=== PATIENT | male | born 1965 | race Hispanic/Latino ===

== ENCOUNTER 2019-07-05 13:16 | Inpatient (IN) | payer MEDICARE ==
[2019-07-05] MEDS ORDERED: MELATONIN 5 MG TAB PO PRN (21:59)
[2019-07-05 22:12] LABS: Chol/HDL Ratio 3.28 %
[2019-07-05] MEDS: LORazepam 1 MG TAB PO PRN (23:13)
[2019-07-05] MEDS: diphenhydrAMINE 25 MG CAP PO SCH (23:13)
[2019-07-05] MEDS: BENZTROPINE 0.5 MG TAB PO SCH (23:13)
[2019-07-05] MEDS: HALOPERIDOL 5 MG TAB PO SCH (23:13)
[2019-07-06] MEDS: OXcarbazepine 300 MG TAB PO SCH ×3 (01:00→22:19)
[2019-07-06] MEDS: BENZTROPINE 0.5 MG TAB PO SCH ×3 (08:45→22:23)
[2019-07-06] MEDS: diphenhydrAMINE 25 MG CAP PO SCH ×3 (08:45→22:23)
[2019-07-06] MEDS: HALOPERIDOL 5 MG TAB PO SCH (09:24)
--- NOTE | 2019-07-06 09:42 | Consultation ---
History of Present Illness - Reason for Consult Consult date: 07/06/19 medical Mx - History of Present Illness This is a 53 y/o male with h/o DM, HTN, schizophrenia who discharged from hospital after being treated for AMS and respiratory failure due to PNA required intubation and iv abx now admitted to inpt psych unit for acute psychosis. Patient has disorganized thought process and cannot articulate any fact and appears slightly agitated and irritable. Hospitalist service requested for medical Mx. Past History Past Medical History: stroke, DM, HTN, other (schizophrenia) Past Surgical History: Other (unknown) Social history: Family history: other (unknown) Review of System: Unobtainable due to his mental status Medications and Allergies Allergies Allergy/AdvReac Type Severity Reaction Status Date / Time aripiprazole [From Abilify] Allergy Hives Verified 06/27/19 09:43 aspirin Allergy Hives Verified 06/27/19 09:43 cephalexin [From Keflex] Allergy Hives Verified 06/27/19 09:43 chlorpromazine Allergy Hives Verified 06/27/19 09:43 ibuprofen Allergy Hives Verified 06/27/19 09:43 naproxen Allergy Hives Verified 06/27/19 09:43 ziprasidone [From Geodon] Allergy Hives Verified 06/27/19 09:43 Home Medications Medication Instructions Recorded Confirmed Last Taken Type AtorvaSTATin [Lipitor] 40 mg PO QHS 06/27/19 07/05/19 06/26/19 History Benztropine [Cogentin] 0.5 mg PO TID 06/27/19 07/05/19 06/26/19 History Clopidogrel [Plavix] 75 mg PO QDAY 06/27/19 07/05/19 06/26/19 History Fenofibrate 160 mg PO QDAY 06/27/19 07/05/19 06/26/19 History LORazepam [Ativan] 1 mg PO TID PRN 06/27/19 07/05/19 06/26/19 History Melatonin [Melatonin 5MG CAP] 5 mg PO QHS 06/27/19 07/05/19 06/26/19 History Metoprolol [Lopressor TAB] 100 mg PO QDAY 06/27/19 07/05/19 06/26/19 History OXcarbazepine [Oxtellar XR] 600 mg PO BID 06/27/19 07/05/19 06/26/19 History Sertraline [Zoloft] 50 mg PO QDAY 06/27/19 07/05/19 06/26/19 History Sitagliptin Phos/Metformin HCl 100 mg PO QDAY 06/27/19 07/05/19 06/26/19 History [Janumet 50-1,000 mg Tablet] cloZAPine 800 mg PO QHS 06/27/19 07/05/19 06/26/19 History diphenhydrAMINE [Benadryl CAP] 25 mg PO TID 06/27/19 07/05/19 06/26/19 History Insulin Regular, Human [HumuLIN R] 0 units SUB-Q Q6HR units 07/05/19 07/06/19 Unknown Rx haloperidoL [Haldol] 5 mg PO BID tablet 07/05/19 07/05/19 Unknown Rx metFORMIN [Glucophage] 1,000 mg PO DAILY tablet 07/05/19 07/05/19 Unknown Rx Active Meds: Active Medications Atorvastatin Calcium (Lipitor) 40 mg PO QHS [facility] Last Admin: 07/05/19 23:13 Dose: 40 mg Documented by: Benztropine Mesylate (Cogentin) 0.5 mg PO TID [facility] Last Admin: 07/06/19 08:45 Dose: 0.5 mg Documented by: Diphenhydramine HCl (Benadryl) 25 mg PO TID [facility] Last Admin: 07/06/19 08:45 Dose: 25 mg Documented by: Haloperidol (Haldol) 5 mg PO BID [facility] Last Admin: 07/06/19 09:24 Dose: 5 mg Documented by: Lorazepam (Ativan) 1 mg PO TID PRN PRN Reason: Anxiety Last Admin: 07/05/19 23:13 Dose: 1 mg Documented by: Melatonin (Melatonin) 5 mg PO QHS PRN PRN Reason: Sleep Last Admin: 07/06/19 02:45 Dose: 5 mg Documented by: Oxcarbazepine (Trileptal) 600 mg PO BID [facility] Last Admin: 07/06/19 09:24 Dose: 600 mg Documented by: Exam - Physical Exam Narrative exam: GENERAL: well-developed and well-nourished WM lying on bed appeared to be in no discomfort. HEENT: Normocephalic. Atraumatic. No conjunctival congestion or icterus. Patient has moist mucous membranes. NECK: Supple. Trachea midline. CHEST/LUNGS: Clear to auscultated bilaterally, breathing nonlabored. No wheezes crackles or rhonchi. HEART/CARDIOVASCULAR: Regular in rate and rhythm. S1 and S2 positive. ABDOMEN: Abdomen is soft, nontender. Patient has normal bowel sounds. SKIN: There is no rash. Warm and dry. NEURO: No focal motor deficit. MUSCULOSKELETAL: No joint effusion or tenderness. EXTRIMITY: No edema, no cyanosis or clubbing. PSYCH: Not Cooperative, appears confused with disorganized thought process and irritable. - Constitutional Vitals: Temp Pulse Resp BP Pulse Ox 98.1 F 64 15 122/64 95 07/05/19 22:00 07/05/19 22:00 07/05/19 22:00 07/05/19 22:00 07/05/19 22:00 Results - Labs CBC & Chem 7: 07/10/19 06:39 Labs: Abnormal lab results 07/05/19 07/05/19 07/05/19 Range/Units 20:55 21:07 21:07 POC Glucose 113 H (70-105) Hemoglobin A1c 6.3 H (4-6) % Triglycerides 188 H (2-149) mg/dL LDL Cholesterol Direct 47 L (50-130) mg/dL HDL Cholesterol 35 L (40-59) mg/dL Assessment and Plan h/o schizophrenia - Mx per primary h/o recent Hematemesis. - Protonix po twice daily for 4 weeks. h/o Acute hypoxic Respiratory failure required intubation - Flexible Bronchoscopy done by Dr. Stroud on 06/29/2019 - stable now, nebs as needed - saturating >92% on RA Recent h/o bilateral pneumonia with sepsis, stable now - completed his abx course Other chronic issues: HTN DM type 2 HLD History of stroke, - cont supportive care and home meds DVT px, SCD
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
[2019-07-06] MEDS ORDERED: CLOZAPINE PO SCH (10:30)
[2019-07-06] MEDS ORDERED: METFORMIN HCL PO SCH (10:30)
[2019-07-06] MEDS ORDERED: [UNRECOGNIZED DRUG - OTHER] PO SCH (10:30)
[2019-07-06] MEDS: CLOPIDOGREL 75 MG TAB PO SCH (11:36)
[2019-07-06] MEDS: SERTRALINE 50 MG TAB PO SCH (11:36)
[2019-07-06] MEDS: INSULIN REGULAR, HUMAN 100 UNITS/1 ML SUB-Q SCH ×2 (11:37→17:00)
[2019-07-06] MEDS ORDERED: MELATONIN 5 MG TAB PO SCH (22:00)
[2019-07-06] MEDS ORDERED: CLOZAPINE 100 MG PO SCH (22:00)
[2019-07-07] MEDS: INSULIN REGULAR, HUMAN 100 UNITS/1 ML SUB-Q SCH ×5 (01:20→21:19)
[2019-07-07] MEDS: HALOPERIDOL 5 MG TAB PO SCH ×3 (01:32→21:17)
[2019-07-07] MEDS: LORazepam 1 MG TAB PO PRN ×2 (01:34→22:02)
[2019-07-07] MEDS: OXcarbazepine 300 MG TAB PO SCH (09:06)
[2019-07-07] MEDS: BENZTROPINE 0.5 MG TAB PO SCH ×3 (09:06→21:15)
[2019-07-07] MEDS: SERTRALINE 50 MG TAB PO SCH (09:07)
[2019-07-07] MEDS: CLOPIDOGREL 75 MG TAB PO SCH (09:07)
[2019-07-07] MEDS: diphenhydrAMINE 25 MG CAP PO SCH ×3 (09:07→21:15)
--- NOTE | 2019-07-07 09:54 | Progress Note ---
Subjective Date of service: 07/07/19 Principal diagnosis: Bipolar Disorder, Current Episode Manic w/Phsychotic Features Subjective Comment: The patient's medical record was reviewed and the patient's progress was discussed with the nursing staff. The nurse note states the patient is sitting in the activity room with a male peer. They are laughing inappropriately at people. He is hyperverbal. His thought process presents as loose. During my interview with the patient this morning, he is lying in bed. Awake. a/o x 3. He is heard from the hallway talking to himself. He is difficulty to redirect. He is hyperverbal. He is having disorganized thinking. He has flight of ideas. He makes good eye contact. He says he's here for "extreme antelmo." The patient states "I feel superb." When assessing the patient's orientation, he tells me the date is "2027." He then states "I know it's 2019, but I purposely jumped time in my time machine bed." He says he "hates Trump and gotta find a way to have him removed." He says that he's "going blind." The patient says "voices keep telling me I'm going blind." He is rambling on about thoughts that do not make sense. He then says "I need a ride to the front." Reason for continuing inpatient treatment: The patient is manic, disorganized, with delusions and hallucinations. REVIEW OF SYSTEMS Constitutional: Negative for weight loss ENT: Negative for stridor Respiratory: Negative for cough or hemoptysis All other systems reviewed and are negative MSE Appearance: Awake. Dressed appropriately. Behavior: cooerpative Mood: "superb" Affect: incongruent, flat Thought Process: disorganized, flight of ideas Speech: hyperverbal, tangential Thought Content Suicidal: Denies Homicidal: Denies Hallucinations: Auditory Delusions: Yes Consciousness: Alert Cognition/Memory: Limited Insight/Judgment: Limited Diagnoses: Diagnoses: Bipolar Disorder, Current Episode Manic with Psychotic Features Treatment Plan Due to the psychiatric conditions and treatment listed in the Assessment and Plan - the patient requires continued hospitalization. Will continue inpatient treatment to allow for medication adjustment and monitoring. Will continue q15 min safety checks. Will encourage the use of environmental modifications and non-pharmacologic approaches for the management of behavioral and psychological symptoms. Medication adjustment made today: Started Depakote 250mg po BID Tapering Trileptal 450mg po BID, will taper every other day. CBC on . Will increase Clozaril by 50mg based on results of CBC Will continue current psych medications Monitor for medication side effects. The patient will continue on medications for physical illnesses, and Hospitalist will closely monitor these Continue intensive physical and occupational therapies. Monitor patient's mood, sleep, appetite, and behavior closely. Encourage patient to participate in individual and group therapeutic sessions on the irizarry. Will provide a safe and therapeutic environment for patient. Estimated length of stay 5 days Medications and Allergies Allergies Allergy/AdvReac Type Severity Reaction Status Date / Time aripiprazole [From Abilify] Allergy Hives Verified 06/27/19 09:43 aspirin Allergy Hives Verified 06/27/19 09:43 cephalexin [From Keflex] Allergy Hives Verified 06/27/19 09:43 chlorpromazine Allergy Hives Verified 06/27/19 09:43 ibuprofen Allergy Hives Verified 06/27/19 09:43 naproxen Allergy Hives Verified 06/27/19 09:43 ziprasidone [From Geodon] Allergy Hives Verified 06/27/19 09:43 Home Medications Medication Instructions Recorded Confirmed Last Taken Type AtorvaSTATin [Lipitor] 40 mg PO QHS 06/27/19 07/05/19 06/26/19 History Benztropine [Cogentin] 0.5 mg PO TID 06/27/19 07/05/19 06/26/19 History Clopidogrel [Plavix] 75 mg PO QDAY 06/27/19 07/05/19 06/26/19 History Fenofibrate 160 mg PO QDAY 06/27/19 07/05/19 06/26/19 History LORazepam [Ativan] 1 mg PO TID PRN 06/27/19 07/05/19 06/26/19 History Melatonin [Melatonin 5MG CAP] 5 mg PO QHS 06/27/19 07/05/19 06/26/19 History Metoprolol [Lopressor TAB] 100 mg PO QDAY 06/27/19 07/05/19 06/26/19 History OXcarbazepine [Oxtellar XR] 600 mg PO BID 06/27/19 07/05/19 06/26/19 History Sertraline [Zoloft] 50 mg PO QDAY 06/27/19 07/05/19 06/26/19 History Sitagliptin Phos/Metformin HCl 100 mg PO QDAY 06/27/19 07/05/19 06/26/19 History [Janumet 50-1,000 mg Tablet] cloZAPine 800 mg PO QHS 06/27/19 07/05/19 06/26/19 History diphenhydrAMINE [Benadryl CAP] 25 mg PO TID 06/27/19 07/05/19 06/26/19 History Insulin Regular, Human [HumuLIN R] 0 units SUB-Q Q6HR units 07/05/19 07/06/19 Unknown Rx haloperidoL [Haldol] 5 mg PO BID tablet 07/05/19 07/05/19 Unknown Rx metFORMIN [Glucophage] 1,000 mg PO DAILY tablet 07/05/19 07/05/19 Unknown Rx Active Meds: Active Medications Atorvastatin Calcium (Lipitor) 40 mg PO QHS [facility] Last Admin: 07/06/19 22:21 Dose: 40 mg Documented by: Benztropine Mesylate (Cogentin) 0.5 mg PO TID [facility] Last Admin: 07/07/19 09:06 Dose: 0.5 mg Documented by: Clopidogrel Bisulfate (Plavix) 75 mg PO QDAY [facility] Last Admin: 07/07/19 09:07 Dose: 75 mg Documented by: Clozapine (Clozapine (Nf)) 100 mg PO QHS [facility] Diphenhydramine HCl (Benadryl) 25 mg PO TID [facility] Last Admin: 07/07/19 09:07 Dose: 25 mg Documented by: Haloperidol (Haldol) 5 mg PO BID [facility] Last Admin: 07/07/19 09:06 Dose: 5 mg Documented by: Insulin Human Regular (Humulin R) 0 units SUB-Q Q6HR [facility]; Protocol Last Admin: 07/07/19 07:54 Dose: Not Given Documented by: Lorazepam (Ativan) 1 mg PO TID PRN PRN Reason: Anxiety Last Admin: 07/07/19 01:34 Dose: 1 mg Documented by: Miscellaneous Medication (Sitagliptin Phos/Metformin Hcl [Janumet 50-1,000 Mg Tablet]) 100 mg PO QDAY [facility] Oxcarbazepine (Trileptal) 600 mg PO BID [facility] Last Admin: 07/07/19 09:06 Dose: 600 mg Documented by: Sertraline HCl (Zoloft) 50 mg PO QDAY [facility] Last Admin: 07/07/19 09:07 Dose: 50 mg Documented by: Results - Results Labs/Vitals: Laboratory Last Values POC Glucose 96 (70-105) 07/07/19 07:52 Hemoglobin A1c 6.3 % (4-6) H 07/05/19 21:07 Triglycerides 188 mg/dL (2-149) H 07/05/19 21:07 Cholesterol 115 mg/dL (50-199) 07/05/19 21:07 LDL Cholesterol Direct 47 mg/dL (50-130) L 07/05/19 21:07 HDL Cholesterol 35 mg/dL (40-59) L 07/05/19 21:07 Cholesterol/HDL Ratio 3.28 % 07/05/19 21:07 Last Vital Signs Temp 98.0 F 07/06/19 20:27 Pulse 70 07/06/19 20:27 Resp 16 07/06/19 20:27 BP 125/63 07/06/19 20:27 Pulse Ox 96 07/06/19 20:27
[2019-07-07] MEDS: DIVALPROEX DR 250 MG TAB PO SCH ×2 (12:47→21:17)
[2019-07-07] MEDS: LINAGLIPTIN 5 MG TAB PO SCH (12:47)
[2019-07-07] MEDS: OXcarbazepine 150 MG TAB PO SCH (21:18)
[2019-07-07] MEDS ORDERED: CLOZAPINE 100 MG PO SCH (22:00)
[2019-07-08] MEDS: LORazepam 1 MG TAB PO PRN ×2 (00:58→12:51)
[2019-07-08] MEDS: INSULIN REGULAR, HUMAN 100 UNITS/1 ML SUB-Q SCH ×4 (07:45→22:27)
[2019-07-08] MEDS: BENZTROPINE 0.5 MG TAB PO SCH ×3 (09:34→22:12)
[2019-07-08] MEDS: diphenhydrAMINE 25 MG CAP PO SCH ×3 (09:34→22:12)
[2019-07-08] MEDS: HALOPERIDOL 5 MG TAB PO SCH ×2 (09:35→22:11)
[2019-07-08] MEDS: SERTRALINE 50 MG TAB PO SCH (09:35)
[2019-07-08] MEDS: OXcarbazepine 150 MG TAB PO SCH ×2 (09:35→22:11)
[2019-07-08] MEDS: metFORMIN XR 500MG TAB PO SCH (09:35)
[2019-07-08] MEDS: DIVALPROEX DR 250 MG TAB PO SCH ×2 (09:35→22:12)
[2019-07-08] MEDS: CLOPIDOGREL 75 MG TAB PO SCH (09:35)
[2019-07-08] MEDS: LINAGLIPTIN 5 MG TAB PO SCH (09:36)
--- NOTE | 2019-07-08 11:03 | Progress Note ---
Subjective Date of service: 07/08/19 Principal diagnosis: Bipolar Disorder, Current Episode Manic w/Phsychotic Features Subjective Comment: The patient's medical record was reviewed and the patient's progress was discussed with the nursing staff. The nurse note states, Pt. pacing in the hallway, this staff redirecting pt. to activity room, but pt makes a fits with his right hand towards staff. A male house keeping cleaning the hallway, re- enforced re-directing pt to activity room, pt. then started moving back towards the activity room. During my interview with the patient this morning, the patient was sitting in the day room, he is alert oriented x3, patient is dressed appropriately he is able to make his needs known, maintains intermittent eye contact. The patient appears restless, he reports that he sleeps on and off and reports a good appetite. While talking to the patient the patient got up and took the sausage from his plate and place it in another resident's plate, the patient was told that he could not do that the patient became aggressive and agitated. The patient got up push the table away and walk away. Patient states, "I do not want the food". The patient denies suicidal or homicidal ideation he also denies visual or auditory hallucinations. Patient contracts for safety. The patient is noted with intermittent confusion, disorganized thoughts. The patient is responding to internal stimuli, the patient is noted at times mumbling to himself. Reason for continuing inpatient treatment: The patient is disorganized, with delusions and hallucinations. REVIEW OF SYSTEMS Constitutional: Negative for weight loss ENT: Negative for stridor Respiratory: Negative for cough or hemoptysis All other systems reviewed and are negative MSE Appearance: Awake. Dressed appropriately. Behavior: Agitated Mood: "good" Affect: incongruent, flat Thought Process: disorganized, flight of ideas Speech: hyperverbal, tangential Thought Content Suicidal: Denies Homicidal: Denies Hallucinations: denies Delusions: Yes Consciousness: Alert Cognition/Memory: Limited Insight/Judgment: Limited Diagnoses: Diagnoses: Bipolar Disorder, Current Episode Manic with Psychotic Features Treatment Plan Due to the psychiatric conditions and treatment listed in the Assessment and Plan - the patient requires continued hospitalization. Will continue inpatient treatment to allow for medication adjustment and monitoring. Will continue q15 min safety checks. Will encourage the use of environmental modifications and non-pharmacologic approaches for the management of behavioral and psychological symptoms. Medication adjustment made today: clozaril increase 150mg qhs Tapering Trileptal 450mg po BID, will taper every other day. CBC on . Will increase Clozaril by 50mg based on results of CBC Will continue current psych medications Monitor for medication side effects. The patient will continue on medications for physical illnesses, and Hospitalist will closely monitor these Continue intensive physical and occupational therapies. Monitor patient's mood, sleep, appetite, and behavior closely. Encourage patient to participate in individual and group therapeutic sessions on the irizarry. Will provide a safe and therapeutic environment for patient. Estimated length of stay 5 days Medications and Allergies Allergies Allergy/AdvReac Type Severity Reaction Status Date / Time aripiprazole [From Abilify] Allergy Hives Verified 06/27/19 09:43 aspirin Allergy Hives Verified 06/27/19 09:43 cephalexin [From Keflex] Allergy Hives Verified 06/27/19 09:43 chlorpromazine Allergy Hives Verified 06/27/19 09:43 ibuprofen Allergy Hives Verified 06/27/19 09:43 naproxen Allergy Hives Verified 06/27/19 09:43 ziprasidone [From Geodon] Allergy Hives Verified 06/27/19 09:43 Home Medications Medication Instructions Recorded Confirmed Last Taken Type AtorvaSTATin [Lipitor] 40 mg PO QHS 06/27/19 07/05/19 06/26/19 History Benztropine [Cogentin] 0.5 mg PO TID 06/27/19 07/05/19 06/26/19 History Clopidogrel [Plavix] 75 mg PO QDAY 06/27/19 07/05/19 06/26/19 History Fenofibrate 160 mg PO QDAY 06/27/19 07/05/19 06/26/19 History LORazepam [Ativan] 1 mg PO TID PRN 06/27/19 07/05/19 06/26/19 History Melatonin [Melatonin 5MG CAP] 5 mg PO QHS 06/27/19 07/05/19 06/26/19 History Metoprolol [Lopressor TAB] 100 mg PO QDAY 06/27/19 07/05/19 06/26/19 History OXcarbazepine [Oxtellar XR] 600 mg PO BID 06/27/19 07/05/19 06/26/19 History Sertraline [Zoloft] 50 mg PO QDAY 06/27/19 07/05/19 06/26/19 History Sitagliptin Phos/Metformin HCl 100 mg PO QDAY 06/27/19 07/05/19 06/26/19 History [Janumet 50-1,000 mg Tablet] cloZAPine 800 mg PO QHS 06/27/19 07/05/19 06/26/19 History diphenhydrAMINE [Benadryl CAP] 25 mg PO TID 06/27/19 07/05/19 06/26/19 History Insulin Regular, Human [HumuLIN R] 0 units SUB-Q Q6HR units 07/05/19 07/06/19 Unknown Rx haloperidoL [Haldol] 5 mg PO BID tablet 07/05/19 07/05/19 Unknown Rx metFORMIN [Glucophage] 1,000 mg PO DAILY tablet 07/05/19 07/05/19 Unknown Rx Active Meds: Active Medications Atorvastatin Calcium (Lipitor) 40 mg PO QHS [facility] Last Admin: 07/07/19 22:02 Dose: 40 mg Documented by: Benztropine Mesylate (Cogentin) 0.5 mg PO TID [facility] Last Admin: 07/08/19 09:34 Dose: 0.5 mg Documented by: Clopidogrel Bisulfate (Plavix) 75 mg PO QDAY [facility] Last Admin: 07/08/19 09:35 Dose: 75 mg Documented by: Clozapine (Clozapine (Nf)) 100 mg PO QHS [facility] Last Admin: 07/07/19 21:16 Dose: 100 mg Documented by: Diphenhydramine HCl (Benadryl) 25 mg PO TID [facility] Last Admin: 07/08/19 09:34 Dose: 25 mg Documented by: Divalproex Sodium (Depakote Dr) 250 mg PO BID [facility] Last Admin: 07/08/19 09:35 Dose: 250 mg Documented by: Haloperidol (Haldol) 5 mg PO BID [facility] Last Admin: 07/08/19 09:35 Dose: 5 mg Documented by: Insulin Human Regular (Humulin R) 0 units SUB-Q ACHS [facility]; Protocol Last Admin: 07/08/19 07:45 Dose: Not Given Documented by: Linagliptin (Tradjenta) 5 mg PO QDAY [facility] Last Admin: 07/08/19 09:36 Dose: 5 mg Documented by: Lorazepam (Ativan) 1 mg PO TID PRN PRN Reason: Anxiety Last Admin: 07/08/19 00:58 Dose: 1 mg Documented by: Metformin HCl (Glucophage Xr) 1,000 mg PO QDDIAB [facility] Last Admin: 07/08/19 09:35 Dose: 1,000 mg Documented by: Oxcarbazepine (Trileptal) 450 mg PO BID [facility] Last Admin: 07/08/19 09:35 Dose: 450 mg Documented by: Sertraline HCl (Zoloft) 50 mg PO QDAY [facility] Last Admin: 07/08/19 09:35 Dose: 50 mg Documented by: Results - Results Labs/Vitals: Laboratory Last Values POC Glucose 95 (70-105) 07/08/19 06:45 Hemoglobin A1c 6.3 % (4-6) H 07/05/19 21:07 Triglycerides 188 mg/dL (2-149) H 07/05/19 21:07 Cholesterol 115 mg/dL (50-199) 07/05/19 21:07 LDL Cholesterol Direct 47 mg/dL (50-130) L 07/05/19 21:07 HDL Cholesterol 35 mg/dL (40-59) L 07/05/19 21:07 Cholesterol/HDL Ratio 3.28 % 07/05/19 21:07 Last Vital Signs Temp 98.0 F 07/07/19 19:45 Pulse 86 07/07/19 19:45 Resp 20 07/07/19 19:45 BP 145/81 07/07/19 19:45 Pulse Ox 97 07/07/19 19:45
[2019-07-08] MEDS ORDERED: LORazepam 2 MG/ML VIAL IV PRN (13:31)
[2019-07-08] MEDS ORDERED: LORazepam 2 MG/ML VIAL IV ONE (13:35)
[2019-07-08] MEDS ORDERED: LORazepam 2 MG/ML VIAL IM ONE (15:00)
[2019-07-08] MEDS: CLOZAPINE 100 MG PO SCH (22:54)
--- NOTE | 2019-07-09 09:20 | Progress Note ---
Subjective Date of service: 07/09/19 Principal diagnosis: Bipolar Disorder, Current Episode Manic w/Phsychotic Features Subjective Comment: The patient's medical record was reviewed and the patient's progress was discussed with the nursing staff. The nurse note states, Pt awake sitting at the edge of bed asking to be help up. He was weak. Assisted to [facility]. Full set of V/S taking. O2Sat 93% on room air, BP 128/66, P 76, R 20, T 98.1. Sitting quietly in the activity room During my interview with the patient this morning, the patient was sitting in the day room, he is alert oriented x2, patient is dressed appropriately he is able to make his needs known, maintains intermittent eye contact. The patient appears restless and agitated,easily directed atr times. he reports that he sleeps on and off and reports a good appetite. He denies suicidal or homicidal ideations. The patient does report hearing voices and states, "I cannot tell you now what they are saying" he denies visual hallucination. He reports his mood is good. The patient's is noted for pacing at times and not easily directed. While talking to the patient the patient took his socks off and threw it on another resident, patient appears irritable when spoken to. The patient remains disorganized with intermittent confusion. Reason for continuing inpatient treatment: The patient is disorganized, with delusions and hallucinations. REVIEW OF SYSTEMS Constitutional: Negative for weight loss ENT: Negative for stridor Respiratory: Negative for cough or hemoptysis All other systems reviewed and are negative MSE Appearance: Awake. Dressed appropriately. Behavior: Agitated Mood: "good" Affect: incongruent, flat Thought Process: disorganized, Speech: tangential Thought Content Suicidal: Denies Homicidal: Denies Hallucinations: Auditory Delusions: Yes Consciousness: Alert Cognition/Memory: Limited Insight/Judgment: Poor Diagnoses: Diagnoses: Bipolar Disorder, Current Episode Manic with Psychotic Features Treatment Plan Due to the psychiatric conditions and treatment listed in the Assessment and Plan - the patient requires continued hospitalization. Will continue inpatient treatment to allow for medication adjustment and monitoring. Will continue q15 min safety checks. Will encourage the use of environmental modifications and non-pharmacologic approaches for the management of behavioral and psychological symptoms. Medication adjustment made today: Tapering Trileptal 300mg po BID, will taper every other day. CBC on . Will increase Clozaril by 50mg based on results of CBC Will continue current psych medications Monitor for medication side effects. The patient will continue on medications for physical illnesses, and Hospitalist will closely monitor these Continue intensive physical and occupational therapies. Monitor patient's mood, sleep, appetite, and behavior closely. Encourage patient to participate in individual and group therapeutic sessions on the irizarry. Will provide a safe and therapeutic environment for patient. Estimated length of stay 5 days Medications and Allergies Allergies Allergy/AdvReac Type Severity Reaction Status Date / Time aripiprazole [From Abilify] Allergy Hives Verified 06/27/19 09:43 aspirin Allergy Hives Verified 06/27/19 09:43 cephalexin [From Keflex] Allergy Hives Verified 06/27/19 09:43 chlorpromazine Allergy Hives Verified 06/27/19 09:43 ibuprofen Allergy Hives Verified 06/27/19 09:43 naproxen Allergy Hives Verified 06/27/19 09:43 ziprasidone [From Geodon] Allergy Hives Verified 06/27/19 09:43 Home Medications Medication Instructions Recorded Confirmed Last Taken Type AtorvaSTATin [Lipitor] 40 mg PO QHS 06/27/19 07/05/19 06/26/19 History Benztropine [Cogentin] 0.5 mg PO TID 06/27/19 07/05/19 06/26/19 History Clopidogrel [Plavix] 75 mg PO QDAY 06/27/19 07/05/19 06/26/19 History Fenofibrate 160 mg PO QDAY 06/27/19 07/05/19 06/26/19 History LORazepam [Ativan] 1 mg PO TID PRN 06/27/19 07/05/19 06/26/19 History Melatonin [Melatonin 5MG CAP] 5 mg PO QHS 06/27/19 07/05/19 06/26/19 History Metoprolol [Lopressor TAB] 100 mg PO QDAY 06/27/19 07/05/19 06/26/19 History OXcarbazepine [Oxtellar XR] 600 mg PO BID 06/27/19 07/05/19 06/26/19 History Sertraline [Zoloft] 50 mg PO QDAY 06/27/19 07/05/19 06/26/19 History Sitagliptin Phos/Metformin HCl 100 mg PO QDAY 06/27/19 07/05/19 06/26/19 History [Janumet 50-1,000 mg Tablet] cloZAPine 800 mg PO QHS 06/27/19 07/05/19 06/26/19 History diphenhydrAMINE [Benadryl CAP] 25 mg PO TID 06/27/19 07/05/19 06/26/19 History Insulin Regular, Human [HumuLIN R] 0 units SUB-Q Q6HR units 07/05/19 07/06/19 Unknown Rx haloperidoL [Haldol] 5 mg PO BID tablet 07/05/19 07/05/19 Unknown Rx metFORMIN [Glucophage] 1,000 mg PO DAILY tablet 07/05/19 07/05/19 Unknown Rx Active Meds: Active Medications Atorvastatin Calcium (Lipitor) 40 mg PO QHS [facility] Last Admin: 07/08/19 22:12 Dose: 40 mg Documented by: Benztropine Mesylate (Cogentin) 0.5 mg PO TID [facility] Last Admin: 07/08/19 22:12 Dose: 0.5 mg Documented by: Clopidogrel Bisulfate (Plavix) 75 mg PO QDAY [facility] Last Admin: 07/08/19 09:35 Dose: 75 mg Documented by: Clozapine (Clozapine (Nf)) 150 mg PO QHS [facility] Last Admin: 07/08/19 22:54 Dose: 150 mg Documented by: Diphenhydramine HCl (Benadryl) 25 mg PO TID [facility] Last Admin: 07/08/19 22:12 Dose: 25 mg Documented by: Divalproex Sodium (Depakote Dr) 250 mg PO BID [facility] Last Admin: 07/08/19 22:12 Dose: 250 mg Documented by: Haloperidol (Haldol) 5 mg PO BID [facility] Last Admin: 07/08/19 22:11 Dose: 5 mg Documented by: Insulin Human Regular (Humulin R) 0 units SUB-Q [facility]; Protocol Last Admin: 07/08/19 22:27 Dose: Not Given Documented by: Linagliptin (Tradjenta) 5 mg PO QDAY [facility] Last Admin: 07/08/19 09:36 Dose: 5 mg Documented by: Lorazepam (Ativan) 1 mg PO TID PRN PRN Reason: Anxiety Last Admin: 07/08/19 12:51 Dose: 1 mg Documented by: Lorazepam (Ativan) 2 mg IM Q4H PRN PRN Reason: Agitation Metformin HCl (Glucophage Xr) 1,000 mg PO QDDIAB [facility] Last Admin: 07/08/19 09:35 Dose: 1,000 mg Documented by: Oxcarbazepine (Trileptal) 300 mg PO BID [facility] Sertraline HCl (Zoloft) 50 mg PO QDAY [facility] Last Admin: 07/08/19 09:35 Dose: 50 mg Documented by: Results - Results Labs/Vitals: Laboratory Last Values POC Glucose 82 (70-105) 07/09/19 06:26 Hemoglobin A1c 6.3 % (4-6) H 07/05/19 21:07 Triglycerides 188 mg/dL (2-149) H 07/05/19 21:07 Cholesterol 115 mg/dL (50-199) 07/05/19 21:07 LDL Cholesterol Direct 47 mg/dL (50-130) L 07/05/19 21:07 HDL Cholesterol 35 mg/dL (40-59) L 07/05/19 21:07 Cholesterol/HDL Ratio 3.28 % 07/05/19 21:07 Last Vital Signs Temp 98.1 F 07/09/19 06:09 Pulse 70 07/09/19 06:09 Resp 20 07/09/19 06:09 BP 128/68 07/09/19 06:09 Pulse Ox 94 07/09/19 06:09
[2019-07-09] MEDS: DIVALPROEX DR 250 MG TAB PO SCH ×2 (09:55→21:15)
[2019-07-09] MEDS: metFORMIN XR 500MG TAB PO SCH (09:55)
[2019-07-09] MEDS: SERTRALINE 50 MG TAB PO SCH (09:56)
[2019-07-09] MEDS: CLOPIDOGREL 75 MG TAB PO SCH (09:56)
[2019-07-09] MEDS: diphenhydrAMINE 25 MG CAP PO SCH ×3 (09:56→20:26)
[2019-07-09] MEDS: LINAGLIPTIN 5 MG TAB PO SCH (09:56)
[2019-07-09] MEDS: BENZTROPINE 0.5 MG TAB PO SCH ×3 (09:56→20:26)
[2019-07-09] MEDS: INSULIN REGULAR, HUMAN 100 UNITS/1 ML SUB-Q SCH ×4 (09:57→21:19)
[2019-07-09] MEDS: LORazepam 1 MG TAB PO PRN ×2 (14:09→23:27)
[2019-07-09] MEDS: HALOPERIDOL 5 MG TAB PO SCH ×2 (14:09→21:16)
[2019-07-09] MEDS ORDERED: LORazepam 2 MG/ML VIAL IM ONE (16:00)
[2019-07-09] MEDS: OXcarbazepine 300 MG TAB PO SCH ×2 (16:03→21:16)
[2019-07-09] MEDS: CLOZAPINE 100 MG PO SCH (21:15)
[2019-07-10 07:14] LABS: Basophils % (Auto) 0.4 % (0.0-1.8); Eosinophils # (Auto) 0.1 K/mm3 (0.0-0.4); Eosinophils % (Auto) 1.3 % (0.0-4.3); Hematocrit 32.5 % (35.5-45.6); Hemoglobin 11.1 gm/dl (11.8-15.2); Lymphocytes # (Auto) 1.2 K/mm3 (1.2-5.4); Lymphocytes % (Auto) 16.3 % (13.4-35.0); Mean Corpuscular HGB Conc 34 % (32-34); Mean Corpuscular Volume 90 fl (84-94); Monocytes # (Auto) 0.6 K/mm3 (0.0-0.8); Platelet Count 256 K/mm3 (140-440); Red Blood Count 3.62 M/mm3 (3.65-5.03); Red Cell Distribution Width 13.9 % (13.2-15.2)
[2019-07-10] MEDS: INSULIN REGULAR, HUMAN 100 UNITS/1 ML SUB-Q SCH ×4 (08:12→22:00)
--- NOTE | 2019-07-10 08:13 | Progress Note ---
Subjective Date of service: 07/10/19 Principal diagnosis: Bipolar Disorder, Current Episode Manic w/Phsychotic Features Subjective Comment: The patient's medical record was reviewed and the patient's progress was discussed with the nursing staff. The nurse note states, Ativan 1mg po given at 2327 for restlessness with effect, pt slept for 6hrs, presently asleep at this time, will continue to monitor for safety, sitter at bedside. During my interview with the patient this morning, the patient was ambulating in the hallway mumbling to himself. He is alert oriented x2, patient is dressed appropriately he is able to make his needs known, maintains intermittent eye contact. The patient appears restless ,easily directed at times. He reports that he sleeps on and off and reports a good appetite. He denies suicidal or homicidal ideations. The patient report hearing voices and states, "they are just mumbling. He denies visual hallucination. He reports his mood is good and states, I am trying to get myself some gas for the day to get out of here". the patient remain with intermittent confusion, disorganized thoughts. Reason for continuing inpatient treatment: The patient is disorganized, with delusions and hallucinations. REVIEW OF SYSTEMS Constitutional: Negative for weight loss ENT: Negative for stridor Respiratory: Negative for cough or hemoptysis All other systems reviewed and are negative MSE Appearance: Awake. Dressed appropriately. Behavior:pacing Mood: "good" Affect: labile Thought Process: disorganized, Speech: tangential Thought Content Suicidal: Denies Homicidal: Denies Hallucinations: Auditory Delusions: Yes Consciousness: Alert Cognition/Memory: Limited Insight/Judgment: Poor Diagnoses: Diagnoses: Bipolar Disorder, Current Episode Manic with Psychotic Features Treatment Plan Due to the psychiatric conditions and treatment listed in the Assessment and Plan - the patient requires continued hospitalization. Will continue inpatient treatment to allow for medication adjustment and monitoring. Will continue q15 min safety checks. Will encourage the use of environmental modifications and non-pharmacologic approaches for the management of behavioral and psychological symptoms. Medication adjustment made today: increase clozaril to 200mg daily, increase haldol 5mg tid, cbc with diff jul 16 Will continue current psych medications Monitor for medication side effects. The patient will continue on medications for physical illnesses, and Hospitalist will closely monitor these Continue intensive physical and occupational therapies. Monitor patient's mood, sleep, appetite, and behavior closely. Encourage patient to participate in individual and group therapeutic sessions on the irizarry. Will provide a safe and therapeutic environment for patient. Estimated length of stay 5 days Medications and Allergies Allergies Allergy/AdvReac Type Severity Reaction Status Date / Time aripiprazole [From Abilify] Allergy Hives Verified 06/27/19 09:43 aspirin Allergy Hives Verified 06/27/19 09:43 cephalexin [From Keflex] Allergy Hives Verified 06/27/19 09:43 chlorpromazine Allergy Hives Verified 06/27/19 09:43 ibuprofen Allergy Hives Verified 06/27/19 09:43 naproxen Allergy Hives Verified 06/27/19 09:43 ziprasidone [From Geodon] Allergy Hives Verified 06/27/19 09:43 Home Medications Medication Instructions Recorded Confirmed Last Taken Type AtorvaSTATin [Lipitor] 40 mg PO QHS 06/27/19 07/05/19 06/26/19 History Benztropine [Cogentin] 0.5 mg PO TID 06/27/19 07/05/19 06/26/19 History Clopidogrel [Plavix] 75 mg PO QDAY 06/27/19 07/05/19 06/26/19 History Fenofibrate 160 mg PO QDAY 06/27/19 07/05/19 06/26/19 History LORazepam [Ativan] 1 mg PO TID PRN 06/27/19 07/05/19 06/26/19 History Melatonin [Melatonin 5MG CAP] 5 mg PO QHS 06/27/19 07/05/19 06/26/19 History Metoprolol [Lopressor TAB] 100 mg PO QDAY 06/27/19 07/05/19 06/26/19 History OXcarbazepine [Oxtellar XR] 600 mg PO BID 06/27/19 07/05/19 06/26/19 History Sertraline [Zoloft] 50 mg PO QDAY 06/27/19 07/05/19 06/26/19 History Sitagliptin Phos/Metformin HCl 100 mg PO QDAY 06/27/19 07/05/19 06/26/19 History [Janumet 50-1,000 mg Tablet] cloZAPine 800 mg PO QHS 06/27/19 07/05/19 06/26/19 History diphenhydrAMINE [Benadryl CAP] 25 mg PO TID 06/27/19 07/05/19 06/26/19 History Insulin Regular, Human [HumuLIN R] 0 units SUB-Q Q6HR units 07/05/19 07/06/19 Unknown Rx haloperidoL [Haldol] 5 mg PO BID tablet 07/05/19 07/05/19 Unknown Rx metFORMIN [Glucophage] 1,000 mg PO DAILY tablet 07/05/19 07/05/19 Unknown Rx Active Meds: Active Medications Atorvastatin Calcium (Lipitor) 40 mg PO QHS [facility] Last Admin: 07/09/19 21:16 Dose: 40 mg Documented by: Benztropine Mesylate (Cogentin) 0.5 mg PO TID [facility] Last Admin: 07/09/19 20:26 Dose: 0.5 mg Documented by: Clopidogrel Bisulfate (Plavix) 75 mg PO QDAY [facility] Last Admin: 07/09/19 09:56 Dose: 75 mg Documented by: Clozapine (Clozapine (Nf)) 150 mg PO QHS [facility] Last Admin: 07/09/19 21:15 Dose: 150 mg Documented by: Diphenhydramine HCl (Benadryl) 25 mg PO TID [facility] Last Admin: 07/09/19 20:26 Dose: 25 mg Documented by: Divalproex Sodium (Depakote Dr) 250 mg PO BID [facility] Last Admin: 07/09/19 21:15 Dose: 250 mg Documented by: Haloperidol (Haldol) 5 mg PO TID [facility] Insulin Human Regular (Humulin R) 0 units SUB-Q ACHS [facility]; Protocol Last Admin: 07/09/19 21:19 Dose: Not Given Documented by: Linagliptin (Tradjenta) 5 mg PO QDAY [facility] Last Admin: 07/09/19 09:56 Dose: 5 mg Documented by: Lorazepam (Ativan) 1 mg PO TID PRN PRN Reason: Anxiety Last Admin: 07/09/19 23:27 Dose: 1 mg Documented by: Lorazepam (Ativan) 2 mg IM Q4H PRN PRN Reason: Agitation Metformin HCl (Glucophage Xr) 1,000 mg PO QDDIAB [facility] Last Admin: 07/09/19 09:55 Dose: 1,000 mg Documented by: Oxcarbazepine (Trileptal) 300 mg PO BID [facility] Last Admin: 07/09/19 21:16 Dose: 300 mg Documented by: Sertraline HCl (Zoloft) 50 mg PO QDAY [facility] Last Admin: 07/09/19 09:56 Dose: 50 mg Documented by: Results - Results Labs/Vitals: Laboratory Last Values WBC 7.3 K/mm3 (4.5-11.0) 07/10/19 06:39 RBC 3.62 M/mm3 (3.65-5.03) L 07/10/19 06:39 Hgb 11.1 gm/dl (11.8-15.2) L 07/10/19 06:39 Hct 32.5 % (35.5-45.6) L 07/10/19 06:39 MCV 90 fl (84-94) 07/10/19 06:39 MCH 31 pg (28-32) 07/10/19 06:39 MCHC 34 % (32-34) 07/10/19 06:39 RDW 13.9 % (13.2-15.2) 07/10/19 06:39 Plt Count 256 K/mm3 (140-440) 07/10/19 06:39 Lymph % (Auto) 16.3 % (13.4-35.0) 07/10/19 06:39 [place] % (Auto) 8.0 % (0.0-7.3) H 07/10/19 06:39 Eos % (Auto) 1.3 % (0.0-4.3) 07/10/19 06:39 Baso % (Auto) 0.4 % (0.0-1.8) 07/10/19 06:39 Lymph # 1.2 K/mm3 (1.2-5.4) 07/10/19 06:39 [place] # 0.6 K/mm3 (0.0-0.8) 07/10/19 06:39 Eos # 0.1 K/mm3 (0.0-0.4) 07/10/19 06:39 Baso # 0.0 K/mm3 (0.0-0.1) 07/10/19 06:39 Seg Neutrophils % 74.0 % (40.0-70.0) H 07/10/19 06:39 Seg Neutrophils # 5.4 K/mm3 (1.8-7.7) 07/10/19 06:39 POC Glucose 78 (70-105) 07/10/19 06:45 Hemoglobin A1c 6.3 % (4-6) H 07/05/19 21:07 Triglycerides 188 mg/dL (2-149) H 07/05/19 21:07 Cholesterol 115 mg/dL (50-199) 07/05/19 21:07 LDL Cholesterol Direct 47 mg/dL (50-130) L 07/05/19 21:07 HDL Cholesterol 35 mg/dL (40-59) L 07/05/19 21:07 Cholesterol/HDL Ratio 3.28 % 07/05/19 21:07 Last Vital Signs Temp 98.3 F 07/09/19 09:15 Pulse 80 07/09/19 22:00 Resp 18 07/09/19 22:00 BP 125/67 07/09/19 22:00 Pulse Ox 98 07/09/19 22:00
[2019-07-10] MEDS ORDERED: CLOZAPINE 100 MG PO SCH (08:35)
[2019-07-10] MEDS: DIVALPROEX DR 250 MG TAB PO SCH ×2 (09:11→22:53)
[2019-07-10] MEDS: diphenhydrAMINE 25 MG CAP PO SCH ×3 (09:11→22:53)
[2019-07-10] MEDS: metFORMIN XR 500MG TAB PO SCH (09:12)
[2019-07-10] MEDS: CLOPIDOGREL 75 MG TAB PO SCH (09:12)
[2019-07-10] MEDS: SERTRALINE 50 MG TAB PO SCH (09:12)
[2019-07-10] MEDS: HALOPERIDOL 5 MG TAB PO SCH ×3 (09:12→22:57)
[2019-07-10] MEDS: OXcarbazepine 300 MG TAB PO SCH (09:13)
[2019-07-10] MEDS: LINAGLIPTIN 5 MG TAB PO SCH (09:13)
[2019-07-10] MEDS: BENZTROPINE 0.5 MG TAB PO SCH ×3 (10:22→22:53)
[2019-07-10] MEDS: LORazepam 1 MG TAB PO PRN (10:38)
[2019-07-10] MEDS: LORazepam 2 MG/ML VIAL IM PRN (14:39)
[2019-07-11] MEDS ORDERED: CLOZAPINE 100 MG PO SCH ×4 (07:29→22:00)
[2019-07-11] MEDS: INSULIN REGULAR, HUMAN 100 UNITS/1 ML SUB-Q SCH ×4 (08:30→21:44)
[2019-07-11] MEDS ORDERED: OXcarbazepine 300 MG TAB PO SCH ×2 (10:00)
[2019-07-11] MEDS ORDERED: OXcarbazepine 150 MG TAB PO SCH (10:00)
[2019-07-11] MEDS: metFORMIN XR 500MG TAB PO SCH (10:01)
[2019-07-11] MEDS: HALOPERIDOL 5 MG TAB PO SCH ×3 (10:01→21:42)
[2019-07-11] MEDS: DIVALPROEX DR 250 MG TAB PO SCH ×2 (10:01→21:43)
[2019-07-11] MEDS: diphenhydrAMINE 25 MG CAP PO SCH ×3 (10:01→21:42)
[2019-07-11] MEDS: CLOPIDOGREL 75 MG TAB PO SCH (10:01)
[2019-07-11] MEDS: SERTRALINE 50 MG TAB PO SCH (10:02)
[2019-07-11] MEDS: LINAGLIPTIN 5 MG TAB PO SCH (10:02)
[2019-07-11] MEDS: BENZTROPINE 0.5 MG TAB PO SCH ×3 (10:02→21:42)
[2019-07-11] MEDS: LORazepam 0.5 MG TAB PO SCH ×2 (10:07→21:43)
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
[2019-07-12] MEDS: LORazepam 2 MG/ML VIAL IM PRN ×2 (01:39→18:36)
--- NOTE | 2019-07-12 08:09 | Progress Note ---
Subjective Date of service: 07/12/19 Principal diagnosis: Bipolar Disorder, Current Episode Manic w/Phsychotic Features Subjective Comment: The patient's medical record was reviewed and the patient's progress was discussed with the nursing staff. Patient slept until around 5 am. He only slept 3 1/2 hours continually. He is up pacing the hallways, refusing to go rest further. Will continue to monitor for safety. During my interview with the patient this morning, the patient was noted pacing and mumbling in the hallway. The patient is alert oriented x2, he maintains intermittent eye contact. When asked about suicidal or homicidal ideation this sheet writer was unable to understand the patient as he was just mumbling. When asked about visual or auditory hallucination the patient continue to mumbles then states, "I am trying to rev up for the day". Spoke with the patient's this morning who stated that she would like the Depakote discontinued because they have tried it before and it never worked, she would also like the Zoloft to be discontinued he was never on Zoloft the medication was put in when he was first admitted and actually she is the one that is on Zoloft. She reports that the patient has been taking Trileptal 600 twice daily for 8 years and it works for him she is requesting for the patient to be placed back on Trileptal. She also stated the patient has been taking Ativan 1 mg over the years 3 times daily and requesting that the medication start as this is the only way the patient will remain safe. Reason for continuing inpatient treatment: The patient is disorganized, with delusions and hallucinations. REVIEW OF SYSTEMS Constitutional: Negative for weight loss ENT: Negative for stridor Respiratory: Negative for cough or hemoptysis All other systems reviewed and are negative MSE unable to assess Diagnoses: Diagnoses: Bipolar Disorder, Current Episode Manic with Psychotic Features Treatment Plan Due to the psychiatric conditions and treatment listed in the Assessment and Plan - the patient requires continued hospitalization. Will continue inpatient treatment to allow for medication adjustment and monitoring. Will continue q15 min safety checks. Will encourage the use of environmental modifications and non-pharmacologic approaches for the management of behavioral and psychological symptoms. Medication adjustment made today: d/c depakote- request d/c zoloft - request increase clozaril to 350mg qhs increase ativan 1mg bid trileptal 450mg bid Will continue current psych medications Monitor for medication side effects. The patient will continue on medications for physical illnesses, and Hospitalist will closely monitor these Continue intensive physical and occupational therapies. Monitor patient's mood, sleep, appetite, and behavior closely. Encourage patient to participate in individual and group therapeutic sessions on the irizarry. Will provide a safe and therapeutic environment for patient. Estimated length of stay 5 days Medications and Allergies Allergies Allergy/AdvReac Type Severity Reaction Status Date / Time aripiprazole [From Abilify] Allergy Hives Verified 06/27/19 09:43 aspirin Allergy Hives Verified 06/27/19 09:43 cephalexin [From Keflex] Allergy Hives Verified 06/27/19 09:43 chlorpromazine Allergy Hives Verified 06/27/19 09:43 ibuprofen Allergy Hives Verified 06/27/19 09:43 naproxen Allergy Hives Verified 06/27/19 09:43 ziprasidone [From Geodon] Allergy Hives Verified 06/27/19 09:43 Home Medications Medication Instructions Recorded Confirmed Last Taken Type AtorvaSTATin [Lipitor] 40 mg PO QHS 06/27/19 07/05/19 06/26/19 History Benztropine [Cogentin] 0.5 mg PO TID 06/27/19 07/05/19 06/26/19 History Clopidogrel [Plavix] 75 mg PO QDAY 06/27/19 07/05/19 06/26/19 History Fenofibrate 160 mg PO QDAY 06/27/19 07/05/19 06/26/19 History LORazepam [Ativan] 1 mg PO TID PRN 06/27/19 07/05/19 06/26/19 History Melatonin [Melatonin 5MG CAP] 5 mg PO QHS 06/27/19 07/05/19 06/26/19 History Metoprolol [Lopressor TAB] 100 mg PO QDAY 06/27/19 07/05/19 06/26/19 History OXcarbazepine [Oxtellar XR] 600 mg PO BID 06/27/19 07/05/19 06/26/19 History Sertraline [Zoloft] 50 mg PO QDAY 06/27/19 07/05/19 06/26/19 History Sitagliptin Phos/Metformin HCl 100 mg PO QDAY 06/27/19 07/05/19 06/26/19 History [Janumet 50-1,000 mg Tablet] cloZAPine 800 mg PO QHS 06/27/19 07/05/19 06/26/19 History diphenhydrAMINE [Benadryl CAP] 25 mg PO TID 06/27/19 07/05/19 06/26/19 History Insulin Regular, Human [HumuLIN R] 0 units SUB-Q Q6HR units 07/05/19 07/06/19 Unknown Rx haloperidoL [Haldol] 5 mg PO BID tablet 07/05/19 07/05/19 Unknown Rx metFORMIN [Glucophage] 1,000 mg PO DAILY tablet 07/05/19 07/05/19 Unknown Rx Active Meds: Active Medications Atorvastatin Calcium (Lipitor) 40 mg PO QHS [facility] Last Admin: 07/11/19 21:43 Dose: 40 mg Documented by: Benztropine Mesylate (Cogentin) 0.5 mg PO TID [facility] Last Admin: 07/11/19 21:42 Dose: 0.5 mg Documented by: Clopidogrel Bisulfate (Plavix) 75 mg PO QDAY [facility] Last Admin: 07/11/19 10:01 Dose: 75 mg Documented by: Clozapine (Clozapine (Nf)) 350 mg PO QHS [facility] Diphenhydramine HCl (Benadryl) 25 mg PO TID [facility] Last Admin: 07/11/19 21:42 Dose: 25 mg Documented by: Haloperidol (Haldol) 5 mg PO TID [facility] Last Admin: 07/11/19 21:42 Dose: 5 mg Documented by: Insulin Human Regular (Humulin R) 0 units SUB-Q [facility]; Protocol Last Admin: 07/11/19 21:44 Dose: Not Given Documented by: Linagliptin (Tradjenta) 5 mg PO QDAY [facility] Last Admin: 07/11/19 10:02 Dose: 5 mg Documented by: Lorazepam (Ativan) 1 mg PO TID PRN PRN Reason: Anxiety Last Admin: 07/10/19 10:38 Dose: 1 mg Documented by: Lorazepam (Ativan) 2 mg IM Q4H PRN PRN Reason: Agitation Last Admin: 07/12/19 01:39 Dose: 2 mg Documented by: Lorazepam (Ativan) 1 mg PO BID [facility] Metformin HCl (Glucophage Xr) 1,000 mg PO QDDIAB [facility] Last Admin: 07/11/19 10:01 Dose: 1,000 mg Documented by: Miscellaneous Medication (Clozapine) 100 mg PO HS [facility] Oxcarbazepine (Trileptal) 600 mg PO BID [facility] Results - Results Labs/Vitals: Laboratory Last Values WBC 7.3 K/mm3 (4.5-11.0) 07/10/19 06:39 RBC 3.62 M/mm3 (3.65-5.03) L 07/10/19 06:39 Hgb 11.1 gm/dl (11.8-15.2) L 07/10/19 06:39 Hct 32.5 % (35.5-45.6) L 07/10/19 06:39 MCV 90 fl (84-94) 07/10/19 06:39 MCH 31 pg (28-32) 07/10/19 06:39 MCHC 34 % (32-34) 07/10/19 06:39 RDW 13.9 % (13.2-15.2) 07/10/19 06:39 Plt Count 256 K/mm3 (140-440) 07/10/19 06:39 Lymph % (Auto) 16.3 % (13.4-35.0) 07/10/19 06:39 [place] % (Auto) 8.0 % (0.0-7.3) H 07/10/19 06:39 Eos % (Auto) 1.3 % (0.0-4.3) 07/10/19 06:39 Baso % (Auto) 0.4 % (0.0-1.8) 07/10/19 06:39 Lymph # 1.2 K/mm3 (1.2-5.4) 07/10/19 06:39 [place] # 0.6 K/mm3 (0.0-0.8) 07/10/19 06:39 Eos # 0.1 K/mm3 (0.0-0.4) 07/10/19 06:39 Baso # 0.0 K/mm3 (0.0-0.1) 07/10/19 06:39 Seg Neutrophils % 74.0 % (40.0-70.0) H 07/10/19 06:39 Seg Neutrophils # 5.4 K/mm3 (1.8-7.7) 07/10/19 06:39 POC Glucose 146 (70-105) H 07/12/19 08:13 Hemoglobin A1c 6.3 % (4-6) H 07/05/19 21:07 Triglycerides 188 mg/dL (2-149) H 07/05/19 21:07 Cholesterol 115 mg/dL (50-199) 07/05/19 21:07 LDL Cholesterol Direct 47 mg/dL (50-130) L 07/05/19 21:07 HDL Cholesterol 35 mg/dL (40-59) L 07/05/19 21:07 Cholesterol/HDL Ratio 3.28 % 07/05/19 21:07 Last Vital Signs Temp 98.0 F 07/11/19 19:03 Pulse 85 07/11/19 19:03 Resp 16 07/11/19 19:03 BP 142/64 07/11/19 19:03 Pulse Ox 99 07/11/19 19:03
[2019-07-12] MEDS: INSULIN REGULAR, HUMAN 100 UNITS/1 ML SUB-Q SCH ×4 (08:30→21:19)
[2019-07-12] MEDS: LINAGLIPTIN 5 MG TAB PO SCH (09:33)
[2019-07-12] MEDS: diphenhydrAMINE 25 MG CAP PO SCH ×3 (09:33→20:45)
[2019-07-12] MEDS: HALOPERIDOL 5 MG TAB PO SCH ×3 (09:34→20:44)
[2019-07-12] MEDS: CLOPIDOGREL 75 MG TAB PO SCH (09:35)
[2019-07-12] MEDS: metFORMIN XR 500MG TAB PO SCH (09:36)
[2019-07-12] MEDS: LORazepam 0.5 MG TAB PO SCH ×2 (09:36→21:19)
[2019-07-12] MEDS: BENZTROPINE 0.5 MG TAB PO SCH ×3 (09:36→20:44)
[2019-07-12] MEDS ORDERED: OXcarbazepine 300 MG TAB PO SCH ×2 (10:00)
[2019-07-12] MEDS ORDERED: OXcarbazepine 150 MG TAB PO ONE (10:00)
[2019-07-12] MEDS ORDERED: CLOZAPINE 100 MG PO SCH (22:00)
[2019-07-12] MEDS ORDERED: OXcarbazepine 150 MG TAB PO SCH (22:00)
[2019-07-13] MEDS: LORazepam 2 MG/ML VIAL IM PRN (00:40)
--- NOTE | 2019-07-13 09:17 | Progress Note ---
Subjective Date of service: 07/13/19 Principal diagnosis: Bipolar Disorder, Current Episode Manic w/Phsychotic Features Subjective Comment: The patient's medical record was reviewed and the patient's progress was discussed with the nursing staff. per chart ,Pt remains disorganized, defiant with Ativan IM given effective only for 3 hours. Continued to wanders hallway at this time. Will continue to monitor During my interview with the patient this morning, the patient was in bed with eyes closed apparently sleeping easily arouse but went back to sleep. Reason for continuing inpatient treatment: The patient is disorganized, with delusions and hallucinations. REVIEW OF SYSTEMS Constitutional: Negative for weight loss ENT: Negative for stridor Respiratory: Negative for cough or hemoptysis All other systems reviewed and are negative MSE unable to assess Diagnoses: Diagnoses: Bipolar Disorder, Current Episode Manic with Psychotic Features Treatment Plan Due to the psychiatric conditions and treatment listed in the Assessment and Plan - the patient requires continued hospitalization. Will continue inpatient treatment to allow for medication adjustment and monitoring. Will continue q15 min safety checks. Will encourage the use of environmental modifications and non-pharmacologic approaches for the management of behavioral and psychological symptoms. Medication adjustment made today: increase clozaril to 400mg , 200mg am 200mg pm trileptal 600mg bid Will continue current psych medications Monitor for medication side effects. The patient will continue on medications for physical illnesses, and Hospitalist will closely monitor these Continue intensive physical and occupational therapies. Monitor patient's mood, sleep, appetite, and behavior closely. Encourage patient to participate in individual and group therapeutic sessions on the irizarry. Will provide a safe and therapeutic environment for patient. Estimated length of stay 5 days Medications and Allergies Allergies Allergy/AdvReac Type Severity Reaction Status Date / Time aripiprazole [From Abilify] Allergy Hives Verified 06/27/19 09:43 aspirin Allergy Hives Verified 06/27/19 09:43 cephalexin [From Keflex] Allergy Hives Verified 06/27/19 09:43 chlorpromazine Allergy Hives Verified 06/27/19 09:43 ibuprofen Allergy Hives Verified 06/27/19 09:43 naproxen Allergy Hives Verified 06/27/19 09:43 ziprasidone [From Geodon] Allergy Hives Verified 06/27/19 09:43 Home Medications Medication Instructions Recorded Confirmed Last Taken Type AtorvaSTATin [Lipitor] 40 mg PO QHS 06/27/19 07/05/19 06/26/19 History Benztropine [Cogentin] 0.5 mg PO TID 06/27/19 07/05/19 06/26/19 History Clopidogrel [Plavix] 75 mg PO QDAY 06/27/19 07/05/19 06/26/19 History Fenofibrate 160 mg PO QDAY 06/27/19 07/05/19 06/26/19 History LORazepam [Ativan] 1 mg PO TID PRN 06/27/19 07/05/19 06/26/19 History Melatonin [Melatonin 5MG CAP] 5 mg PO QHS 06/27/19 07/05/19 06/26/19 History Metoprolol [Lopressor TAB] 100 mg PO QDAY 06/27/19 07/05/19 06/26/19 History OXcarbazepine [Oxtellar XR] 600 mg PO BID 06/27/19 07/05/19 06/26/19 History Sertraline [Zoloft] 50 mg PO QDAY 06/27/19 07/05/19 06/26/19 History Sitagliptin Phos/Metformin HCl 100 mg PO QDAY 06/27/19 07/05/19 06/26/19 History [Janumet 50-1,000 mg Tablet] cloZAPine 800 mg PO QHS 06/27/19 07/05/19 06/26/19 History diphenhydrAMINE [Benadryl CAP] 25 mg PO TID 06/27/19 07/05/19 06/26/19 History Insulin Regular, Human [HumuLIN R] 0 units SUB-Q Q6HR units 07/05/19 07/06/19 Unknown Rx haloperidoL [Haldol] 5 mg PO BID tablet 07/05/19 07/05/19 Unknown Rx metFORMIN [Glucophage] 1,000 mg PO DAILY tablet 07/05/19 07/05/19 Unknown Rx Active Meds: Active Medications Atorvastatin Calcium (Lipitor) 40 mg PO QHS [facility] Last Admin: 07/12/19 21:18 Dose: 40 mg Documented by: Benztropine Mesylate (Cogentin) 0.5 mg PO TID [facility] Last Admin: 07/12/19 20:44 Dose: 0.5 mg Documented by: Clopidogrel Bisulfate (Plavix) 75 mg PO QDAY [facility] Last Admin: 07/12/19 09:35 Dose: 75 mg Documented by: Clozapine (Clozapine (Nf)) 350 mg PO QHS [facility] Last Admin: 07/12/19 21:22 Dose: 350 mg Documented by: Diphenhydramine HCl (Benadryl) 25 mg PO TID [facility] Last Admin: 07/12/19 20:45 Dose: 25 mg Documented by: Haloperidol (Haldol) 5 mg PO TID [facility] Last Admin: 07/12/19 20:44 Dose: 5 mg Documented by: Insulin Human Regular (Humulin R) 0 units SUB-Q [facility]; Protocol Last Admin: 07/12/19 21:19 Dose: Not Given Documented by: Linagliptin (Tradjenta) 5 mg PO QDAY [facility] Last Admin: 07/12/19 09:33 Dose: 5 mg Documented by: Lorazepam (Ativan) 1 mg PO TID PRN PRN Reason: Anxiety Last Admin: 07/10/19 10:38 Dose: 1 mg Documented by: Lorazepam (Ativan) 2 mg IM Q4H PRN PRN Reason: Agitation Last Admin: 07/13/19 00:40 Dose: 2 mg Documented by: Lorazepam (Ativan) 1 mg PO BID [facility] Last Admin: 07/12/19 21:19 Dose: 1 mg Documented by: Metformin HCl (Glucophage Xr) 1,000 mg PO QDDIAB [facility] Last Admin: 07/12/19 09:36 Dose: 1,000 mg Documented by: Oxcarbazepine (Trileptal) 450 mg PO BID [facility] Last Admin: 07/12/19 21:18 Dose: 450 mg Documented by: Results - Results Labs/Vitals: Laboratory Last Values WBC 7.3 K/mm3 (4.5-11.0) 07/10/19 06:39 RBC 3.62 M/mm3 (3.65-5.03) L 07/10/19 06:39 Hgb 11.1 gm/dl (11.8-15.2) L 07/10/19 06:39 Hct 32.5 % (35.5-45.6) L 07/10/19 06:39 MCV 90 fl (84-94) 07/10/19 06:39 MCH 31 pg (28-32) 07/10/19 06:39 MCHC 34 % (32-34) 07/10/19 06:39 RDW 13.9 % (13.2-15.2) 07/10/19 06:39 Plt Count 256 K/mm3 (140-440) 07/10/19 06:39 Lymph % (Auto) 16.3 % (13.4-35.0) 07/10/19 06:39 [place] % (Auto) 8.0 % (0.0-7.3) H 07/10/19 06:39 Eos % (Auto) 1.3 % (0.0-4.3) 07/10/19 06:39 Baso % (Auto) 0.4 % (0.0-1.8) 07/10/19 06:39 Lymph # 1.2 K/mm3 (1.2-5.4) 07/10/19 06:39 [place] # 0.6 K/mm3 (0.0-0.8) 07/10/19 06:39 Eos # 0.1 K/mm3 (0.0-0.4) 07/10/19 06:39 Baso # 0.0 K/mm3 (0.0-0.1) 07/10/19 06:39 Seg Neutrophils % 74.0 % (40.0-70.0) H 07/10/19 06:39 Seg Neutrophils # 5.4 K/mm3 (1.8-7.7) 07/10/19 06:39 POC Glucose 113 (70-105) H 07/13/19 09:08 Hemoglobin A1c 6.3 % (4-6) H 07/05/19 21:07 Triglycerides 188 mg/dL (2-149) H 07/05/19 21:07 Cholesterol 115 mg/dL (50-199) 07/05/19 21:07 LDL Cholesterol Direct 47 mg/dL (50-130) L 07/05/19 21:07 HDL Cholesterol 35 mg/dL (40-59) L 07/05/19 21:07 Cholesterol/HDL Ratio 3.28 % 07/05/19 21:07 Last Vital Signs Temp 97.4 F L 07/12/19 19:49 Pulse 93 H 07/12/19 19:49 Resp 20 07/12/19 19:49 BP 138/73 07/12/19 19:49 Pulse Ox 99 07/12/19 19:49
[2019-07-13] MEDS: INSULIN REGULAR, HUMAN 100 UNITS/1 ML SUB-Q SCH ×3 (09:59→21:34)
[2019-07-13] MEDS: HALOPERIDOL 5 MG TAB PO SCH ×3 (10:00→21:09)
[2019-07-13] MEDS: CLOPIDOGREL 75 MG TAB PO SCH (10:00)
[2019-07-13] MEDS: metFORMIN XR 500MG TAB PO SCH (10:00)
[2019-07-13] MEDS: diphenhydrAMINE 25 MG CAP PO SCH ×3 (10:00→21:08)
[2019-07-13] MEDS: LORazepam 0.5 MG TAB PO SCH ×2 (10:01→21:37)
[2019-07-13] MEDS: BENZTROPINE 0.5 MG TAB PO SCH ×3 (10:02→21:08)
[2019-07-13] MEDS: LINAGLIPTIN 5 MG TAB PO SCH (10:02)
[2019-07-13] MEDS: OXcarbazepine 150 MG TAB PO SCH ×2 (12:29→21:08)
[2019-07-13] MEDS: LORazepam 1 MG TAB PO PRN (21:08)
[2019-07-13] MEDS: CLOZAPINE 100 MG PO SCH (21:38)
[2019-07-14] MEDS: INSULIN REGULAR, HUMAN 100 UNITS/1 ML SUB-Q SCH ×4 (07:39→21:30)
--- NOTE | 2019-07-14 08:41 | Progress Note ---
Subjective Date of service: 07/14/19 Principal diagnosis: Bipolar Disorder, Current Episode Manic w/Phsychotic Features Subjective Comment: The patient's medical record was reviewed and the patient's progress was discussed with the nursing staff. per chart Patient was able to stay asleep after getting up and laying in the floor. He slept around 4 hours and was awake briefly then slept another 4 hours. Will continue to monitor for safety. During my interview with the patient this morning, the patient was in bed awake, oriented x1. The patient is noted rambling and talking to himself. whens asked he was doing , patient rables unable to understand , he then placed his hand toward his mouth as if he wanted to drink. when asked about suicidal ideations the patient rambles unable to understand. he then got up and started walking in the hallway. the patient remain disorganized with intermittent confusion. patient states that he was on clozapine 200mg in the morning and 600mg at night. Reason for continuing inpatient treatment: The patient is disorganized, with delusions and hallucinations. REVIEW OF SYSTEMS Constitutional: Negative for weight loss ENT: Negative for stridor Respiratory: Negative for cough or hemoptysis All other systems reviewed and are negative MSE unable to assess Diagnoses: Diagnoses: Bipolar Disorder, Current Episode Manic with Psychotic Features Treatment Plan Due to the psychiatric conditions and treatment listed in the Assessment and Plan - the patient requires continued hospitalization. Will continue inpatient treatment to allow for medication adjustment and monitoring. Will continue q15 min safety checks. Will encourage the use of environmental modifications and non-pharmacologic approaches for the management of behavioral and psychological symptoms. Medication adjustment made today: none Will continue current psych medications Monitor for medication side effects. The patient will continue on medications for physical illnesses, and Hospitalist will closely monitor these Continue intensive physical and occupational therapies. Monitor patient's mood, sleep, appetite, and behavior closely. Encourage patient to participate in individual and group therapeutic sessions on the irziarry. Will provide a safe and therapeutic environment for patient. Estimated length of stay 5 days Medications and Allergies Allergies Allergy/AdvReac Type Severity Reaction Status Date / Time aripiprazole [From Abilify] Allergy Hives Verified 06/27/19 09:43 aspirin Allergy Hives Verified 06/27/19 09:43 cephalexin [From Keflex] Allergy Hives Verified 06/27/19 09:43 chlorpromazine Allergy Hives Verified 06/27/19 09:43 ibuprofen Allergy Hives Verified 06/27/19 09:43 naproxen Allergy Hives Verified 06/27/19 09:43 ziprasidone [From Geodon] Allergy Hives Verified 06/27/19 09:43 Home Medications Medication Instructions Recorded Confirmed Last Taken Type AtorvaSTATin [Lipitor] 40 mg PO QHS 06/27/19 07/05/19 06/26/19 History Benztropine [Cogentin] 0.5 mg PO TID 06/27/19 07/05/19 06/26/19 History Clopidogrel [Plavix] 75 mg PO QDAY 06/27/19 07/05/19 06/26/19 History Fenofibrate 160 mg PO QDAY 06/27/19 07/05/19 06/26/19 History LORazepam [Ativan] 1 mg PO TID PRN 06/27/19 07/05/19 06/26/19 History Melatonin [Melatonin 5MG CAP] 5 mg PO QHS 06/27/19 07/05/19 06/26/19 History Metoprolol [Lopressor TAB] 100 mg PO QDAY 06/27/19 07/05/19 06/26/19 History OXcarbazepine [Oxtellar XR] 600 mg PO BID 06/27/19 07/05/19 06/26/19 History Sertraline [Zoloft] 50 mg PO QDAY 06/27/19 07/05/19 06/26/19 History Sitagliptin Phos/Metformin HCl 100 mg PO QDAY 06/27/19 07/05/19 06/26/19 History [Janumet 50-1,000 mg Tablet] cloZAPine 800 mg PO QHS 06/27/19 07/05/19 06/26/19 History diphenhydrAMINE [Benadryl CAP] 25 mg PO TID 06/27/19 07/05/19 06/26/19 History Insulin Regular, Human [HumuLIN R] 0 units SUB-Q Q6HR units 07/05/19 07/06/19 Unknown Rx haloperidoL [Haldol] 5 mg PO BID tablet 07/05/19 07/05/19 Unknown Rx metFORMIN [Glucophage] 1,000 mg PO DAILY tablet 07/05/19 07/05/19 Unknown Rx Active Meds: Active Medications Atorvastatin Calcium (Lipitor) 40 mg PO QHS [facility] Last Admin: 07/13/19 21:09 Dose: 40 mg Documented by: Benztropine Mesylate (Cogentin) 0.5 mg PO TID [facility] Last Admin: 07/13/19 21:08 Dose: 0.5 mg Documented by: Clopidogrel Bisulfate (Plavix) 75 mg PO QDAY [facility] Last Admin: 07/13/19 10:00 Dose: 75 mg Documented by: Clozapine (Clozapine (Nf)) 400 mg PO QHS [facility] Last Admin: 07/13/19 21:38 Dose: 400 mg Documented by: Diphenhydramine HCl (Benadryl) 25 mg PO TID [facility] Last Admin: 07/13/19 21:08 Dose: 25 mg Documented by: Haloperidol (Haldol) 5 mg PO TID [facility] Last Admin: 07/13/19 21:09 Dose: 5 mg Documented by: Insulin Human Regular (Humulin R) 0 units SUB-Q ACHS [facility]; Protocol Last Admin: 07/14/19 07:39 Dose: Not Given Documented by: Linagliptin (Tradjenta) 5 mg PO QDAY [facility] Last Admin: 07/13/19 10:02 Dose: 5 mg Documented by: Lorazepam (Ativan) 1 mg PO TID PRN PRN Reason: Anxiety Last Admin: 07/10/19 10:38 Dose: 1 mg Documented by: Lorazepam (Ativan) 2 mg IM Q4H PRN PRN Reason: Agitation Last Admin: 07/13/19 00:40 Dose: 2 mg Documented by: Lorazepam (Ativan) 1 mg PO BID [facility] Last Admin: 07/13/19 21:37 Dose: 1 mg Documented by: Metformin HCl (Glucophage Xr) 1,000 mg PO QDDIAB [facility] Last Admin: 07/13/19 10:00 Dose: Not Given Documented by: Oxcarbazepine (Trileptal) 600 mg PO BID [facility] Last Admin: 07/13/19 21:08 Dose: 600 mg Documented by: Results - Results Labs/Vitals: Laboratory Last Values WBC 7.3 K/mm3 (4.5-11.0) 07/10/19 06:39 RBC 3.62 M/mm3 (3.65-5.03) L 07/10/19 06:39 Hgb 11.1 gm/dl (11.8-15.2) L 07/10/19 06:39 Hct 32.5 % (35.5-45.6) L 07/10/19 06:39 MCV 90 fl (84-94) 07/10/19 06:39 MCH 31 pg (28-32) 07/10/19 06:39 MCHC 34 % (32-34) 07/10/19 06:39 RDW 13.9 % (13.2-15.2) 07/10/19 06:39 Plt Count 256 K/mm3 (140-440) 07/10/19 06:39 Lymph % (Auto) 16.3 % (13.4-35.0) 07/10/19 06:39 [place] % (Auto) 8.0 % (0.0-7.3) H 07/10/19 06:39 Eos % (Auto) 1.3 % (0.0-4.3) 07/10/19 06:39 Baso % (Auto) 0.4 % (0.0-1.8) 07/10/19 06:39 Lymph # 1.2 K/mm3 (1.2-5.4) 07/10/19 06:39 [place] # 0.6 K/mm3 (0.0-0.8) 07/10/19 06:39 Eos # 0.1 K/mm3 (0.0-0.4) 07/10/19 06:39 Baso # 0.0 K/mm3 (0.0-0.1) 07/10/19 06:39 Seg Neutrophils % 74.0 % (40.0-70.0) H 07/10/19 06:39 Seg Neutrophils # 5.4 K/mm3 (1.8-7.7) 07/10/19 06:39 POC Glucose 158 (70-105) H 07/14/19 08:29 Hemoglobin A1c 6.3 % (4-6) H 07/05/19 21:07 Triglycerides 188 mg/dL (2-149) H 07/05/19 21:07 Cholesterol 115 mg/dL (50-199) 07/05/19 21:07 LDL Cholesterol Direct 47 mg/dL (50-130) L 07/05/19 21:07 HDL Cholesterol 35 mg/dL (40-59) L 07/05/19 21:07 Cholesterol/HDL Ratio 3.28 % 07/05/19 21:07 Last Vital Signs Temp 98.3 F 07/13/19 08:59 Pulse 80 07/13/19 08:59 Resp 18 07/13/19 08:59 BP 151/70 07/13/19 08:59 Pulse Ox 100 07/13/19 08:59
[2019-07-14] MEDS: diphenhydrAMINE 25 MG CAP PO SCH ×3 (09:03→20:30)
[2019-07-14] MEDS: HALOPERIDOL 5 MG TAB PO SCH ×3 (09:03→20:31)
[2019-07-14] MEDS: metFORMIN XR 500MG TAB PO SCH (09:04)
[2019-07-14] MEDS: BENZTROPINE 0.5 MG TAB PO SCH ×3 (09:05→20:30)
[2019-07-14] MEDS: CLOPIDOGREL 75 MG TAB PO SCH (10:17)
[2019-07-14] MEDS: LORazepam 0.5 MG TAB PO SCH ×2 (10:18→21:29)
[2019-07-14] MEDS: LINAGLIPTIN 5 MG TAB PO SCH (10:25)
[2019-07-14] MEDS: OXcarbazepine 150 MG TAB PO SCH ×2 (10:42→21:29)
[2019-07-14] MEDS: LORazepam 2 MG/ML VIAL IM PRN (17:49)
--- NOTE | 2019-07-14 18:31 | Event Note ---
Date: 07/14/19 called to see. Patient has rash on feet, swelling feet, legs. No fever. Will get CXR
--- NOTE | 2019-07-14 21:06 | XRay Report ---
CHEST 1 VIEW 07/14/2019 8:47 PM INDICATION / CLINICAL INFORMATION: Bilateral leg swelling. COMPARISON: 07/03/19 FINDINGS: SUPPORT DEVICES: None. HEART / MEDIASTINUM: No significant abnormality. LUNGS / PLEURA: Interval improvement in bilateral pulmonary opacities. Right upper lobe calcified gra nulomas unchanged. No pneumothorax. ADDITIONAL FINDINGS: No significant additional findings. IMPRESSION: 1. Interval improvement in edema. Signer Name: Darren Rust MD Signed: 07/14/2019 9:01 PM Workstation Name: [id number]
[2019-07-14] MEDS: CLOZAPINE 100 MG PO SCH (21:43)
[2019-07-15] MEDS: INSULIN REGULAR, HUMAN 100 UNITS/1 ML SUB-Q SCH ×4 (07:30→21:20)
--- NOTE | 2019-07-15 07:44 | Progress Note ---
Subjective Date of service: 07/15/19 Principal diagnosis: Bipolar Disorder, Current Episode Manic w/Phsychotic Features Subjective Comment: The patient's medical record was reviewed and the patient's progress was discussed with the nursing staff. The nurse note states the patient is alert and oriented to person, irritable, disorganized thought process, speech is mumbling and difficult to understand, like to take off cloth, wandering, redirection needed, requires no prn, medication compliant, good appetite, able to make needs known, poor hygiene,pt rested well during the night, slept for 8hrs, no distress noted. The nurse caring for the patient this morning, also states the patient has broken the handrail off the wall. During my interview with the patient this morning, the patient is walking and pacing the rios. He's without a shirt and barefoot. The patient is disheveled. He is a/o x 2. He is hyperverbal, talking to himself, unable to redirect, and delusional. It is difficult to obtain adequate information from the patient. His speech is garbled and tangential. He's speaking of "having energizer bunny ears." He denies SI/HI. Unable to obtain any other information from the patient. Reason for continuing inpatient treatment: The patient is manic, disorganized, with delusions and hallucinations. REVIEW OF SYSTEMS Constitutional: Negative for weight loss ENT: Negative for stridor Respiratory: Negative for cough or hemoptysis All other systems reviewed and are negative MSE Appearance: Awake. partially dressed Behavior: cooerpative Mood: Affect: flat Thought Process: disorganized, flight of ideas Speech: hyperverbal, tangential Thought Content Suicidal: Denies Homicidal: Denies Hallucinations: Auditory Delusions: Yes Consciousness: Alert Cognition/Memory: Impaired Insight/Judgment: Limited Diagnoses: Diagnoses: Bipolar Disorder, Current Episode Manic with Psychotic Features Treatment Plan Due to the psychiatric conditions and treatment listed in the Assessment and Plan - the patient requires continued hospitalization. Will continue inpatient treatment to allow for medication adjustment and monitoring. Will continue q15 min safety checks. Will encourage the use of environmental modifications and non-pharmacologic approaches for the management of behavioral and psychological symptoms. Medication adjustment made today: Started Clozaril 100mg po qam Will continue current psych medications Monitor for medication side effects. The patient will continue on medications for physical illnesses, and Hospitalist will closely monitor these Continue intensive physical and occupational therapies. Monitor patient's mood, sleep, appetite, and behavior closely. Encourage patient to participate in individual and group therapeutic sessions on the irizarry. Will provide a safe and therapeutic environment for patient. Estimated length of stay 5 days Medications and Allergies Allergies Allergy/AdvReac Type Severity Reaction Status Date / Time aripiprazole [From Abilify] Allergy Hives Verified 06/27/19 09:43 aspirin Allergy Hives Verified 06/27/19 09:43 cephalexin [From Keflex] Allergy Hives Verified 06/27/19 09:43 chlorpromazine Allergy Hives Verified 06/27/19 09:43 ibuprofen Allergy Hives Verified 06/27/19 09:43 naproxen Allergy Hives Verified 06/27/19 09:43 ziprasidone [From Geodon] Allergy Hives Verified 06/27/19 09:43 Home Medications Medication Instructions Recorded Confirmed Last Taken Type AtorvaSTATin [Lipitor] 40 mg PO QHS 06/27/19 07/05/19 06/26/19 History Benztropine [Cogentin] 0.5 mg PO TID 06/27/19 07/05/19 06/26/19 History Clopidogrel [Plavix] 75 mg PO QDAY 06/27/19 07/05/19 06/26/19 History Fenofibrate 160 mg PO QDAY 06/27/19 07/05/19 06/26/19 History LORazepam [Ativan] 1 mg PO TID PRN 06/27/19 07/05/19 06/26/19 History Melatonin [Melatonin 5MG CAP] 5 mg PO QHS 06/27/19 07/05/19 06/26/19 History Metoprolol [Lopressor TAB] 100 mg PO QDAY 06/27/19 07/05/19 06/26/19 History OXcarbazepine [Oxtellar XR] 600 mg PO BID 06/27/19 07/05/19 06/26/19 History Sertraline [Zoloft] 50 mg PO QDAY 06/27/19 07/05/19 06/26/19 History Sitagliptin Phos/Metformin HCl 100 mg PO QDAY 06/27/19 07/05/19 06/26/19 History [Janumet 50-1,000 mg Tablet] cloZAPine 800 mg PO QHS 06/27/19 07/05/19 06/26/19 History diphenhydrAMINE [Benadryl CAP] 25 mg PO TID 06/27/19 07/05/19 06/26/19 History Insulin Regular, Human [HumuLIN R] 0 units SUB-Q Q6HR units 07/05/19 07/06/19 Unknown Rx haloperidoL [Haldol] 5 mg PO BID tablet 07/05/19 07/05/19 Unknown Rx metFORMIN [Glucophage] 1,000 mg PO DAILY tablet 07/05/19 07/05/19 Unknown Rx Active Meds: Active Medications Atorvastatin Calcium (Lipitor) 40 mg PO QHS [facility] Last Admin: 07/14/19 21:30 Dose: 40 mg Documented by: Benztropine Mesylate (Cogentin) 0.5 mg PO TID [facility] Last Admin: 07/14/19 20:30 Dose: 0.5 mg Documented by: Clopidogrel Bisulfate (Plavix) 75 mg PO QDAY [facility] Last Admin: 07/14/19 10:17 Dose: 75 mg Documented by: Clozapine (Clozapine (Nf)) 400 mg PO QHS [facility] Last Admin: 07/14/19 21:43 Dose: 400 mg Documented by: Diphenhydramine HCl (Benadryl) 25 mg PO TID [facility] Last Admin: 07/14/19 20:30 Dose: 25 mg Documented by: Haloperidol (Haldol) 5 mg PO TID [facility] Last Admin: 07/14/19 20:31 Dose: 5 mg Documented by: Insulin Human Regular (Humulin R) 0 units SUB-Q ACHS [facility]; Protocol Last Admin: 07/14/19 21:30 Dose: Not Given Documented by: Linagliptin (Tradjenta) 5 mg PO QDAY [facility] Last Admin: 07/14/19 10:25 Dose: 5 mg Documented by: Lorazepam (Ativan) 1 mg PO TID PRN PRN Reason: Anxiety Last Admin: 07/10/19 10:38 Dose: 1 mg Documented by: Lorazepam (Ativan) 2 mg IM Q4H PRN PRN Reason: Agitation Last Admin: 07/14/19 17:49 Dose: 2 mg Documented by: Lorazepam (Ativan) 1 mg PO BID [facility] Last Admin: 07/14/19 21:29 Dose: 1 mg Documented by: Metformin HCl (Glucophage Xr) 1,000 mg PO QDDIAB [facility] Last Admin: 07/14/19 09:04 Dose: 1,000 mg Documented by: Oxcarbazepine (Trileptal) 600 mg PO BID [facility] Last Admin: 07/14/19 21:29 Dose: 600 mg Documented by: Results - Results Labs/Vitals: Laboratory Last Values WBC 7.3 K/mm3 (4.5-11.0) 07/10/19 06:39 RBC 3.62 M/mm3 (3.65-5.03) L 07/10/19 06:39 Hgb 11.1 gm/dl (11.8-15.2) L 07/10/19 06:39 Hct 32.5 % (35.5-45.6) L 07/10/19 06:39 MCV 90 fl (84-94) 07/10/19 06:39 MCH 31 pg (28-32) 07/10/19 06:39 MCHC 34 % (32-34) 07/10/19 06:39 RDW 13.9 % (13.2-15.2) 07/10/19 06:39 Plt Count 256 K/mm3 (140-440) 07/10/19 06:39 Lymph % (Auto) 16.3 % (13.4-35.0) 07/10/19 06:39 [place] % (Auto) 8.0 % (0.0-7.3) H 07/10/19 06:39 Eos % (Auto) 1.3 % (0.0-4.3) 07/10/19 06:39 Baso % (Auto) 0.4 % (0.0-1.8) 07/10/19 06:39 Lymph # 1.2 K/mm3 (1.2-5.4) 07/10/19 06:39 [place] # 0.6 K/mm3 (0.0-0.8) 07/10/19 06:39 Eos # 0.1 K/mm3 (0.0-0.4) 07/10/19 06:39 Baso # 0.0 K/mm3 (0.0-0.1) 07/10/19 06:39 Seg Neutrophils % 74.0 % (40.0-70.0) H 07/10/19 06:39 Seg Neutrophils # 5.4 K/mm3 (1.8-7.7) 07/10/19 06:39 POC Glucose 112 (70-105) H 07/15/19 06:41 Hemoglobin A1c 6.3 % (4-6) H 07/05/19 21:07 Triglycerides 188 mg/dL (2-149) H 07/05/19 21:07 Cholesterol 115 mg/dL (50-199) 07/05/19 21:07 LDL Cholesterol Direct 47 mg/dL (50-130) L 07/05/19 21:07 HDL Cholesterol 35 mg/dL (40-59) L 07/05/19 21:07 Cholesterol/HDL Ratio 3.28 % 07/05/19 21:07 Last Vital Signs Temp 99.0 F 07/14/19 22:00 Pulse 98 H 07/14/19 22:00 Resp 18 07/14/19 22:00 BP 143/84 07/14/19 22:00 Pulse Ox 98 07/14/19 22:00
[2019-07-15 08:54] LABS: Hematocrit 34.9 % (35.5-45.6); Hemoglobin 11.9 gm/dl (11.8-15.2); Mean Corpuscular HGB Conc 34 % (32-34); Mean Corpuscular Volume 90 fl (84-94); Platelet Count 251 K/mm3 (140-440); Red Blood Count 3.88 M/mm3 (3.65-5.03); Red Cell Distribution Width 14.6 % (13.2-15.2)
[2019-07-15 09:15] LABS: BUN/Creatinine Ratio 13; Blood Urea Nitrogen 8 mg/dL (9-20); Calcium 8.9 mg/dL (8.4-10.2); Hemolysis Index 5
[2019-07-15] MEDS: LORazepam 0.5 MG TAB PO SCH ×2 (09:46→21:19)
[2019-07-15] MEDS: HALOPERIDOL 5 MG TAB PO SCH ×3 (09:46→20:44)
[2019-07-15] MEDS: OXcarbazepine 150 MG TAB PO SCH ×2 (09:47→21:19)
[2019-07-15] MEDS: LINAGLIPTIN 5 MG TAB PO SCH (09:47)
[2019-07-15] MEDS: CLOPIDOGREL 75 MG TAB PO SCH (09:47)
[2019-07-15] MEDS: diphenhydrAMINE 25 MG CAP PO SCH ×3 (09:47→20:43)
[2019-07-15] MEDS: BENZTROPINE 0.5 MG TAB PO SCH ×3 (09:47→20:43)
[2019-07-15] MEDS: metFORMIN XR 500MG TAB PO SCH (09:48)
[2019-07-15] MEDS ORDERED: CLOZAPINE 100 MG PO SCH (10:00)
[2019-07-15] MEDS ORDERED: CLOZARIL 100 MG PO SCH (10:00)
[2019-07-15] MEDS: LORazepam 2 MG/ML VIAL IM PRN (12:46)
[2019-07-15] MEDS: CLOZAPINE 100 MG PO SCH (21:18)
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
[2019-07-16] MEDS ORDERED: CLOZAPINE 100 MG PO SCH (07:56)
[2019-07-16 08:01] LABS: Basophils % (Auto) 0.4 % (0.0-1.8); Eosinophils # (Auto) 0.1 K/mm3 (0.0-0.4); Eosinophils % (Auto) 1.8 % (0.0-4.3); Hematocrit 30.2 % (35.5-45.6); Hemoglobin 10.3 gm/dl (11.8-15.2); Lymphocytes # (Auto) 0.7 K/mm3 (1.2-5.4); Lymphocytes % (Auto) 15.7 % (13.4-35.0); Mean Corpuscular HGB Conc 34 % (32-34); Mean Corpuscular Volume 91 fl (84-94); Monocytes # (Auto) 0.6 K/mm3 (0.0-0.8); Monocytes % (Auto) 11.6 % (0.0-7.3); Platelet Count 206 K/mm3 (140-440); Red Blood Count 3.33 M/mm3 (3.65-5.03); Red Cell Distribution Width 14.4 % (13.2-15.2)
[2019-07-16] MEDS: INSULIN REGULAR, HUMAN 100 UNITS/1 ML SUB-Q SCH ×4 (08:56→21:04)
[2019-07-16] MEDS: diphenhydrAMINE 25 MG CAP PO SCH ×3 (08:56→20:27)
[2019-07-16] MEDS: BENZTROPINE 0.5 MG TAB PO SCH ×3 (08:56→20:27)
[2019-07-16] MEDS: metFORMIN XR 500MG TAB PO SCH (08:57)
[2019-07-16] MEDS: LINAGLIPTIN 5 MG TAB PO SCH (09:14)
[2019-07-16] MEDS: OXcarbazepine 150 MG TAB PO SCH ×2 (09:14→21:04)
[2019-07-16] MEDS: HALOPERIDOL 5 MG TAB PO SCH ×3 (09:16→20:27)
[2019-07-16] MEDS: CLOPIDOGREL 75 MG TAB PO SCH (09:16)
[2019-07-16] MEDS: LORazepam 0.5 MG TAB PO SCH (09:16)
[2019-07-16] MEDS: CLOZAPINE 100 MG PO SCH ×3 (10:00→21:03)
[2019-07-16] MEDS: CYPROHEPTADINE 4 MG TAB PO SCH ×2 (12:49→21:04)
[2019-07-16] MEDS: LORazepam 1 MG TAB PO SCH ×2 (13:13→20:27)
--- NOTE | 2019-07-16 21:02 | Progress Note ---
Assessment and Plan - Patient Problems (1) Rash and nonspecific skin eruption Current Visit: Yes Status: Acute Plan to address problem: Rash patient has diffuse papules. Most likely systemic reaction. Think patient will benefit from steroids. Also local cream to be placed on the area as well. Patient denies itching at this time has not been very concerned about it. Spoke to nurse as well. (2) Hypernatremia Current Visit: No Status: Acute Plan to address problem: Hyponatremia improving. (3) Hypokalemia Current Visit: No Status: Acute Plan to address problem: Hypokalemia will correct with p.o. (4) Hand swelling Current Visit: Yes Status: Acute Plan to address problem: Exact etiology of hand swelling unknown may be fracture. Patient very confused could have fallen or punched something. Subjective Date of service: 07/16/19 Principal diagnosis: Bipolar Disorder, Current Episode Manic w/Phsychotic Features Interval history: Called to evaluate rash on body. Legs arms. Patient was noted to be walking up and down the halls. Mumbling confused disoriented. Rash was noted to be on left lower extremity lateral aspect. Also upper torso right arm. Diffuse papules Objective - Constitutional General appearance: Present: disheveled - Neck Neck: supple, normal ROM - Respiratory Respiratory effort: normal Respiratory: bilateral: CTA - Cardiovascular Rhythm: regular Extremity abnormal: other (Diffuse rash different stages left leg right heel left upper arm torso. Also noted to have right hand swelling.) - Labs CBC & Chem 7: 07/16/19 06:54 07/15/19 08:33 Labs: Abnormal lab results 07/16/19 07/16/19 07/16/19 Range/Units 06:54 07:21 11:52 RBC 3.33 L (3.65-5.03) M/mm3 Hgb 10.3 L (11.8-15.2) gm/dl Hct 30.2 L (35.5-45.6) % [place] % (Auto) 11.6 H (0.0-7.3) % Lymph # 0.7 L (1.2-5.4) K/mm3 Seg Neutrophils % 70.5 H (40.0-70.0) % POC Glucose 135 H 152 H (70-105)
[2019-07-16] MEDS: POTASSIUM CHLORIDE ER 10 MEQ TAB PO SCH (22:03)
[2019-07-16] MEDS: CLOTRIMAZOLE/BETAMETHASONE CREAM 15 GM TP SCH (22:04)
[2019-07-16] MEDS: methylPREDNISolone 4 MG TAB PO SCH (22:04)
[2019-07-16] MEDS: LORazepam 2 MG/ML VIAL IM PRN (23:30)
--- NOTE | 2019-07-17 08:29 | Progress Note ---
Subjective Date of service: 07/17/19 Principal diagnosis: Bipolar Disorder, Current Episode Manic w/Phsychotic Features Subjective Comment: The patient's medical record was reviewed and the patient's progress was discussed with the nursing staff. The nurse note states the patient is alert and oriented to self, very disorganized, constantly pacing the hallway, confused, rubbing left hand knuckle against the well while holding unto the wall hand rail, blood stain noted on the wall, refused to allow staff look at his knuckle. I attempt to interview the patient this morning, the patient is walking and pacing the rios. He is mumbling and speaking to himself out loud. He looks at me briefly as I'm addressing him but continues walk and ramble. Asked the patient if I could speak to him in another room but the patient continued to talk to himself. He could not be redirected. Spoke with the patient's spouse this morning to discuss the patient's progress and about possibly starting the patient on Redbird to see if his condition improves. She says the patient was on Redbird years ago but suffered toxicity and had to be dialyzed. Will hold off on Redbird at this point. Reason for continuing inpatient treatment: The patient is manic, disorganized, and still having psychosis. Clozapine being titrated. REVIEW OF SYSTEMS Constitutional: Negative for weight loss ENT: Negative for stridor Respiratory: Negative for cough or hemoptysis All other systems reviewed and are negative MSE Appearance: Awake. disheveled Behavior: disorganized, uncooperative Mood: Affect: flat Thought Process: disorganized, responding to internal stimuli Speech: hyperverbal, tangential Thought Content Suicidal: Denies Homicidal: Denies Hallucinations: Auditory Delusions: Yes Consciousness: Alert Cognition/Memory: Impaired Insight/Judgment: Limited Diagnoses: Diagnoses: Bipolar Disorder, Current Episode Manic with Psychotic Features Treatment Plan Due to the psychiatric conditions and treatment listed in the Assessment and Plan - the patient requires continued hospitalization. Will continue inpatient treatment to allow for medication adjustment and monitoring. Will continue q15 min safety checks. Will encourage the use of environmental modifications and non-pharmacologic approaches for the management of behavioral and psychological symptoms. Medication adjustment made today: Last ANC on 07/16 around (3384 cells/ul). Increased am Clozaril to 200mg po daily. WBC ordered 07/18 and 07/19 Will continue current psych medications Monitor for medication side effects. The patient will continue on medications for physical illnesses, and Hospitalist will closely monitor these Continue intensive physical and occupational therapies. Monitor patient's mood, sleep, appetite, and behavior closely. Encourage patient to participate in individual and group therapeutic sessions on the irizarry. Will provide a safe and therapeutic environment for patient. Estimated length of stay 5 days Medications and Allergies Allergies Allergy/AdvReac Type Severity Reaction Status Date / Time aripiprazole [From Abilify] Allergy Hives Verified 06/27/19 09:43 aspirin Allergy Hives Verified 06/27/19 09:43 cephalexin [From Keflex] Allergy Hives Verified 06/27/19 09:43 chlorpromazine Allergy Hives Verified 06/27/19 09:43 ibuprofen Allergy Hives Verified 06/27/19 09:43 naproxen Allergy Hives Verified 06/27/19 09:43 ziprasidone [From Geodon] Allergy Hives Verified 06/27/19 09:43 Home Medications Medication Instructions Recorded Confirmed Last Taken Type AtorvaSTATin [Lipitor] 40 mg PO QHS 06/27/19 07/05/19 06/26/19 History Benztropine [Cogentin] 0.5 mg PO TID 06/27/19 07/05/19 06/26/19 History Clopidogrel [Plavix] 75 mg PO QDAY 06/27/19 07/05/19 06/26/19 History Fenofibrate 160 mg PO QDAY 06/27/19 07/05/19 06/26/19 History LORazepam [Ativan] 1 mg PO TID PRN 06/27/19 07/05/19 06/26/19 History Melatonin [Melatonin 5MG CAP] 5 mg PO QHS 06/27/19 07/05/19 06/26/19 History Metoprolol [Lopressor TAB] 100 mg PO QDAY 06/27/19 07/05/19 06/26/19 History OXcarbazepine [Oxtellar XR] 600 mg PO BID 06/27/19 07/05/19 06/26/19 History Sertraline [Zoloft] 50 mg PO QDAY 06/27/19 07/05/19 06/26/19 History Sitagliptin Phos/Metformin HCl 100 mg PO QDAY 06/27/19 07/05/19 06/26/19 History [Janumet 50-1,000 mg Tablet] cloZAPine 800 mg PO QHS 06/27/19 07/05/19 06/26/19 History diphenhydrAMINE [Benadryl CAP] 25 mg PO TID 06/27/19 07/05/19 06/26/19 History Insulin Regular, Human [HumuLIN R] 0 units SUB-Q Q6HR units 07/05/19 07/06/19 Unknown Rx haloperidoL [Haldol] 5 mg PO BID tablet 07/05/19 07/05/19 Unknown Rx metFORMIN [Glucophage] 1,000 mg PO DAILY tablet 07/05/19 07/05/19 Unknown Rx Active Meds: Active Medications Atorvastatin Calcium (Lipitor) 40 mg PO QHS [facility] Last Admin: 07/16/19 21:04 Dose: 40 mg Documented by: Benztropine Mesylate (Cogentin) 0.5 mg PO TID [facility] Last Admin: 07/16/19 20:27 Dose: 0.5 mg Documented by: Clopidogrel Bisulfate (Plavix) 75 mg PO QDAY [facility] Last Admin: 07/16/19 09:16 Dose: 75 mg Documented by: Clotrimazole (Clotrimazole/Betamethasone) 1 applic TP BID [facility] Last Admin: 07/16/19 22:04 Dose: 1 applic Documented by: Clozapine (Clozapine (Nf)) 400 mg PO QHS [facility] Last Admin: 07/16/19 21:03 Dose: 400 mg Documented by: Clozapine (Clozapine (Nf)) 150 mg PO QAM [facility] Last Admin: 07/16/19 12:34 Dose: Not Given Documented by: Cyproheptadine HCl (Periactin) 4 mg PO BID [facility] Last Admin: 07/16/19 21:04 Dose: 4 mg Documented by: Diphenhydramine HCl (Benadryl) 25 mg PO TID [facility] Last Admin: 07/16/19 20:27 Dose: 25 mg Documented by: Haloperidol (Haldol) 5 mg PO TID [facility] Last Admin: 07/16/19 20:27 Dose: 5 mg Documented by: Insulin Human Regular (Humulin R) 0 units SUB-Q ACHS [facility]; Protocol Last Admin: 07/16/19 21:04 Dose: Not Given Documented by: Linagliptin (Tradjenta) 5 mg PO QDAY [facility] Last Admin: 07/16/19 09:14 Dose: 5 mg Documented by: Lorazepam (Ativan) 2 mg IM Q4H PRN PRN Reason: Agitation Last Admin: 07/16/19 23:30 Dose: 2 mg Documented by: Lorazepam (Ativan) 1 mg PO TID [facility] Last Admin: 07/16/19 20:27 Dose: 1 mg Documented by: Metformin HCl (Glucophage Xr) 1,000 mg PO QDDIAB [facility] Last Admin: 07/16/19 08:57 Dose: 1,000 mg Documented by: Methylprednisolone (Medrol) 4 mg PO BID [facility] Stop: 07/19/19 17:00 Last Admin: 07/16/19 22:04 Dose: 4 mg Documented by: Oxcarbazepine (Trileptal) 600 mg PO BID [facility] Last Admin: 07/16/19 21:04 Dose: 600 mg Documented by: Potassium Chloride (K-Dur) 30 meq PO QDAY [facility] Last Admin: 07/16/19 22:03 Dose: 30 meq Documented by: Results - Results Labs/Vitals: Laboratory Last Values WBC 4.8 K/mm3 (4.5-11.0) 07/16/19 06:54 RBC 3.33 M/mm3 (3.65-5.03) L 07/16/19 06:54 Hgb 10.3 gm/dl (11.8-15.2) L 07/16/19 06:54 Hct 30.2 % (35.5-45.6) L 07/16/19 06:54 MCV 91 fl (84-94) 07/16/19 06:54 MCH 31 pg (28-32) 07/16/19 06:54 MCHC 34 % (32-34) 07/16/19 06:54 RDW 14.4 % (13.2-15.2) 07/16/19 06:54 Plt Count 206 K/mm3 (140-440) 07/16/19 06:54 Lymph % (Auto) 15.7 % (13.4-35.0) 07/16/19 06:54 [place] % (Auto) 11.6 % (0.0-7.3) H 07/16/19 06:54 Eos % (Auto) 1.8 % (0.0-4.3) 07/16/19 06:54 Baso % (Auto) 0.4 % (0.0-1.8) 07/16/19 06:54 Lymph # 0.7 K/mm3 (1.2-5.4) L 07/16/19 06:54 [place] # 0.6 K/mm3 (0.0-0.8) 07/16/19 06:54 Eos # 0.1 K/mm3 (0.0-0.4) 07/16/19 06:54 Baso # 0.0 K/mm3 (0.0-0.1) 07/16/19 06:54 Seg Neutrophils % 70.5 % (40.0-70.0) H 07/16/19 06:54 Seg Neutrophils # 3.4 K/mm3 (1.8-7.7) 07/16/19 06:54 Sodium 146 mmol/L (137-145) H 07/15/19 08:33 Potassium 3.2 mmol/L (3.6-5.0) L 07/15/19 08:33 Chloride 103.7 mmol/L (98-107) 07/15/19 08:33 Carbon Dioxide 25 mmol/L (22-30) 07/15/19 08:33 Anion Gap 21 mmol/L 07/15/19 08:33 BUN 8 mg/dL (9-20) L 07/15/19 08:33 Creatinine 0.6 mg/dL (0.8-1.5) L 07/15/19 08:33 Estimated GFR > 60 ml/min 07/15/19 08:33 BUN/Creatinine Ratio 13 % 07/15/19 08:33 Glucose 133 mg/dL (75-100) H 07/15/19 08:33 POC Glucose 77 (70-105) 07/17/19 08:07 Hemoglobin A1c 6.3 % (4-6) H 07/05/19 21:07 Calcium 8.9 mg/dL (8.4-10.2) 07/15/19 08:33 Triglycerides 188 mg/dL (2-149) H 07/05/19 21:07 Cholesterol 115 mg/dL (50-199) 07/05/19 21:07 LDL Cholesterol Direct 47 mg/dL (50-130) L 07/05/19 21:07 HDL Cholesterol 35 mg/dL (40-59) L 07/05/19 21:07 Cholesterol/HDL Ratio 3.28 % 07/05/19 21:07 Last Vital Signs Temp 98.7 F 07/16/19 22:00 Pulse 103 H 07/16/19 22:00 Resp 20 07/16/19 22:00 BP 153/79 07/16/19 22:00 Pulse Ox 97 07/16/19 22:00
[2019-07-17] MEDS: metFORMIN XR 500MG TAB PO SCH (08:43)
[2019-07-17] MEDS: diphenhydrAMINE 25 MG CAP PO SCH ×3 (08:43→19:51)
[2019-07-17] MEDS: LORazepam 1 MG TAB PO SCH ×3 (08:43→19:50)
[2019-07-17] MEDS: HALOPERIDOL 5 MG TAB PO SCH ×3 (08:43→19:50)
[2019-07-17] MEDS: BENZTROPINE 0.5 MG TAB PO SCH ×3 (08:43→19:50)
[2019-07-17] MEDS: INSULIN REGULAR, HUMAN 100 UNITS/1 ML SUB-Q SCH ×3 (08:44→22:46)
[2019-07-17] MEDS ORDERED: CLOZAPINE 100 MG PO SCH ×4 (08:53→16:00)
[2019-07-17] MEDS: CYPROHEPTADINE 4 MG TAB PO SCH ×2 (11:32→22:18)
[2019-07-17] MEDS: LINAGLIPTIN 5 MG TAB PO SCH (11:32)
[2019-07-17] MEDS: CLOPIDOGREL 75 MG TAB PO SCH (11:32)
[2019-07-17] MEDS: POTASSIUM CHLORIDE ER 10 MEQ TAB PO SCH (11:32)
[2019-07-17] MEDS: CLOTRIMAZOLE/BETAMETHASONE CREAM 15 GM TP SCH ×2 (11:33→22:14)
[2019-07-17] MEDS: OXcarbazepine 150 MG TAB PO SCH ×2 (11:33→22:17)
[2019-07-17] MEDS: methylPREDNISolone 4 MG TAB PO SCH ×2 (11:33→22:18)
--- NOTE | 2019-07-17 11:56 | XRay Report ---
RIGHT HAND 2 VIEW(S) INDICATION / CLINICAL INFORMATION: HAND SWELLING COMPARISON: None available. FINDINGS: BONES / JOINT(S): No acute fracture or subluxation. No significant arthritis. SOFT TISSUES: Moderate soft tissue swelling on the dorsum of the distal forearm, wrist, and hand. ADDITIONAL FINDINGS: None. Signer Name: Darren Rust MD Signed: 07/17/2019 11:52 AM Workstation Name: [id number]
[2019-07-17] MEDS ORDERED: MELATONIN 5 MG TAB PO SCH (22:00)
[2019-07-17] MEDS: LORazepam 2 MG/ML VIAL IM PRN (22:15)
[2019-07-17] MEDS: MELATONIN 5 MG TAB PO SCH (22:18)
[2019-07-17] MEDS: CLOZAPINE 100 MG PO SCH (22:24)
[2019-07-18] MEDS ORDERED: LORazepam 1 MG TAB PO SCH (07:45)
[2019-07-18] MEDS ORDERED: CLOZAPINE 100 MG PO SCH ×2 (07:45→12:00)
--- NOTE | 2019-07-18 07:59 | Progress Note ---
Subjective Date of service: 07/18/19 Principal diagnosis: Bipolar Disorder, Current Episode Manic w/Phsychotic Features Subjective Comment: The patient's medical record was reviewed and the patient's progress was discussed with the nursing staff. The nurse note states all evening patient has been irritable and angry. His behavior is uncooperative. He throws any fluids given to him onto the floor. He urinates on the floor at will. He is only partially medication compliant. Patient has refused his 2200 meds at present. He kept trying to walk into other patient's rooms and could not follow directions. Ativan 2 mg IM given for severe agitation. The nurse caring for the patient this morning also states the patient seems a lot worse after Ativan doses. I attempt to interview the patient this morning, ge is in hallway, in nacho-chair. The patient is somnolent. Only arouses with repeated tactile stimuli. But drifts back to sleep. Reason for continuing inpatient treatment: The patient is manic, aggressive, disorganized, and still having psychosis. Clozapine being titrated. REVIEW OF SYSTEMS Constitutional: Negative for weight loss ENT: Negative for stridor Respiratory: Negative for cough or hemoptysis All other systems reviewed and are negative MSE Appearance: Asleep. Unable to complete due to the patient's somnolence. Diagnoses: Diagnoses: Bipolar Disorder, Current Episode Manic with Psychotic Features Treatment Plan Due to the psychiatric conditions and treatment listed in the Assessment and Plan - the patient requires continued hospitalization. Will continue inpatient treatment to allow for medication adjustment and monitoring. Will continue q15 min safety checks. Will encourage the use of environmental modifications and non-pharmacologic approaches for the management of behavioral and psychological symptoms. Medication adjustment made today: Last ANC on 07/16 around (3384 cells/ul). D/C ativan suspected paradoxically inhibition, started Klonopin 0.5mg TID, Started propanolol 10mg po TID to reduce symptoms of akathisia. Increased Clozaril 400mg po BID Will continue current psych medications Monitor for medication side effects. UA ordered to r/o underlying infection CXR ordered for persistent cough The patient will continue on medications for physical illnesses, and Hospitalist will closely monitor these Continue intensive physical and occupational therapies. Monitor patient's mood, sleep, appetite, and behavior closely. Encourage patient to participate in individual and group therapeutic sessions on the irizarry. Will provide a safe and therapeutic environment for patient. Estimated length of stay 5 to 6 days depending on how the patient progresses Medications and Allergies Allergies Allergy/AdvReac Type Severity Reaction Status Date / Time aripiprazole [From Abilify] Allergy Hives Verified 06/27/19 09:43 aspirin Allergy Hives Verified 06/27/19 09:43 cephalexin [From Keflex] Allergy Hives Verified 06/27/19 09:43 chlorpromazine Allergy Hives Verified 06/27/19 09:43 ibuprofen Allergy Hives Verified 06/27/19 09:43 naproxen Allergy Hives Verified 06/27/19 09:43 ziprasidone [From Geodon] Allergy Hives Verified 06/27/19 09:43 Home Medications Medication Instructions Recorded Confirmed Last Taken Type AtorvaSTATin [Lipitor] 40 mg PO QHS 06/27/19 07/05/19 06/26/19 History Benztropine [Cogentin] 0.5 mg PO TID 06/27/19 07/05/19 06/26/19 History Clopidogrel [Plavix] 75 mg PO QDAY 06/27/19 07/05/19 06/26/19 History Fenofibrate 160 mg PO QDAY 06/27/19 07/05/19 06/26/19 History LORazepam [Ativan] 1 mg PO TID PRN 06/27/19 07/05/19 06/26/19 History Melatonin [Melatonin 5MG CAP] 5 mg PO QHS 06/27/19 07/05/19 06/26/19 History Metoprolol [Lopressor TAB] 100 mg PO QDAY 06/27/19 07/05/19 06/26/19 History OXcarbazepine [Oxtellar XR] 600 mg PO BID 06/27/19 07/05/19 06/26/19 History Sertraline [Zoloft] 50 mg PO QDAY 06/27/19 07/05/19 06/26/19 History Sitagliptin Phos/Metformin HCl 100 mg PO QDAY 06/27/19 07/05/19 06/26/19 History [Janumet 50-1,000 mg Tablet] cloZAPine 800 mg PO QHS 06/27/19 07/05/19 06/26/19 History diphenhydrAMINE [Benadryl CAP] 25 mg PO TID 0107/05/19 06/26/19 History Insulin Regular, Human [HumuLIN R] 0 units SUB-Q Q6HR units 07/05/19 07/06/19 Unknown Rx haloperidoL [Haldol] 5 mg PO BID tablet 07/05/19 07/05/19 Unknown Rx metFORMIN [Glucophage] 1,000 mg PO DAILY tablet 07/05/19 07/05/19 Unknown Rx Active Meds: Active Medications Atorvastatin Calcium (Lipitor) 40 mg PO QHS [facility] Last Admin: 07/17/19 22:18 Dose: 40 mg Documented by: Benztropine Mesylate (Cogentin) 0.5 mg PO TID [facility] Last Admin: 07/17/19 19:50 Dose: 0.5 mg Documented by: Clopidogrel Bisulfate (Plavix) 75 mg PO QDAY [facility] Last Admin: 07/17/19 11:32 Dose: 75 mg Documented by: Clotrimazole (Clotrimazole/Betamethasone) 1 applic TP BID [facility] Last Admin: 07/17/19 22:14 Dose: 1 applic Documented by: Clozapine (Clozapine (Nf)) 400 mg PO QHS [facility] Last Admin: 07/17/19 22:24 Dose: 400 mg Documented by: Clozapine (Clozapine (Nf)) 250 mg PO QAM [facility] Cyproheptadine HCl (Periactin) 4 mg PO BID [facility] Last Admin: 07/17/19 22:18 Dose: 4 mg Documented by: Diphenhydramine HCl (Benadryl) 25 mg PO TID [facility] Last Admin: 07/17/19 19:51 Dose: 25 mg Documented by: Haloperidol (Haldol) 5 mg PO TID [facility] Last Admin: 07/17/19 19:50 Dose: 5 mg Documented by: Insulin Human Regular (Humulin R) 0 units SUB-Q ACHS [facility]; Protocol Last Admin: 07/17/19 22:46 Dose: Not Given Documented by: Linagliptin (Tradjenta) 5 mg PO QDAY [facility] Last Admin: 07/17/19 11:32 Dose: 5 mg Documented by: Lorazepam (Ativan) 2 mg IM Q4H PRN PRN Reason: Agitation Last Admin: 07/17/19 22:15 Dose: 2 mg Documented by: Lorazepam (Ativan) 0.5 mg PO TID [facility] Melatonin (Melatonin) 10 mg PO QHS [facility] Last Admin: 07/17/19 22:18 Dose: 10 mg Documented by: Metformin HCl (Glucophage Xr) 1,000 mg PO QDDIAB [facility] Last Admin: 07/17/19 08:43 Dose: 1,000 mg Documented by: Methylprednisolone (Medrol) 4 mg PO BID [facility] Stop: 07/19/19 17:00 Last Admin: 07/17/19 22:18 Dose: 4 mg Documented by: Oxcarbazepine (Trileptal) 600 mg PO BID [facility] Last Admin: 07/17/19 22:17 Dose: 600 mg Documented by: Potassium Chloride (K-Dur) 30 meq PO QDAY [facility] Last Admin: 07/17/19 11:32 Dose: 30 meq Documented by: Results - Results Labs/Vitals: Laboratory Last Values WBC 4.8 K/mm3 (4.5-11.0) 07/16/19 06:54 RBC 3.33 M/mm3 (3.65-5.03) L 07/16/19 06:54 Hgb 10.3 gm/dl (11.8-15.2) L 07/16/19 06:54 Hct 30.2 % (35.5-45.6) L 07/16/19 06:54 MCV 91 fl (84-94) 07/16/19 06:54 MCH 31 pg (28-32) 07/16/19 06:54 MCHC 34 % (32-34) 07/16/19 06:54 RDW 14.4 % (13.2-15.2) 07/16/19 06:54 Plt Count 206 K/mm3 (140-440) 07/16/19 06:54 Lymph % (Auto) 15.7 % (13.4-35.0) 07/16/19 06:54 [place] % (Auto) 11.6 % (0.0-7.3) H 07/16/19 06:54 Eos % (Auto) 1.8 % (0.0-4.3) 07/16/19 06:54 Baso % (Auto) 0.4 % (0.0-1.8) 07/16/19 06:54 Lymph # 0.7 K/mm3 (1.2-5.4) L 07/16/19 06:54 [place] # 0.6 K/mm3 (0.0-0.8) 07/16/19 06:54 Eos # 0.1 K/mm3 (0.0-0.4) 07/16/19 06:54 Baso # 0.0 K/mm3 (0.0-0.1) 07/16/19 06:54 Seg Neutrophils % 70.5 % (40.0-70.0) H 07/16/19 06:54 Seg Neutrophils # 3.4 K/mm3 (1.8-7.7) 07/16/19 06:54 Sodium 146 mmol/L (137-145) H 07/15/19 08:33 Potassium 3.2 mmol/L (3.6-5.0) L 07/15/19 08:33 Chloride 103.7 mmol/L (98-107) 07/15/19 08:33 Carbon Dioxide 25 mmol/L (22-30) 07/15/19 08:33 Anion Gap 21 mmol/L 07/15/19 08:33 BUN 8 mg/dL (9-20) L 07/15/19 08:33 Creatinine 0.6 mg/dL (0.8-1.5) L 07/15/19 08:33 Estimated GFR > 60 ml/min 07/15/19 08:33 BUN/Creatinine Ratio 13 % 07/15/19 08:33 Glucose 133 mg/dL (75-100) H 07/15/19 08:33 POC Glucose 103 (70-105) 07/17/19 16:31 Hemoglobin A1c 6.3 % (4-6) H 07/05/19 21:07 Calcium 8.9 mg/dL (8.4-10.2) 07/15/19 08:33 Triglycerides 188 mg/dL (2-149) H 07/05/19 21:07 Cholesterol 115 mg/dL (50-199) 07/05/19 21:07 LDL Cholesterol Direct 47 mg/dL (50-130) L 07/05/19 21:07 HDL Cholesterol 35 mg/dL (40-59) L 07/05/19 21:07 Cholesterol/HDL Ratio 3.28 % 07/05/19 21:07 Last Vital Signs Temp 97.9 F 07/17/19 10:00 Pulse 92 H 07/17/19 10:00 Resp 18 07/17/19 10:00 BP 156/79 02/20/20 10:00 Pulse Ox 95 07/17/19 10:00
[2019-07-18] MEDS: INSULIN REGULAR, HUMAN 100 UNITS/1 ML SUB-Q SCH ×3 (08:15→21:22)
[2019-07-18] MEDS ORDERED: LORazepam 0.5 MG TAB PO SCH (08:30)
[2019-07-18] MEDS: CLOZAPINE 100 MG PO SCH ×2 (10:05→21:22)
[2019-07-18] MEDS: LINAGLIPTIN 5 MG TAB PO SCH (10:35)
[2019-07-18] MEDS: metFORMIN XR 500MG TAB PO SCH (10:36)
[2019-07-18] MEDS: OXcarbazepine 150 MG TAB PO SCH ×2 (10:36→21:21)
[2019-07-18] MEDS: CLOPIDOGREL 75 MG TAB PO SCH (10:36)
[2019-07-18] MEDS: POTASSIUM CHLORIDE ER 10 MEQ TAB PO SCH (10:36)
[2019-07-18] MEDS: methylPREDNISolone 4 MG TAB PO SCH ×2 (10:36→21:21)
[2019-07-18] MEDS: BENZTROPINE 0.5 MG TAB PO SCH ×3 (10:39→20:31)
[2019-07-18] MEDS: CLOTRIMAZOLE/BETAMETHASONE CREAM 15 GM TP SCH ×2 (10:41→21:20)
[2019-07-18] MEDS: CYPROHEPTADINE 4 MG TAB PO SCH ×2 (10:58→21:21)
[2019-07-18] MEDS: clonazePAM 0.5 MG TAB PO SCH ×2 (14:37→20:32)
[2019-07-18] MEDS: PROPRANOLOL 10 MG TAB PO SCH ×2 (15:06→20:30)
[2019-07-18] MEDS: MELATONIN 5 MG TAB PO SCH (21:21)
[2019-07-18 21:37] LABS: Hematocrit 32.1 % (35.5-45.6); Hemoglobin 11.1 gm/dl (11.8-15.2); Mean Corpuscular HGB Conc 35 % (32-34); Mean Corpuscular Volume 91 fl (84-94); Platelet Count 216 K/mm3 (140-440); Red Blood Count 3.53 M/mm3 (3.65-5.03); Red Cell Distribution Width 14.6 % (13.2-15.2)
[2019-07-18 22:14] LABS: Basophils % (Manual) 0 % (0.0-1.8); Eosinophils % (Manual) 0 % (0.0-4.3); Total Cells Counted 100
[2019-07-18 22:15] LABS: Anisocytosis Few
[2019-07-19 07:04] LABS: Basophils % (Auto) 0.5 % (0.0-1.8); Eosinophils # (Auto) 0.1 K/mm3 (0.0-0.4); Eosinophils % (Auto) 1.9 % (0.0-4.3); Hematocrit 31.4 % (35.5-45.6); Hemoglobin 10.5 gm/dl (11.8-15.2); Lymphocytes # (Auto) 1.2 K/mm3 (1.2-5.4); Lymphocytes % (Auto) 19.6 % (13.4-35.0); Mean Corpuscular HGB Conc 34 % (32-34); Mean Corpuscular Volume 91 fl (84-94); Monocytes # (Auto) 0.7 K/mm3 (0.0-0.8); Monocytes % (Auto) 11.9 % (0.0-7.3); Platelet Count 199 K/mm3 (140-440); Red Blood Count 3.47 M/mm3 (3.65-5.03); Red Cell Distribution Width 14.6 % (13.2-15.2)
--- NOTE | 2019-07-19 08:24 | Progress Note ---
Subjective Date of service: 07/19/19 Principal diagnosis: Bipolar Disorder, Current Episode Manic w/Phsychotic Features Subjective Comment: The patient's medical record was reviewed and the patient's progress was discussed with the nursing staff. I attempt to interview the patient this morning, He is dressed appropriately. He makes fair eye contact. His speech is mumbled and incoherent most of the time. He is walking the rios squeezing water on the floor from a paper towel. His gait is much better today then yesterday. Yesterday the patient presented as leaning during ambulation. This morning he is more erect. He does stop and attempts to engage in a conversation. He says he's doing "okay" when asked. He then restarts mumbling. Reason for continuing inpatient treatment: The patient is manic, aggressive, disorganized, and still having psychosis. Clozapine being titrated. REVIEW OF SYSTEMS Constitutional: Negative for weight loss ENT: Negative for stridor Respiratory: Negative for cough or hemoptysis All other systems reviewed and are negative MSE Appearance: Asleep. Unable to complete due to the patient's somnolence. Diagnoses: Diagnoses: Bipolar Disorder, Current Episode Manic with Psychotic Features Treatment Plan Due to the psychiatric conditions and treatment listed in the Assessment and Plan - the patient requires continued hospitalization. Will continue inpatient treatment to allow for medication adjustment and monitoring. Will continue q15 min safety checks. Will encourage the use of environmental modifications and non-pharmacologic approaches for the management of behavioral and psychological symptoms. Medication adjustment made today: Increased Propanolol 20mg po TID, D/c periactin, start Remeron 15mg po qhs to stimulate appetite Will continue current psych medications Monitor for medication side effects. Current ANC 4200 CBC ordered 07/20 to monitor effects of clozaril Carbemazepine Metabolite Level ordered 07/19 to assure therapeutic dose range of Trileptal The patient will continue on medications for physical illnesses, and Hospitalist will closely monitor these Continue intensive physical and occupational therapies. Monitor patient's mood, sleep, appetite, and behavior closely. Encourage patient to participate in individual and group therapeutic sessions on the irizar[place]. Will provide a safe and therapeutic environment for patient. Estimated length of stay 5 days depending on how the patient progresses Medications and Allergies Allergies Allergy/AdvReac Type Severity Reaction Status Date / Time aripiprazole [From Abilify] Allergy Hives Verified 06/27/19 09:43 aspirin Allergy Hives Verified 06/27/19 09:43 cephalexin [From Keflex] Allergy Hives Verified 06/27/19 09:43 chlorpromazine Allergy Hives Verified 06/27/19 09:43 ibuprofen Allergy Hives Verified 06/27/19 09:43 naproxen Allergy Hives Verified 06/27/19 09:43 ziprasidone [From Geodon] Allergy Hives Verified 06/27/19 09:43 Home Medications Medication Instructions Recorded Confirmed Last Taken Type AtorvaSTATin [Lipitor] 40 mg PO QHS 06/27/19 07/05/19 06/26/19 History Benztropine [Cogentin] 0.5 mg PO TID 06/27/19 07/05/19 06/26/19 History Clopidogrel [Plavix] 75 mg PO QDAY 06/27/19 07/05/19 06/26/19 History Fenofibrate 160 mg PO QDAY 06/27/19 07/05/19 06/26/19 History LORazepam [Ativan] 1 mg PO TID PRN 06/27/19 07/05/19 06/26/19 History Melatonin [Melatonin 5MG CAP] 5 mg PO QHS 06/27/19 07/05/19 06/26/19 History Metoprolol [Lopressor TAB] 100 mg PO QDAY 06/27/19 07/05/19 06/26/19 History OXcarbazepine [Oxtellar XR] 600 mg PO BID 06/27/19 07/05/19 06/26/19 History Sertraline [Zoloft] 50 mg PO QDAY 06/27/19 07/05/19 06/26/19 History Sitagliptin Phos/Metformin HCl 100 mg PO QDAY 06/27/19 07/05/19 06/26/19 History [Janumet 50-1,000 mg Tablet] cloZAPine 800 mg PO QHS 06/27/19 07/05/19 06/26/19 History diphenhydrAMINE [Benadryl CAP] 25 mg PO TID 06/27/19 07/05/19 06/26/19 History Insulin Regular, Human [HumuLIN R] 0 units SUB-Q Q6HR units 07/05/19 07/06/19 Unknown Rx haloperidoL [Haldol] 5 mg PO BID tablet 07/05/19 07/05/19 Unknown Rx metFORMIN [Glucophage] 1,000 mg PO DAILY tablet 07/05/19 07/05/19 Unknown Rx Active Meds: Active Medications Atorvastatin Calcium (Lipitor) 40 mg PO QHS [facility] Last Admin: 07/18/19 21:21 Dose: 40 mg Documented by: Benztropine Mesylate (Cogentin) 0.5 mg PO TID [facility] Last Admin: 07/18/19 20:31 Dose: 0.5 mg Documented by: Clonazepam (Klonopin) 0.5 mg PO TID [facility] Last Admin: 07/18/19 20:32 Dose: 0.5 mg Documented by: Clopidogrel Bisulfate (Plavix) 75 mg PO QDAY [facility] Last Admin: 07/18/19 10:36 Dose: 75 mg Documented by: Clotrimazole (Clotrimazole/Betamethasone) 1 applic TP BID [facility] Last Admin: 07/18/19 21:20 Dose: 1 applic Documented by: Clozapine (Clozapine (Nf)) 400 mg PO BID [facility] Last Admin: 07/18/19 21:22 Dose: 400 mg Documented by: Cyproheptadine HCl (Periactin) 4 mg PO BID [facility] Last Admin: 07/18/19 21:21 Dose: 4 mg Documented by: Insulin Human Regular (Humulin R) 0 units SUB-Q ACHS [facility]; Protocol Last Admin: 07/18/19 21:22 Dose: Not Given Documented by: Linagliptin (Tradjenta) 5 mg PO QDAY [facility] Last Admin: 07/18/19 10:35 Dose: 5 mg Documented by: Lorazepam (Ativan) 2 mg IM Q4H PRN PRN Reason: Agitation Last Admin: 07/17/19 22:15 Dose: 2 mg Documented by: Melatonin (Melatonin) 10 mg PO QHS [facility] Last Admin: 07/18/19 21:21 Dose: 10 mg Documented by: Metformin HCl (Glucophage Xr) 1,000 mg PO QDDIAB [facility] Last Admin: 07/18/19 10:36 Dose: 1,000 mg Documented by: Methylprednisolone (Medrol) 4 mg PO BID [facility] Stop: 07/19/19 17:00 Last Admin: 07/18/19 21:21 Dose: 4 mg Documented by: Mirtazapine (Remeron) 15 mg PO QHS [facility] Oxcarbazepine (Trileptal) 600 mg PO BID [facility] Last Admin: 07/18/19 21:21 Dose: 600 mg Documented by: Potassium Chloride (K-Dur) 30 meq PO QDAY [facility] Last Admin: 07/18/19 10:36 Dose: 30 meq Documented by: Propranolol HCl (Inderal) 20 mg PO TID [facility] Ziprasidone (Geodon) 10 mg IM Q8H PRN PRN Reason: Agitation Results - Results Labs/Vitals: Laboratory Last Values WBC 6.3 K/mm3 (4.5-11.0) 07/19/19 06:52 RBC 3.47 M/mm3 (3.65-5.03) L 07/19/19 06:52 Hgb 10.5 gm/dl (11.8-15.2) L 07/19/19 06:52 Hct 31.4 % (35.5-45.6) L 07/19/19 06:52 MCV 91 fl (84-94) 07/19/19 06:52 MCH 30 pg (28-32) 07/19/19 06:52 MCHC 34 % (32-34) 07/19/19 06:52 RDW 14.6 % (13.2-15.2) 07/19/19 06:52 Plt Count 199 K/mm3 (140-440) 07/19/19 06:52 Lymph % (Auto) 19.6 % (13.4-35.0) 07/19/19 06:52 [place] % (Auto) 11.9 % (0.0-7.3) H 07/19/19 06:52 Eos % (Auto) 1.9 % (0.0-4.3) 07/19/19 06:52 Baso % (Auto) 0.5 % (0.0-1.8) 07/19/19 06:52 Lymph # 1.2 K/mm3 (1.2-5.4) 07/19/19 06:52 [place] # 0.7 K/mm3 (0.0-0.8) 07/19/19 06:52 Eos # 0.1 K/mm3 (0.0-0.4) 07/19/19 06:52 Baso # 0.0 K/mm3 (0.0-0.1) 07/19/19 06:52 Add Manual Diff Complete 07/18/19 21:13 Total Counted 100 07/18/19 21:13 Seg Neutrophils % 66.1 % (40.0-70.0) 07/19/19 06:52 Seg Neuts % (Manual) 74.0 % (40.0-70.0) H 07/18/19 21:13 Band Neutrophils % 0 % 07/18/19 21:13 Lymphocytes % (Manual) 18.0 % (13.4-35.0) 07/18/19 21:13 Reactive Lymphs % (Man) 0 % 07/18/19 21:13 Monocytes % (Manual) 8.0 % (0.0-7.3) H 07/18/19 21:13 Eosinophils % (Manual) 0 % (0.0-4.3) 07/18/19 21:13 Basophils % (Manual) 0 % (0.0-1.8) 07/18/19 21:13 Metamyelocytes % 0 % 07/18/19 21:13 Myelocytes % 0 % 07/18/19 21:13 Promyelocytes % 0 % 07/18/19 21:13 Blast Cells % 0 % 07/18/19 21:13 Nucleated RBC % Not Reportable 07/18/19 21:13 Seg Neutrophils # 4.2 K/mm3 (1.8-7.7) 07/19/19 06:52 Seg Neutrophils # Man 6.8 K/mm3 (1.8-7.7) 07/18/19 21:13 Band Neutrophils # 0.0 K/mm3 07/18/19 21:13 Lymphocytes # (Manual) 1.7 K/mm3 (1.2-5.4) 07/18/19 21:13 Abs React Lymphs (Man) 0.0 K/mm3 07/18/19 21:13 Monocytes # (Manual) 0.7 K/mm3 (0.0-0.8) 07/18/19 21:13 Eosinophils # (Manual) 0.0 K/mm3 (0.0-0.4) 07/18/19 21:13 Basophils # (Manual) 0.0 K/mm3 (0.0-0.1) 07/18/19 21:13 Metamyelocytes # 0.0 K/mm3 07/18/19 21:13 Myelocytes # 0.0 K/mm3 07/18/19 21:13 Promyelocytes # 0.0 K/mm3 07/18/19 21:13 Blast Cells # 0.0 K/mm3 07/18/19 21:13 WBC Morphology Not Reportable 07/18/19 21:13 Hypersegmented Neuts Not Reportable 07/18/19 21:13 Hyposegmented Neuts Not Reportable 07/18/19 21:13 Hypogranular Neuts Not Reportable 07/18/19 21:13 Smudge Cells Not Reportable 07/18/19 21:13 Toxic Granulation Not Reportable 07/18/19 21:13 Toxic Vacuolation Not Reportable 07/18/19 21:13 Dohle Bodies Not Reportable 07/18/19 21:13 Pelger-Huet Anomaly Not Reportable 07/18/19 21:13 Adiel Rods Not Reportable 07/18/19 21:13 Platelet Estimate Appears normal 07/18/19 21:13 Clumped Platelets Not Reportable 07/18/19 21:13 Plt Clumps, EDTA Not Reportable 07/18/19 21:13 Large Platelets Not Reportable 07/18/19 21:13 Giant Platelets Not Reportable 07/18/19 21:13 Platelet Satelliting Not Reportable 07/18/19 21:13 Plt Morphology Comment Not Reportable 07/18/19 21:13 RBC Morphology Not Reportable 07/18/19 21:13 Dimorphic RBCs Not Reportable 07/18/19 21:13 Polychromasia Not Reportable 07/18/19 21:13 Hypochromasia Not Reportable 07/18/19 21:13 Poikilocytosis Not Reportable 07/18/19 21:13 Anisocytosis Few 07/18/19 21:13 Microcytosis Not Reportable 07/18/19 21:13 Macrocytosis Not Reportable 07/18/19 21:13 Spherocytes Not Reportable 07/18/19 21:13 Pappenheimer Bodies Not Reportable 07/18/19 21:13 Sickle Cells Not Reportable 07/18/19 21:13 Target Cells Not Reportable 07/18/19 21:13 Tear Drop Cells Not Reportable 07/18/19 21:13 Ovalocytes Not Reportable 02/21/20 21:13 Helmet Cells Not Reportable 07/18/19 21:13 [place] Bodies Not Reportable 07/18/19 21:13 [place] Rings Not Reportable 07/18/19 21:13 [place] Cells Not Reportable 07/18/19 21:13 Bite Cells Not Reportable 07/18/19 21:13 Crenated Cell Not Reportable 07/18/19 21:13 Elliptocytes Not Reportable 07/18/19 21:13 Acanthocytes (Spur) Not Reportable 07/18/19 21:13 Rouleaux Not Reportable 07/18/19 21:13 Hemoglobin C Crystals Not Reportable 07/18/19 21:13 Schistocytes Not Reportable 07/18/19 21:13 Malaria parasites Not Reportable 07/18/19 21:13 Denzel Bodies Not Reportable 07/18/19 21:13 Hem Pathologist Commnt No 07/18/19 21:13 Sodium 146 mmol/L (137-145) H 07/15/19 08:33 Potassium 3.2 mmol/L (3.6-5.0) L 07/15/19 08:33 Chloride 103.7 mmol/L (98-107) 07/15/19 08:33 Carbon Dioxide 25 mmol/L (22-30) 07/15/19 08:33 Anion Gap 21 mmol/L 07/15/19 08:33 BUN 8 mg/dL (9-20) L 07/15/19 08:33 Creatinine 0.6 mg/dL (0.8-1.5) L 07/15/19 08:33 Estimated GFR > 60 ml/min 07/15/19 08:33 BUN/Creatinine Ratio 13 % 07/15/19 08:33 Glucose 133 mg/dL (75-100) H 07/15/19 08:33 POC Glucose 92 (70-105) 07/19/19 07:34 Hemoglobin A1c 6.3 % (4-6) H 07/05/19 21:07 Calcium 8.9 mg/dL (8.4-10.2) 07/15/19 08:33 Triglycerides 188 mg/dL (2-149) H 07/05/19 21:07 Cholesterol 115 mg/dL (50-199) 07/05/19 21:07 LDL Cholesterol Direct 47 mg/dL (50-130) L 07/05/19 21:07 HDL Cholesterol 35 mg/dL (40-59) L 07/05/19 21:07 Cholesterol/HDL Ratio 3.28 % 07/05/19 21:07 Last Vital Signs Temp 98.4 F 07/18/19 22:00 Pulse 98 H 07/18/19 22:00 Resp 18 07/18/19 22:00 BP 137/75 07/18/19 22:00 Pulse Ox 96 07/18/19 22:00
[2019-07-19] MEDS: INSULIN REGULAR, HUMAN 100 UNITS/1 ML SUB-Q SCH ×4 (08:25→22:00)
[2019-07-19] MEDS: metFORMIN XR 500MG TAB PO SCH (08:26)
[2019-07-19] MEDS: BENZTROPINE 0.5 MG TAB PO SCH ×3 (08:26→21:09)
[2019-07-19] MEDS: PROPRANOLOL 10 MG TAB PO SCH ×3 (08:27→21:11)
[2019-07-19] MEDS: clonazePAM 0.5 MG TAB PO SCH ×3 (08:28→21:10)
[2019-07-19] MEDS: CLOTRIMAZOLE/BETAMETHASONE CREAM 15 GM TP SCH ×2 (09:05→22:00)
[2019-07-19] MEDS: POTASSIUM CHLORIDE ER 10 MEQ TAB PO SCH (09:06)
[2019-07-19] MEDS: OXcarbazepine 150 MG TAB PO SCH ×2 (09:07→21:12)
[2019-07-19] MEDS: methylPREDNISolone 4 MG TAB PO SCH (09:08)
[2019-07-19] MEDS: CLOPIDOGREL 75 MG TAB PO SCH (09:08)
[2019-07-19] MEDS: CLOZAPINE 100 MG PO SCH ×2 (09:08→22:00)
[2019-07-19] MEDS: LINAGLIPTIN 5 MG TAB PO SCH (09:08)
--- NOTE | 2019-07-19 11:52 | XRay Report ---
CHEST 1 VIEW INDICATION: cough. COMPARISON: July 14, 2019 FINDINGS: SUPPORT DEVICES: None. HEART / MEDIASTINUM: No significant abnormality. LUNGS / PLEURA: No significant pulmonary or pleural abnormality. No pneumothorax. ADDITIONAL FINDINGS: Calcified granulomas present right upper lobe IMPRESSION: 1. No acute cardiopulmonary disease Signer Name: Jay Mcdonald MD Signed: 07/19/2019 11:48 AM Workstation Name: [id number]
[2019-07-19] MEDS: ZIPRASIDONE MESYLATE 20 MG VIAL IM PRN ×2 (12:10→23:30)
[2019-07-19] MEDS: MELATONIN 5 MG TAB PO SCH (21:09)
[2019-07-19] MEDS: MIRTAZAPINE 15 MG TAB PO SCH (21:09)
[2019-07-19] MEDS: HALOPERIDOL 2 MG TAB PO SCH (21:10)
[2019-07-20] MEDS: LORazepam 2 MG/ML VIAL IM PRN (01:57)
[2019-07-20] MEDS: INSULIN REGULAR, HUMAN 100 UNITS/1 ML SUB-Q SCH ×4 (07:42→22:00)
[2019-07-20] MEDS: clonazePAM 0.5 MG TAB PO SCH ×3 (08:07→23:13)
[2019-07-20] MEDS: metFORMIN XR 500MG TAB PO SCH (08:07)
[2019-07-20] MEDS: BENZTROPINE 0.5 MG TAB PO SCH ×3 (08:08→22:05)
--- NOTE | 2019-07-20 08:12 | Progress Note ---
Subjective Date of service: 07/20/19 Principal diagnosis: Bipolar Disorder, Current Episode Manic w/Phsychotic Features Subjective Comment: The patient's medical record was reviewed and the patient's progress was discussed with the nursing staff. The nurse note states the patient is becoming more agitated , banging on the glass window, yelling. Security notified to assist. Patient given geodon 10 mg im. Medication had no effect on patient. The patient refused vital signs and blood sugar tonight. He removed clothing and continue to pace unit, yelling, crawling on floor, banging on glass. intrusive to other patients. Security phoned and the patient was given Ativan 2mg IM. The patient began crawling on floor nude, than went to shower and flooded room. The patient is in and out of shower several times. called and voice concern about patient medications and weight loss. I attempt to interview the patient this morning, he is pacing around the unit, partially dressed. He has restarted leaning as he walks. He does not stop upon me attempting to speak with him. He is unable to be redirected. He is mumbling continuously. The patient could not be engaged to complete interview. I spoke with the patient's spouse, Esther, this morning concerning the patient's progress and the return of his leaning gait after restarting the haldol. She says Geodon makes the patient worse. She alss says she's not interested in stopping the Haldol and wants it continued. Discussed with the patient the use of trying Trintellix to possibly reduce psychosis resistant to antipyschotics. She says she is willing to try it but first wants the patient placed back on Benadryl 25mg po TID to see if that will work. She was also informed of the increase in Klonopin. She is in agreement with it. Esther says she is in the process of trying to get the patient admitted into [facility]. Reason for continuing inpatient treatment: The patient is manic, aggressive, disorganized, intrusive, and destructive. REVIEW OF SYSTEMS Unable to complete due to patient's condition MSE Appearance: Asleep. Unable to complete due to the patient's condition Diagnoses: Diagnoses: Bipolar Disorder, Current Episode Manic with Psychotic Features Treatment Plan Due to the psychiatric conditions and treatment listed in the Assessment and Plan - the patient requires continued hospitalization. Will continue inpatient treatment to allow for medication adjustment and monitoring. Will continue q15 min safety checks. Will encourage the use of environmental modifications and non-pharmacologic approaches for the management of behavioral and psychological symptoms. Medication adjustment made today: Increased Propanolol 20mg po TID yesterday to decrease aggression and akath isia symptoms Increased Klonopin 1mg po TID Started Benadryl 25mg po TID Will continue current psych medications Monitor for medication side effects. ANC yesterday 4200 CBC ordered 07/20 to monitor effects of clozaril Carbemazepine Metabolite Level ordered 07/19 to assure therapeutic dose range of Trileptal The patient will continue on medications for physical illnesses, and Hospitalist will closely monitor these Continue intensive physical and occupational therapies. Monitor patient's mood, sleep, appetite, and behavior closely. Encourage patient to participate in individual and group therapeutic sessions on the irizarry. Will provide a safe and therapeutic environment for patient. Estimated length of stay 5 days depending on how the patient progresses Medications and Allergies Allergies Allergy/AdvReac Type Severity Reaction Status Date / Time aripiprazole [From Abilify] Allergy Hives Verified 06/27/19 09:43 aspirin Allergy Hives Verified 06/27/19 09:43 cephalexin [From Keflex] Allergy Hives Verified 06/27/19 09:43 chlorpromazine Allergy Hives Verified 06/27/19 09:43 ibuprofen Allergy Hives Verified 06/27/19 09:43 naproxen Allergy Hives Verified 06/27/19 09:43 risperidone [From Risperdal] Allergy Hives Verified 07/20/19 08:16 ziprasidone [From Geodon] Allergy Hives Verified 06/27/19 09:43 Home Medications Medication Instructions Recorded Confirmed Last Taken Type AtorvaSTATin [Lipitor] 40 mg PO QHS 06/27/19 07/05/19 06/26/19 History Benztropine [Cogentin] 0.5 mg PO TID 06/27/19 07/05/19 06/26/19 History Clopidogrel [Plavix] 75 mg PO QDAY 06/27/19 07/05/19 06/26/19 History Fenofibrate 160 mg PO QDAY 06/27/19 07/05/19 06/26/19 History LORazepam [Ativan] 1 mg PO TID PRN 06/27/19 07/05/19 06/26/19 History Melatonin [Melatonin 5MG CAP] 5 mg PO QHS 06/27/19 07/05/19 06/26/19 History Metoprolol [Lopressor TAB] 100 mg PO QDAY 06/27/19 07/05/19 06/26/19 History OXcarbazepine [Oxtellar XR] 600 mg PO BID 06/27/19 07/05/19 06/26/19 History Sertraline [Zoloft] 50 mg PO QDAY 06/27/19 07/05/19 06/26/19 History Sitagliptin Phos/Metformin HCl 100 mg PO QDAY 06/27/19 07/05/19 06/26/19 History [Janumet 50-1,000 mg Tablet] cloZAPine 800 mg PO QHS 06/27/19 07/05/19 06/26/19 History diphenhydrAMINE [Benadryl CAP] 25 mg PO TID 06/27/19 07/05/19 06/26/19 History Insulin Regular, Human [HumuLIN R] 0 units SUB-Q Q6HR units 07/05/19 07/06/19 Unknown Rx haloperidoL [Haldol] 5 mg PO BID tablet 07/05/19 07/05/19 Unknown Rx metFORMIN [Glucophage] 1,000 mg PO DAILY tablet 07/05/19 07/05/19 Unknown Rx Active Meds: Active Medications Atorvastatin Calcium (Lipitor) 40 mg PO QHS [facility] Last Admin: 07/19/19 21:09 Dose: 40 mg Documented by: Benztropine Mesylate (Cogentin) 0.5 mg PO TID [facility] Last Admin: 07/19/19 21:09 Dose: 0.5 mg Documented by: Clonazepam (Klonopin) 0.5 mg PO TID [facility] Last Admin: 07/19/19 21:10 Dose: 0.5 mg Documented by: Clopidogrel Bisulfate (Plavix) 75 mg PO QDAY [facility] Last Admin: 07/19/19 09:08 Dose: 75 mg Documented by: Clotrimazole (Clotrimazole/Betamethasone) 1 applic TP BID [facility] Last Admin: 07/19/19 22:00 Dose: 1 applic Documented by: Clozapine (Clozapine (Nf)) 400 mg PO BID [facility] Last Admin: 07/19/19 22:00 Dose: 400 mg Documented by: Haloperidol (Haldol) 2 mg PO BID [facility] Last Admin: 07/19/19 21:10 Dose: 2 mg Documented by: Insulin Human Regular (Humulin R) 0 units SUB-Q ACHS [facility]; Protocol Last Admin: 07/20/19 07:42 Dose: Not Given Documented by: Linagliptin (Tradjenta) 5 mg PO QDAY [facility] Last Admin: 07/19/19 09:08 Dose: 5 mg Documented by: Lorazepam (Ativan) 2 mg IM Q4H PRN PRN Reason: Agitation Last Admin: 07/20/19 01:57 Dose: 2 mg Documented by: Melatonin (Melatonin) 10 mg PO QHS [facility] Last Admin: 07/19/19 21:09 Dose: 10 mg Documented by: Metformin HCl (Glucophage Xr) 1,000 mg PO QDDIAB [facility] Last Admin: 07/19/19 08:26 Dose: 1,000 mg Documented by: Mirtazapine (Remeron) 15 mg PO QHS [facility] Last Admin: 07/19/19 21:09 Dose: 15 mg Documented by: Oxcarbazepine (Trileptal) 600 mg PO BID [facility] Last Admin: 07/19/19 21:12 Dose: 600 mg Documented by: Potassium Chloride (K-Dur) 30 meq PO QDAY [facility] Last Admin: 07/19/19 09:06 Dose: 30 meq Documented by: Propranolol HCl (Inderal) 20 mg PO TID [facility] Last Admin: 07/19/19 21:11 Dose: 20 mg Documented by: Ziprasidone (Geodon) 10 mg IM Q8H PRN PRN Reason: Agitation Last Admin: 07/19/19 23:30 Dose: 10 mg Documented by: Results - Results Labs/Vitals: Laboratory Last Values WBC 6.3 K/mm3 (4.5-11.0) 07/19/19 06:52 RBC 3.47 M/mm3 (3.65-5.03) L 07/19/19 06:52 Hgb 10.5 gm/dl (11.8-15.2) L 07/19/19 06:52 Hct 31.4 % (35.5-45.6) L 07/19/19 06:52 MCV 91 fl (84-94) 07/19/19 06:52 MCH 30 pg (28-32) 07/19/19 06:52 MCHC 34 % (32-34) 07/19/19 06:52 RDW 14.6 % (13.2-15.2) 07/19/19 06:52 Plt Count 199 K/mm3 (140-440) 07/19/19 06:52 Lymph % (Auto) 19.6 % (13.4-35.0) 07/19/19 06:52 Larue % (Auto) 11.9 % (0.0-7.3) H 07/19/19 06:52 Eos % (Auto) 1.9 % (0.0-4.3) 07/19/19 06:52 Baso % (Auto) 0.5 % (0.0-1.8) 07/19/19 06:52 Lymph # 1.2 K/mm3 (1.2-5.4) 07/19/19 06:52 Larue # 0.7 K/mm3 (0.0-0.8) 07/19/19 06:52 Eos # 0.1 K/mm3 (0.0-0.4) 07/19/19 06:52 Baso # 0.0 K/mm3 (0.0-0.1) 07/19/19 06:52 Add Manual Diff Complete 07/18/19 21:13 Total Counted 100 07/18/19 21:13 Seg Neutrophils % 66.1 % (40.0-70.0) 07/19/19 06:52 Seg Neuts % (Manual) 74.0 % (40.0-70.0) H 07/18/19 21:13 Band Neutrophils % 0 % 07/18/19 21:13 Lymphocytes % (Manual) 18.0 % (13.4-35.0) 07/18/19 21:13 Reactive Lymphs % (Man) 0 % 07/18/19 21:13 Monocytes % (Manual) 8.0 % (0.0-7.3) H 07/18/19 21:13 Eosinophils % (Manual) 0 % (0.0-4.3) 07/18/19 21:13 Basophils % (Manual) 0 % (0.0-1.8) 07/18/19 21:13 Metamyelocytes % 0 % 07/18/19 21:13 Myelocytes % 0 % 07/18/19 21:13 Promyelocytes % 0 % 07/18/19 21:13 Blast Cells % 0 % 07/18/19 21:13 Nucleated RBC % Not Reportable 07/18/19 21:13 Seg Neutrophils # 4.2 K/mm3 (1.8-7.7) 07/19/19 06:52 Seg Neutrophils # Man 6.8 K/mm3 (1.8-7.7) 07/18/19 21:13 Band Neutrophils # 0.0 K/mm3 07/18/19 21:13 Lymphocytes # (Manual) 1.7 K/mm3 (1.2-5.4) 07/18/19 21:13 Abs React Lymphs (Man) 0.0 K/mm3 07/18/19 21:13 Monocytes # (Manual) 0.7 K/mm3 (0.0-0.8) 07/18/19 21:13 Eosinophils # (Manual) 0.0 K/mm3 (0.0-0.4) 07/18/19 21:13 Basophils # (Manual) 0.0 K/mm3 (0.0-0.1) 07/18/19 21:13 Metamyelocytes # 0.0 K/mm3 07/18/19 21:13 Myelocytes # 0.0 K/mm3 07/18/19 21:13 Promyelocytes # 0.0 K/mm3 07/18/19 21:13 Blast Cells # 0.0 K/mm3 07/18/19 21:13 WBC Morphology Not Reportable 07/18/19 21:13 Hypersegmented Neuts Not Reportable 07/18/19 21:13 Hyposegmented Neuts Not Reportable 07/18/19 21:13 Hypogranular Neuts Not Reportable 07/18/19 21:13 Smudge Cells Not Reportable 07/18/19 21:13 Toxic Granulation Not Reportable 07/18/19 21:13 Toxic Vacuolation Not Reportable 07/18/19 21:13 Dohle Bodies Not Reportable 07/18/19 21:13 Pelger-Huet Anomaly Not Reportable 07/18/19 21:13 Adiel Rods Not Reportable 07/18/19 21:13 Platelet Estimate Appears normal 07/18/19 21:13 Clumped Platelets Not Reportable 07/18/19 21:13 Plt Clumps, EDTA Not Reportable 07/18/19 21:13 Large Platelets Not Reportable 07/18/19 21:13 Giant Platelets Not Reportable 07/18/19 21:13 Platelet Satelliting Not Reportable 07/18/19 21:13 Plt Morphology Comment Not Reportable 07/18/19 21:13 RBC Morphology Not Reportable 07/18/19 21:13 Dimorphic RBCs Not Reportable 07/18/19 21:13 Polychromasia Not Reportable 07/18/19 21:13 Hypochromasia Not Reportable 07/18/19 21:13 Poikilocytosis Not Reportable 07/18/19 21:13 Anisocytosis Few 07/18/19 21:13 Microcytosis Not Reportable 07/18/19 21:13 Macrocytosis Not Reportable 07/18/19 21:13 Spherocytes Not Reportable 07/18/19 21:13 Pappenheimer Bodies Not Reportable 07/18/19 21:13 Sickle Cells Not Reportable 07/18/19 21:13 Target Cells Not Reportable 07/18/19 21:13 Tear Drop Cells Not Reportable 07/18/19 21:13 Ovalocytes Not Reportable 07/18/19 21:13 Helmet Cells Not Reportable 07/18/19 21:13 [place] Bodies Not Reportable 07/18/19 21:13 [place] Rings Not Reportable 07/18/19 21:13 [place] Cells Not Reportable 07/18/19 21:13 Bite Cells Not Reportable 07/18/19 21:13 Crenated Cell Not Reportable 07/18/19 21:13 Elliptocytes Not Reportable 07/18/19 21:13 Acanthocytes (Spur) Not Reportable 07/18/19 21:13 Rouleaux Not Reportable 07/18/19 21:13 Hemoglobin C Crystals Not Reportable 07/18/19 21:13 Schistocytes Not Reportable 07/18/19 21:13 Malaria parasites Not Reportable 07/18/19 21:13 [place]zel Bodies Not Reportable 07/18/19 21:13 Hem Pathologist Commnt No 07/18/19 21:13 Sodium 146 mmol/L (137-145) H 07/15/19 08:33 Potassium 3.2 mmol/L (3.6-5.0) L 07/15/19 08:33 Chloride 103.7 mmol/L (98-107) 07/15/19 08:33 Carbon Dioxide 25 mmol/L (22-30) 07/15/19 08:33 Anion Gap 21 mmol/L 07/15/19 08:33 BUN 8 mg/dL (9-20) L 07/15/19 08:33 Creatinine 0.6 mg/dL (0.8-1.5) L 07/15/19 08:33 Estimated GFR > 60 ml/min 07/15/19 08:33 BUN/Creatinine Ratio 13 % 07/15/19 08:33 Glucose 133 mg/dL (75-100) H 07/15/19 08:33 POC Glucose 149 (70-105) H 07/20/19 07:11 Hemoglobin A1c 6.3 % (4-6) H 07/05/19 21:07 Calcium 8.9 mg/dL (8.4-10.2) 07/15/19 08:33 Triglycerides 188 mg/dL (2-149) H 07/05/19 21:07 Cholesterol 115 mg/dL (50-199) 07/05/19 21:07 LDL Cholesterol Direct 47 mg/dL (50-130) L 07/05/19 21:07 HDL Cholesterol 35 mg/dL (40-59) L 07/05/19 21:07 Cholesterol/HDL Ratio 3.28 % 07/05/19 21:07 Last Vital Signs Temp 98.2 F 07/19/19 07:30 Pulse 80 07/19/19 16:01 Resp 18 07/19/19 07:30 BP 117/70 07/19/19 16:01 Pulse Ox 96 07/19/19 07:30
[2019-07-20] MEDS: PROPRANOLOL 10 MG TAB PO SCH ×3 (08:47→22:01)
[2019-07-20] MEDS ORDERED: clonazePAM 0.5 MG TAB PO ONE (09:00)
[2019-07-20] MEDS: CLOPIDOGREL 75 MG TAB PO SCH (09:46)
[2019-07-20] MEDS: HALOPERIDOL 2 MG TAB PO SCH ×2 (09:46→22:03)
[2019-07-20] MEDS: POTASSIUM CHLORIDE ER 10 MEQ TAB PO SCH (09:46)
[2019-07-20] MEDS: LINAGLIPTIN 5 MG TAB PO SCH (09:48)
[2019-07-20] MEDS: CLOZAPINE 100 MG PO SCH ×2 (09:49→22:08)
[2019-07-20] MEDS: CLOTRIMAZOLE/BETAMETHASONE CREAM 15 GM TP SCH ×2 (09:51→22:06)
[2019-07-20] MEDS: OXcarbazepine 150 MG TAB PO SCH ×2 (09:59→22:03)
[2019-07-20] MEDS: diphenhydrAMINE 25 MG CAP PO SCH ×3 (09:59→22:05)
[2019-07-20] MEDS: MELATONIN 5 MG TAB PO SCH (22:03)
[2019-07-20] MEDS: MIRTAZAPINE 15 MG TAB PO SCH (22:06)
--- NOTE | 2019-07-21 08:56 | Progress Note ---
Subjective Date of service: 07/21/19 Principal diagnosis: Bipolar Disorder, Current Episode Manic w/Phsychotic Features Subjective Comment: The patient's medical record was reviewed and the patient's progress was discussed with the nursing staff. The nurse note states the patient had 1:1 staff which sat with him and encouraged him to lay on his mattress. When patient became still he went back to sleep and slept from 2300 until 0530. He awakened and his mood has been irritable. He is again pacing on the unit but his gait is stronger this morning. Will continue to monitor for safety with 1:1 staff. During my interview with the patient this morning, he is walking around the unit, but at a slower pace this morning. He seems more calm. He is not as talkative and seems a little more clear headed than previous times. His gait appears more steady. He actually stops to speak with me. His speech is garbled, but understandable at times. The patient was a/o x 2. He was able to tell me his name and that he was in the "hospital." when asking him how was he feelings, he replied "I'm okay." The patient replied, "no" when asked about suicidal or harmful tendencies. He did not answer the question of hallucinations, but motions with his hand and starts back walking the unit as I'm trying to speak with him. A sitter is with the patient. Reason for continuing inpatient treatment: The patient appears to be improving, but is still disorganized REVIEW OF SYSTEMS Unable to complete due to patient's condition MSE Appearance: Awake. Dressed appropriate Behavior: More calm, cooperates more Mood: Affect: flat Thought Process: disorganized Speech: Garbled Thought Content Suicidal: Denies Homicidal: Denies Hallucinations: Unable to assess Delusions: None elicited Consciousness: Alert Cognition/Memory: Impaired Insight/Judgment: Limited Treatment Plan Due to the psychiatric conditions and treatment listed in the Assessment and Plan - the patient requires continued hospitalization. Will continue inpatient treatment to allow for medication adjustment and monitoring. Will continue q15 min safety checks. Will encourage the use of environmental modifications and non-pharmacologic approaches for the management of behavioral and psychological symptoms. Medication adjustment made today: No changes made today Will continue current psych medications Monitor for medication side effects. ANC 8.9 Carbemazepine Metabolite Level ordered 07/19 to assure therapeutic dose range of Trileptal (takes about 3 days to result) The patient will continue on medications for physical illnesses, and Hospitalist will closely monitor these Continue intensive physical and occupational therapies. Monitor patient's mood, sleep, appetite, and behavior closely. Encourage patient to participate in individual and group therapeutic sessions on the irizarry. Will provide a safe and therapeutic environment for patient. Estimated length of stay 5 days depending on how the patient progresses Medications and Allergies Allergies Allergy/AdvReac Type Severity Reaction Status Date / Time aripiprazole [From Abilify] Allergy Hives Verified 06/27/19 09:43 aspirin Allergy Hives Verified 06/27/19 09:43 cephalexin [From Keflex] Allergy Hives Verified 06/27/19 09:43 chlorpromazine Allergy Hives Verified 06/27/19 09:43 ibuprofen Allergy Hives Verified 06/27/19 09:43 naproxen Allergy Hives Verified 06/27/19 09:43 risperidone [From Risperdal] Allergy Hives Verified 07/20/19 08:16 ziprasidone [From Geodon] Allergy Hives Verified 06/27/19 09:43 Home Medications Medication Instructions Recorded Confirmed Last Taken Type AtorvaSTATin [Lipitor] 40 mg PO QHS 06/27/19 07/05/19 06/26/19 History Benztropine [Cogentin] 0.5 mg PO TID 06/27/19 07/05/19 06/26/19 History Clopidogrel [Plavix] 75 mg PO QDAY 06/27/19 07/05/19 06/26/19 History Fenofibrate 160 mg PO QDAY 06/27/19 07/05/19 06/26/19 History LORazepam [Ativan] 1 mg PO TID PRN 06/27/19 07/05/19 06/26/19 History Melatonin [Melatonin 5MG CAP] 5 mg PO QHS 06/27/19 07/05/19 06/26/19 History Metoprolol [Lopressor TAB] 100 mg PO QDAY 06/27/19 07/05/19 06/26/19 History OXcarbazepine [Oxtellar XR] 600 mg PO BID 06/27/19 07/05/19 06/26/19 History Sertraline [Zoloft] 50 mg PO QDAY 06/27/19 07/05/19 06/26/19 History Sitagliptin Phos/Metformin HCl 100 mg PO QDAY 06/27/19 07/05/19 06/26/19 History [Janumet 50-1,000 mg Tablet] cloZAPine 800 mg PO QHS 06/27/19 07/05/19 06/26/19 History diphenhydrAMINE [Benadryl CAP] 25 mg PO TID 06/27/19 07/05/19 06/26/19 History Insulin Regular, Human [HumuLIN R] 0 units SUB-Q Q6HR units 07/05/19 07/06/19 Unknown Rx haloperidoL [Haldol] 5 mg PO BID tablet 07/05/19 07/05/19 Unknown Rx metFORMIN [Glucophage] 1,000 mg PO DAILY tablet 07/05/19 07/05/19 Unknown Rx Active Meds: Active Medications Atorvastatin Calcium (Lipitor) 40 mg PO QHS [facility] Last Admin: 07/20/19 22:06 Dose: 40 mg Documented by: Benztropine Mesylate (Cogentin) 0.5 mg PO TID [facility] Last Admin: 07/20/19 22:05 Dose: 0.5 mg Documented by: Clonazepam (Klonopin) 1 mg PO TID [facility] Last Admin: 07/20/19 23:13 Dose: 1 mg Documented by: Clopidogrel Bisulfate (Plavix) 75 mg PO QDAY [facility] Last Admin: 07/20/19 09:46 Dose: 75 mg Documented by: Clotrimazole (Clotrimazole/Betamethasone) 1 applic TP BID [facility] Last Admin: 07/20/19 22:06 Dose: 1 applic Documented by: Clozapine (Clozapine (Nf)) 400 mg PO BID [facility] Last Admin: 07/20/19 22:08 Dose: 400 mg Documented by: Diphenhydramine HCl (Benadryl) 25 mg PO TID [facility] Last Admin: 07/20/19 22:05 Dose: 25 mg Documented by: Haloperidol (Haldol) 2 mg PO BID [facility] Last Admin: 07/20/19 22:03 Dose: 2 mg Documented by: Insulin Human Regular (Humulin R) 0 units SUB-Q ACHS [facility]; Protocol Last Admin: 07/20/19 22:00 Dose: Not Given Documented by: Linagliptin (Tradjenta) 5 mg PO QDAY [facility] Last Admin: 07/20/19 09:48 Dose: 5 mg Documented by: Lorazepam (Ativan) 2 mg IM Q4H PRN PRN Reason: Agitation Last Admin: 07/20/19 01:57 Dose: 2 mg Documented by: Melatonin (Melatonin) 10 mg PO QHS [facility] Last Admin: 07/20/19 22:03 Dose: 10 mg Documented by: Metformin HCl (Glucophage Xr) 1,000 mg PO QDDIAB [facility] Last Admin: 07/20/19 08:07 Dose: 1,000 mg Documented by: Mirtazapine (Remeron) 15 mg PO QHS [facility] Last Admin: 07/20/19 22:06 Dose: 15 mg Documented by: Oxcarbazepine (Trileptal) 600 mg PO BID [facility] Last Admin: 07/20/19 22:03 Dose: 600 mg Documented by: Potassium Chloride (K-Dur) 30 meq PO QDAY [facility] Last Admin: 07/20/19 09:46 Dose: 30 meq Documented by: Propranolol HCl (Inderal) 20 mg PO TID [facility] Last Admin: 07/20/19 22:01 Dose: 20 mg Documented by: Results - Results Labs/Vitals: Laboratory Last Values WBC 6.3 K/mm3 (4.5-11.0) 07/19/19 06:52 RBC 3.47 M/mm3 (3.65-5.03) L 07/19/19 06:52 Hgb 10.5 gm/dl (11.8-15.2) L 07/19/19 06:52 Hct 31.4 % (35.5-45.6) L 07/19/19 06:52 MCV 91 fl (84-94) 07/19/19 06:52 MCH 30 pg (28-32) 07/19/19 06:52 MCHC 34 % (32-34) 07/19/19 06:52 RDW 14.6 % (13.2-15.2) 07/19/19 06:52 Plt Count 199 K/mm3 (140-440) 07/19/19 06:52 Lymph % (Auto) 19.6 % (13.4-35.0) 07/19/19 06:52 [place] % (Auto) 11.9 % (0.0-7.3) H 07/19/19 06:52 Eos % (Auto) 1.9 % (0.0-4.3) 07/19/19 06:52 Baso % (Auto) 0.5 % (0.0-1.8) 07/19/19 06:52 Lymph # 1.2 K/mm3 (1.2-5.4) 07/19/19 06:52 [place] # 0.7 K/mm3 (0.0-0.8) 07/19/19 06:52 Eos # 0.1 K/mm3 (0.0-0.4) 07/19/19 06:52 Baso # 0.0 K/mm3 (0.0-0.1) 07/19/19 06:52 Add Manual Diff Complete 07/18/19 21:13 Total Counted 100 07/18/19 21:13 Seg Neutrophils % 66.1 % (40.0-70.0) 07/19/19 06:52 Seg Neuts % (Manual) 74.0 % (40.0-70.0) H 07/18/19 21:13 Band Neutrophils % 0 % 07/18/19 21:13 Lymphocytes % (Manual) 18.0 % (13.4-35.0) 07/18/19 21:13 Reactive Lymphs % (Man) 0 % 07/18/19 21:13 Monocytes % (Manual) 8.0 % (0.0-7.3) H 07/18/19 21:13 Eosinophils % (Manual) 0 % (0.0-4.3) 07/18/19 21:13 Basophils % (Manual) 0 % (0.0-1.8) 07/18/19 21:13 Metamyelocytes % 0 % 07/18/19 21:13 Myelocytes % 0 % 07/18/19 21:13 Promyelocytes % 0 % 07/18/19 21:13 Blast Cells % 0 % 07/18/19 21:13 Nucleated RBC % Not Reportable 07/18/19 21:13 Seg Neutrophils # 4.2 K/mm3 (1.8-7.7) 07/19/19 06:52 Seg Neutrophils # Man 6.8 K/mm3 (1.8-7.7) 07/18/19 21:13 Band Neutrophils # 0.0 K/mm3 07/18/19 21:13 Lymphocytes # (Manual) 1.7 K/mm3 (1.2-5.4) 07/18/19 21:13 Abs React Lymphs (Man) 0.0 K/mm3 07/18/19 21:13 Monocytes # (Manual) 0.7 K/mm3 (0.0-0.8) 07/18/19 21:13 Eosinophils # (Manual) 0.0 K/mm3 (0.0-0.4) 07/18/19 21:13 Basophils # (Manual) 0.0 K/mm3 (0.0-0.1) 07/18/19 21:13 Metamyelocytes # 0.0 K/mm3 07/18/19 21:13 Myelocytes # 0.0 K/mm3 07/18/19 21:13 Promyelocytes # 0.0 K/mm3 07/18/19 21:13 Blast Cells # 0.0 K/mm3 07/18/19 21:13 WBC Morphology Not Reportable 07/18/19 21:13 Hypersegmented Neuts Not Reportable 07/18/19 21:13 Hyposegmented Neuts Not Reportable 07/18/19 21:13 Hypogranular Neuts Not Reportable 07/18/19 21:13 Smudge Cells Not Reportable 07/18/19 21:13 Toxic Granulation Not Reportable 07/18/19 21:13 Toxic Vacuolation Not Reportable 07/18/19 21:13 Dohle Bodies Not Reportable 07/18/19 21:13 Pelger-Huet Anomaly Not Reportable 07/18/19 21:13 Adiel Rods Not Reportable 07/18/19 21:13 Platelet Estimate Appears normal 07/18/19 21:13 Clumped Platelets Not Reportable 07/18/19 21:13 Plt Clumps, EDTA Not Reportable 07/18/19 21:13 Large Platelets Not Reportable 07/18/19 21:13 Giant Platelets Not Reportable 07/18/19 21:13 Platelet Satelliting Not Reportable 07/18/19 21:13 Plt Morphology Comment Not Reportable 07/18/19 21:13 RBC Morphology Not Reportable 07/18/19 21:13 Dimorphic RBCs Not Reportable 07/18/19 21:13 Polychromasia Not Reportable 07/18/19 21:13 Hypochromasia Not Reportable 07/18/19 21:13 Poikilocytosis Not Reportable 07/18/19 21:13 Anisocytosis Few 07/18/19 21:13 Microcytosis Not Reportable 07/18/19 21:13 Macrocytosis Not Reportable 07/18/19 21:13 Spherocytes Not Reportable 07/18/19 21:13 Pappenheimer Bodies Not Reportable 07/18/19 21:13 Sickle Cells Not Reportable 07/18/19 21:13 Target Cells Not Reportable 07/18/19 21:13 Tear Drop Cells Not Reportable 07/18/19 21:13 Ovalocytes Not Reportable 07/18/19 21:13 Helmet Cells Not Reportable 07/18/19 21:13 [place] Bodies Not Reportable 07/18/19 21:13 [place] Rings Not Reportable 07/18/19 21:13 [place] Cells Not Reportable 07/18/19 21:13 Bite Cells Not Reportable 07/18/19 21:13 Crenated Cell Not Reportable 07/18/19 21:13 Elliptocytes Not Reportable 07/18/19 21:13 Acanthocytes (Spur) Not Reportable 07/18/19 21:13 Rouleaux Not Reportable 07/18/19 21:13 Hemoglobin C Crystals Not Reportable 07/18/19 21:13 Schistocytes Not Reportable 07/18/19 21:13 Malaria parasites Not Reportable 07/18/19 21:13 [place] Bodies Not Reportable 07/18/19 21:13 Hem Pathologist Commnt No 07/18/19 21:13 Sodium 146 mmol/L (137-145) H 07/15/19 08:33 Potassium 3.2 mmol/L (3.6-5.0) L 07/15/19 08:33 Chloride 103.7 mmol/L (98-107) 07/15/19 08:33 Carbon Dioxide 25 mmol/L (22-30) 07/15/19 08:33 Anion Gap 21 mmol/L 07/15/19 08:33 BUN 8 mg/dL (9-20) L 07/15/19 08:33 Creatinine 0.6 mg/dL (0.8-1.5) L 07/15/19 08:33 Estimated GFR > 60 ml/min 07/15/19 08:33 BUN/Creatinine Ratio 13 % 07/15/19 08:33 Glucose 133 mg/dL (75-100) H 07/15/19 08:33 POC Glucose 108 (70-105) H 07/21/19 08:00 Hemoglobin A1c 6.3 % (4-6) H 07/05/19 21:07 Calcium 8.9 mg/dL (8.4-10.2) 07/15/19 08:33 Triglycerides 188 mg/dL (2-149) H 07/05/19 21:07 Cholesterol 115 mg/dL (50-199) 07/05/19 21:07 LDL Cholesterol Direct 47 mg/dL (50-130) L 07/05/19 21:07 HDL Cholesterol 35 mg/dL (40-59) L 07/05/19 21:07 Cholesterol/HDL Ratio 3.28 % 07/05/19 21:07 Last Vital Signs Temp 98.0 F 07/20/19 22:00 Pulse 95 H 07/20/19 22:01 Resp 18 07/20/19 22:00 BP 136/69 07/20/19 22:01 Pulse Ox 95 07/20/19 22:00
[2019-07-21] MEDS: POTASSIUM CHLORIDE ER 10 MEQ TAB PO SCH (10:15)
[2019-07-21] MEDS: CLOPIDOGREL 75 MG TAB PO SCH (10:15)
[2019-07-21] MEDS: HALOPERIDOL 2 MG TAB PO SCH ×2 (10:15→22:13)
[2019-07-21] MEDS: clonazePAM 0.5 MG TAB PO SCH ×3 (10:16→20:36)
[2019-07-21] MEDS: OXcarbazepine 150 MG TAB PO SCH ×2 (10:16→22:13)
[2019-07-21] MEDS: diphenhydrAMINE 25 MG CAP PO SCH ×3 (10:17→20:35)
[2019-07-21] MEDS: metFORMIN XR 500MG TAB PO SCH (10:17)
[2019-07-21] MEDS: LINAGLIPTIN 5 MG TAB PO SCH (10:17)
[2019-07-21] MEDS: BENZTROPINE 0.5 MG TAB PO SCH ×3 (10:17→20:37)
[2019-07-21] MEDS: INSULIN REGULAR, HUMAN 100 UNITS/1 ML SUB-Q SCH ×4 (10:18→22:14)
[2019-07-21] MEDS: CLOTRIMAZOLE/BETAMETHASONE CREAM 15 GM TP SCH ×2 (10:19→22:13)
[2019-07-21] MEDS: PROPRANOLOL 10 MG TAB PO SCH ×3 (10:20→20:36)
[2019-07-21] MEDS: CLOZAPINE 100 MG PO SCH ×2 (10:21→22:14)
[2019-07-21 11:07] LABS: Hemoglobin 11.8 gm/dl (11.8-15.2); Mean Corpuscular HGB Conc 34 % (32-34); Mean Corpuscular Volume 90 fl (84-94); Platelet Count 241 K/mm3 (140-440); Red Blood Count 3.91 M/mm3 (3.65-5.03); Red Cell Distribution Width 14.5 % (13.2-15.2)
[2019-07-21 13:18] LABS: Basophils % (Manual) 0 % (0.0-1.8); Eosinophils % (Manual) 0 % (0.0-4.3); Platelet Estimate Consistent w Auto; RBC Morphology Normal; Total Cells Counted 100
[2019-07-21] MEDS: MELATONIN 5 MG TAB PO SCH (22:13)
[2019-07-21] MEDS: MIRTAZAPINE 15 MG TAB PO SCH (22:14)
[2019-07-22] MEDS: LORazepam 2 MG/ML VIAL IM PRN ×2 (04:53→23:35)
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
[2019-07-22] MEDS: POTASSIUM CHLORIDE ER 10 MEQ TAB PO SCH (09:35)
[2019-07-22] MEDS: metFORMIN XR 500MG TAB PO SCH (09:36)
[2019-07-22] MEDS: CLOPIDOGREL 75 MG TAB PO SCH (09:36)
[2019-07-22] MEDS: clonazePAM 0.5 MG TAB PO SCH ×3 (09:37→21:23)
[2019-07-22] MEDS: PROPRANOLOL 10 MG TAB PO SCH ×2 (09:38→21:25)
[2019-07-22] MEDS: OXcarbazepine 150 MG TAB PO SCH ×2 (09:38→21:22)
[2019-07-22] MEDS: diphenhydrAMINE 25 MG CAP PO SCH ×3 (09:38→21:22)
[2019-07-22] MEDS: HALOPERIDOL 2 MG TAB PO SCH ×2 (09:38→21:25)
[2019-07-22] MEDS: LINAGLIPTIN 5 MG TAB PO SCH (09:39)
[2019-07-22] MEDS: BENZTROPINE 0.5 MG TAB PO SCH ×3 (09:39→21:21)
[2019-07-22] MEDS: INSULIN REGULAR, HUMAN 100 UNITS/1 ML SUB-Q SCH ×4 (09:39→22:00)
[2019-07-22] MEDS: CLOZAPINE 100 MG PO SCH ×2 (09:40→21:18)
[2019-07-22] MEDS: CLOTRIMAZOLE/BETAMETHASONE CREAM 15 GM TP SCH ×2 (09:41→21:19)
[2019-07-22] MEDS: MIRTAZAPINE 15 MG TAB PO SCH (21:20)
[2019-07-22] MEDS: MELATONIN 5 MG TAB PO SCH (21:20)
--- NOTE | 2019-07-23 00:57 | Event Note ---
Nurse reported that the patient fell, sustained laceration to the lip Check CT head
[2019-07-23] MEDS: INSULIN REGULAR, HUMAN 100 UNITS/1 ML SUB-Q SCH ×4 (09:12→21:33)
[2019-07-23] MEDS: diphenhydrAMINE 25 MG CAP PO SCH ×3 (09:13→20:08)
[2019-07-23] MEDS: HALOPERIDOL 2 MG TAB PO SCH ×2 (09:14→21:32)
[2019-07-23] MEDS: OXcarbazepine 150 MG TAB PO SCH ×2 (09:14→21:32)
[2019-07-23] MEDS: clonazePAM 0.5 MG TAB PO SCH ×3 (09:15→20:09)
[2019-07-23] MEDS: CLOPIDOGREL 75 MG TAB PO SCH (09:16)
[2019-07-23] MEDS: BENZTROPINE 0.5 MG TAB PO SCH ×3 (09:18→20:08)
[2019-07-23] MEDS: metFORMIN XR 500MG TAB PO SCH (09:19)
[2019-07-23] MEDS: POTASSIUM CHLORIDE ER 10 MEQ TAB PO SCH (09:20)
[2019-07-23] MEDS: LINAGLIPTIN 5 MG TAB PO SCH (09:20)
[2019-07-23] MEDS: CLOTRIMAZOLE/BETAMETHASONE CREAM 15 GM TP SCH ×2 (09:22→21:32)
[2019-07-23] MEDS: PROPRANOLOL 10 MG TAB PO SCH ×4 (09:24→20:08)
--- NOTE | 2019-07-23 09:39 | Progress Note ---
Subjective Date of service: 07/23/19 Principal diagnosis: Bipolar Disorder, Current Episode Manic w/Phsychotic Features Subjective Comment: The patient's medical record was reviewed and the patient's progress was discussed with the nursing staff. per chart Patient is resting with even and unlabored breathing. He continues to refuse to allow staff to dress him. He was medication compliant on the evening shift. He received Ativan 2 mg IM when he was trying to run on the unit. It was effective. Patient went to sleep in about an hour. He has been awakened by staff through the night to make sure he has no signs of head trauma. Will continue to closely monitor patient for safety. During my interview with the patient this morning, he was pacing the unit, the patient remain with one-to-one sitter. When asked how he was doing, the patient states, " I want to go dancing", the patient then got up and started pacing the unit mumbling and using hand gestures. While walking with the patient the patient was asking if he was suicidal and he said "no". The patient continued to pace the hallway and mumbles. While walking the patient stopped and peed on the floor, the patient was redirected but he was uncooperative and angry. The patient is difficult to redirect. When asked other questions the patient just mumbles unable to understand or continue verbal conversation. The patient remains disorganized with intermittent psychotic episodes. Mr. Jarvis was contacted this morning pertaining to progress and treatment plan of the patient. The was informed of the patient's behavior and progression. She was informed that the patient is doing much better but is still psychotic, combativeness at times, pacing, voiding on the floor, hitting staff and remains disorganized. Family was informed that the patient medication has reached his max and possibly patient may need a long-term facilitate for continuity of care as she did mention that in the past it has taken the patient 3 months or more to recover. The was asked if a long-term facility nearer to the family and his psychiatric doctor could be considered. The patient reports that there is a facility near [facility] but the patient psychiatric doctor does not practice there. The patient's further stated that she would like if this engineering technical writer could place a call to the patient's psychiatric doctor for follow-up on continuity of care. The patient psychiatric doctor Dr. Barr was called at [phone] extension [phone], a message was left to return call to the facility. Reason for continuing inpatient treatment: disorganized/improve level of func tioning REVIEW OF SYSTEMS Unable to complete due to patient's condition MSE Appearance: Awake. Dressed appropriate Behavior: pacing Affect: flat Thought Process: disorganized Speech: Garbled Thought Content Suicidal:denies Homicidal: Speech garbled Hallucinations: Unable to assess Delusions: None elicited Consciousness: Alert Cognition/Memory: Impaired Insight/Judgment: Limited Treatment Plan Due to the psychiatric conditions and treatment listed in the Assessment and Plan - the patient requires continued hospitalization. Will continue inpatient treatment to allow for medication adjustment and monitoring. Will continue q15 min safety checks. Will encourage the use of environmental modifications and non-pharmacologic approaches for the management of behavioral and psychological symptoms. Medication adjustment made today: none Will continue current psych medications Monitor for medication side effects. ANC 8.9 Carbemazepine Metabolite Level ordered 07/19 to assure therapeutic dose range of Trileptal (takes about 3 days to result) The patient will continue on medications for physical illnesses, and Hospitalist will closely monitor these Continue intensive physical and occupational therapies. Monitor patient's mood, sleep, appetite, and behavior closely. Encourage patient to participate in individual and group therapeutic sessions on the irizarry. Will provide a safe and therapeutic environment for patient. Estimated length of stay 5 days depending on how the patient progresses Medications and Allergies Allergies Allergy/AdvReac Type Severity Reaction Status Date / Time aripiprazole [From Abilify] Allergy Hives Verified 06/27/19 09:43 aspirin Allergy Hives Verified 06/27/19 09:43 cephalexin [From Keflex] Allergy Hives Verified 06/27/19 09:43 chlorpromazine Allergy Hives Verified 06/27/19 09:43 ibuprofen Allergy Hives Verified 06/27/19 09:43 naproxen Allergy Hives Verified 06/27/19 09:43 risperidone [From Risperdal] Allergy Hives Verified 07/20/19 08:16 ziprasidone [From Geodon] Allergy Hives Verified 06/27/19 09:43 Home Medications Medication Instructions Recorded Confirmed Last Taken Type AtorvaSTATin [Lipitor] 40 mg PO QHS 06/27/19 07/05/19 06/26/19 History Benztropine [Cogentin] 0.5 mg PO TID 06/27/19 07/05/19 06/26/19 History Clopidogrel [Plavix] 75 mg PO QDAY 06/27/19 07/05/19 06/26/19 History Fenofibrate 160 mg PO QDAY 06/27/19 07/05/19 06/26/19 History LORazepam [Ativan] 1 mg PO TID PRN 06/27/19 07/05/19 06/26/19 History Melatonin [Melatonin 5MG CAP] 5 mg PO QHS 06/27/19 07/05/19 06/26/19 History Metoprolol [Lopressor TAB] 100 mg PO QDAY 06/27/19 07/05/19 06/26/19 History OXcarbazepine [Oxtellar XR] 600 mg PO BID 06/27/19 07/05/19 06/26/19 History Sertraline [Zoloft] 50 mg PO QDAY 06/27/19 07/05/19 06/26/19 History Sitagliptin Phos/Metformin HCl 100 mg PO QDAY 06/27/19 07/05/19 06/26/19 History [Janumet 50-1,000 mg Tablet] cloZAPine 800 mg PO QHS 06/27/19 07/05/19 06/26/19 History diphenhydrAMINE [Benadryl CAP] 25 mg PO TID 06/27/19 07/05/19 06/26/19 History Insulin Regular, Human [HumuLIN R] 0 units SUB-Q Q6HR units 07/05/19 07/06/19 Unknown Rx haloperidoL [Haldol] 5 mg PO BID tablet 07/05/19 07/05/19 Unknown Rx metFORMIN [Glucophage] 1,000 mg PO DAILY tablet 07/05/19 07/05/19 Unknown Rx Active Meds: Active Medications Atorvastatin Calcium (Lipitor) 40 mg PO QHS [facility] Last Admin: 07/22/19 21:22 Dose: 40 mg Documented by: Benztropine Mesylate (Cogentin) 0.5 mg PO TID [facility] Last Admin: 07/23/19 09:18 Dose: 0.5 mg Documented by: Clonazepam (Klonopin) 1 mg PO TID [facility] Last Admin: 07/23/19 09:15 Dose: 1 mg Documented by: Clopidogrel Bisulfate (Plavix) 75 mg PO QDAY [facility] Last Admin: 07/23/19 09:16 Dose: 75 mg Documented by: Clotrimazole (Clotrimazole/Betamethasone) 1 applic TP BID [facility] Last Admin: 07/23/19 09:22 Dose: 1 applic Documented by: Clozapine (Clozapine (Nf)) 400 mg PO BID [facility] Last Admin: 07/22/19 21:18 Dose: 400 mg Documented by: Diphenhydramine HCl (Benadryl) 25 mg PO TID [facility] Last Admin: 07/23/19 09:13 Dose: 25 mg Documented by: Haloperidol (Haldol) 2 mg PO BID [facility] Last Admin: 07/23/19 09:14 Dose: 2 mg Documented by: Insulin Human Regular (Humulin R) [address] [facility]; Protocol Last Admin: 07/23/19 09:12 Dose: Not Given Documented by: Linagliptin (Tradjenta) 5 mg PO QDAY [facility] Last Admin: 07/23/19 09:20 Dose: 5 mg Documented by: Lorazepam (Ativan) 2 mg IM Q4H PRN PRN Reason: Agitation Last Admin: 07/22/19 23:35 Dose: 2 mg Documented by: Melatonin (Melatonin) 10 mg PO QHS [facility] Last Admin: 07/22/19 21:20 Dose: 10 mg Documented by: Metformin HCl (Glucophage Xr) 1,000 mg PO QDDIAB [facility] Last Admin: 07/23/19 09:19 Dose: 1,000 mg Documented by: Mirtazapine (Remeron) 15 mg PO QHS [facility] Last Admin: 07/22/19 21:20 Dose: 15 mg Documented by: Oxcarbazepine (Trileptal) 600 mg PO BID [facility] Last Admin: 07/23/19 09:14 Dose: 600 mg Documented by: Potassium Chloride (K-Dur) 30 meq PO QDAY [facility] Last Admin: 07/23/19 09:20 Dose: 30 meq Documented by: Propranolol HCl (Inderal) 20 mg PO TID [facility] Last Admin: 07/23/19 09:24 Dose: 20 mg Documented by: Results - Results Labs/Vitals: Laboratory Last Values WBC 10.2 K/mm3 (4.5-11.0) 07/21/19 10:54 RBC 3.91 M/mm3 (3.65-5.03) 07/21/19 10:54 Hgb 11.8 gm/dl (11.8-15.2) 07/21/19 10:54 Hct 35.0 % (35.5-45.6) L 07/21/19 10:54 MCV 90 fl (84-94) 07/21/19 10:54 MCH 30 pg (28-32) 07/21/19 10:54 MCHC 34 % (32-34) 07/21/19 10:54 RDW 14.5 % (13.2-15.2) 07/21/19 10:54 Plt Count 241 K/mm3 (140-440) 07/21/19 10:54 Lymph % (Auto) Survey Research Analyst 07/21/19 10:54 [place] % (Auto) Survey Research Analyst 07/21/19 10:54 Eos % (Auto) Survey Research Analyst 07/21/19 10:54 Baso % (Auto) Survey Research Analyst 07/21/19 10:54 Lymph # Survey Research Analyst 07/21/19 10:54 [place] # Survey Research Analyst 07/21/19 10:54 Eos # Survey Research Analyst 07/21/19 10:54 Baso # Survey Research Analyst 07/21/19 10:54 Add Manual Diff Complete 07/21/19 10:54 Total Counted 100 07/21/19 10:54 Seg Neutrophils % Survey Research Analyst 07/21/19 10:54 Seg Neuts % (Manual) 87.0 % (40.0-70.0) H 07/21/19 10:54 Band Neutrophils % 0 % 07/21/19 10:54 Lymphocytes % (Manual) 8.0 % (13.4-35.0) L 07/21/19 10:54 Reactive Lymphs % (Man) 0 % 07/21/19 10:54 Monocytes % (Manual) 5.0 % (0.0-7.3) 07/21/19 10:54 Eosinophils % (Manual) 0 % (0.0-4.3) 07/21/19 10:54 Basophils % (Manual) 0 % (0.0-1.8) 07/21/19 10:54 Metamyelocytes % 0 % 07/21/19 10:54 Myelocytes % 0 % 07/21/19 10:54 Promyelocytes % 0 % 07/21/19 10:54 Blast Cells % 0 % 07/21/19 10:54 Nucleated RBC % Not Reportable 07/21/19 10:54 Seg Neutrophils # Survey Research Analyst 07/21/19 10:54 Seg Neutrophils # Man 8.9 K/mm3 (1.8-7.7) H 07/21/19 10:54 Band Neutrophils # 0.0 K/mm3 07/21/19 10:54 Lymphocytes # (Manual) 0.8 K/mm3 (1.2-5.4) L 07/21/19 10:54 Abs React Lymphs (Man) 0.0 K/mm3 07/21/19 10:54 Monocytes # (Manual) 0.5 K/mm3 (0.0-0.8) 07/21/19 10:54 Eosinophils # (Manual) 0.0 K/mm3 (0.0-0.4) 07/21/19 10:54 Basophils # (Manual) 0.0 K/mm3 (0.0-0.1) 07/21/19 10:54 Metamyelocytes # 0.0 K/mm3 07/21/19 10:54 Myelocytes # 0.0 K/mm3 07/21/19 10:54 Promyelocytes # 0.0 K/mm3 07/21/19 10:54 Blast Cells # 0.0 K/mm3 07/21/19 10:54 WBC Morphology Not Reportable 07/21/19 10:54 Hypersegmented Neuts Not Reportable 07/21/19 10:54 Hyposegmented Neuts Not Reportable 07/21/19 10:54 Hypogranular Neuts Not Reportable 07/21/19 10:54 Smudge Cells Not Reportable 07/21/19 10:54 Toxic Granulation Not Reportable 07/21/19 10:54 Toxic Vacuolation Not Reportable 07/21/19 10:54 Dohle Bodies Not Reportable 07/21/19 10:54 Pelger-Huet Anomaly Not Reportable 07/21/19 10:54 Adiel Rods Not Reportable 07/21/19 10:54 Platelet Estimate Consistent w auto 07/21/19 10:54 Clumped Platelets Not Reportable 07/21/19 10:54 Plt Clumps, EDTA Not Reportable 07/21/19 10:54 Large Platelets Not Reportable 07/21/19 10:54 Giant Platelets Not Reportable 07/21/19 10:54 Platelet Satelliting Not Reportable 07/21/19 10:54 Plt Morphology Comment Not Reportable 07/21/19 10:54 RBC Morphology Normal 07/21/19 10:54 Dimorphic RBCs Not Reportable 07/21/19 10:54 Polychromasia Not Reportable 07/21/19 10:54 Hypochromasia Not Reportable 07/21/19 10:54 Poikilocytosis Not Reportable 07/21/19 10:54 Anisocytosis Not Reportable 07/21/19 10:54 Microcytosis Not Reportable 07/21/19 10:54 Macrocytosis Not Reportable 07/21/19 10:54 Spherocytes Not Reportable 07/21/19 10:54 Pappenheimer Bodies Not Reportable 07/21/19 10:54 Sickle Cells Not Reportable 07/21/19 10:54 Target Cells Not Reportable 07/21/19 10:54 Tear Drop Cells Not Reportable 07/21/19 10:54 Ovalocytes Not Reportable 07/21/19 10:54 Helmet Cells Not Reportable 07/21/19 10:54 [place] Bodies Not Reportable 07/21/19 10:54 Omega Rings Not Reportable 07/21/19 10:[address] Cells Not Reportable 07/21/19 10:54 Bite Cells Not Reportable 07/21/19 10:54 Crenated Cell Not Reportable 07/21/19 10:54 Elliptocytes Not Reportable 07/21/19 10:54 Acanthocytes (Spur) Not Reportable 07/21/19 10:54 Rouleaux Not Reportable 07/21/19 10:54 Hemoglobin C Crystals Not Reportable 07/21/19 10:54 Schistocytes Not Reportable 07/21/19 10:54 Malaria parasites Not Reportable 07/21/19 10:54 Denzel Bodies Not Reportable 07/21/19 10:54 Hem Pathologist Commnt No 07/21/19 10:54 Sodium 146 mmol/L (137-145) H 07/15/19 08:33 Potassium 3.2 mmol/L (3.6-5.0) L 07/15/19 08:33 Chloride 103.7 mmol/L (98-107) 07/15/19 08:33 Carbon Dioxide 25 mmol/L (22-30) 07/15/19 08:33 Anion Gap 21 mmol/L 07/15/19 08:33 BUN 8 mg/dL (9-20) L 07/15/19 08:33 Creatinine 0.6 mg/dL (0.8-1.5) L 07/15/19 08:33 Estimated GFR > 60 ml/min 07/15/19 08:33 BUN/Creatinine Ratio 13 % 07/15/19 08:33 Glucose 133 mg/dL (75-100) H 07/15/19 08:33 POC Glucose 136 (70-105) H 07/23/19 08:18 Hemoglobin A1c 6.3 % (4-6) H 07/05/19 21:07 Calcium 8.9 mg/dL (8.4-10.2) 07/15/19 08:33 Triglycerides 188 mg/dL (2-149) H 07/05/19 21:07 Cholesterol 115 mg/dL (50-199) 07/05/19 21:07 LDL Cholesterol Direct 47 mg/dL (50-130) L 07/05/19 21:07 HDL Cholesterol 35 mg/dL (40-59) L 07/05/19 21:07 Cholesterol/HDL Ratio 3.28 % 07/05/19 21:07 Last Vital Signs Temp 98.1 F 07/23/19 09:21 Pulse 93 H 07/23/19 09:24 Resp 18 07/23/19 09:21 BP 135/72 07/23/19 09:24 Pulse Ox 99 07/23/19 09:21
[2019-07-23] MEDS: CLOZAPINE 100 MG PO SCH ×2 (10:42→21:32)
--- NOTE | 2019-07-23 13:57 | Event Note ---
Date: 07/23/19 Mr. Jarvis was contacted this morning pertaining to progress and treatment plan of the patient. The was informed of the patient's behavior and progression. She was informed that the patient is doing much better but is still psychotic, combativeness at times, pacing, voiding on the floor, hitting staff and remains disorganized. Family was informed that the patient medication has reached his max and possibly patient may need a long-term to facilitate is recovery as she did mention that in the past it has take the patient up to 3 months or more to recover. The was asked if a long-term facility nearer to the family and his psychiatric doctor could be considered. The patient reports that there is a facility near [facility] but the patient psychiatric doctor does not practice there. The patient's further stated that she would like if call could be placed to the patient's psychiatric doctor for follow-up on continuity of care. The patient psychiatric doctor Dr. Barr was called at [phone] extension [phone], a message was left to return call to the facility.
[2019-07-23 14:47] LABS: Alanine Aminotransferase 46 units/L (7-56); Albumin 3.2 g/dL (3.9-5); BUN/Creatinine Ratio 21; Blood Urea Nitrogen 15 mg/dL (9-20); Calcium 8.6 mg/dL (8.4-10.2); Hemolysis Index 43
[2019-07-23] MEDS: MIRTAZAPINE 15 MG TAB PO SCH (21:33)
[2019-07-23] MEDS: MELATONIN 5 MG TAB PO SCH (21:33)
--- NOTE | 2019-07-24 08:45 | Progress Note ---
Subjective Date of service: 07/24/19 Principal diagnosis: Bipolar Disorder, Current Episode Manic w/Phsychotic Features Subjective Comment: The patient's medical record was reviewed and the patient's progress was discussed with the nursing staff. per chart Patient rested quietly from 2230 until 0415. He presented as being minimally clearer. He went to bed and sleep without being resistive. Will continue to monitor patient for safety. During my interview with the patient this morning, the patient was noted pacing the hallways, patient noted with sitter walking with patient. When asked how he was doing, the patient continued to pace using and gestures. While walking with the patient the patient was asked if he was suicidal the patient just kept pacing and mumbling using hand gestures. The patient is noted with minimal amount of drooling .This fiction and nonfiction prose writer is unable to comprehend what the patient is saying. The patient appears restless and irritable. This fiction and nonfiction prose writer spoke with the patient's psychiatric doctor Dr. weston who was informed of the patient's progress and any additional info from his perspective on treating the patient, the medications were read to who stated that he would not have done anything different. When asked about following the patient nearer to where he is located the doctor stated he does not do inpatient and that the family is aware and he is okay following the patient on out-patient basis. Reason for continuing inpatient treatment: disorganized/improve level of functioning REVIEW OF SYSTEMS Unable to complete due to patient's condition MSE Appearance: Awake. Dressed appropriate Behavior: pacing Affect: flat Thought Process: disorganized Speech: Garbled Thought Content Suicidal:denies Homicidal: Speech garbled Hallucinations: Unable to assess Delusions: None elicited Consciousness: Alert Cognition/Memory: Impaired Insight/Judgment: Limited Treatment Plan Due to the psychiatric conditions and treatment listed in the Assessment and Plan - the patient requires continued hospitalization. Will continue inpatient treatment to allow for medication adjustment and monitoring. Will continue q15 min safety checks. Will encourage the use of environmental modifications and non-pharmacologic approaches for the management of behavioral and psychological symptoms. Medication adjustment made today: clozapine change to 200mg am, 200mg afternoon and 400mg qhs decrease daytime manic episodes increase haldol 5mg am and 2mg hs, d/c remeron to decrease agitation, d/c cogentin decrease anticholinergic effects, patint already on benadryl, glycopyrrolate 1mg tid to dry up secretion Will continue current psych medications Monitor for medication side effects. ANC 8.9 Carbemazepine Metabolite Level ordered 07/19 to assure therapeutic dose range of Trileptal (takes about 4 days to result) The patient will continue on medications for physical illnesses, and Hospitalist will closely monitor these Continue intensive physical and occupational therapies. Monitor patient's mood, sleep, appetite, and behavior closely. Encourage patient to participate in individual and group therapeutic sessions on the irizarry. Will provide a safe and therapeutic environment for patient. Estimated length of stay 5 days depending on how the patient progresses Medications and Allergies Allergies Allergy/AdvReac Type Severity Reaction Status Date / Time aripiprazole [From Abilify] Allergy Hives Verified 06/27/19 09:43 aspirin Allergy Hives Verified 06/27/19 09:43 cephalexin [From Keflex] Allergy Hives Verified 06/27/19 09:43 chlorpromazine Allergy Hives Verified 06/27/19 09:43 ibuprofen Allergy Hives Verified 06/27/19 09:43 naproxen Allergy Hives Verified 06/27/19 09:43 risperidone [From Risperdal] Allergy Hives Verified 07/20/19 08:16 ziprasidone [From Geodon] Allergy Hives Verified 06/27/19 09:43 Home Medications Medication Instructions Recorded Confirmed Last Taken Type AtorvaSTATin [Lipitor] 40 mg PO QHS 06/27/19 07/05/19 06/26/19 History Benztropine [Cogentin] 0.5 mg PO TID 06/27/19 07/05/19 06/26/19 History Clopidogrel [Plavix] 75 mg PO QDAY 06/27/19 07/05/19 06/26/19 History Fenofibrate 160 mg PO QDAY 06/27/19 07/05/19 06/26/19 History LORazepam [Ativan] 1 mg PO TID PRN 06/27/19 07/05/19 06/26/19 History Melatonin [Melatonin 5MG CAP] 5 mg PO QHS 06/27/19 07/05/19 06/26/19 History Metoprolol [Lopressor TAB] 100 mg PO QDAY 06/27/19 07/05/19 06/26/19 History OXcarbazepine [Oxtellar XR] 600 mg PO BID 06/27/19 07/05/19 06/26/19 History Sertraline [Zoloft] 50 mg PO QDAY 06/27/19 07/05/19 06/26/19 History Sitagliptin Phos/Metformin HCl 100 mg PO QDAY 06/27/19 07/05/19 06/26/19 History [Janumet 50-1,000 mg Tablet] cloZAPine 800 mg PO QHS 06/27/19 07/05/19 06/26/19 History diphenhydrAMINE [Benadryl CAP] 25 mg PO TID 06/27/19 07/05/19 06/26/19 History Insulin Regular, Human [HumuLIN R] 0 units SUB-Q Q6HR units 07/05/19 07/06/19 Unknown Rx haloperidoL [Haldol] 5 mg PO BID tablet 07/05/19 07/05/19 Unknown Rx metFORMIN [Glucophage] 1,000 mg PO DAILY tablet 07/05/19 07/05/19 Unknown Rx Active Meds: Active Medications Atorvastatin Calcium (Lipitor) 40 mg PO QHS [facility] Last Admin: 07/23/19 21:33 Dose: 40 mg Documented by: Clonazepam (Klonopin) 1 mg PO TID [facility] Last Admin: 07/23/19 20:09 Dose: 1 mg Documented by: Clopidogrel Bisulfate (Plavix) 75 mg PO QDAY [facility] Last Admin: 07/23/19 09:16 Dose: 75 mg Documented by: Clotrimazole (Clotrimazole/Betamethasone) 1 applic TP BID [facility] Last Admin: 07/23/19 21:32 Dose: 1 applic Documented by: Clozapine (Clozapine (Nf)) 400 mg PO QHS [facility] Diphenhydramine HCl (Benadryl) 25 mg PO TID [facility] Last Admin: 07/23/19 20:08 Dose: 25 mg Documented by: Glycopyrrolate (Robinul) 1 mg PO TID [facility] Haloperidol (Haldol) 5 mg PO DAILY [facility] Haloperidol (Haldol) 2 mg PO QHS [facility] Insulin Human Regular (Humulin R) 0 units SUB-Q ACHS [facility]; Protocol Last Admin: 07/23/19 21:33 Dose: Not Given Documented by: Linagliptin (Tradjenta) 5 mg PO QDAY [facility] Last Admin: 07/23/19 09:20 Dose: 5 mg Documented by: Lorazepam (Ativan) 2 mg IM Q4H PRN PRN Reason: Agitation Last Admin: 07/22/19 23:35 Dose: 2 mg Documented by: Melatonin (Melatonin) 10 mg PO QHS [facility] Last Admin: 07/23/19 21:33 Dose: 10 mg Documented by: Metformin HCl (Glucophage Xr) 1,000 mg PO QDDIAB [facility] Last Admin: 07/23/19 09:19 Dose: 1,000 mg Documented by: Miscellaneous Medication (Clozaril) 200 mg PO QDAY [facility] Miscellaneous Medication (Clozaril) 200 mg PO DAILY [facility] Oxcarbazepine (Trileptal) 600 mg PO BID [facility] Last Admin: 07/23/19 21:32 Dose: 600 mg Documented by: Potassium Chloride (K-Dur) 30 meq PO QDAY [facility] Last Admin: 07/23/19 09:20 Dose: 30 meq Documented by: Propranolol HCl (Inderal) 20 mg PO TID [facility] Last Admin: 07/23/19 20:08 Dose: 20 mg Documented by: Results - Results Labs/Vitals: Laboratory Last Values WBC 10.2 K/mm3 (4.5-11.0) 07/21/19 10:54 RBC 3.91 M/mm3 (3.65-5.03) 07/21/19 10:54 Hgb 11.8 gm/dl (11.8-15.2) 07/21/19 10:54 Hct 35.0 % (35.5-45.6) L 07/21/19 10:54 MCV 90 fl (84-94) 07/21/19 10:54 MCH 30 pg (28-32) 07/21/19 10:54 MCHC 34 % (32-34) 07/21/19 10:54 RDW 14.5 % (13.2-15.2) 07/21/19 10:54 Plt Count 241 K/mm3 (140-440) 07/21/19 10:54 Lymph % (Auto) Meter Reader Chief 07/21/19 10:54 Brantley % (Auto) Meter Reader Chief 07/21/19 10:54 Eos % (Auto) Meter Reader Chief 07/21/19 10:54 Baso % (Auto) Meter Reader Chief 07/21/19 10:54 Lymph # Meter Reader Chief 07/21/19 10:54 Brantley # Meter Reader Chief 07/21/19 10:54 Eos # Meter Reader Chief 07/21/19 10:54 Baso # Meter Reader Chief 07/21/19 10:54 Add Manual Diff Complete 07/21/19 10:54 Total Counted 100 07/21/19 10:54 Seg Neutrophils % Meter Reader Chief 07/21/19 10:54 Seg Neuts % (Manual) 87.0 % (40.0-70.0) H 07/21/19 10:54 Band Neutrophils % 0 % 07/21/19 10:54 Lymphocytes % (Manual) 8.0 % (13.4-35.0) L 07/21/19 10:54 Reactive Lymphs % (Man) 0 % 07/21/19 10:54 Monocytes % (Manual) 5.0 % (0.0-7.3) 07/21/19 10:54 Eosinophils % (Manual) 0 % (0.0-4.3) 07/21/19 10:54 Basophils % (Manual) 0 % (0.0-1.8) 07/21/19 10:54 Metamyelocytes % 0 % 07/21/19 10:54 Myelocytes % 0 % 07/21/19 10:54 Promyelocytes % 0 % 07/21/19 10:54 Blast Cells % 0 % 07/21/19 10:54 Nucleated RBC % Not Reportable 07/21/19 10:54 Seg Neutrophils # Meter Reader Chief 07/21/19 10:54 Seg Neutrophils # Man 8.9 K/mm3 (1.8-7.7) H 07/21/19 10:54 Band Neutrophils # 0.0 K/mm3 07/21/19 10:54 Lymphocytes # (Manual) 0.8 K/mm3 (1.2-5.4) L 07/21/19 10:54 Abs React Lymphs (Man) 0.0 K/mm3 07/21/19 10:54 Monocytes # (Manual) 0.5 K/mm3 (0.0-0.8) 07/21/19 10:54 Eosinophils # (Manual) 0.0 K/mm3 (0.0-0.4) 07/21/19 10:54 Basophils # (Manual) 0.0 K/mm3 (0.0-0.1) 07/21/19 10:54 Metamyelocytes # 0.0 K/mm3 07/21/19 10:54 Myelocytes # 0.0 K/mm3 07/21/19 10:54 Promyelocytes # 0.0 K/mm3 07/21/19 10:54 Blast Cells # 0.0 K/mm3 07/21/19 10:54 WBC Morphology Not Reportable 07/21/19 10:54 Hypersegmented Neuts Not Reportable 07/21/19 10:54 Hyposegmented Neuts Not Reportable 07/21/19 10:54 Hypogranular Neuts Not Reportable 07/21/19 10:54 Smudge Cells Not Reportable 07/21/19 10:54 Toxic Granulation Not Reportable 07/21/19 10:54 Toxic Vacuolation Not Reportable 07/21/19 10:54 Dohle Bodies Not Reportable 07/21/19 10:54 Pelger-Huet Anomaly Not Reportable 07/21/19 10:54 Adiel Rods Not Reportable 07/21/19 10:54 Platelet Estimate Consistent w auto 07/21/19 10:54 Clumped Platelets Not Reportable 07/21/19 10:54 Plt Clumps, EDTA Not Reportable 07/21/19 10:54 Large Platelets Not Reportable 07/21/19 10:54 Giant Platelets Not Reportable 07/21/19 10:54 Platelet Satelliting Not Reportable 07/21/19 10:54 Plt Morphology Comment Not Reportable 07/21/19 10:54 RBC Morphology Normal 07/21/19 10:54 Dimorphic RBCs Not Reportable 07/21/19 10:54 Polychromasia Not Reportable 07/21/19 10:54 Hypochromasia Not Reportable 07/21/19 10:54 Poikilocytosis Not Reportable 07/21/19 10:54 Anisocytosis Not Reportable 07/21/19 10:54 Microcytosis Not Reportable 07/21/19 10:54 Macrocytosis Not Reportable 07/21/19 10:54 Spherocytes Not Reportable 07/21/19 10:54 Pappenheimer Bodies Not Reportable 07/21/19 10:54 Sickle Cells Not Reportable 07/21/19 10:54 Target Cells Not Reportable 07/21/19 10:54 Tear Drop Cells Not Reportable 07/21/19 10:54 Ovalocytes Not Reportable 07/21/19 10:54 Helmet Cells Not Reportable 07/21/19 10:54 [place] Bodies Not Reportable 07/21/19 10:54 [place] Rings Not Reportable 07/21/19 10:54 [place] Cells Not Reportable 07/21/19 10:54 Bite Cells Not Reportable 07/21/19 10:54 Crenated Cell Not Reportable 07/21/19 10:54 Elliptocytes Not Reportable 07/21/19 10:54 Acanthocytes (Spur) Not Reportable 07/21/19 10:54 Rouleaux Not Reportable 07/21/19 10:54 Hemoglobin C Crystals Not Reportable 07/21/19 10:54 Schistocytes Not Reportable 07/21/19 10:54 Malaria parasites Not Reportable 07/21/19 10:54 Denzel Bodies Not Reportable 07/21/19 10:54 Hem Pathologist Commnt No 07/21/19 10:54 Sodium 140 mmol/L (137-145) 07/23/19 14:07 Potassium 4.6 mmol/L (3.6-5.0) 07/23/19 14:07 Chloride 101.1 mmol/L (98-107) 07/23/19 14:07 Carbon Dioxide 22 mmol/L (22-30) 07/23/19 14:07 Anion Gap 22 mmol/L 07/23/19 14:07 BUN 15 mg/dL (9-20) 07/23/19 14:07 Creatinine 0.7 mg/dL (0.8-1.5) L 07/23/19 14:07 Estimated GFR > 60 ml/min 07/23/19 14:07 BUN/Creatinine Ratio 21 % 07/23/19 14:07 Glucose 160 mg/dL (75-100) H 07/23/19 14:07 POC Glucose 133 (70-105) H 07/24/19 06:27 Hemoglobin A1c 6.3 % (4-6) H 07/05/19 21:07 Calcium 8.6 mg/dL (8.4-10.2) 07/23/19 14:07 Total Bilirubin 0.20 mg/dL (0.1-1.2) 07/23/19 14:07 AST 40 units/L (5-40) 07/23/19 14:07 ALT 46 units/L (7-56) 07/23/19 14:07 Alkaline Phosphatase 68 units/L (35-129) 07/23/19 14:07 Total Protein 5.2 g/dL (6.3-8.2) L 07/23/19 14:07 Albumin 3.2 g/dL (3.9-5) L 07/23/19 14:07 Albumin/Globulin Ratio 1.6 % 07/23/19 14:07 Triglycerides 188 mg/dL (2-149) H 07/05/19 21:07 Cholesterol 115 mg/dL (50-199) 07/05/19 21:07 LDL Cholesterol Direct 47 mg/dL (50-130) L 07/05/19 21:07 HDL Cholesterol 35 mg/dL (40-59) L 07/05/19 21:07 Cholesterol/HDL Ratio 3.28 % 07/05/19 21:07 Last Vital Signs Temp 98.1 F 07/23/19 09:21 Pulse 88 07/23/19 22:00 Resp 18 07/23/19 22:00 BP 115/60 07/23/19 22:00 Pulse Ox 98 07/23/19 22:00
[2019-07-24] MEDS: diphenhydrAMINE 25 MG CAP PO SCH ×3 (08:59→21:02)
[2019-07-24] MEDS: INSULIN REGULAR, HUMAN 100 UNITS/1 ML SUB-Q SCH ×3 (08:59→21:03)
[2019-07-24] MEDS: metFORMIN XR 500MG TAB PO SCH (08:59)
[2019-07-24] MEDS: clonazePAM 0.5 MG TAB PO SCH ×3 (09:00→21:02)
[2019-07-24] MEDS: PROPRANOLOL 10 MG TAB PO SCH ×3 (09:00→21:00)
[2019-07-24] MEDS ORDERED: CLOZARIL 200 MG PO SCH ×2 (10:00→14:00)
[2019-07-24] MEDS: POTASSIUM CHLORIDE ER 10 MEQ TAB PO SCH (10:09)
[2019-07-24] MEDS: OXcarbazepine 150 MG TAB PO SCH ×2 (10:10→21:01)
[2019-07-24] MEDS: CLOPIDOGREL 75 MG TAB PO SCH (10:10)
[2019-07-24] MEDS: CLOTRIMAZOLE/BETAMETHASONE CREAM 15 GM TP SCH ×2 (10:11→20:59)
[2019-07-24] MEDS: HALOPERIDOL 2 MG TAB PO SCH (10:11)
[2019-07-24] MEDS: LINAGLIPTIN 5 MG TAB PO SCH (10:14)
[2019-07-24] MEDS: MELATONIN 5 MG TAB PO SCH (21:00)
[2019-07-24] MEDS: HALOPERIDOL 1 MG TAB PO SCH (21:01)
[2019-07-24] MEDS: GLYCOPYRROLATE 1 MG TAB PO SCH (21:05)
[2019-07-24] MEDS ORDERED: CLOZAPINE 100 MG PO SCH (22:00)
[2019-07-25] MEDS: LORazepam 2 MG/ML VIAL IM PRN (02:11)
--- NOTE | 2019-07-25 07:55 | Progress Note ---
Subjective Date of service: 07/25/19 Principal diagnosis: Bipolar Disorder, Current Episode Manic w/Phsychotic Features Subjective Comment: The patient's medical record was reviewed and the patient's progress was discussed with the nursing staff. per chart Patient pace the hallways majority of night. Unable to sleep. Begin to ball fist at staff. given Ativan 2mg in right deltoid. patient calm down ,but continue insomnia. Mrs. Cotton phone and wanted an update of status. Given that insomnia continue. Pt less agitated and aggressive after Ativan. Pt is incontinent of bladder and bari care given. Staff will continue to monitor patient for safety and 1:[address] to prevent self injury to self and others. During my interview with the patient this morning, the patient was noted pacing the hallways, patient noted with sitter walking with patient. When asked how he was doing, the patient continued to pace using hand gestures. While walking with the patient the patient was asked if he was suicidal the patient just kept pacing and mumbling using hand gestures. This report writer is unable to comprehend what the patient is saying. The patient appears restless and irritable. the patient continue to pace . patient was encourage to sit and have his breakfast but he continue to pace and mumbles to himself. the patient remain disorganized and not easily re-directed. spoke with the patient this morning updating her of the changes to the medication and the conversation I had with Dr weston yesterday. Reason for continuing inpatient treatment: disorganized/improve level of functioning REVIEW OF SYSTEMS Unable to complete due to patient's condition MSE Appearance: Awake. Dressed appropriate Behavior: pacing Affect: flat Thought Process: disorganized Speech: Garbled Thought Content Suicidal: unable to assess Homicidal: Speech garbled Hallucinations: Unable to assess Delusions: None elicited Consciousness: Alert Cognition/Memory: Impaired Insight/Judgment: Limited Treatment Plan Due to the psychiatric conditions and treatment listed in the Assessment and Plan - the patient requires continued hospitalization. Will continue inpatient treatment to allow for medication adjustment and monitoring. Will continue q15 min safety checks. Will encourage the use of environmental modifications and non-pharmacologic approaches for the management of behavioral and psychological symptoms. Medication adjustment made today: haldol 5mg im q6 prn to be given with ativan 2mg im q6prn - increase agitation Will continue current psych medications Monitor for medication side effects. ANC 8.9 Carbemazepine Metabolite Level 20.6 cbc with diff 07/28/2019 The patient will continue on medications for physical illnesses, and Hospitalist will closely monitor these Continue intensive physical and occupational therapies. Monitor patient's mood, sleep, appetite, and behavior closely. Encourage patient to participate in individual and group therapeutic sessions on the irizarry. Will provide a safe and therapeutic environment for patient. Estimated length of stay 5 days depending on how the patient progresses Medications and Allergies Allergies Allergy/AdvReac Type Severity Reaction Status Date / Time aripiprazole [From Abilify] Allergy Hives Verified 06/27/19 09:43 aspirin Allergy Hives Verified 06/27/19 09:43 cephalexin [From Keflex] Allergy Hives Verified 06/27/19 09:43 chlorpromazine Allergy Hives Verified 06/27/19 09:43 ibuprofen Allergy Hives Verified 06/27/19 09:43 naproxen Allergy Hives Verified 06/27/19 09:43 risperidone [From Risperdal] Allergy Hives Verified 07/20/19 08:16 ziprasidone [From Geodon] Allergy Hives Verified 06/27/19 09:43 Home Medications Medication Instructions Recorded Confirmed Last Taken Type AtorvaSTATin [Lipitor] 40 mg PO QHS 06/27/19 07/05/19 06/26/19 History Benztropine [Cogentin] 0.5 mg PO TID 06/27/19 07/05/19 06/26/19 History Clopidogrel [Plavix] 75 mg PO QDAY 06/27/19 07/05/19 06/26/19 History Fenofibrate 160 mg PO QDAY 06/27/19 07/05/19 06/26/19 History LORazepam [Ativan] 1 mg PO TID PRN 06/27/19 07/05/19 06/26/19 History Melatonin [Melatonin 5MG CAP] 5 mg PO QHS 06/27/19 07/05/19 06/26/19 History Metoprolol [Lopressor TAB] 100 mg PO QDAY 06/27/19 07/05/19 06/26/19 History OXcarbazepine [Oxtellar XR] 600 mg PO BID 06/27/19 07/05/19 06/26/19 History Sertraline [Zoloft] 50 mg PO QDAY 0107/05/19 06/26/19 History Sitagliptin Phos/Metformin HCl 100 mg PO QDAY 06/27/19 07/05/19 06/26/19 History [Janumet 50-1,000 mg Tablet] cloZAPine 800 mg PO QHS 06/27/19 07/05/19 06/26/19 History diphenhydrAMINE [Benadryl CAP] 25 mg PO TID 06/27/19 07/05/19 06/26/19 History Insulin Regular, Human [HumuLIN R] 0 units SUB-Q Q6HR units 07/05/19 07/06/19 Unknown Rx haloperidoL [Haldol] 5 mg PO BID tablet 07/05/19 07/05/19 Unknown Rx metFORMIN [Glucophage] 1,000 mg PO DAILY tablet 07/05/19 07/05/19 Unknown Rx Active Meds: Active Medications Atorvastatin Calcium (Lipitor) 40 mg PO QHS [facility] Last Admin: 07/24/19 21:02 Dose: 40 mg Documented by: Clonazepam (Klonopin) 1 mg PO TID [facility] Last Admin: 07/24/19 21:02 Dose: 1 mg Documented by: Clopidogrel Bisulfate (Plavix) 75 mg PO QDAY [facility] Last Admin: 07/24/19 10:10 Dose: 75 mg Documented by: Clotrimazole (Clotrimazole/Betamethasone) 1 applic TP BID [facility] Last Admin: 07/24/19 20:59 Dose: 1 applic Documented by: Diphenhydramine HCl (Benadryl) 25 mg PO TID [facility] Last Admin: 07/24/19 21:02 Dose: 25 mg Documented by: Glycopyrrolate (Robinul) 1 mg PO TID [facility] Last Admin: 07/24/19 21:05 Dose: 1 mg Documented by: Haloperidol (Haldol) 5 mg PO DAILY [facility] Last Admin: 07/24/19 10:11 Dose: 5 mg Documented by: Haloperidol (Haldol) 2 mg PO QHS [facility] Last Admin: 07/24/19 21:01 Dose: 2 mg Documented by: Haloperidol Lactate (Haldol) 5 mg IM Q6H PRN PRN Reason: Agitation Insulin Human Regular (Humulin R) 0 units SUB-Q ACHS [facility]; Protocol Last Admin: 07/24/19 21:03 Dose: Not Given Documented by: Linagliptin (Tradjenta) 5 mg PO QDAY [facility] Last Admin: 07/24/19 10:14 Dose: 5 mg Documented by: Lorazepam (Ativan) 2 mg IM Q6H PRN PRN Reason: Agitation Melatonin (Melatonin) 10 mg PO QHS [facility] Last Admin: 07/24/19 21:00 Dose: 10 mg Documented by: Metformin HCl (Glucophage Xr) 1,000 mg PO QDDIAB [facility] Last Admin: 07/24/19 08:59 Dose: 1,000 mg Documented by: Miscellaneous Medication (Clozaril) 200 mg PO QDAY [facility] Miscellaneous Medication (Clozaril) 200 mg PO DAILY [facility] Oxcarbazepine (Trileptal) 600 mg PO BID [facility] Last Admin: 07/24/19 21:01 Dose: 600 mg Documented by: Potassium Chloride (K-Dur) 30 meq PO QDAY [facility] Last Admin: 07/24/19 10:09 Dose: 30 meq Documented by: Propranolol HCl (Inderal) 20 mg PO TID [facility] Last Admin: 07/24/19 21:00 Dose: 20 mg Documented by: Results - Results Labs/Vitals: Laboratory Last Values WBC 10.2 K/mm3 (4.5-11.0) 07/21/19 10:54 RBC 3.91 M/mm3 (3.65-5.03) 07/21/19 10:54 Hgb 11.8 gm/dl (11.8-15.2) 07/21/19 10:54 Hct 35.0 % (35.5-45.6) L 07/21/19 10:54 MCV 90 fl (84-94) 07/21/19 10:54 MCH 30 pg (28-32) 07/21/19 10:54 MCHC 34 % (32-34) 07/21/19 10:54 RDW 14.5 % (13.2-15.2) 07/21/19 10:54 Plt Count 241 K/mm3 (140-440) 07/21/19 10:54 Lymph % (Auto) Spare Hand 07/21/19 10:54 [place] % (Auto) Spare Hand 07/21/19 10:54 Eos % (Auto) Spare Hand 07/21/19 10:54 Baso % (Auto) Spare Hand 07/21/19 10:54 Lymph # Spare Hand 07/21/19 10:54 [place] # Spare Hand 07/21/19 10:54 Eos # Spare Hand 07/21/19 10:54 Baso # Spare Hand 07/21/19 10:54 Add Manual Diff Complete 07/21/19 10:54 Total Counted 100 07/21/19 10:54 Seg Neutrophils % Spare Hand 07/21/19 10:54 Seg Neuts % (Manual) 87.0 % (40.0-70.0) H 07/21/19 10:54 Band Neutrophils % 0 % 07/21/19 10:54 Lymphocytes % (Manual) 8.0 % (13.4-35.0) L 07/21/19 10:54 Reactive Lymphs % (Man) 0 % 07/21/19 10:54 Monocytes % (Manual) 5.0 % (0.0-7.3) 07/21/19 10:54 Eosinophils % (Manual) 0 % (0.0-4.3) 07/21/19 10:54 Basophils % (Manual) 0 % (0.0-1.8) 07/21/19 10:54 Metamyelocytes % 0 % 07/21/19 10:54 Myelocytes % 0 % 07/21/19 10:54 Promyelocytes % 0 % 07/21/19 10:54 Blast Cells % 0 % 07/21/19 10:54 Nucleated RBC % Not Reportable 07/21/19 10:54 Seg Neutrophils # Spare Hand 07/21/19 10:54 Seg Neutrophils # Man 8.9 K/mm3 (1.8-7.7) H 07/21/19 10:54 Band Neutrophils # 0.0 K/mm3 07/21/19 10:54 Lymphocytes # (Manual) 0.8 K/mm3 (1.2-5.4) L 07/21/19 10:54 Abs React Lymphs (Man) 0.0 K/mm3 07/21/19 10:54 Monocytes # (Manual) 0.5 K/mm3 (0.0-0.8) 07/21/19 10:54 Eosinophils # (Manual) 0.0 K/mm3 (0.0-0.4) 07/21/19 10:54 Basophils # (Manual) 0.0 K/mm3 (0.0-0.1) 07/21/19 10:54 Metamyelocytes # 0.0 K/mm3 07/21/19 10:54 Myelocytes # 0.0 K/mm3 07/21/19 10:54 Promyelocytes # 0.0 K/mm3 07/21/19 10:54 Blast Cells # 0.0 K/mm3 07/21/19 10:54 WBC Morphology Not Reportable 07/21/19 10:54 Hypersegmented Neuts Not Reportable 07/21/19 10:54 Hyposegmented Neuts Not Reportable 07/21/19 10:54 Hypogranular Neuts Not Reportable 07/21/19 10:54 Smudge Cells Not Reportable 07/21/19 10:54 Toxic Granulation Not Reportable 07/21/19 10:54 Toxic Vacuolation Not Reportable 07/21/19 10:54 Dohle Bodies Not Reportable 07/21/19 10:54 Pelger-Huet Anomaly Not Reportable 07/21/19 10:54 Adiel Rods Not Reportable 07/21/19 10:54 Platelet Estimate Consistent w auto 07/21/19 10:54 Clumped Platelets Not Reportable 07/21/19 10:54 Plt Clumps, EDTA Not Reportable 07/21/19 10:54 Large Platelets Not Reportable 07/21/19 10:54 Giant Platelets Not Reportable 07/21/19 10:54 Platelet Satelliting Not Reportable 07/21/19 10:54 Plt Morphology Comment Not Reportable 07/21/19 10:54 RBC Morphology Normal 07/21/19 10:54 Dimorphic RBCs Not Reportable 07/21/19 10:54 Polychromasia Not Reportable 07/21/19 10:54 Hypochromasia Not Reportable 07/21/19 10:54 Poikilocytosis Not Reportable 07/21/19 10:54 Anisocytosis Not Reportable 07/21/19 10:54 Microcytosis Not Reportable 07/21/19 10:54 Macrocytosis Not Reportable 07/21/19 10:54 Spherocytes Not Reportable 07/21/19 10:54 Pappenheimer Bodies Not Reportable 07/21/19 10:54 Sickle Cells Not Reportable 07/21/19 10:54 Target Cells Not Reportable 07/21/19 10:54 Tear Drop Cells Not Reportable 07/21/19 10:54 Ovalocytes Not Reportable 07/21/19 10:54 Helmet Cells Not Reportable 07/21/19 10:54 [place] Bodies Not Reportable 07/21/19 10:54 [place] Not Reportable 07/21/19 10:54 [place] Cells Not Reportable 07/21/19 10:54 Bite Cells Not Reportable 07/21/19 10:54 Crenated Cell Not Reportable 07/21/19 10:54 Elliptocytes Not Reportable 07/21/19 10:54 Acanthocytes (Spur) Not Reportable 07/21/19 10:54 Rouleaux Not Reportable 07/21/19 10:54 Hemoglobin C Crystals Not Reportable 07/21/19 10:54 Schistocytes Not Reportable 07/21/19 10:54 Malaria parasites Not Reportable 07/21/19 10:54 [place] Bodies Not Reportable 07/21/19 10:54 Hem Pathologist Commnt No 07/21/19 10:54 Sodium 140 mmol/L (137-145) 07/23/19 14:07 Potassium 4.6 mmol/L (3.6-5.0) 07/23/19 14:07 Chloride 101.1 mmol/L (98-107) 07/23/19 14:07 Carbon Dioxide 22 mmol/L (22-30) 07/23/19 14:07 Anion Gap 22 mmol/L 07/23/19 14:07 BUN 15 mg/dL (9-20) 07/23/19 14:07 Creatinine 0.7 mg/dL (0.8-1.5) L 07/23/19 14:07 Estimated GFR > 60 ml/min 07/23/19 14:07 BUN/Creatinine Ratio 21 % 07/23/19 14:07 Glucose 160 mg/dL (75-100) H 07/23/19 14:07 POC Glucose 94 (70-105) 07/25/19 07:42 Hemoglobin A1c 6.3 % (4-6) H 07/05/19 21:07 Calcium 8.6 mg/dL (8.4-10.2) 07/23/19 14:07 Total Bilirubin 0.20 mg/dL (0.1-1.2) 07/23/19 14:07 AST 40 units/L (5-40) 07/23/19 14:07 ALT 46 units/L (7-56) 07/23/19 14:07 Alkaline Phosphatase 68 units/L (35-129) 07/23/19 14:07 Total Protein 5.2 g/dL (6.3-8.2) L 07/23/19 14:07 Albumin 3.2 g/dL (3.9-5) L 07/23/19 14:07 Albumin/Globulin Ratio 1.6 % 07/23/19 14:07 Triglycerides 188 mg/dL (2-149) H 07/05/19 21:07 Cholesterol 115 mg/dL (50-199) 07/05/19 21:07 LDL Cholesterol Direct 47 mg/dL (50-130) L 07/05/19 21:07 HDL Cholesterol 35 mg/dL (40-59) L 07/05/19 21:07 Cholesterol/HDL Ratio 3.28 % 07/05/19 21:07 Oxcarbazepine See scanned result 07/20/19 07:59 Last Vital Signs Temp 98.1 F 07/23/19 09:21 Pulse 90 07/24/19 21:00 Resp 18 07/23/19 22:00 BP 118/63 07/24/19 21:00 Pulse Ox 98 07/23/19 22:00
[2019-07-25] MEDS: INSULIN REGULAR, HUMAN 100 UNITS/1 ML SUB-Q SCH ×3 (08:35→16:21)
[2019-07-25] MEDS: diphenhydrAMINE 25 MG CAP PO SCH ×3 (08:36→20:40)
[2019-07-25] MEDS: clonazePAM 0.5 MG TAB PO SCH ×3 (08:36→20:41)
[2019-07-25] MEDS: metFORMIN XR 500MG TAB PO SCH (08:37)
[2019-07-25] MEDS: PROPRANOLOL 10 MG TAB PO SCH ×3 (08:38→20:40)
[2019-07-25] MEDS: GLYCOPYRROLATE 1 MG TAB PO SCH ×3 (08:39→20:39)
[2019-07-25] MEDS: POTASSIUM CHLORIDE ER 10 MEQ TAB PO SCH (09:51)
[2019-07-25] MEDS: HALOPERIDOL 2 MG TAB PO SCH (09:51)
[2019-07-25] MEDS: CLOPIDOGREL 75 MG TAB PO SCH (09:51)
[2019-07-25] MEDS: LINAGLIPTIN 5 MG TAB PO SCH (09:51)
[2019-07-25] MEDS: OXcarbazepine 150 MG TAB PO SCH ×2 (09:52→22:30)
[2019-07-25] MEDS: CLOZAPINE 100 MG PO SCH (09:54)
[2019-07-25] MEDS ORDERED: CLOZAPINE 100 MG PO SCH (10:00)
[2019-07-25] MEDS: CLOTRIMAZOLE/BETAMETHASONE CREAM 15 GM TP SCH ×2 (10:38→22:30)
[2019-07-25] MEDS ORDERED: CLOZARIL 200 MG PO SCH (14:00)
[2019-07-25] MEDS ORDERED: CLOZAPINE 400 MG PO SCH (22:00)
[2019-07-25] MEDS: HALOPERIDOL 1 MG TAB PO SCH (22:30)
[2019-07-25] MEDS: CLOZAPINE 200 MG PO SCH (22:30)
[2019-07-25] MEDS: MELATONIN 5 MG TAB PO SCH (22:35)
[2019-07-26] MEDS: INSULIN REGULAR, HUMAN 100 UNITS/1 ML SUB-Q SCH ×5 (03:03→21:08)
[2019-07-26] MEDS: GLYCOPYRROLATE 1 MG TAB PO SCH ×5 (08:27→21:05)
[2019-07-26] MEDS: PROPRANOLOL 10 MG TAB PO SCH ×4 (08:28→21:04)
[2019-07-26] MEDS: diphenhydrAMINE 25 MG CAP PO SCH ×5 (08:28→21:04)
[2019-07-26] MEDS: clonazePAM 0.5 MG TAB PO SCH ×4 (08:28→21:15)
[2019-07-26] MEDS: metFORMIN XR 500MG TAB PO SCH ×2 (08:28→08:58)
[2019-07-26] MEDS: HALOPERIDOL 2 MG TAB PO SCH (09:01)
[2019-07-26] MEDS: LINAGLIPTIN 5 MG TAB PO SCH (09:02)
[2019-07-26] MEDS: OXcarbazepine 150 MG TAB PO SCH ×2 (09:02→21:06)
[2019-07-26] MEDS: POTASSIUM CHLORIDE ER 10 MEQ TAB PO SCH (09:03)
[2019-07-26] MEDS: CLOTRIMAZOLE/BETAMETHASONE CREAM 15 GM TP SCH ×2 (09:04→21:05)
[2019-07-26] MEDS: CLOZAPINE 100 MG PO SCH ×3 (09:05→14:08)
--- NOTE | 2019-07-26 09:32 | Progress Note ---
Subjective Date of service: 07/26/19 Principal diagnosis: Bipolar Disorder, Current Episode Manic w/Phsychotic Features Subjective Comment: The patient's medical record was reviewed and the patient's progress was discussed with the nursing staff. per chart Pt remained asleep until 2099. He remains disorganized trying to run on the unit, difficult to redirect. He is still non verbal and was given a snack which he threw to the ground. When redirected pt had his fist balled up at staff but staff was able to deescalate pt. He was compliant with his meds with encouragement. Pt was stated on clozaril and was given a bedtime dose of 400mg. No prns given. Pt continued to pace until he went back to bed. He continues on 1:1 due to his high fall risk an unpredictable behavior. Pt slept well will continue to monitor q 15 min for safety. During my interview with the patient this morning, the patient was noted pacing the hallways, patient noted with sitter walking with patient. When asked how he was doing, the patient continued to pace using hand gestures and lifting his shirt up. he maintain intermittent eye contact. While walking with the patient the patient was asked if he was suicidal the patient just kept pacing and mumbling and repeating what i said. This senior technical writer is unable to comprehend what the patient is saying. The patient appears much calmer at this time. The patient continue to pace . Reason for continuing inpatient treatment: disorganized/improving treatment REVIEW OF SYSTEMS Unable to complete due to patient's condition MSE Appearance: Awake. Dressed appropriate Behavior: pacing Affect: flat Thought Process: Disorganized Speech: Garbled Thought Content Suicidal: unable to assess Homicidal: Speech garbled Hallucinations: Unable to assess Delusions: None elicited Consciousness: Alert Cognition/Memory: Impaired Insight/Judgment: Limited Treatment Plan Due to the psychiatric conditions and treatment listed in the Assessment and Plan - the patient requires continued hospitalization. Will continue inpatient treatment to allow for medication adjustment and monitoring. Will continue q15 min safety checks. Will encourage the use of environmental modifications and non-pharmacologic approaches for the management of behavioral and psychological symptoms. Medication adjustment made today: none Will continue current psych medications Monitor for medication side effects. ANC 8.9 Carbemazepine Metabolite Level 20.6 cbc with diff 07/28/2019 The patient will continue on medications for physical illnesses, and Hospitalist will closely monitor these Continue intensive physical and occupational therapies. Monitor patient's mood, sleep, appetite, and behavior closely. Encourage patient to participate in individual and group therapeutic sessions on the irizarry. Will provide a safe and therapeutic environment for patient. Estimated length of stay 5 days depending on how the patient progresses Medications and Allergies Allergies Allergy/AdvReac Type Severity Reaction Status Date / Time aripiprazole [From Abilify] Allergy Hives Verified 06/27/19 09:43 aspirin Allergy Hives Verified 06/27/19 09:43 cephalexin [From Keflex] Allergy Hives Verified 06/27/19 09:43 chlorpromazine Allergy Hives Verified 06/27/19 09:43 ibuprofen Allergy Hives Verified 06/27/19 09:43 naproxen Allergy Hives Verified 06/27/19 09:43 risperidone [From Risperdal] Allergy Hives Verified 07/20/19 08:16 ziprasidone [From Geodon] Allergy Hives Verified 06/27/19 09:43 Home Medications Medication Instructions Recorded Confirmed Last Taken Type AtorvaSTATin [Lipitor] 40 mg PO QHS 06/27/19 07/05/19 06/26/19 History Benztropine [Cogentin] 0.5 mg PO TID 06/27/19 07/05/19 06/26/19 History Clopidogrel [Plavix] 75 mg PO QDAY 06/27/19 07/05/19 06/26/19 History Fenofibrate 160 mg PO QDAY 06/27/19 07/05/19 06/26/19 History LORazepam [Ativan] 1 mg PO TID PRN 06/27/19 07/05/19 06/26/19 History Melatonin [Melatonin 5MG CAP] 5 mg PO QHS 06/27/19 07/05/19 06/26/19 History Metoprolol [Lopressor TAB] 100 mg PO QDAY 06/27/19 07/05/19 06/26/19 History OXcarbazepine [Oxtellar XR] 600 mg PO BID 06/27/19 07/05/19 06/26/19 History Sertraline [Zoloft] 50 mg PO QDAY 06/27/19 07/05/19 06/26/19 History Sitagliptin Phos/Metformin HCl 100 mg PO QDAY 06/27/19 07/05/19 06/26/19 History [Janumet 50-1,000 mg Tablet] cloZAPine 800 mg PO QHS 06/27/19 07/05/19 06/26/19 History diphenhydrAMINE [Benadryl CAP] 25 mg PO TID 06/27/19 07/05/19 06/26/19 History Insulin Regular, Human [HumuLIN R] 0 units SUB-Q Q6HR units 07/05/19 07/06/19 Unknown Rx haloperidoL [Haldol] 5 mg PO BID tablet 07/05/19 07/05/19 Unknown Rx metFORMIN [Glucophage] 1,000 mg PO DAILY tablet 07/05/19 07/05/19 Unknown Rx Active Meds: Active Medications Atorvastatin Calcium (Lipitor) 40 mg PO QHS [facility] Last Admin: 07/25/19 22:35 Dose: 40 mg Documented by: Clonazepam (Klonopin) 1 mg PO TID [facility] Last Admin: 07/26/19 09:06 Dose: 1 mg Documented by: Clopidogrel Bisulfate (Plavix) 75 mg PO QDAY [facility] Last Admin: 07/25/19 09:51 Dose: 75 mg Documented by: Clotrimazole (Clotrimazole/Betamethasone) 1 applic TP BID [facility] Last Admin: 07/26/19 09:04 Dose: 1 applic Documented by: Clozapine (Clozapine (Nf)) 200 mg PO 1400 [facility] Last Admin: 07/25/19 09:54 Dose: 200 mg Documented by: Clozapine (Clozapine (Nf)) 200 mg PO 1000 [facility] Last Admin: 07/26/19 09:18 Dose: 200 mg Documented by: Clozapine (Clozapine (Nf)) 400 mg PO 2200 [facility] Last Admin: 07/25/19 22:30 Dose: 400 mg Documented by: Diphenhydramine HCl (Benadryl) 25 mg PO TID [facility] Last Admin: 07/26/19 09:18 Dose: 25 mg Documented by: Glycopyrrolate (Robinul) 1 mg PO TID [facility] Last Admin: 07/26/19 09:08 Dose: 1 mg Documented by: Haloperidol (Haldol) 5 mg PO DAILY [facility] Last Admin: 07/26/19 09:01 Dose: 5 mg Documented by: Haloperidol (Haldol) 2 mg PO QHS [facility] Last Admin: 07/25/19 22:30 Dose: 2 mg Documented by: Haloperidol Lactate (Haldol) 5 mg IM Q6H PRN PRN Reason: Agitation Insulin Human Regular (Humulin R) 0 units SUB-Q ACHS [facility]; Protocol Last Admin: 07/26/19 08:26 Dose: Not Given Documented by: Linagliptin (Tradjenta) 5 mg PO QDAY [facility] Last Admin: 07/26/19 09:02 Dose: 5 mg Documented by: Lorazepam (Ativan) 2 mg IM Q6H PRN PRN Reason: Agitation Melatonin (Melatonin) 10 mg PO QHS [facility] Last Admin: 07/25/19 22:35 Dose: 10 mg Documented by: Metformin HCl (Glucophage Xr) 1,000 mg PO QDDIAB [facility] Last Admin: 07/26/19 08:58 Dose: 1,000 mg Documented by: Oxcarbazepine (Trileptal) 600 mg PO BID [facility] Last Admin: 07/26/19 09:02 Dose: 600 mg Documented by: Potassium Chloride (K-Dur) 30 meq PO QDAY [facility] Last Admin: 07/26/19 09:03 Dose: 30 meq Documented by: Propranolol HCl (Inderal) 20 mg PO TID [facility] Last Admin: 07/26/19 09:00 Dose: 20 mg Documented by: Results - Results Labs/Vitals: Laboratory Last Values WBC 10.2 K/mm3 (4.5-11.0) 07/21/19 10:54 RBC 3.91 M/mm3 (3.65-5.03) 07/21/19 10:54 Hgb 11.8 gm/dl (11.8-15.2) 07/21/19 10:54 Hct 35.0 % (35.5-45.6) L 07/21/19 10:54 MCV 90 fl (84-94) 07/21/19 10:54 MCH 30 pg (28-32) 07/21/19 10:54 MCHC 34 % (32-34) 07/21/19 10:54 RDW 14.5 % (13.2-15.2) 07/21/19 10:54 Plt Count 241 K/mm3 (140-440) 07/21/19 10:54 Lymph % (Auto) Repairer General 07/21/19 10:54 [place] % (Auto) Repairer General 07/21/19 10:54 Eos % (Auto) Repairer General 07/21/19 10:54 Baso % (Auto) Repairer General 07/21/19 10:54 Lymph # Repairer General 07/21/19 10:54 [place] # Repairer General 07/21/19 10:54 Eos # Repairer General 07/21/19 10:54 Baso # Repairer General 07/21/19 10:54 Add Manual Diff Complete 07/21/19 10:54 Total Counted 100 07/21/19 10:54 Seg Neutrophils % Repairer General 07/21/19 10:54 Seg Neuts % (Manual) 87.0 % (40.0-70.0) H 07/21/19 10:54 Band Neutrophils % 0 % 07/21/19 10:54 Lymphocytes % (Manual) 8.0 % (13.4-35.0) L 07/21/19 10:54 Reactive Lymphs % (Man) 0 % 07/21/19 10:54 Monocytes % (Manual) 5.0 % (0.0-7.3) 07/21/19 10:54 Eosinophils % (Manual) 0 % (0.0-4.3) 07/21/19 10:54 Basophils % (Manual) 0 % (0.0-1.8) 07/21/19 10:54 Metamyelocytes % 0 % 07/21/19 10:54 Myelocytes % 0 % 07/21/19 10:54 Promyelocytes % 0 % 07/21/19 10:54 Blast Cells % 0 % 07/21/19 10:54 Nucleated RBC % Not Reportable 07/21/19 10:54 Seg Neutrophils # Repairer General 07/21/19 10:54 Seg Neutrophils # Man 8.9 K/mm3 (1.8-7.7) H 07/21/19 10:54 Band Neutrophils # 0.0 K/mm3 07/21/19 10:54 Lymphocytes # (Manual) 0.8 K/mm3 (1.2-5.4) L 07/21/19 10:54 Abs React Lymphs (Man) 0.0 K/mm3 07/21/19 10:54 Monocytes # (Manual) 0.5 K/mm3 (0.0-0.8) 07/21/19 10:54 Eosinophils # (Manual) 0.0 K/mm3 (0.0-0.4) 07/21/19 10:54 Basophils # (Manual) 0.0 K/mm3 (0.0-0.1) 07/21/19 10:54 Metamyelocytes # 0.0 K/mm3 07/21/19 10:54 Myelocytes # 0.0 K/mm3 07/21/19 10:54 Promyelocytes # 0.0 K/mm3 07/21/19 10:54 Blast Cells # 0.0 K/mm3 07/21/19 10:54 WBC Morphology Not Reportable 07/21/19 10:54 Hypersegmented Neuts Not Reportable 07/21/19 10:54 Hyposegmented Neuts Not Reportable 07/21/19 10:54 Hypogranular Neuts Not Reportable 07/21/19 10:54 Smudge Cells Not Reportable 07/21/19 10:54 Toxic Granulation Not Reportable 07/21/19 10:54 Toxic Vacuolation Not Reportable 07/21/19 10:54 Dohle Bodies Not Reportable 07/21/19 10:54 Pelger-Huet Anomaly Not Reportable 07/21/19 10:54 Adiel Rods Not Reportable 07/21/19 10:54 Platelet Estimate Consistent w auto 07/21/19 10:54 Clumped Platelets Not Reportable 07/21/19 10:54 Plt Clumps, EDTA Not Reportable 07/21/19 10:54 Large Platelets Not Reportable 07/21/19 10:54 Giant Platelets Not Reportable 07/21/19 10:54 Platelet Satelliting Not Reportable 07/21/19 10:54 Plt Morphology Comment Not Reportable 07/21/19 10:54 RBC Morphology Normal 07/21/19 10:54 Dimorphic RBCs Not Reportable 07/21/19 10:54 Polychromasia Not Reportable 07/21/19 10:54 Hypochromasia Not Reportable 07/21/19 10:54 Poikilocytosis Not Reportable 07/21/19 10:54 Anisocytosis Not Reportable 07/21/19 10:54 Microcytosis Not Reportable 07/21/19 10:54 Macrocytosis Not Reportable 07/21/19 10:54 Spherocytes Not Reportable 07/21/19 10:54 Pappenheimer Bodies Not Reportable 07/21/19 10:54 Sickle Cells Not Reportable 07/21/19 10:54 Target Cells Not Reportable 07/21/19 10:54 Tear Drop Cells Not Reportable 07/21/19 10:54 Ovalocytes Not Reportable 07/21/19 10:54 Helmet Cells Not Reportable 07/21/19 10:54 [place] Bodies Not Reportable 07/21/19 10:54 [place] Rings Not Reportable 07/21/19 10:54 [place] Cells Not Reportable 07/21/19 10:54 Bite Cells Not Reportable 07/21/19 10:54 Crenated Cell Not Reportable 07/21/19 10:54 Elliptocytes Not Reportable 07/21/19 10:54 Acanthocytes (Spur) Not Reportable 07/21/19 10:54 Rouleaux Not Reportable 07/21/19 10:54 Hemoglobin C Crystals Not Reportable 07/21/19 10:54 Schistocytes Not Reportable 07/21/19 10:54 Malaria parasites Not Reportable 07/21/19 10:54 [place] Bodies Not Reportable 07/21/19 10:54 Hem Pathologist Commnt No 07/21/19 10:54 Sodium 140 mmol/L (137-145) 07/23/19 14:07 Potassium 4.6 mmol/L (3.6-5.0) 07/23/19 14:07 Chloride 101.1 mmol/L (98-107) 07/23/19 14:07 Carbon Dioxide 22 mmol/L (22-30) 07/23/19 14:07 Anion Gap 22 mmol/L 07/23/19 14:07 BUN 15 mg/dL (9-20) 07/23/19 14:07 Creatinine 0.7 mg/dL (0.8-1.5) L 07/23/19 14:07 Estimated GFR > 60 ml/min 07/23/19 14:07 BUN/Creatinine Ratio 21 % 07/23/19 14:07 Glucose 160 mg/dL (75-100) H 07/23/19 14:07 POC Glucose 127 (70-105) H 07/26/19 09:00 Hemoglobin A1c 6.3 % (4-6) H 07/05/19 21:07 Calcium 8.6 mg/dL (8.4-10.2) 07/23/19 14:07 Total Bilirubin 0.20 mg/dL (0.1-1.2) 07/23/19 14:07 AST 40 units/L (5-40) 07/23/19 14:07 ALT 46 units/L (7-56) 07/23/19 14:07 Alkaline Phosphatase 68 units/L (35-129) 07/23/19 14:07 Total Protein 5.2 g/dL (6.3-8.2) L 07/23/19 14:07 Albumin 3.2 g/dL (3.9-5) L 07/23/19 14:07 Albumin/Globulin Ratio 1.6 % 07/23/19 14:07 Triglycerides 188 mg/dL (2-149) H 07/05/19 21:07 Cholesterol 115 mg/dL (50-199) 07/05/19 21:07 LDL Cholesterol Direct 47 mg/dL (50-130) L 07/05/19 21:07 HDL Cholesterol 35 mg/dL (40-59) L 07/05/19 21:07 Cholesterol/HDL Ratio 3.28 % 07/05/19 21:07 Oxcarbazepine See scanned result 07/20/19 07:59 Last Vital Signs Temp 97.7 F 07/25/19 08:09 Pulse 106 H 07/25/19 14:04 Resp 18 07/23/19 22:00 BP 127/84 07/25/19 14:04 Pulse Ox 98 07/25/19 08:09
[2019-07-26] MEDS: CLOPIDOGREL 75 MG TAB PO SCH (12:09)
[2019-07-26] MEDS: MELATONIN 5 MG TAB PO SCH (21:05)
[2019-07-26] MEDS: HALOPERIDOL 1 MG TAB PO SCH (21:06)
[2019-07-26] MEDS: CLOZAPINE 200 MG PO SCH (21:07)
--- NOTE | 2019-07-27 07:53 | Progress Note ---
Subjective Date of service: 07/27/19 Principal diagnosis: Bipolar Disorder, Current Episode Manic w/Phsychotic Features Subjective Comment: The patient's medical record was reviewed and the patient's progress was discussed with the nursing staff. per chart pt is alert and oriented to person, flat affect, paces the unit mumbling, disorganized thought process, slurred speech, no agitation, medication given in pudding with encouragement, pt continues to be on one to one observation for safety and unpredictable behavior, high risk fall, safety maintained, presently asleep at this time, will monitor for safety. During my interview with the patient this morning, the patient was noted pacing the hallways, patient noted with sitter walking with patient. the patient noted with increase energy mumbling with intermittent loud outburst. his speech appears pressured. he appears irritable. when asked how he was doing he ball his fist and started mumbling louder at a fast walking pace. unable to converse with the patient. Reason for continuing inpatient treatment: disorganized/improving treatment REVIEW OF SYSTEMS Unable to complete due to patient's condition MSE Appearance: Awake. Dressed appropriate Behavior: pacing Affect: flat Thought Process: Disorganized Speech: pressured Thought Content Suicidal: unable to assess Homicidal: Speech garbled Hallucinations: Unable to assess Delusions: None elicited Consciousness: Alert Cognition/Memory: Impaired Insight/Judgment: Limited Treatment Plan Due to the psychiatric conditions and treatment listed in the Assessment and Plan - the patient requires continued hospitalization. Will continue inpatient treatment to allow for medication adjustment and monitoring. Will continue q15 min safety checks. Will encourage the use of environmental modifications and non-pharmacologic approaches for the management of behavioral and psychological symptoms. Medication adjustment made today: none Will continue current psych medications Monitor for medication side effects. ANC 8.9 Carbemazepine Metabolite Level 20.6 cbc with diff 07/28/2019 The patient will continue on medications for physical illnesses, and Hospitalist will closely monitor these Continue intensive physical and occupational therapies. Monitor patient's mood, sleep, appetite, and behavior closely. Encourage patient to participate in individual and group therapeutic sessions on the irizarry. Will provide a safe and therapeutic environment for patient. Estimated length of stay 5 days depending on how the patient progresses Medications and Allergies Allergies Allergy/AdvReac Type Severity Reaction Status Date / Time aripiprazole [From Abilify] Allergy Hives Verified 06/27/19 09:43 aspirin Allergy Hives Verified 06/27/19 09:43 cephalexin [From Keflex] Allergy Hives Verified 06/27/19 09:43 chlorpromazine Allergy Hives Verified 06/27/19 09:43 ibuprofen Allergy Hives Verified 06/27/19 09:43 naproxen Allergy Hives Verified 06/27/19 09:43 risperidone [From Risperdal] Allergy Hives Verified 07/20/19 08:16 ziprasidone [From Geodon] Allergy Hives Verified 06/27/19 09:43 Home Medications Medication Instructions Recorded Confirmed Last Taken Type AtorvaSTATin [Lipitor] 40 mg PO QHS 06/27/19 07/05/19 06/26/19 History Benztropine [Cogentin] 0.5 mg PO TID 06/27/19 07/05/19 06/26/19 History Clopidogrel [Plavix] 75 mg PO QDAY 06/27/19 07/05/19 06/26/19 History Fenofibrate 160 mg PO QDAY 06/27/19 07/05/19 06/26/19 History LORazepam [Ativan] 1 mg PO TID PRN 06/27/19 07/05/19 06/26/19 History Melatonin [Melatonin 5MG CAP] 5 mg PO QHS 06/27/19 07/05/19 06/26/19 History Metoprolol [Lopressor TAB] 100 mg PO QDAY 06/27/19 07/05/19 06/26/19 History OXcarbazepine [Oxtellar XR] 600 mg PO BID 06/27/19 07/05/19 06/26/19 History Sertraline [Zoloft] 50 mg PO QDAY 06/27/19 07/05/19 06/26/19 History Sitagliptin Phos/Metformin HCl 100 mg PO QDAY 06/27/19 07/05/19 06/26/19 History [Janumet 50-1,000 mg Tablet] cloZAPine 800 mg PO QHS 06/27/19 07/05/19 06/26/19 History diphenhydrAMINE [Benadryl CAP] 25 mg PO TID 06/27/19 07/05/19 06/26/19 History Insulin Regular, Human [HumuLIN R] 0 units SUB-Q Q6HR units 07/05/19 07/06/19 Unknown Rx haloperidoL [Haldol] 5 mg PO BID tablet 07/05/19 07/05/19 Unknown Rx metFORMIN [Glucophage] 1,000 mg PO DAILY tablet 07/05/19 07/05/19 Unknown Rx Active Meds: Active Medications Atorvastatin Calcium (Lipitor) 40 mg PO QHS [facility] Last Admin: 07/26/19 21:05 Dose: 40 mg Documented by: Clonazepam (Klonopin) 1 mg PO TID [facility] Last Admin: 07/26/19 21:15 Dose: 1 mg Documented by: Clopidogrel Bisulfate (Plavix) 75 mg PO QDAY [facility] Last Admin: 07/26/19 12:09 Dose: 75 mg Documented by: Clotrimazole (Clotrimazole/Betamethasone) 1 applic TP BID [facility] Last Admin: 07/26/19 21:05 Dose: 1 applic Documented by: Clozapine (Clozapine (Nf)) 200 mg PO 1400 [facility] Last Admin: 07/26/19 14:08 Dose: 200 mg Documented by: Clozapine (Clozapine (Nf)) 200 mg PO 1000 [facility] Last Admin: 07/26/19 09:18 Dose: 200 mg Documented by: Clozapine (Clozapine (Nf)) 400 mg PO 2200 [facility] Last Admin: 07/26/19 21:07 Dose: 400 mg Documented by: Diphenhydramine HCl (Benadryl) 25 mg PO TID [facility] Last Admin: 07/26/19 21:04 Dose: 25 mg Documented by: Glycopyrrolate (Robinul) 1 mg PO TID [facility] Last Admin: 07/26/19 21:05 Dose: 1 mg Documented by: Haloperidol (Haldol) 5 mg PO DAILY [facility] Last Admin: 07/26/19 09:01 Dose: 5 mg Documented by: Haloperidol (Haldol) 2 mg PO QHS [facility] Last Admin: 07/26/19 21:06 Dose: 2 mg Documented by: Haloperidol Lactate (Haldol) 5 mg IM Q6H PRN PRN Reason: Agitation Insulin Human Regular (Humulin R) 0 units SUB-Q ACHS [facility]; Protocol Last Admin: 07/26/19 21:08 Dose: Not Given Documented by: Linagliptin (Tradjenta) 5 mg PO QDAY [facility] Last Admin: 07/26/19 09:02 Dose: 5 mg Documented by: Lorazepam (Ativan) 2 mg IM Q6H PRN PRN Reason: Agitation Melatonin (Melatonin) 10 mg PO QHS [facility] Last Admin: 07/26/19 21:05 Dose: 10 mg Documented by: Metformin HCl (Glucophage Xr) 1,000 mg PO QDDIAB [facility] Last Admin: 07/26/19 08:58 Dose: 1,000 mg Documented by: Oxcarbazepine (Trileptal) 600 mg PO BID [facility] Last Admin: 07/26/19 21:06 Dose: 600 mg Documented by: Potassium Chloride (K-Dur) 30 meq PO QDAY [facility] Last Admin: 07/26/19 09:03 Dose: 30 meq Documented by: Propranolol HCl (Inderal) 20 mg PO TID [facility] Last Admin: 07/26/19 21:04 Dose: 20 mg Documented by: Results - Results Labs/Vitals: Laboratory Last Values WBC 10.2 K/mm3 (4.5-11.0) 07/21/19 10:54 RBC 3.91 M/mm3 (3.65-5.03) 07/21/19 10:54 Hgb 11.8 gm/dl (11.8-15.2) 07/21/19 10:54 Hct 35.0 % (35.5-45.6) L 07/21/19 10:54 MCV 90 fl (84-94) 07/21/19 10:54 MCH 30 pg (28-32) 07/21/19 10:54 MCHC 34 % (32-34) 07/21/19 10:54 RDW 14.5 % (13.2-15.2) 07/21/19 10:54 Plt Count 241 K/mm3 (140-440) 07/21/19 10:54 Lymph % (Auto) [place]rot [place] 07/21/19 10:54 Bulloch % (Auto) [place]rot [place]uncher 07/21/19 10:54 Eos % (Auto) [place] 07/21/19 10:54 Baso % (Auto) [place] 07/21/19 10:54 Lymph # [place] 07/21/19 10:54 Bulloch # Carrot Buncher 07/21/19 10:54 Eos # Car[place] Buncher 07/21/19 10:54 Baso # [place]uncher 07/21/19 10:54 Add Manual Diff Complete 07/21/19 10:54 Total Counted 100 07/21/19 10:54 Seg Neutrophils % Carrot Buncher 07/21/19 10:54 Seg Neuts % (Manual) 87.0 % (40.0-70.0) H 07/21/19 10:54 Band Neutrophils % 0 % 07/21/19 10:54 Lymphocytes % (Manual) 8.0 % (13.4-35.0) L 07/21/19 10:54 Reactive Lymphs % (Man) 0 % 07/21/19 10:54 Monocytes % (Manual) 5.0 % (0.0-7.3) 07/21/19 10:54 Eosinophils % (Manual) 0 % (0.0-4.3) 07/21/19 10:54 Basophils % (Manual) 0 % (0.0-1.8) 07/21/19 10:54 Metamyelocytes % 0 % 07/21/19 10:54 Myelocytes % 0 % 07/21/19 10:54 Promyelocytes % 0 % 07/21/19 10:54 Blast Cells % 0 % 07/21/19 10:54 Nucleated RBC % Not Reportable 07/21/19 10:54 Seg Neutrophils # Carrot Buncher 07/21/19 10:54 Seg Neutrophils # Man 8.9 K/mm3 (1.8-7.7) H 07/21/19 10:54 Band Neutrophils # 0.0 K/mm3 07/21/19 10:54 Lymphocytes # (Manual) 0.8 K/mm3 (1.2-5.4) L 07/21/19 10:54 Abs React Lymphs (Man) 0.0 K/mm3 07/21/19 10:54 Monocytes # (Manual) 0.5 K/mm3 (0.0-0.8) 07/21/19 10:54 Eosinophils # (Manual) 0.0 K/mm3 (0.0-0.4) 07/21/19 10:54 Basophils # (Manual) 0.0 K/mm3 (0.0-0.1) 07/21/19 10:54 Metamyelocytes # 0.0 K/mm3 07/21/19 10:54 Myelocytes # 0.0 K/mm3 07/21/19 10:54 Promyelocytes # 0.0 K/mm3 07/21/19 10:54 Blast Cells # 0.0 K/mm3 07/21/19 10:54 WBC Morphology Not Reportable 07/21/19 10:54 Hypersegmented Neuts Not Reportable 07/21/19 10:54 Hyposegmented Neuts Not Reportable 07/21/19 10:54 Hypogranular Neuts Not Reportable 07/21/19 10:54 Smudge Cells Not Reportable 07/21/19 10:54 Toxic Granulation Not Reportable 07/21/19 10:54 Toxic Vacuolation Not Reportable 07/21/19 10:54 Dohle Bodies Not Reportable 07/21/19 10:54 Pelger-Huet Anomaly Not Reportable 07/21/19 10:54 Adiel Rods Not Reportable 07/21/19 10:54 Platelet Estimate Consistent w auto 07/21/19 10:54 Clumped Platelets Not Reportable 07/21/19 10:54 Plt Clumps, EDTA Not Reportable 07/21/19 10:54 Large Platelets Not Reportable 07/21/19 10:54 Giant Platelets Not Reportable 07/21/19 10:54 Platelet Satelliting Not Reportable 07/21/19 10:54 Plt Morphology Comment Not Reportable 07/21/19 10:54 RBC Morphology Normal 07/21/19 10:54 Dimorphic RBCs Not Reportable 07/21/19 10:54 Polychromasia Not Reportable 07/21/19 10:54 Hypochromasia Not Reportable 07/21/19 10:54 Poikilocytosis Not Reportable 07/21/19 10:54 Anisocytosis Not Reportable 07/21/19 10:54 Microcytosis Not Reportable 07/21/19 10:54 Macrocytosis Not Reportable 07/21/19 10:54 Spherocytes Not Reportable 07/21/19 10:54 Pappenheimer Bodies Not Reportable 07/21/19 10:54 Sickle Cells Not Reportable 07/21/19 10:54 Target Cells Not Reportable 07/21/19 10:54 Tear Drop Cells Not Reportable 07/21/19 10:54 Ovalocytes Not Reportable 07/21/19 10:54 Helmet Cells Not Reportable 07/21/19 10:54 Ritchie-Sidell Bodies Not Reportable 07/21/19 10:54 Kennan Rings Not Reportable 07/21/19 10:54 [place] Cells Not Reportable 07/21/19 10:54 Bite Cells Not Reportable 07/21/19 10:54 Crenated Cell Not Reportable 07/21/19 10:54 Elliptocytes Not Reportable 07/21/19 10:54 Acanthocytes (Spur) Not Reportable 07/21/19 10:54 Rouleaux Not Reportable 07/21/19 10:54 Hemoglobin C Crystals Not Reportable 07/21/19 10:54 Schistocytes Not Reportable 07/21/19 10:54 Malaria parasites Not Reportable 07/21/19 10:54 Denzel Bodies Not Reportable 07/21/19 10:54 Hem Pathologist Commnt No 07/21/19 10:54 Sodium 140 mmol/L (137-145) 07/23/19 14:07 Potassium 4.6 mmol/L (3.6-5.0) 07/23/19 14:07 Chloride 101.1 mmol/L (98-107) 07/23/19 14:07 Carbon Dioxide 22 mmol/L (22-30) 07/23/19 14:07 Anion Gap 22 mmol/L 07/23/19 14:07 BUN 15 mg/dL (9-20) 07/23/19 14:07 Creatinine 0.7 mg/dL (0.8-1.5) L 07/23/19 14:07 Estimated GFR > 60 ml/min 07/23/19 14:07 BUN/Creatinine Ratio 21 % 07/23/19 14:07 Glucose 160 mg/dL (75-100) H 07/23/19 14:07 POC Glucose 118 (70-105) H 07/27/19 06:46 Hemoglobin A1c 6.3 % (4-6) H 07/05/19 21:07 Calcium 8.6 mg/dL (8.4-10.2) 07/23/19 14:07 Total Bilirubin 0.20 mg/dL (0.1-1.2) 07/23/19 14:07 AST 40 units/L (5-40) 07/23/19 14:07 ALT 46 units/L (7-56) 07/23/19 14:07 Alkaline Phosphatase 68 units/L (35-129) 07/23/19 14:07 Total Protein 5.2 g/dL (6.3-8.2) L 07/23/19 14:07 Albumin 3.2 g/dL (3.9-5) L 07/23/19 14:07 Albumin/Globulin Ratio 1.6 % 07/23/19 14:07 Triglycerides 188 mg/dL (2-149) H 07/05/19 21:07 Cholesterol 115 mg/dL (50-199) 07/05/19 21:07 LDL Cholesterol Direct 47 mg/dL (50-130) L 07/05/19 21:07 HDL Cholesterol 35 mg/dL (40-59) L 07/05/19 21:07 Cholesterol/HDL Ratio 3.28 % 07/05/19 21:07 Oxcarbazepine See scanned result 07/20/19 07:59 Last Vital Signs Temp 97.6 F 07/26/19 19:56 Pulse 99 H 07/26/19 21:04 Resp 20 07/26/19 19:56 BP 133/71 07/26/19 21:04 Pulse Ox 98 07/26/19 19:56
[2019-07-27] MEDS: diphenhydrAMINE 25 MG CAP PO SCH ×3 (08:51→20:19)
[2019-07-27] MEDS: INSULIN REGULAR, HUMAN 100 UNITS/1 ML SUB-Q SCH ×4 (08:51→21:34)
[2019-07-27] MEDS: metFORMIN XR 500MG TAB PO SCH (08:54)
[2019-07-27] MEDS: PROPRANOLOL 10 MG TAB PO SCH ×3 (08:57→20:20)
[2019-07-27] MEDS: CLOZAPINE 100 MG PO SCH ×2 (09:00→14:22)
[2019-07-27] MEDS: POTASSIUM CHLORIDE ER 10 MEQ TAB PO SCH (09:02)
[2019-07-27] MEDS: LINAGLIPTIN 5 MG TAB PO SCH (09:02)
[2019-07-27] MEDS: HALOPERIDOL 2 MG TAB PO SCH (09:04)
[2019-07-27] MEDS: OXcarbazepine 150 MG TAB PO SCH ×2 (09:04→21:34)
[2019-07-27] MEDS: CLOPIDOGREL 75 MG TAB PO SCH (09:04)
[2019-07-27] MEDS: CLOTRIMAZOLE/BETAMETHASONE CREAM 15 GM TP SCH ×2 (09:05→21:32)
[2019-07-27] MEDS: GLYCOPYRROLATE 1 MG TAB PO SCH ×3 (09:16→21:34)
[2019-07-27] MEDS: CLOZAPINE 200 MG PO SCH (21:32)
[2019-07-27] MEDS: HALOPERIDOL 1 MG TAB PO SCH (21:35)
[2019-07-27] MEDS: MELATONIN 5 MG TAB PO SCH (21:35)
[2019-07-28] MEDS: INSULIN REGULAR, HUMAN 100 UNITS/1 ML SUB-Q SCH ×2 (07:30→21:15)
--- NOTE | 2019-07-28 08:09 | Progress Note ---
Subjective Date of service: 07/28/19 Principal diagnosis: Bipolar Disorder, Current Episode Manic w/Phsychotic Features Subjective Comment: The patient's medical record was reviewed and the patient's progress was discussed with the nursing staff. per chart pt slept throughout the night, presently asleep, no distress noted, will continue to monitor for safety. During my interview with the patient this morning, the patient was noted pacing the hallways, patient noted with sitter walking with him. he is dressed appropriately [id number], name only. The patient noted mumbling with intermittent loud outburst and hand gestures. when I approach the patient he became more irritable and ball his fist, when asked how he was doing the patient continue to pace and mumbles loudly to himself as if he was cursing.when asked about suicidal ideation the patient continued to pace and mumbles to himself. The patient remains disorganized. The patient behavior is inconsistent Reason for continuing inpatient treatment: disorganized/improving treatment REVIEW OF SYSTEMS Unable to complete due to patient's condition MSE Appearance: Awake. Dressed appropriate Behavior: pacing Affect: flat Thought Process: Disorganized Speech: garbled Thought Content Suicidal: unable to assess Homicidal: Speech garbled Hallucinations: Unable to assess Delusions: None elicited Consciousness: Alert Cognition/Memory: Impaired Insight/Judgment: poor Treatment Plan Due to the psychiatric conditions and treatment listed in the Assessment and Plan - the patient requires continued hospitalization. Will continue inpatient treatment to allow for medication adjustment and monitoring. Will continue q15 min safety checks. Will encourage the use of environmental modifications and non-pharmacologic approaches for the management of behavioral and psychological symptoms. Medication adjustment made today: none Will continue current psych medications Monitor for medication side effects. ANC 7.2 Carbemazepine Metabolite Level 20.6 cbc with diff 08/04/2019 The patient will continue on medications for physical illnesses, and Hospitalist will closely monitor these Continue intensive physical and occupational therapies. Monitor patient's mood, sleep, appetite, and behavior closely. Encourage patient to participate in individual and group therapeutic sessions on the irizarry. Will provide a safe and therapeutic environment for patient. Medications and Allergies Allergies Allergy/AdvReac Type Severity Reaction Status Date / Time aripiprazole [From Abilify] Allergy Hives Verified 06/27/19 09:43 aspirin Allergy Hives Verified 06/27/19 09:43 cephalexin [From Keflex] Allergy Hives Verified 06/27/19 09:43 chlorpromazine Allergy Hives Verified 06/27/19 09:43 ibuprofen Allergy Hives Verified 06/27/19 09:43 naproxen Allergy Hives Verified 06/27/19 09:43 risperidone [From Risperdal] Allergy Hives Verified 07/20/19 08:16 ziprasidone [From Geodon] Allergy Hives Verified 06/27/19 09:43 Home Medications Medication Instructions Recorded Confirmed Last Taken Type AtorvaSTATin [Lipitor] 40 mg PO QHS 06/27/19 07/05/19 06/26/19 History Benztropine [Cogentin] 0.5 mg PO TID 06/27/19 07/05/19 06/26/19 History Clopidogrel [Plavix] 75 mg PO QDAY 06/27/19 07/05/19 06/26/19 History Fenofibrate 160 mg PO QDAY 06/27/19 07/05/19 06/26/19 History LORazepam [Ativan] 1 mg PO TID PRN 06/27/19 07/05/19 06/26/19 History Melatonin [Melatonin 5MG CAP] 5 mg PO QHS 06/27/19 07/05/19 06/26/19 History Metoprolol [Lopressor TAB] 100 mg PO QDAY 06/27/19 07/05/19 06/26/19 History OXcarbazepine [Oxtellar XR] 600 mg PO BID 06/27/19 07/05/19 06/26/19 History Sertraline [Zoloft] 50 mg PO QDAY 06/27/19 07/05/19 06/26/19 History Sitagliptin Phos/Metformin HCl 100 mg PO QDAY 06/27/19 07/05/19 06/26/19 History [Janumet 50-1,000 mg Tablet] cloZAPine 800 mg PO QHS 06/27/19 07/05/19 06/26/19 History diphenhydrAMINE [Benadryl CAP] 25 mg PO TID 06/27/19 07/05/19 06/26/19 History Insulin Regular, Human [HumuLIN R] 0 units SUB-Q Q6HR units 07/05/19 07/06/19 Unknown Rx haloperidoL [Haldol] 5 mg PO BID tablet 07/05/19 07/05/19 Unknown Rx metFORMIN [Glucophage] 1,000 mg PO DAILY tablet 07/05/19 07/05/19 Unknown Rx Active Meds: Active Medications Atorvastatin Calcium (Lipitor) 40 mg PO QHS [facility] Last Admin: 07/27/19 21:34 Dose: 40 mg Documented by: Clonazepam (Klonopin) 1 mg PO TID [facility] Last Admin: 07/27/19 20:21 Dose: 1 mg Documented by: Clopidogrel Bisulfate (Plavix) 75 mg PO QDAY [facility] Last Admin: 07/27/19 09:04 Dose: 75 mg Documented by: Clotrimazole (Clotrimazole/Betamethasone) 1 applic TP BID [facility] Last Admin: 07/27/19 21:32 Dose: 1 applic Documented by: Clozapine (Clozapine (Nf)) 200 mg PO 1400 [facility] Last Admin: 07/27/19 14:22 Dose: 200 mg Documented by: Clozapine (Clozapine (Nf)) 200 mg PO 1000 [facility] Last Admin: 07/27/19 09:00 Dose: 200 mg Documented by: Clozapine (Clozapine (Nf)) 400 mg PO 2200 [facility] Last Admin: 07/27/19 21:32 Dose: 400 mg Documented by: Diphenhydramine HCl (Benadryl) 25 mg PO TID [facility] Last Admin: 07/27/19 20:19 Dose: 25 mg Documented by: Glycopyrrolate (Robinul) 1 mg PO TID [facility] Last Admin: 07/27/19 21:34 Dose: Not Given Documented by: Haloperidol (Haldol) 5 mg PO DAILY [facility] Last Admin: 07/27/19 09:04 Dose: 5 mg Documented by: Haloperidol (Haldol) 2 mg PO QHS [facility] Last Admin: 07/27/19 21:35 Dose: 2 mg Documented by: Haloperidol Lactate (Haldol) 5 mg IM Q6H PRN PRN Reason: Agitation Insulin Human Regular (Humulin R) 0 units SUB-Q [facility]; Protocol Last Admin: 07/27/19 21:34 Dose: Not Given Documented by: Linagliptin (Tradjenta) 5 mg PO QDAY [facility] Last Admin: 07/27/19 09:02 Dose: 5 mg Documented by: Lorazepam (Ativan) 2 mg IM Q6H PRN PRN Reason: Agitation Melatonin (Melatonin) 10 mg PO QHS [facility] Last Admin: 07/27/19 21:35 Dose: 10 mg Documented by: Metformin HCl (Glucophage Xr) 1,000 mg PO QDDIAB [facility] Last Admin: 07/27/19 08:54 Dose: 1,000 mg Documented by: Oxcarbazepine (Trileptal) 600 mg PO BID [facility] Last Admin: 07/27/19 21:34 Dose: 600 mg Documented by: Potassium Chloride (K-Dur) 30 meq PO QDAY [facility] Last Admin: 07/27/19 09:02 Dose: 30 meq Documented by: Propranolol HCl (Inderal) 20 mg PO TID [facility] Last Admin: 07/27/19 20:20 Dose: 20 mg Documented by: Results - Results Labs/Vitals: Laboratory Last Values WBC 10.2 K/mm3 (4.5-11.0) 07/21/19 10:54 RBC 3.91 M/mm3 (3.65-5.03) 07/21/19 10:54 Hgb 11.8 gm/dl (11.8-15.2) 07/21/19 10:54 Hct 35.0 % (35.5-45.6) L 07/21/19 10:54 MCV 90 fl (84-94) 07/21/19 10:54 MCH 30 pg (28-32) 07/21/19 10:54 MCHC 34 % (32-34) 07/21/19 10:54 RDW 14.5 % (13.2-15.2) 07/21/19 10:54 Plt Count 241 K/mm3 (140-440) 07/21/19 10:54 Lymph % (Auto) Entry Level Financial Analyst 07/21/19 10:54 Millard % (Auto) Entry Level Financial Analyst 07/21/19 10:54 Eos % (Auto) Entry Level Financial Analyst 07/21/19 10:54 Baso % (Auto) Entry Level Financial Analyst 07/21/19 10:54 Lymph # Entry Level Financial Analyst 07/21/19 10:54 Millard # Entry Level Financial Analyst 07/21/19 10:54 Eos # Entry Level Financial Analyst 07/21/19 10:54 Baso # Entry Level Financial Analyst 07/21/19 10:54 Add Manual Diff Complete 07/21/19 10:54 Total Counted 100 07/21/19 10:54 Seg Neutrophils % Entry Level Financial Analyst 07/21/19 10:54 Seg Neuts % (Manual) 87.0 % (40.0-70.0) H 07/21/19 10:54 Band Neutrophils % 0 % 07/21/19 10:54 Lymphocytes % (Manual) 8.0 % (13.4-35.0) L 07/21/19 10:54 Reactive Lymphs % (Man) 0 % 07/21/19 10:54 Monocytes % (Manual) 5.0 % (0.0-7.3) 07/21/19 10:54 Eosinophils % (Manual) 0 % (0.0-4.3) 07/21/19 10:54 Basophils % (Manual) 0 % (0.0-1.8) 07/21/19 10:54 Metamyelocytes % 0 % 07/21/19 10:54 Myelocytes % 0 % 07/21/19 10:54 Promyelocytes % 0 % 07/21/19 10:54 Blast Cells % 0 % 07/21/19 10:54 Nucleated RBC % Not Reportable 07/21/19 10:54 Seg Neutrophils # Entry Level Financial Analyst 07/21/19 10:54 Seg Neutrophils # Man 8.9 K/mm3 (1.8-7.7) H 07/21/19 10:54 Band Neutrophils # 0.0 K/mm3 07/21/19 10:54 Lymphocytes # (Manual) 0.8 K/mm3 (1.2-5.4) L 07/21/19 10:54 Abs React Lymphs (Man) 0.0 K/mm3 07/21/19 10:54 Monocytes # (Manual) 0.5 K/mm3 (0.0-0.8) 07/21/19 10:54 Eosinophils # (Manual) 0.0 K/mm3 (0.0-0.4) 07/21/19 10:54 Basophils # (Manual) 0.0 K/mm3 (0.0-0.1) 07/21/19 10:54 Metamyelocytes # 0.0 K/mm3 07/21/19 10:54 Myelocytes # 0.0 K/mm3 07/21/19 10:54 Promyelocytes # 0.0 K/mm3 07/21/19 10:54 Blast Cells # 0.0 K/mm3 07/21/19 10:54 WBC Morphology Not Reportable 07/21/19 10:54 Hypersegmented Neuts Not Reportable 07/21/19 10:54 Hyposegmented Neuts Not Reportable 07/21/19 10:54 Hypogranular Neuts Not Reportable 07/21/19 10:54 Smudge Cells Not Reportable 07/21/19 10:54 Toxic Granulation Not Reportable 07/21/19 10:54 Toxic Vacuolation Not Reportable 07/21/19 10:54 Dohle Bodies Not Reportable 07/21/19 10:54 Pelger-Huet Anomaly Not Reportable 07/21/19 10:54 Adiel Rods Not Reportable 07/21/19 10:54 Platelet Estimate Consistent w auto 07/21/19 10:54 Clumped Platelets Not Reportable 07/21/19 10:54 Plt Clumps, EDTA Not Reportable 07/21/19 10:54 Large Platelets Not Reportable 07/21/19 10:54 Giant Platelets Not Reportable 07/21/19 10:54 Platelet Satelliting Not Reportable 07/21/19 10:54 Plt Morphology Comment Not Reportable 07/21/19 10:54 RBC Morphology Normal 07/21/19 10:54 Dimorphic RBCs Not Reportable 07/21/19 10:54 Polychromasia Not Reportable 07/21/19 10:54 Hypochromasia Not Reportable 07/21/19 10:54 Poikilocytosis Not Reportable 07/21/19 10:54 Anisocytosis Not Reportable 07/21/19 10:54 Microcytosis Not Reportable 07/21/19 10:54 Macrocytosis Not Reportable 07/21/19 10:54 Spherocytes Not Reportable 07/21/19 10:54 Pappenheimer Bodies Not Reportable 07/21/19 10:54 Sickle Cells Not Reportable 07/21/19 10:54 Target Cells Not Reportable 07/21/19 10:54 Tear Drop Cells Not Reportable 07/21/19 10:54 Ovalocytes Not Reportable 07/21/19 10:54 Helmet Cells Not Reportable 07/21/19 10:54 Ritchie-Harrod Bodies Not Reportable 07/21/19 10:54 [place] Rings Not Reportable 07/21/19 10:54 Lyons Cells Not Reportable 07/21/19 10:54 Bite Cells Not Reportable 07/21/19 10:54 Crenated Cell Not Reportable 07/21/19 10:54 Elliptocytes Not Reportable 07/21/19 10:54 Acanthocytes (Spur) Not Reportable 07/21/19 10:54 Rouleaux Not Reportable 07/21/19 10:54 Hemoglobin C Crystals Not Reportable 07/21/19 10:54 Schistocytes Not Reportable 07/21/19 10:54 Malaria parasites Not Reportable 07/21/19 10:54 Denzel Bodies Not Reportable 07/21/19 10:54 Hem Pathologist Commnt No 07/21/19 10:54 Sodium 140 mmol/L (137-145) 07/23/19 14:07 Potassium 4.6 mmol/L (3.6-5.0) 07/23/19 14:07 Chloride 101.1 mmol/L (98-107) 07/23/19 14:07 Carbon Dioxide 22 mmol/L (22-30) 07/23/19 14:07 Anion Gap 22 mmol/L 07/23/19 14:07 BUN 15 mg/dL (9-20) 07/23/19 14:07 Creatinine 0.7 mg/dL (0.8-1.5) L 07/23/19 14:07 Estimated GFR > 60 ml/min 07/23/19 14:07 BUN/Creatinine Ratio 21 % 07/23/19 14:07 Glucose 160 mg/dL (75-100) H 07/23/19 14:07 POC Glucose 81 (70-105) 07/28/19 07:42 Hemoglobin A1c 6.3 % (4-6) H 07/05/19 21:07 Calcium 8.6 mg/dL (8.4-10.2) 07/23/19 14:07 Total Bilirubin 0.20 mg/dL (0.1-1.2) 07/23/19 14:07 AST 40 units/L (5-40) 07/23/19 14:07 ALT 46 units/L (7-56) 07/23/19 14:07 Alkaline Phosphatase 68 units/L (35-129) 07/23/19 14:07 Total Protein 5.2 g/dL (6.3-8.2) L 07/23/19 14:07 Albumin 3.2 g/dL (3.9-5) L 07/23/19 14:07 Albumin/Globulin Ratio 1.6 % 07/23/19 14:07 Triglycerides 188 mg/dL (2-149) H 07/05/19 21:07 Cholesterol 115 mg/dL (50-199) 07/05/19 21:07 LDL Cholesterol Direct 47 mg/dL (50-130) L 07/05/19 21:07 HDL Cholesterol 35 mg/dL (40-59) L 07/05/19 21:07 Cholesterol/HDL Ratio 3.28 % 07/05/19 21:07 Oxcarbazepine See scanned result 07/20/19 07:59 Last Vital Signs Temp 97.6 F 07/26/19 19:56 Pulse 96 H 07/27/19 20:20 Resp 20 07/26/19 19:56 BP 107/59 07/27/19 20:20 Pulse Ox 98 07/26/19 19:56
[2019-07-28 08:29] LABS: Eosinophils % (Auto) 2.6 % (0.0-4.3); Hematocrit 32.5 % (35.5-45.6); Hemoglobin 10.5 gm/dl (11.8-15.2); Lymphocytes % (Auto) 15.5 % (13.4-35.0); Mean Corpuscular HGB Conc 32 % (32-34); Mean Corpuscular Volume 92 fl (84-94); Monocytes % (Auto) 10.7 % (0.0-7.3); Platelet Count 209 K/mm3 (140-440); Red Blood Count 3.54 M/mm3 (3.65-5.03); Red Cell Distribution Width 15.3 % (13.2-15.2)
[2019-07-28 08:30] LABS: Basophils % (Auto) 0.4 % (0.0-1.8); Eosinophils # (Auto) 0.3 K/mm3 (0.0-0.4); Lymphocytes # (Auto) 1.6 K/mm3 (1.2-5.4); Monocytes # (Auto) 1.1 K/mm3 (0.0-0.8)
[2019-07-28] MEDS: metFORMIN XR 500MG TAB PO SCH (08:39)
[2019-07-28] MEDS: GLYCOPYRROLATE 1 MG TAB PO SCH ×3 (08:42→21:10)
[2019-07-28] MEDS: diphenhydrAMINE 25 MG CAP PO SCH ×3 (08:42→21:12)
[2019-07-28] MEDS: PROPRANOLOL 10 MG TAB PO SCH ×3 (08:45→21:14)
[2019-07-28] MEDS: HALOPERIDOL 2 MG TAB PO SCH (09:19)
[2019-07-28] MEDS: CLOTRIMAZOLE/BETAMETHASONE CREAM 15 GM TP SCH ×2 (09:19→21:09)
[2019-07-28] MEDS: CLOPIDOGREL 75 MG TAB PO SCH (09:19)
[2019-07-28] MEDS: LINAGLIPTIN 5 MG TAB PO SCH (09:19)
[2019-07-28] MEDS: OXcarbazepine 150 MG TAB PO SCH ×2 (09:20→21:11)
[2019-07-28] MEDS: CLOZAPINE 100 MG PO SCH ×3 (09:20→21:14)
[2019-07-28] MEDS: POTASSIUM CHLORIDE ER 10 MEQ TAB PO SCH (09:20)
[2019-07-28] MEDS: HALOPERIDOL 1 MG TAB PO SCH (21:10)
[2019-07-28] MEDS: MELATONIN 5 MG TAB PO SCH (21:10)
[2019-07-28] MEDS: CLOZAPINE 200 MG PO SCH (21:16)
--- NOTE | 2019-07-29 07:46 | Progress Note ---
Subjective Date of service: 07/29/19 Principal diagnosis: Bipolar Disorder, Current Episode Manic w/Phsychotic Features Subjective Comment: The patient's medical record was reviewed and the patient's progress was discussed with the nursing staff. The nurse note states the patient continue to be disorganized. Multiple periods of punching and spiting at staff noted. Now at highest risk of fall as he paces endlessly while bending towards left as in "C" shape. The patient is uncooperative and difficult to redirect. During my interview with the patient this morning, he is pacing around the unit, he is dressed appropriately. He is slightly drooling. The patient is disorganized. He is unable to redirect. He stops briefly and engages in the interview. He makes good eye contact. His speech is garbled. He is mumbling to himself. He's snapping his fingers up to his ear. He states "alright" when asked how was he feeling. The patient denies SI/HI or hallucinations of any kind. Reason for continuing inpatient treatment: The patient is disorganized and cannot be redirected REVIEW OF SYSTEMS Unable to complete due to patient's condition MSE Appearance: Awake. Dressed appropriate Behavior: pacing Mood: "alright" Affect: flat Thought Process: disorganized Speech: Garbled Thought Content Suicidal: Denies Homicidal: Denies Hallucinations: Denies Delusions: None elicited Consciousness: Alert Cognition/Memory: Impaired Insight/Judgment: Limited Treatment Plan Due to the psychiatric conditions and treatment listed in the Assessment and Plan - the patient requires continued hospitalization. Will continue inpatient treatment to allow for medication adjustment and monitoring. Will continue q15 min safety checks. Will encourage the use of environmental modifications and non-pharmacologic approaches for the management of behavioral and psychological symptoms. Medication adjustment made today: No changes made today Will continue current psych medications Monitor for medication side effects. CBC ordered 08/04/19 The patient will continue on medications for physical illnesses, and Hospitalist will closely monitor these Continue intensive physical and occupational therapies. Monitor patient's mood, sleep, appetite, and behavior closely. Encourage patient to participate in individual and group therapeutic sessions on the irizarry. Will provide a safe and therapeutic environment for patient. Estimated length of stay 5 days depending on how the patient progresses Medications and Allergies Allergies Allergy/AdvReac Type Severity Reaction Status Date / Time aripiprazole [From Abilify] Allergy Hives Verified 06/27/19 09:43 aspirin Allergy Hives Verified 06/27/19 09:43 cephalexin [From Keflex] Allergy Hives Verified 06/27/19 09:43 chlorpromazine Allergy Hives Verified 06/27/19 09:43 ibuprofen Allergy Hives Verified 06/27/19 09:43 naproxen Allergy Hives Verified 06/27/19 09:43 risperidone [From Risperdal] Allergy Hives Verified 07/20/19 08:16 ziprasidone [From Geodon] Allergy Hives Verified 06/27/19 09:43 Home Medications Medication Instructions Recorded Confirmed Last Taken Type AtorvaSTATin [Lipitor] 40 mg PO QHS 06/27/19 07/05/19 06/26/19 History Benztropine [Cogentin] 0.5 mg PO TID 06/27/19 07/05/19 06/26/19 History Clopidogrel [Plavix] 75 mg PO QDAY 06/27/19 07/05/19 06/26/19 History Fenofibrate 160 mg PO QDAY 06/27/19 07/05/19 06/26/19 History LORazepam [Ativan] 1 mg PO TID PRN 06/27/19 07/05/19 06/26/19 History Melatonin [Melatonin 5MG CAP] 5 mg PO QHS 06/27/19 07/05/19 06/26/19 History Metoprolol [Lopressor TAB] 100 mg PO QDAY 06/27/19 07/05/19 06/26/19 History OXcarbazepine [Oxtellar XR] 600 mg PO BID 06/27/19 07/05/19 06/26/19 History Sertraline [Zoloft] 50 mg PO QDAY 06/27/19 07/05/19 06/26/19 History Sitagliptin Phos/Metformin HCl 100 mg PO QDAY 06/27/19 07/05/19 06/26/19 History [Janumet 50-1,000 mg Tablet] cloZAPine 800 mg PO QHS 06/27/19 07/05/19 06/26/19 History diphenhydrAMINE [Benadryl CAP] 25 mg PO TID 06/27/19 07/05/19 06/26/19 History Insulin Regular, Human [HumuLIN R] 0 units SUB-Q Q6HR units 07/05/19 07/06/19 Unknown Rx haloperidoL [Haldol] 5 mg PO BID tablet 07/05/19 07/05/19 Unknown Rx metFORMIN [Glucophage] 1,000 mg PO DAILY tablet 07/05/19 07/05/19 Unknown Rx Active Meds: Active Medications Atorvastatin Calcium (Lipitor) 40 mg PO QHS [facility] Last Admin: 07/28/19 21:12 Dose: 40 mg Documented by: Clonazepam (Klonopin) 1 mg PO TID [facility] Last Admin: 07/28/19 21:10 Dose: 1 mg Documented by: Clopidogrel Bisulfate (Plavix) 75 mg PO QDAY [facility] Last Admin: 07/28/19 09:19 Dose: 75 mg Documented by: Clotrimazole (Clotrimazole/Betamethasone) 1 applic TP BID [facility] Last Admin: 07/28/19 21:09 Dose: 1 applic Documented by: Clozapine (Clozapine (Nf)) 200 mg PO 1400 [facility] Last Admin: 07/28/19 14:40 Dose: 200 mg Documented by: Clozapine (Clozapine (Nf)) 200 mg PO 1000 [facility] Last Admin: 07/28/19 21:14 Dose: 200 mg Documented by: Clozapine (Clozapine (Nf)) 400 mg PO 2200 [facility] Last Admin: 07/28/19 21:16 Dose: 400 mg Documented by: Diphenhydramine HCl (Benadryl) 25 mg PO TID [facility] Last Admin: 07/28/19 21:12 Dose: 25 mg Documented by: Glycopyrrolate (Robinul) 1 mg PO TID [facility] Last Admin: 07/28/19 21:10 Dose: 1 mg Documented by: Haloperidol (Haldol) 5 mg PO DAILY [facility] Last Admin: 07/28/19 09:19 Dose: 5 mg Documented by: Haloperidol (Haldol) 2 mg PO QHS [facility] Last Admin: 07/28/19 21:10 Dose: 2 mg Documented by: Haloperidol Lactate (Haldol) 5 mg IM Q6H PRN PRN Reason: Agitation Insulin Human Regular (Humulin R) 0 units SUB-Q ACHS [facility]; Protocol Last Admin: 07/28/19 21:15 Dose: 4 units Documented by: Linagliptin (Tradjenta) 5 mg PO QDAY [facility] Last Admin: 07/28/19 09:19 Dose: 5 mg Documented by: Lorazepam (Ativan) 2 mg IM Q6H PRN PRN Reason: Agitation Melatonin (Melatonin) 10 mg PO QHS [facility] Last Admin: 07/28/19 21:10 Dose: 10 mg Documented by: Metformin HCl (Glucophage Xr) 1,000 mg PO QDDIAB [facility] Last Admin: 07/28/19 08:39 Dose: 1,000 mg Documented by: Oxcarbazepine (Trileptal) 600 mg PO BID [facility] Last Admin: 07/28/19 21:11 Dose: 600 mg Documented by: Potassium Chloride (K-Dur) 30 meq PO QDAY [facility] Last Admin: 07/28/19 09:20 Dose: 30 meq Documented by: Propranolol HCl (Inderal) 20 mg PO TID [facility] Last Admin: 07/28/19 21:14 Dose: 20 mg Documented by: Results - Results Labs/Vitals: Laboratory Last Values WBC 10.1 K/mm3 (4.5-11.0) 07/28/19 07:22 RBC 3.54 M/mm3 (3.65-5.03) L 07/28/19 07:22 Hgb 10.5 gm/dl (11.8-15.2) L 07/28/19 07:22 Hct 32.5 % (35.5-45.6) L 07/28/19 07:22 MCV 92 fl (84-94) 07/28/19 07:22 MCH 30 pg (28-32) 07/28/19 07:22 MCHC 32 % (32-34) 07/28/19 07:22 RDW 15.3 % (13.2-15.2) H 07/28/19 07:22 Plt Count 209 K/mm3 (140-440) 07/28/19 07:22 Lymph % (Auto) 15.5 % (13.4-35.0) 07/28/19 07:22 [place] % (Auto) 10.7 % (0.0-7.3) H 07/28/19 07:22 Eos % (Auto) 2.6 % (0.0-4.3) 07/28/19 07:22 Baso % (Auto) 0.4 % (0.0-1.8) 07/28/19 07:22 Lymph # 1.6 K/mm3 (1.2-5.4) 07/28/19 07:22 [place] # 1.1 K/mm3 (0.0-0.8) H 07/28/19 07:22 Eos # 0.3 K/mm3 (0.0-0.4) 07/28/19 07:22 Baso # 0.0 K/mm3 (0.0-0.1) 07/28/19 07:22 Add Manual Diff Complete 07/21/19 10:54 Total Counted 100 07/21/19 10:54 Seg Neutrophils % 70.8 % (40.0-70.0) H 07/28/19 07:22 Seg Neuts % (Manual) 87.0 % (40.0-70.0) H 07/21/19 10:54 Band Neutrophils % 0 % 07/21/19 10:54 Lymphocytes % (Manual) 8.0 % (13.4-35.0) L 07/21/19 10:54 Reactive Lymphs % (Man) 0 % 07/21/19 10:54 Monocytes % (Manual) 5.0 % (0.0-7.3) 07/21/19 10:54 Eosinophils % (Manual) 0 % (0.0-4.3) 07/21/19 10:54 Basophils % (Manual) 0 % (0.0-1.8) 07/21/19 10:54 Metamyelocytes % 0 % 07/21/19 10:54 Myelocytes % 0 % 07/21/19 10:54 Promyelocytes % 0 % 07/21/19 10:54 Blast Cells % 0 % 07/21/19 10:54 Nucleated RBC % Not Reportable 07/21/19 10:54 Seg Neutrophils # 7.2 K/mm3 (1.8-7.7) 07/28/19 07:22 Seg Neutrophils # Man 8.9 K/mm3 (1.8-7.7) H 07/21/19 10:54 Band Neutrophils # 0.0 K/mm3 07/21/19 10:54 Lymphocytes # (Manual) 0.8 K/mm3 (1.2-5.4) L 07/21/19 10:54 Abs React Lymphs (Man) 0.0 K/mm3 07/21/19 10:54 Monocytes # (Manual) 0.5 K/mm3 (0.0-0.8) 07/21/19 10:54 Eosinophils # (Manual) 0.0 K/mm3 (0.0-0.4) 07/21/19 10:54 Basophils # (Manual) 0.0 K/mm3 (0.0-0.1) 07/21/19 10:54 Metamyelocytes # 0.0 K/mm3 07/21/19 10:54 Myelocytes # 0.0 K/mm3 07/21/19 10:54 Promyelocytes # 0.0 K/mm3 07/21/19 10:54 Blast Cells # 0.0 K/mm3 07/21/19 10:54 WBC Morphology Not Reportable 07/21/19 10:54 Hypersegmented Neuts Not Reportable 07/21/19 10:54 Hyposegmented Neuts Not Reportable 07/21/19 10:54 Hypogranular Neuts Not Reportable 07/21/19 10:54 Smudge Cells Not Reportable 07/21/19 10:54 Toxic Granulation Not Reportable 07/21/19 10:54 Toxic Vacuolation Not Reportable 07/21/19 10:54 Dohle Bodies Not Reportable 07/21/19 10:54 Pelger-Huet Anomaly Not Reportable 07/21/19 10:54 Adiel Rods Not Reportable 07/21/19 10:54 Platelet Estimate Consistent w auto 07/21/19 10:54 Clumped Platelets Not Reportable 07/21/19 10:54 Plt Clumps, EDTA Not Reportable 07/21/19 10:54 Large Platelets Not Reportable 07/21/19 10:54 Giant Platelets Not Reportable 07/21/19 10:54 Platelet Satelliting Not Reportable 07/21/19 10:54 Plt Morphology Comment Not Reportable 07/21/19 10:54 RBC Morphology Normal 07/21/19 10:54 Dimorphic RBCs Not Reportable 07/21/19 10:54 Polychromasia Not Reportable 07/21/19 10:54 Hypochromasia Not Reportable 07/21/19 10:54 Poikilocytosis Not Reportable 07/21/19 10:54 Anisocytosis Not Reportable 07/21/19 10:54 Microcytosis Not Reportable 07/21/19 10:54 Macrocytosis Not Reportable 07/21/19 10:54 Spherocytes Not Reportable 07/21/19 10:54 Pappenheimer Bodies Not Reportable 07/21/19 10:54 Sickle Cells Not Reportable 07/21/19 10:54 Target Cells Not Reportable 07/21/19 10:54 Tear Drop Cells Not Reportable 07/21/19 10:54 Ovalocytes Not Reportable 07/21/19 10:54 Helmet Cells Not Reportable 07/21/19 10:54 [place] Bodies Not Reportable 07/21/19 10:54 [place] Rings Not Reportable 07/21/19 10:54 [place] Cells Not Reportable 07/21/19 10:54 Bite Cells Not Reportable 07/21/19 10:54 Crenated Cell Not Reportable 07/21/19 10:54 Elliptocytes Not Reportable 07/21/19 10:54 Acanthocytes (Spur) Not Reportable 07/21/19 10:54 Rouleaux Not Reportable 07/21/19 10:54 Hemoglobin C Crystals Not Reportable 07/21/19 10:54 Schistocytes Not Reportable 07/21/19 10:54 Malaria parasites Not Reportable 07/21/19 10:54 Denzel Bodies Not Reportable 07/21/19 10:54 Hem Pathologist Commnt No 07/21/19 10:54 Sodium 140 mmol/L (137-145) 07/23/19 14:07 Potassium 4.6 mmol/L (3.6-5.0) 07/23/19 14:07 Chloride 101.1 mmol/L (98-107) 07/23/19 14:07 Carbon Dioxide 22 mmol/L (22-30) 07/23/19 14:07 Anion Gap 22 mmol/L 07/23/19 14:07 BUN 15 mg/dL (9-20) 07/23/19 14:07 Creatinine 0.7 mg/dL (0.8-1.5) L 07/23/19 14:07 Estimated GFR > 60 ml/min 07/23/19 14:07 BUN/Creatinine Ratio 21 % 07/23/19 14:07 Glucose 160 mg/dL (75-100) H 07/23/19 14:07 POC Glucose 283 (70-105) H 07/28/19 20:05 Hemoglobin A1c 6.3 % (4-6) H 07/05/19 21:07 Calcium 8.6 mg/dL (8.4-10.2) 07/23/19 14:07 Total Bilirubin 0.20 mg/dL (0.1-1.2) 07/23/19 14:07 AST 40 units/L (5-40) 07/23/19 14:07 ALT 46 units/L (7-56) 07/23/19 14:07 Alkaline Phosphatase 68 units/L (35-129) 07/23/19 14:07 Total Protein 5.2 g/dL (6.3-8.2) L 07/23/19 14:07 Albumin 3.2 g/dL (3.9-5) L 07/23/19 14:07 Albumin/Globulin Ratio 1.6 % 07/23/19 14:07 Triglycerides 188 mg/dL (2-149) H 07/05/19 21:07 Cholesterol 115 mg/dL (50-199) 07/05/19 21:07 LDL Cholesterol Direct 47 mg/dL (50-130) L 07/05/19 21:07 HDL Cholesterol 35 mg/dL (40-59) L 07/05/19 21:07 Cholesterol/HDL Ratio 3.28 % 07/05/19 21:07 Oxcarbazepine See scanned result 07/20/19 07:59 Last Vital Signs Temp 98.4 F 07/28/19 19:47 Pulse 80 07/28/19 14:41 Resp 18 07/28/19 19:47 BP 100/59 07/28/19 19:47 Pulse Ox 98 07/28/19 09:21
[2019-07-29] MEDS: diphenhydrAMINE 25 MG CAP PO SCH ×3 (08:48→20:45)
[2019-07-29] MEDS: INSULIN REGULAR, HUMAN 100 UNITS/1 ML SUB-Q SCH ×4 (09:18→21:37)
[2019-07-29] MEDS: HALOPERIDOL 2 MG TAB PO SCH (09:50)
[2019-07-29] MEDS: CLOTRIMAZOLE/BETAMETHASONE CREAM 15 GM TP SCH ×2 (09:50→21:35)
[2019-07-29] MEDS: CLOPIDOGREL 75 MG TAB PO SCH (09:51)
[2019-07-29] MEDS: OXcarbazepine 150 MG TAB PO SCH ×2 (09:52→21:30)
[2019-07-29] MEDS: metFORMIN XR 500MG TAB PO SCH (09:56)
[2019-07-29] MEDS: PROPRANOLOL 10 MG TAB PO SCH ×3 (09:56→20:47)
[2019-07-29] MEDS: POTASSIUM CHLORIDE ER 10 MEQ TAB PO SCH (09:58)
[2019-07-29] MEDS ORDERED: traZODone 50 MG TAB PO ONE (09:58)
[2019-07-29] MEDS: LINAGLIPTIN 5 MG TAB PO SCH (10:00)
[2019-07-29] MEDS ORDERED: HALOPERIDOL 2 MG TAB PO SCH (10:00)
[2019-07-29] MEDS: clonazePAM 0.5 MG TAB PO SCH ×4 (10:41→21:31)
[2019-07-29] MEDS: GLYCOPYRROLATE 1 MG TAB PO SCH ×4 (10:43→21:28)
[2019-07-29] MEDS: traZODone 50 MG TAB PO SCH ×4 (10:44→21:34)
[2019-07-29] MEDS: HALOPERIDOL 5 MG TAB PO SCH ×2 (13:46→21:29)
[2019-07-29] MEDS: CLOZAPINE 300 MG PO SCH ×2 (14:20→20:45)
[2019-07-29] MEDS: MELATONIN 5 MG TAB PO SCH (21:29)
[2019-07-30] MEDS: INSULIN REGULAR, HUMAN 100 UNITS/1 ML SUB-Q SCH ×6 (07:35→21:24)
--- NOTE | 2019-07-30 08:02 | Progress Note ---
Subjective Date of service: 07/30/19 Principal diagnosis: Bipolar Disorder, Current Episode Manic w/Phsychotic Features Subjective Comment: The patient's medical record was reviewed and the patient's progress was discussed with the nursing staff. The nurse note states the patient is A&O to self, impulsive and intrusive. The patient continues to pace the unit talking to himself w/ slurred and mumbled speech noted. The patient is undressing, spitting and banging on the windows. He is not following staff direction. He is unable to focus on task or sit for any extended period of time. 1:1 observation is required to maintain patient's safety. During my interview with the patient this morning, he is pacing around the unit. His speech is garbled, and most often incomprehensible. He is often mumbling to himself. He says he's "good." The patient's behavior is bizarre and he is unable to be redirected. He is intrusive and walks up to me and hits his fist in his hand. He also takes his fist and hits himself on the forehead. The patient at times is popping his finger up to his ear. He continues pacing about as I am trying to interview him. Reason for continuing inpatient treatment: The patient is disorganized and cannot be redirected REVIEW OF SYSTEMS Unable to complete due to patient's condition MSE Appearance: Awake. Dressed appropriate Behavior: pacing, bizarre Mood: "good" Affect: flat Thought Process: disorganized Speech: Garbled, incomprehensible at times Thought Content Unable to assess Consciousness: Alert Cognition/Memory: Impaired Insight/Judgment: Limited Treatment Plan Due to the psychiatric conditions and treatment listed in the Assessment and Plan - the patient requires continued hospitalization. Will continue inpatient treatment to allow for medication adjustment and monitoring. Will continue q15 min safety checks. Will encourage the use of environmental modifications and non-pharmacologic approaches for the management of behavioral and psychological symptoms. Medication adjustment made today: No changes made today Changes made yesterday: Increased Clozaril 300mg po TID Haldol 5mg po BID Klonopin 1mg po qid Glycopyrrolate 1mg po QID Trazodone 50mg po qhs Trazodone 25mg po TID Will continue current psych medications Monitor for medication side effects. CBC ordered 08/04/19 The patient will continue on medications for physical illnesses, and Hospitalist will closely monitor these Continue intensive physical and occupational therapies. Monitor patient's mood, sleep, appetite, and behavior closely. Encourage patient to participate in individual and group therapeutic sessions on the irizarry. Will provide a safe and therapeutic environment for patient. Estimated length of stay depending on how the patient progresses Medications and Allergies Allergies Allergy/AdvReac Type Severity Reaction Status Date / Time aripiprazole [From Abilify] Allergy Hives Verified 06/27/19 09:43 aspirin Allergy Hives Verified 06/27/19 09:43 cephalexin [From Keflex] Allergy Hives Verified 06/27/19 09:43 chlorpromazine Allergy Hives Verified 06/27/19 09:43 ibuprofen Allergy Hives Verified 06/27/19 09:43 naproxen Allergy Hives Verified 06/27/19 09:43 risperidone [From Risperdal] Allergy Hives Verified 07/20/19 08:16 ziprasidone [From Geodon] Allergy Hives Verified 06/27/19 09:43 Home Medications Medication Instructions Recorded Confirmed Last Taken Type AtorvaSTATin [Lipitor] 40 mg PO QHS 06/27/19 07/05/19 06/26/19 History Benztropine [Cogentin] 0.5 mg PO TID 06/27/19 07/05/19 06/26/19 History Clopidogrel [Plavix] 75 mg PO QDAY 06/27/19 07/05/19 06/26/19 History Fenofibrate 160 mg PO QDAY 06/27/19 07/05/19 06/26/19 History LORazepam [Ativan] 1 mg PO TID PRN 06/27/19 07/05/19 06/26/19 History Melatonin [Melatonin 5MG CAP] 5 mg PO QHS 06/27/19 07/05/19 06/26/19 History Metoprolol [Lopressor TAB] 100 mg PO QDAY 06/27/19 07/05/19 06/26/19 History OXcarbazepine [Oxtellar XR] 600 mg PO BID 06/27/19 07/05/19 06/26/19 History Sertraline [Zoloft] 50 mg PO QDAY 06/27/19 07/05/19 06/26/19 History Sitagliptin Phos/Metformin HCl 100 mg PO QDAY 06/27/19 07/05/19 06/26/19 History [Janumet 50-1,000 mg Tablet] cloZAPine 800 mg PO QHS 06/27/19 07/05/19 06/26/19 History diphenhydrAMINE [Benadryl CAP] 25 mg PO TID 06/27/19 07/05/19 06/26/19 History Insulin Regular, Human [HumuLIN R] 0 units SUB-Q Q6HR units 07/05/19 07/06/19 Unknown Rx haloperidoL [Haldol] 5 mg PO BID tablet 07/05/19 07/05/19 Unknown Rx metFORMIN [Glucophage] 1,000 mg PO DAILY tablet 07/05/19 07/05/19 Unknown Rx Active Meds: Active Medications Atorvastatin Calcium (Lipitor) 40 mg PO QHS [facility] Last Admin: 07/29/19 21:28 Dose: 40 mg Documented by: Clonazepam (Klonopin) 1 mg PO QID [facility] Last Admin: 07/29/19 21:31 Dose: 1 mg Documented by: Clopidogrel Bisulfate (Plavix) 75 mg PO QDAY [facility] Last Admin: 07/29/19 09:51 Dose: 75 mg Documented by: Clotrimazole (Clotrimazole/Betamethasone) 1 applic TP BID [facility] Last Admin: 07/29/19 21:35 Dose: 1 applic Documented by: Diphenhydramine HCl (Benadryl) 25 mg PO TID [facility] Last Admin: 07/29/19 20:45 Dose: 25 mg Documented by: Glycopyrrolate (Robinul) 1 mg PO QID [facility] Last Admin: 07/29/19 21:28 Dose: 1 mg Documented by: Haloperidol (Haldol) 5 mg PO BID [facility] Last Admin: 07/29/19 21:29 Dose: 5 mg Documented by: Haloperidol Lactate (Haldol) 5 mg IM Q6H PRN PRN Reason: Agitation Insulin Human Regular (Humulin R) 0 units SUB-Q ACHS [facility]; Protocol Last Admin: 07/29/19 21:37 Dose: Not Given Documented by: Linagliptin (Tradjenta) 5 mg PO QDAY [facility] Last Admin: 07/29/19 10:00 Dose: 5 mg Documented by: Lorazepam (Ativan) 2 mg IM Q6H PRN PRN Reason: Agitation Melatonin (Melatonin) 10 mg PO QHS [facility] Last Admin: 07/29/19 21:29 Dose: 10 mg Documented by: Metformin HCl (Glucophage Xr) 1,000 mg PO QDDIAB [facility] Last Admin: 07/29/19 09:56 Dose: 1,000 mg Documented by: Miscellaneous Medication (Clozapine) 300 mg PO TID [facility] Last Admin: 07/29/19 20:45 Dose: 300 mg Documented by: Oxcarbazepine (Trileptal) 600 mg PO BID [facility] Last Admin: 07/29/19 21:30 Dose: 600 mg Documented by: Potassium Chloride (K-Dur) 30 meq PO QDAY [facility] Last Admin: 07/29/19 09:58 Dose: 30 meq Documented by: Propranolol HCl (Inderal) 20 mg PO TID [facility] Last Admin: 07/29/19 20:47 Dose: 20 mg Documented by: Trazodone HCl (Desyrel) 50 mg PO QHS [facility] Last Admin: 07/29/19 21:34 Dose: 50 mg Documented by: Trazodone HCl (Desyrel) 25 mg PO TID [facility] Last Admin: 07/29/19 20:51 Dose: 25 mg Documented by: Results - Results Labs/Vitals: Laboratory Last Values WBC 10.1 K/mm3 (4.5-11.0) 07/28/19 07:22 RBC 3.54 M/mm3 (3.65-5.03) L 07/28/19 07:22 Hgb 10.5 gm/dl (11.8-15.2) L 07/28/19 07:22 Hct 32.5 % (35.5-45.6) L 07/28/19 07:22 MCV 92 fl (84-94) 07/28/19 07:22 MCH 30 pg (28-32) 07/28/19 07:22 MCHC 32 % (32-34) 07/28/19 07:22 RDW 15.3 % (13.2-15.2) H 07/28/19 07:22 Plt Count 209 K/mm3 (140-440) 07/28/19 07:22 Lymph % (Auto) 15.5 % (13.4-35.0) 07/28/19 07:22 [place] % (Auto) 10.7 % (0.0-7.3) H 07/28/19 07:22 Eos % (Auto) 2.6 % (0.0-4.3) 07/28/19 07:22 Baso % (Auto) 0.4 % (0.0-1.8) 07/28/19 07:22 Lymph # 1.6 K/mm3 (1.2-5.4) 07/28/19 07:22 [place] # 1.1 K/mm3 (0.0-0.8) H 07/28/19 07:22 Eos # 0.3 K/mm3 (0.0-0.4) 07/28/19 07: Baso # 0.0 K/mm3 (0.0-0.1) 07/28/19 07:22 Add Manual Diff Complete 07/21/19 10:54 Total Counted 100 07/21/19 10:54 Seg Neutrophils % 70.8 % (40.0-70.0) H 07/28/19 07:22 Seg Neuts % (Manual) 87.0 % (40.0-70.0) H 07/21/19 10:54 Band Neutrophils % 0 % 07/21/19 10:54 Lymphocytes % (Manual) 8.0 % (13.4-35.0) L 07/21/19 10:54 Reactive Lymphs % (Man) 0 % 07/21/19 10:54 Monocytes % (Manual) 5.0 % (0.0-7.3) 07/21/19 10:54 Eosinophils % (Manual) 0 % (0.0-4.3) 07/21/19 10:54 Basophils % (Manual) 0 % (0.0-1.8) 07/21/19 10:54 Metamyelocytes % 0 % 07/21/19 10:54 Myelocytes % 0 % 07/21/19 10:54 Promyelocytes % 0 % 07/21/19 10:54 Blast Cells % 0 % 07/21/19 10:54 Nucleated RBC % Not Reportable 07/21/19 10:54 Seg Neutrophils # 7.2 K/mm3 (1.8-7.7) 07/28/19 07:22 Seg Neutrophils # Man 8.9 K/mm3 (1.8-7.7) H 07/21/19 10:54 Band Neutrophils # 0.0 K/mm3 07/21/19 10:54 Lymphocytes # (Manual) 0.8 K/mm3 (1.2-5.4) L 07/21/19 10:54 Abs React Lymphs (Man) 0.0 K/mm3 07/21/19 10:54 Monocytes # (Manual) 0.5 K/mm3 (0.0-0.8) 07/21/19 10:54 Eosinophils # (Manual) 0.0 K/mm3 (0.0-0.4) 07/21/19 10:54 Basophils # (Manual) 0.0 K/mm3 (0.0-0.1) 07/21/19 10:54 Metamyelocytes # 0.0 K/mm3 07/21/19 10:54 Myelocytes # 0.0 K/mm3 07/21/19 10:54 Promyelocytes # 0.0 K/mm3 07/21/19 10:54 Blast Cells # 0.0 K/mm3 07/21/19 10:54 WBC Morphology Not Reportable 07/21/19 10:54 Hypersegmented Neuts Not Reportable 07/21/19 10:54 Hyposegmented Neuts Not Reportable 07/21/19 10:54 Hypogranular Neuts Not Reportable 07/21/19 10:54 Smudge Cells Not Reportable 07/21/19 10:54 Toxic Granulation Not Reportable 07/21/19 10:54 Toxic Vacuolation Not Reportable 07/21/19 10:54 Dohle Bodies Not Reportable 07/21/19 10:54 Pelger-Huet Anomaly Not Reportable 07/21/19 10:54 Adiel Rods Not Reportable 07/21/19 10:54 Platelet Estimate Consistent w auto 07/21/19 10:54 Clumped Platelets Not Reportable 07/21/19 10:54 Plt Clumps, EDTA Not Reportable 07/21/19 10:54 Large Platelets Not Reportable 07/21/19 10:54 Giant Platelets Not Reportable 07/21/19 10:54 Platelet Satelliting Not Reportable 07/21/19 10:54 Plt Morphology Comment Not Reportable 07/21/19 10:54 RBC Morphology Normal 07/21/19 10:54 Dimorphic RBCs Not Reportable 07/21/19 10:54 Polychromasia Not Reportable 07/21/19 10:54 Hypochromasia Not Reportable 07/21/19 10:54 Poikilocytosis Not Reportable 07/21/19 10:54 Anisocytosis Not Reportable 07/21/19 10:54 Microcytosis Not Reportable 07/21/19 10:54 Macrocytosis Not Reportable 07/21/19 10:54 Spherocytes Not Reportable 07/21/19 10:54 Pappenheimer Bodies Not Reportable 07/21/19 10:54 Sickle Cells Not Reportable 07/21/19 10:54 Target Cells Not Reportable 07/21/19 10:54 Tear Drop Cells Not Reportable 07/21/19 10:54 Ovalocytes Not Reportable 07/21/19 10:54 Helmet Cells Not Reportable 07/21/19 10:54 [place] Bodies Not Reportable 07/21/19 10:54 [place] Rings Not Reportable 07/21/19 10:54 [place] Cells Not Reportable 07/21/19 10:54 Bite Cells Not Reportable 07/21/19 10:54 Crenated Cell Not Reportable 07/21/19 10:54 Elliptocytes Not Reportable 07/21/19 10:54 Acanthocytes (Spur) Not Reportable 07/21/19 10:54 Rouleaux Not Reportable 07/21/19 10:54 Hemoglobin C Crystals Not Reportable 07/21/19 10:54 Schistocytes Not Reportable 07/21/19 10:54 Malaria parasites Not Reportable 07/21/19 10:54 [place]zel Bodies Not Reportable 07/21/19 10:54 Hem Pathologist Commnt No 07/21/19 10:54 Sodium 140 mmol/L (137-145) 07/23/19 14:07 Potassium 4.6 mmol/L (3.6-5.0) 07/23/19 14:07 Chloride 101.1 mmol/L (98-107) 07/23/19 14:07 Carbon Dioxide 22 mmol/L (22-30) 07/23/19 14:07 Anion Gap 22 mmol/L 07/23/19 14:07 BUN 15 mg/dL (9-20) 07/23/19 14:07 Creatinine 0.7 mg/dL (0.8-1.5) L 07/23/19 14:07 Estimated GFR > 60 ml/min 07/23/19 14:07 BUN/Creatinine Ratio 21 % 07/23/19 14:07 Glucose 160 mg/dL (75-100) H 07/23/19 14:07 POC Glucose 76 (70-105) 07/29/19 16:22 Hemoglobin A1c 6.3 % (4-6) H 07/05/19 21:07 Calcium 8.6 mg/dL (8.4-10.2) 07/23/19 14:07 Total Bilirubin 0.20 mg/dL (0.1-1.2) 07/23/19 14:07 AST 40 units/L (5-40) 07/23/19 14:07 ALT 46 units/L (7-56) 07/23/19 14:07 Alkaline Phosphatase 68 units/L (35-129) 07/23/19 14:07 Total Protein 5.2 g/dL (6.3-8.2) L 07/23/19 14:07 Albumin 3.2 g/dL (3.9-5) L 07/23/19 14:07 Albumin/Globulin Ratio 1.6 % 07/23/19 14:07 Triglycerides 188 mg/dL (2-149) H 07/05/19 21:07 Cholesterol 115 mg/dL (50-199) 07/05/19 21:07 LDL Cholesterol Direct 47 mg/dL (50-130) L 07/05/19 21:07 HDL Cholesterol 35 mg/dL (40-59) L 07/05/19 21:07 Cholesterol/HDL Ratio 3.28 % 07/05/19 21:07 Oxcarbazepine See scanned result 07/20/19 07:59 Last Vital Signs Temp 97.7 F 07/29/19 23:48 Pulse 86 07/29/19 23:48 Resp 20 07/29/19 23:48 BP 126/64 07/29/19 23:48 Pulse Ox 98 07/29/19 23:48
[2019-07-30] MEDS: CLOZAPINE 300 MG PO SCH ×3 (08:27→20:56)
[2019-07-30] MEDS: diphenhydrAMINE 25 MG CAP PO SCH ×3 (08:28→20:56)
[2019-07-30] MEDS: traZODone 50 MG TAB PO SCH ×4 (08:31→21:23)
[2019-07-30] MEDS: metFORMIN XR 500MG TAB PO SCH (08:32)
[2019-07-30] MEDS: PROPRANOLOL 10 MG TAB PO SCH ×3 (08:34→20:56)
[2019-07-30] MEDS: CLOPIDOGREL 75 MG TAB PO SCH (09:18)
[2019-07-30] MEDS: OXcarbazepine 150 MG TAB PO SCH ×2 (09:18→21:23)
[2019-07-30] MEDS: HALOPERIDOL 5 MG TAB PO SCH ×2 (09:18→21:23)
[2019-07-30] MEDS: GLYCOPYRROLATE 1 MG TAB PO SCH ×4 (09:18→21:22)
[2019-07-30] MEDS: LINAGLIPTIN 5 MG TAB PO SCH (09:18)
[2019-07-30] MEDS: CLOTRIMAZOLE/BETAMETHASONE CREAM 15 GM TP SCH ×2 (09:19→21:21)
[2019-07-30] MEDS: POTASSIUM CHLORIDE ER 10 MEQ TAB PO SCH (09:19)
[2019-07-30] MEDS: clonazePAM 0.5 MG TAB PO SCH ×4 (10:06→21:23)
[2019-07-30] MEDS: MELATONIN 5 MG TAB PO SCH (21:22)
[2019-07-31] MEDS: INSULIN REGULAR, HUMAN 100 UNITS/1 ML SUB-Q SCH ×5 (07:59→23:29)
--- NOTE | 2019-07-31 08:10 | Progress Note ---
Subjective Date of service: 07/31/19 Principal diagnosis: Bipolar Disorder, Current Episode Manic w/Phsychotic Features Subjective Comment: The patient's medical record was reviewed and the patient's progress was discussed with the nursing staff. The nurse note states the patient is alert and oriented to person, impulsive, intrusive, continues to pace with slurred and mumbled speech noted, very difficult to understand, poor appetite, had one can of clear ensure at bedtime, medication compliant, poor hygiene, one to one observation for safety, vital signs stable. I attempted to interview the patient this morning, he is lying in bed somnolent. He arouses minimally but drifts back to sleep. Sitter is at bedside. Reason for continuing inpatient treatment: The patient continues to be manic, impulsive, disorganized and unable to redirect. REVIEW OF SYSTEMS Unable to complete due to patient's condition MSE Appearance: In bed. Asleep. Unable to complete MSE due to somnolence Treatment Plan Due to the psychiatric conditions and treatment listed in the Assessment and Plan - the patient requires continued hospitalization. Will continue inpatient treatment to allow for medication adjustment and monitoring. Will continue q15 min safety checks. Will encourage the use of environmental modifications and non-pharmacologic approaches for the management of behavioral and psychological symptoms. Medication adjustment made today: No changes made today. Monitoring CBC for side effects of clozaril. Will continue current psych medications Monitor for medication side effects. CBC ordered 08/04/19 The patient will continue on medications for physical illnesses, and Hospitalist will closely monitor these Continue intensive physical and occupational therapies. Monitor patient's mood, sleep, appetite, and behavior closely. Encourage patient to participate in individual and group therapeutic sessions on the irizarry. Will provide a safe and therapeutic environment for patient. Estimated length of stay depending on how the patient progresses Medications and Allergies Allergies Allergy/AdvReac Type Severity Reaction Status Date / Time aripiprazole [From Abilify] Allergy Hives Verified 06/27/19 09:43 aspirin Allergy Hives Verified 06/27/19 09:43 cephalexin [From Keflex] Allergy Hives Verified 06/27/19 09:43 chlorpromazine Allergy Hives Verified 06/27/19 09:43 ibuprofen Allergy Hives Verified 06/27/19 09:43 naproxen Allergy Hives Verified 06/27/19 09:43 risperidone [From Risperdal] Allergy Hives Verified 07/20/19 08:16 ziprasidone [From Geodon] Allergy Hives Verified 06/27/19 09:43 Home Medications Medication Instructions Recorded Confirmed Last Taken Type AtorvaSTATin [Lipitor] 40 mg PO QHS 06/27/19 07/05/19 06/26/19 History Benztropine [Cogentin] 0.5 mg PO TID 06/27/19 07/05/19 06/26/19 History Clopidogrel [Plavix] 75 mg PO QDAY 06/27/19 07/05/19 06/26/19 History Fenofibrate 160 mg PO QDAY 06/27/19 07/05/19 06/26/19 History LORazepam [Ativan] 1 mg PO TID PRN 06/27/19 07/05/19 06/26/19 History Melatonin [Melatonin 5MG CAP] 5 mg PO QHS 06/27/19 07/05/19 06/26/19 History Metoprolol [Lopressor TAB] 100 mg PO QDAY 06/27/19 07/05/19 06/26/19 History OXcarbazepine [Oxtellar XR] 600 mg PO BID 06/27/19 07/05/19 06/26/19 History Sertraline [Zoloft] 50 mg PO QDAY 06/27/19 07/05/19 06/26/19 History Sitagliptin Phos/Metformin HCl 100 mg PO QDAY 06/27/19 07/05/19 06/26/19 History [Janumet 50-1,000 mg Tablet] cloZAPine 800 mg PO QHS 06/27/19 07/05/19 06/26/19 History diphenhydrAMINE [Benadryl CAP] 25 mg PO TID 06/27/19 07/05/19 06/26/19 History Insulin Regular, Human [HumuLIN R] 0 units SUB-Q Q6HR units 07/05/19 07/06/19 Unknown Rx haloperidoL [Haldol] 5 mg PO BID tablet 07/05/19 07/05/19 Unknown Rx metFORMIN [Glucophage] 1,000 mg PO DAILY tablet 07/05/19 07/05/19 Unknown Rx Active Meds: Active Medications Atorvastatin Calcium (Lipitor) 40 mg PO QHS [facility] Last Admin: 07/30/19 21:22 Dose: 40 mg Documented by: Clonazepam (Klonopin) 1 mg PO QID [facility] Last Admin: 07/30/19 21:23 Dose: 1 mg Documented by: Clopidogrel Bisulfate (Plavix) 75 mg PO QDAY [facility] Last Admin: 07/30/19 09:18 Dose: 75 mg Documented by: Clotrimazole (Clotrimazole/Betamethasone) 1 applic TP BID [facility] Last Admin: 07/30/19 21:21 Dose: 1 applic Documented by: Diphenhydramine HCl (Benadryl) 25 mg PO TID [facility] Last Admin: 07/30/19 20:56 Dose: 25 mg Documented by: Glycopyrrolate (Robinul) 1 mg PO QID [facility] Last Admin: 07/30/19 21:22 Dose: 1 mg Documented by: Haloperidol (Haldol) 5 mg PO BID [facility] Last Admin: 07/30/19 21:23 Dose: 5 mg Documented by: Haloperidol Lactate (Haldol) 5 mg IM Q6H PRN PRN Reason: Agitation Insulin Human Regular (Humulin R) 0 units SUB-Q ACHS [facility]; Protocol Last Admin: 07/31/19 07:59 Dose: Not Given Documented by: Linagliptin (Tradjenta) 5 mg PO QDAY [facility] Last Admin: 07/30/19 09:18 Dose: 5 mg Documented by: Lorazepam (Ativan) 2 mg IM Q6H PRN PRN Reason: Agitation Melatonin (Melatonin) 10 mg PO QHS [facility] Last Admin: 07/30/19 21:22 Dose: 10 mg Documented by: Metformin HCl (Glucophage Xr) 1,000 mg PO QDDIAB [facility] Last Admin: 07/30/19 08:32 Dose: 1,000 mg Documented by: Miscellaneous Medication (Clozapine) 300 mg PO TID [facility] Last Admin: 07/30/19 20:56 Dose: 300 mg Documented by: Oxcarbazepine (Trileptal) 600 mg PO BID [facility] Last Admin: 07/30/19 21:23 Dose: 600 mg Documented by: Potassium Chloride (K-Dur) 30 meq PO QDAY [facility] Last Admin: 07/30/19 09:19 Dose: 30 meq Documented by: Propranolol HCl (Inderal) 20 mg PO TID [facility] Last Admin: 07/30/19 20:56 Dose: 20 mg Documented by: Trazodone HCl (Desyrel) 50 mg PO QHS [facility] Last Admin: 07/30/19 21:23 Dose: 50 mg Documented by: Trazodone HCl (Desyrel) 25 mg PO TID [facility] Last Admin: 07/30/19 20:56 Dose: 25 mg Documented by: Results - Results Labs/Vitals: Laboratory Last Values WBC 10.1 K/mm3 (4.5-11.0) 07/28/19 07:22 RBC 3.54 M/mm3 (3.65-5.03) L 07/28/19 07:22 Hgb 10.5 gm/dl (11.8-15.2) L 07/28/19 07:22 Hct 32.5 % (35.5-45.6) L 07/28/19 07:22 MCV 92 fl (84-94) 07/28/19 07:22 MCH 30 pg (28-32) 07/28/19 07:22 MCHC 32 % (32-34) 07/28/19 07:22 RDW 15.3 % (13.2-15.2) H 07/28/19 07:22 Plt Count 209 K/mm3 (140-440) 07/28/19 07:22 Lymph % (Auto) 15.5 % (13.4-35.0) 07/28/19 07:22 [place] % (Auto) 10.7 % (0.0-7.3) H 07/28/19 07:22 Eos % (Auto) 2.6 % (0.0-4.3) 07/28/19 07:22 Baso % (Auto) 0.4 % (0.0-1.8) 07/28/19 07:22 Lymph # 1.6 K/mm3 (1.2-5.4) 07/28/19 07:22 [place] # 1.1 K/mm3 (0.0-0.8) H 07/28/19 07:22 Eos # 0.3 K/mm3 (0.0-0.4) 07/28/19 07:22 Baso # 0.0 K/mm3 (0.0-0.1) 07/28/19 07:22 Add Manual Diff Complete 07/21/19 10:54 Total Counted 100 07/21/19 10:54 Seg Neutrophils % 70.8 % (40.0-70.0) H 07/28/19 07:22 Seg Neuts % (Manual) 87.0 % (40.0-70.0) H 07/21/19 10:54 Band Neutrophils % 0 % 07/21/19 10:54 Lymphocytes % (Manual) 8.0 % (13.4-35.0) L 07/21/19 10:54 Reactive Lymphs % (Man) 0 % 07/21/19 10:54 Monocytes % (Manual) 5.0 % (0.0-7.3) 07/21/19 10:54 Eosinophils % (Manual) 0 % (0.0-4.3) 07/21/19 10:54 Basophils % (Manual) 0 % (0.0-1.8) 07/21/19 10:54 Metamyelocytes % 0 % 07/21/19 10:54 Myelocytes % 0 % 07/21/19 10:54 Promyelocytes % 0 % 07/21/19 10:54 Blast Cells % 0 % 07/21/19 10:54 Nucleated RBC % Not Reportable 07/21/19 10:54 Seg Neutrophils # 7.2 K/mm3 (1.8-7.7) 07/28/19 07:22 Seg Neutrophils # Man 8.9 K/mm3 (1.8-7.7) H 07/21/19 10:54 Band Neutrophils # 0.0 K/mm3 07/21/19 10:54 Lymphocytes # (Manual) 0.8 K/mm3 (1.2-5.4) L 07/21/19 10:54 Abs React Lymphs (Man) 0.0 K/mm3 07/21/19 10:54 Monocytes # (Manual) 0.5 K/mm3 (0.0-0.8) 07/21/19 10:54 Eosinophils # (Manual) 0.0 K/mm3 (0.0-0.4) 07/21/19 10:54 Basophils # (Manual) 0.0 K/mm3 (0.0-0.1) 07/21/19 10:54 Metamyelocytes # 0.0 K/mm3 07/21/19 10:54 Myelocytes # 0.0 K/mm3 07/21/19 10:54 Promyelocytes # 0.0 K/mm3 07/21/19 10:54 Blast Cells # 0.0 K/mm3 07/21/19 10:54 WBC Morphology Not Reportable 07/21/19 10:54 Hypersegmented Neuts Not Reportable 07/21/19 10:54 Hyposegmented Neuts Not Reportable 07/21/19 10:54 Hypogranular Neuts Not Reportable 07/21/19 10:54 Smudge Cells Not Reportable 07/21/19 10:54 Toxic Granulation Not Reportable 07/21/19 10:54 Toxic Vacuolation Not Reportable 07/21/19 10:54 Dohle Bodies Not Reportable 07/21/19 10:54 Pelger-Huet Anomaly Not Reportable 07/21/19 10:54 Adiel Rods Not Reportable 07/21/19 10:54 Platelet Estimate Consistent w auto 07/21/19 10:54 Clumped Platelets Not Reportable 07/21/19 10:54 Plt Clumps, EDTA Not Reportable 07/21/19 10:54 Large Platelets Not Reportable 07/21/19 10:54 Giant Platelets Not Reportable 07/21/19 10:54 Platelet Satelliting Not Reportable 07/21/19 10:54 Plt Morphology Comment Not Reportable 07/21/19 10:54 RBC Morphology Normal 07/21/19 10:54 Dimorphic RBCs Not Reportable 07/21/19 10:54 Polychromasia Not Reportable 07/21/19 10:54 Hypochromasia Not Reportable 07/21/19 10:54 Poikilocytosis Not Reportable 07/21/19 10:54 Anisocytosis Not Reportable 07/21/19 10:54 Microcytosis Not Reportable 07/21/19 10:54 Macrocytosis Not Reportable 07/21/19 10:54 Spherocytes Not Reportable 07/21/19 10:54 Pappenheimer Bodies Not Reportable 07/21/19 10:54 Sickle Cells Not Reportable 07/21/19 10:54 Target Cells Not Reportable 07/21/19 10:54 Tear Drop Cells Not Reportable 07/21/19 10:54 Ovalocytes Not Reportable 07/21/19 10:54 Helmet Cells Not Reportable 07/21/19 10:54 [place] Bodies Not Reportable 07/21/19 10:54 [place] Rings Not Reportable 07/21/19 10:54 [place] Cells Not Reportable 07/21/19 10:54 Bite Cells Not Reportable 07/21/19 10:54 Crenated Cell Not Reportable 07/21/19 10:54 Elliptocytes Not Reportable 07/21/19 10:54 Acanthocytes (Spur) Not Reportable 07/21/19 10:54 Rouleaux Not Reportable 07/21/19 10:54 Hemoglobin C Crystals Not Reportable 07/21/19 10:54 Schistocytes Not Reportable 07/21/19 10:54 Malaria parasites Not Reportable 07/21/19 10:54 Denzel Bodies Not Reportable 07/21/19 10:54 Hem Pathologist Commnt No 07/21/19 10:54 Sodium 140 mmol/L (137-145) 07/23/19 14:07 Potassium 4.6 mmol/L (3.6-5.0) 07/23/19 14:07 Chloride 101.1 mmol/L (98-107) 07/23/19 14:07 Carbon Dioxide 22 mmol/L (22-30) 07/23/19 14:07 Anion Gap 22 mmol/L 07/23/19 14:07 BUN 15 mg/dL (9-20) 07/23/19 14:07 Creatinine 0.7 mg/dL (0.8-1.5) L 07/23/19 14:07 Estimated GFR > 60 ml/min 07/23/19 14:07 BUN/Creatinine Ratio 21 % 07/23/19 14:07 Glucose 160 mg/dL (75-100) H 07/23/19 14:07 POC Glucose 106 (70-105) H 07/31/19 06:41 Hemoglobin A1c 6.3 % (4-6) H 07/05/19 21:07 Calcium 8.6 mg/dL (8.4-10.2) 07/23/19 14:07 Total Bilirubin 0.20 mg/dL (0.1-1.2) 07/23/19 14:07 AST 40 units/L (5-40) 07/23/19 14:07 ALT 46 units/L (7-56) 07/23/19 14:07 Alkaline Phosphatase 68 units/L (35-129) 07/23/19 14:07 Total Protein 5.2 g/dL (6.3-8.2) L 07/23/19 14:07 Albumin 3.2 g/dL (3.9-5) L 07/23/19 14:07 Albumin/Globulin Ratio 1.6 % 07/23/19 14:07 Triglycerides 188 mg/dL (2-149) H 07/05/19 21:07 Cholesterol 115 mg/dL (50-199) 07/05/19 21:07 LDL Cholesterol Direct 47 mg/dL (50-130) L 07/05/19 21:07 HDL Cholesterol 35 mg/dL (40-59) L 07/05/19 21:07 Cholesterol/HDL Ratio 3.28 % 07/05/19 21:07 Oxcarbazepine See scanned result 07/20/19 07:59 Last Vital Signs Temp 97.9 F 07/30/19 19:39 Pulse 84 07/30/19 20:56 Resp 20 07/30/19 19:39 BP 110/66 07/30/19 20:56 Pulse Ox 80 L 07/30/19 19:39
[2019-07-31] MEDS: diphenhydrAMINE 25 MG CAP PO SCH ×3 (08:55→22:00)
[2019-07-31] MEDS: LINAGLIPTIN 5 MG TAB PO SCH (08:55)
[2019-07-31] MEDS: CLOZAPINE 300 MG PO SCH ×3 (08:55→21:58)
[2019-07-31] MEDS: GLYCOPYRROLATE 1 MG TAB PO SCH ×4 (10:45→22:00)
[2019-07-31] MEDS: CLOPIDOGREL 75 MG TAB PO SCH (10:45)
[2019-07-31] MEDS: OXcarbazepine 150 MG TAB PO SCH ×2 (10:45→22:01)
[2019-07-31] MEDS: clonazePAM 0.5 MG TAB PO SCH ×4 (10:45→21:59)
[2019-07-31] MEDS: PROPRANOLOL 10 MG TAB PO SCH ×3 (11:13→22:01)
[2019-07-31] MEDS: HALOPERIDOL 5 MG TAB PO SCH ×2 (11:16→21:59)
[2019-07-31] MEDS: metFORMIN XR 500MG TAB PO SCH (11:19)
[2019-07-31] MEDS: CLOTRIMAZOLE/BETAMETHASONE CREAM 15 GM TP SCH ×2 (11:19→21:58)
[2019-07-31] MEDS: traZODone 50 MG TAB PO SCH ×3 (11:20→22:00)
[2019-07-31] MEDS: POTASSIUM CHLORIDE ER 10 MEQ TAB PO SCH (11:21)
[2019-07-31] MEDS: MELATONIN 5 MG TAB PO SCH (22:00)
[2019-07-31] MEDS: LORazepam 2 MG/ML VIAL IM PRN (22:16)
[2019-08-01] MEDS: INSULIN REGULAR, HUMAN 100 UNITS/1 ML SUB-Q SCH ×4 (07:19→22:22)
[2019-08-01] MEDS: CLOZAPINE 300 MG PO SCH ×3 (08:16→20:45)
[2019-08-01] MEDS: traZODone 50 MG TAB PO SCH ×4 (08:45→22:21)
[2019-08-01] MEDS: metFORMIN XR 500MG TAB PO SCH (08:57)
[2019-08-01] MEDS: diphenhydrAMINE 25 MG CAP PO SCH ×3 (08:57→20:45)
[2019-08-01] MEDS: PROPRANOLOL 10 MG TAB PO SCH ×3 (08:59→20:46)
--- NOTE | 2019-08-01 10:28 | Progress Note ---
Subjective Date of service: 08/01/19 Principal diagnosis: Bipolar Disorder, Current Episode Manic w/Phsychotic Features Subjective Comment: The patient's medical record was reviewed and the patient's progress was discussed with the nursing staff. The nurse note states the patient began walking faster and would not slow down. When redirected to slow down the patient threw water in the nurse's face. Security was called and patient was given Ativan IM for agitation. I attempted to interview the patient this morning, he is pacing in the hallway. He was able to sit briefly while I attempted to speak with him. His speech is garbled and incomprehensible. He has a slight drool. His behavior is disorganized. He is unable to redirect. When asking Mr. Jarvis was he feeling better, he hit the table in front of me. He then started opening and closing his fist. The patient jumps up from the table and continued pacing down the rios. I spoke with Esther, the patient's spouse via telephone. Discussed the patient's progress and discharge plan when the patient is ready. She is requesting the pa gigint be started back on lithium despite her previous concerns of the patient's past lithium toxicity episode. The patient states "I'm willing to sign and waiver and take responsibility if something happens medically." She also says she's willing to try ECT, and expressed wanting the patient transferred to [facility]. Mrs. Jarvis states she "feels as if everyone is over [place]." The patient's spouse is reassured that the staff and team are working hard to get the best medical and psychiatric regimen conducive to the patient's improvement and stabilization. I informed her I would be speaking to someone at [facility]. I also spoke with Lety in Intake at [facility]. I explained the patient's condition and progress with her. She requested a referral be sent for the doctors to review. Fax number to send referral is [phone]. Will discuss with the team. Reason for continuing inpatient treatment: The patient continues to be manic, impulsive, disorganized and unable to redirect. REVIEW OF SYSTEMS Unable to complete due to patient's condition MSE Unable to assess accurately Treatment Plan Due to the psychiatric conditions and treatment listed in the Assessment and Plan - the patient requires continued hospitalization. Will continue inpatient treatment to allow for medication adjustment and monitoring. Will continue q15 min safety checks. Will encourage the use of environmental modifications and non-pharmacologic approaches for the management of behavioral and psychological symptoms. Medication adjustment made today: Increased Glycopyrrolate 2mg po TID to decrease secretions Will continue current psych medications Monitor for medication side effects. CBC ordered 08/02/19 CMP ordered 08/02/19 UA ordered today The patient will continue on medications for physical illnesses, and Hospitalist will closely monitor these Continue intensive physical and occupational therapies. Monitor patient's mood, sleep, appetite, and behavior closely. Encourage patient to participate in individual and group therapeutic sessions on the irizarry. Will provide a safe and therapeutic environment for patient. Estimated length of stay depending on how the patient progresses Medications and Allergies Allergies Allergy/AdvReac Type Severity Reaction Status Date / Time aripiprazole [From Abilify] Allergy Hives Verified 06/27/19 09:43 aspirin Allergy Hives Verified 06/27/19 09:43 cephalexin [From Keflex] Allergy Hives Verified 06/27/19 09:43 chlorpromazine Allergy Hives Verified 06/27/19 09:43 ibuprofen Allergy Hives Verified 06/27/19 09:43 naproxen Allergy Hives Verified 06/27/19 09:43 risperidone [From Risperdal] Allergy Hives Verified 07/20/19 08:16 ziprasidone [From Geodon] Allergy Hives Verified 06/27/19 09:43 Home Medications Medication Instructions Recorded Confirmed Last Taken Type AtorvaSTATin [Lipitor] 40 mg PO QHS 06/27/19 07/05/19 06/26/19 History Benztropine [Cogentin] 0.5 mg PO TID 06/27/19 07/05/19 06/26/19 History Clopidogrel [Plavix] 75 mg PO QDAY 06/27/19 07/05/19 06/26/19 History Fenofibrate 160 mg PO QDAY 06/27/19 07/05/19 06/26/19 History LORazepam [Ativan] 1 mg PO TID PRN 06/27/19 07/05/19 06/26/19 History Melatonin [Melatonin 5MG CAP] 5 mg PO QHS 06/27/19 07/05/19 06/26/19 History Metoprolol [Lopressor TAB] 100 mg PO QDAY 06/27/19 07/05/19 06/26/19 History OXcarbazepine [Oxtellar XR] 600 mg PO BID 06/27/19 07/05/19 06/26/19 History Sertraline [Zoloft] 50 mg PO QDAY 06/27/19 07/05/19 06/26/19 History Sitagliptin Phos/Metformin HCl 100 mg PO QDAY 06/27/19 07/05/19 06/26/19 History [Janumet 50-1,000 mg Tablet] cloZAPine 800 mg PO QHS 06/27/19 07/05/19 06/26/19 History diphenhydrAMINE [Benadryl CAP] 25 mg PO TID 06/27/19 07/05/19 06/26/19 History Insulin Regular, Human [HumuLIN R] 0 units SUB-Q Q6HR units 07/05/19 07/06/19 Unknown Rx haloperidoL [Haldol] 5 mg PO BID tablet 07/05/19 07/05/19 Unknown Rx metFORMIN [Glucophage] 1,000 mg PO DAILY tablet 07/05/19 07/05/19 Unknown Rx Active Meds: Active Medications Atorvastatin Calcium (Lipitor) 40 mg PO QHS [facility] Last Admin: 07/31/19 22:00 Dose: 40 mg Documented by: Clonazepam (Klonopin) 1 mg PO QID [facility] Last Admin: 07/31/19 21:59 Dose: 1 mg Documented by: Clopidogrel Bisulfate (Plavix) 75 mg PO QDAY [facility] Last Admin: 07/31/19 10:45 Dose: 75 mg Documented by: Clotrimazole (Clotrimazole/Betamethasone) 1 applic TP BID [facility] Last Admin: 07/31/19 21:58 Dose: 1 applic Documented by: Diphenhydramine HCl (Benadryl) 25 mg PO TID [facility] Last Admin: 07/31/19 22:00 Dose: 25 mg Documented by: Glycopyrrolate (Robinul) 1 mg PO QID [facility] Last Admin: 07/31/19 22:00 Dose: 1 mg Documented by: Haloperidol (Haldol) 5 mg PO BID [facility] Last Admin: 07/31/19 21:59 Dose: 5 mg Documented by: Haloperidol Lactate (Haldol) 5 mg IM Q6H PRN PRN Reason: Agitation Insulin Human Regular (Humulin R) 0 units SUB-Q [facility]; Protocol Last Admin: 07/31/19 23:29 Dose: Not Given Documented by: Linagliptin (Tradjenta) 5 mg PO QDAY [facility] Last Admin: 07/31/19 08:55 Dose: 5 mg Documented by: Lorazepam (Ativan) 2 mg IM Q6H PRN PRN Reason: Agitation Last Admin: 07/31/19 22:16 Dose: 2 mg Documented by: Melatonin (Melatonin) 10 mg PO QHS [facility] Last Admin: 07/31/19 22:00 Dose: 10 mg Documented by: Metformin HCl (Glucophage Xr) 1,000 mg PO QDDIAB [facility] Last Admin: 07/31/19 11:19 Dose: 1,000 mg Documented by: Miscellaneous Medication (Clozapine) 300 mg PO TID [facility] Last Admin: 07/31/19 21:58 Dose: 300 mg Documented by: Oxcarbazepine (Trileptal) 600 mg PO BID [facility] Last Admin: 07/31/19 22:01 Dose: 600 mg Documented by: Potassium Chloride (K-Dur) 30 meq PO QDAY [facility] Last Admin: 07/31/19 11:21 Dose: 30 meq Documented by: Propranolol HCl (Inderal) 20 mg PO TID [facility] Last Admin: 07/31/19 22:01 Dose: 20 mg Documented by: Trazodone HCl (Desyrel) 50 mg PO QHS [facility] Last Admin: 07/31/19 22:00 Dose: 50 mg Documented by: Trazodone HCl (Desyrel) 25 mg PO TID [facility] Last Admin: 07/31/19 14:38 Dose: 25 mg Documented by: Results - Results Labs/Vitals: Laboratory Last Values WBC 10.1 K/mm3 (4.5-11.0) 07/28/19 07:22 RBC 3.54 M/mm3 (3.65-5.03) L 07/28/19 07:22 Hgb 10.5 gm/dl (11.8-15.2) L 07/28/19 07:22 Hct 32.5 % (35.5-45.6) L 07/28/19 07:22 MCV 92 fl (84-94) 07/28/19 07:22 MCH 30 pg (28-32) 07/28/19 07:22 MCHC 32 % (32-34) 07/28/19 07:22 RDW 15.3 % (13.2-15.2) H 07/28/19 07:22 Plt Count 209 K/mm3 (140-440) 07/28/19 07:22 Lymph % (Auto) 15.5 % (13.4-35.0) 07/28/19 07:22 [place] % (Auto) 10.7 % (0.0-7.3) H 07/28/19 07:22 Eos % (Auto) 2.6 % (0.0-4.3) 07/28/19 07:22 Baso % (Auto) 0.4 % (0.0-1.8) 07/28/19 07: Lymph # 1.6 K/mm3 (1.2-5.4) 07/28/19 07:22 Kle[place] # 1.1 K/mm3 (0.0-0.8) H 07/28/19 07:22 Eos # 0.3 K/mm3 (0.0-0.4) 07/28/19 07:22 Baso # 0.0 K/mm3 (0.0-0.1) 07/28/19 07:22 Add Manual Diff Complete 07/21/19 10:54 Total Counted 100 07/21/19 10:54 Seg Neutrophils % 70.8 % (40.0-70.0) H 07/28/19 07:22 Seg Neuts % (Manual) 87.0 % (40.0-70.0) H 07/21/19 10:54 Band Neutrophils % 0 % 07/21/19 10:54 Lymphocytes % (Manual) 8.0 % (13.4-35.0) L 07/21/19 10:54 Reactive Lymphs % (Man) 0 % 07/21/19 10:54 Monocytes % (Manual) 5.0 % (0.0-7.3) 07/21/19 10:54 Eosinophils % (Manual) 0 % (0.0-4.3) 07/21/19 10:54 Basophils % (Manual) 0 % (0.0-1.8) 07/21/19 10:54 Metamyelocytes % 0 % 07/21/19 10:54 Myelocytes % 0 % 07/21/19 10:54 Promyelocytes % 0 % 07/21/19 10:54 Blast Cells % 0 % 07/21/19 10:54 Nucleated RBC % Not Reportable 07/21/19 10:54 Seg Neutrophils # 7.2 K/mm3 (1.8-7.7) 07/28/19 07:22 Seg Neutrophils # Man 8.9 K/mm3 (1.8-7.7) H 07/21/19 10:54 Band Neutrophils # 0.0 K/mm3 07/21/19 10:54 Lymphocytes # (Manual) 0.8 K/mm3 (1.2-5.4) L 07/21/19 10:54 Abs React Lymphs (Man) 0.0 K/mm3 07/21/19 10:54 Monocytes # (Manual) 0.5 K/mm3 (0.0-0.8) 07/21/19 10:54 Eosinophils # (Manual) 0.0 K/mm3 (0.0-0.4) 07/21/19 10:54 Basophils # (Manual) 0.0 K/mm3 (0.0-0.1) 07/21/19 10:54 Metamyelocytes # 0.0 K/mm3 07/21/19 10:54 Myelocytes # 0.0 K/mm3 07/21/19 10:54 Promyelocytes # 0.0 K/mm3 07/21/19 10:54 Blast Cells # 0.0 K/mm3 07/21/19 10:54 WBC Morphology Not Reportable 07/21/19 10:54 Hypersegmented Neuts Not Reportable 07/21/19 10:54 Hyposegmented Neuts Not Reportable 07/21/19 10:54 Hypogranular Neuts Not Reportable 07/21/19 10:54 Smudge Cells Not Reportable 07/21/19 10:54 Toxic Granulation Not Reportable 07/21/19 10:54 Toxic Vacuolation Not Reportable 07/21/19 10:54 Dohle Bodies Not Reportable 07/21/19 10:54 Pelger-Huet Anomaly Not Reportable 07/21/19 10:54 Adiel Rods Not Reportable 07/21/19 10:54 Platelet Estimate Consistent w auto 07/21/19 10:54 Clumped Platelets Not Reportable 07/21/19 10:54 Plt Clumps, EDTA Not Reportable 07/21/19 10:54 Large Platelets Not Reportable 07/21/19 10:54 Giant Platelets Not Reportable 07/21/19 10:54 Platelet Satelliting Not Reportable 07/21/19 10:54 Plt Morphology Comment Not Reportable 07/21/19 10:54 RBC Morphology Normal 07/21/19 10:54 Dimorphic RBCs Not Reportable 07/21/19 10:54 Polychromasia Not Reportable 07/21/19 10:54 Hypochromasia Not Reportable 07/21/19 10:54 Poikilocytosis Not Reportable 07/21/19 10:54 Anisocytosis Not Reportable 07/21/19 10:54 Microcytosis Not Reportable 07/21/19 10:54 Macrocytosis Not Reportable 07/21/19 10:54 Spherocytes Not Reportable 07/21/19 10:54 Pappenheimer Bodies Not Reportable 07/21/19 10:54 Sickle Cells Not Reportable 07/21/19 10:54 Target Cells Not Reportable 07/21/19 10:54 Tear Drop Cells Not Reportable 07/21/19 10:54 Ovalocytes Not Reportable 07/21/19 10:54 Helmet Cells Not Reportable 07/21/19 10:54 [place] Bodies Not Reportable 07/21/19 10:54 [place] Rings Not Reportable 07/21/19 10:54 [place] Cells Not Reportable 07/21/19 10:54 Bite Cells Not Reportable 07/21/19 10:54 Crenated Cell Not Reportable 07/21/19 10:54 Elliptocytes Not Reportable 07/21/19 10:54 Acanthocytes (Spur) Not Reportable 07/21/19 10:54 Rouleaux Not Reportable 07/21/19 10:54 Hemoglobin C Crystals Not Reportable 07/21/19 10:54 Schistocytes Not Reportable 07/21/19 10:54 Malaria parasites Not Reportable 07/21/19 10:54 Denzel Bodies Not Reportable 07/21/19 10:54 Hem Pathologist Commnt No 07/21/19 10:54 Sodium 140 mmol/L (137-145) 07/23/19 14:07 Potassium 4.6 mmol/L (3.6-5.0) 07/23/19 14:07 Chloride 101.1 mmol/L (98-107) 07/23/19 14:07 Carbon Dioxide 22 mmol/L (22-30) 07/23/19 14:07 Anion Gap 22 mmol/L 07/23/19 14:07 BUN 15 mg/dL (9-20) 07/23/19 14:07 Creatinine 0.7 mg/dL (0.8-1.5) L 07/23/19 14:07 Estimated GFR > 60 ml/min 07/23/19 14:07 BUN/Creatinine Ratio 21 % 07/23/19 14:07 Glucose 160 mg/dL (75-100) H 07/23/19 14:07 POC Glucose 118 (70-105) H 07/31/19 20:05 Hemoglobin A1c 6.3 % (4-6) H 07/05/19 21:07 Calcium 8.6 mg/dL (8.4-10.2) 07/23/19 14:07 Total Bilirubin 0.20 mg/dL (0.1-1.2) 07/23/19 14:07 AST 40 units/L (5-40) 07/23/19 14:07 ALT 46 units/L (7-56) 07/23/19 14:07 Alkaline Phosphatase 68 units/L (35-129) 07/23/19 14:07 Total Protein 5.2 g/dL (6.3-8.2) L 07/23/19 14:07 Albumin 3.2 g/dL (3.9-5) L 07/23/19 14:07 Albumin/Globulin Ratio 1.6 % 07/23/19 14:07 Triglycerides 188 mg/dL (2-149) H 07/05/19 21:07 Cholesterol 115 mg/dL (50-199) 07/05/19 21:07 LDL Cholesterol Direct 47 mg/dL (50-130) L 07/05/19 21:07 HDL Cholesterol 35 mg/dL (40-59) L 07/05/19 21:07 Cholesterol/HDL Ratio 3.28 % 07/05/19 21:07 Oxcarbazepine See scanned result 07/20/19 07:59 Last Vital Signs Temp 98.5 F 07/31/19 20:00 Pulse 74 07/31/19 20:00 Resp 18 07/31/19 20:00 BP 112/73 07/31/19 20:00 Pulse Ox 94 07/31/19 20:00
[2019-08-01] MEDS: clonazePAM 0.5 MG TAB PO SCH ×3 (10:50→22:21)
[2019-08-01] MEDS: LINAGLIPTIN 5 MG TAB PO SCH (10:56)
[2019-08-01] MEDS: POTASSIUM CHLORIDE ER 10 MEQ TAB PO SCH (10:56)
[2019-08-01] MEDS: CLOPIDOGREL 75 MG TAB PO SCH (10:57)
[2019-08-01] MEDS: HALOPERIDOL 5 MG TAB PO SCH ×2 (10:57→22:22)
[2019-08-01] MEDS: OXcarbazepine 150 MG TAB PO SCH ×2 (10:58→22:21)
[2019-08-01] MEDS: GLYCOPYRROLATE 1 MG TAB PO SCH ×2 (14:17→20:47)
[2019-08-01] MEDS: CLOTRIMAZOLE/BETAMETHASONE CREAM 15 GM TP SCH ×2 (14:18→22:20)
[2019-08-01] MEDS: MELATONIN 5 MG TAB PO SCH (22:21)
[2019-08-02] MEDS: INSULIN REGULAR, HUMAN 100 UNITS/1 ML SUB-Q SCH ×3 (07:30→16:33)
--- NOTE | 2019-08-02 08:06 | Progress Note ---
Subjective Date of service: 08/02/19 Principal diagnosis: Bipolar Disorder, Current Episode Manic w/Phsychotic Features Subjective Comment: The patient's medical record was reviewed and the patient's progress was discussed with the nursing staff. The nurse note states the patient is alert to person, disorganized thought process. The patient is constantly pacing, slurred speech, difficult to understand, and unpredictable behavior. He spat on sitter's face, when redirected to go to bed. The patient is combative. During my interview with the patient this morning, he is lying in bed. Awake. He makes fair eye contact. His speech is garbled. He is difficult to understand. He is mumbling continuously. He is unable to be redirected. When asking the patient how was he feeling, he replied "okay," then began opening and closing his fist. He could not be engaged to complete the interview. Reason for continuing inpatient treatment: The patient continues to be manic, impulsive, disorganized and unable to redirect. REVIEW OF SYSTEMS Unable to complete due to patient's condition MSE Unable to assess accurately Treatment Plan Due to the psychiatric conditions and treatment listed in the Assessment and Plan - the patient requires continued hospitalization. Will continue inpatient treatment to allow for medication adjustment and monitoring. Will continue q15 min safety checks. Will encourage the use of environmental modifications and non-pharmacologic approaches for the management of behavioral and psychological symptoms. Medication adjustment made today: No changes made today Will continue current psych medications Monitor for medication side effects. CBC ordered 08/02/19 CMP ordered 08/02/19 UA The patient will continue on medications for physical illnesses, and Hospitalist will closely monitor these Continue intensive physical and occupational therapies. Monitor patient's mood, sleep, appetite, and behavior closely. Encourage patient to participate in individual and group therapeutic sessions on the irizarry. Will provide a safe and therapeutic environment for patient. Estimated length of stay depending on how the patient progresses Medications and Allergies Allergies Allergy/AdvReac Type Severity Reaction Status Date / Time aripiprazole [From Abilify] Allergy Hives Verified 06/27/19 09:43 aspirin Allergy Hives Verified 06/27/19 09:43 cephalexin [From Keflex] Allergy Hives Verified 06/27/19 09:43 chlorpromazine Allergy Hives Verified 06/27/19 09:43 ibuprofen Allergy Hives Verified 06/27/19 09:43 naproxen Allergy Hives Verified 06/27/19 09:43 risperidone [From Risperdal] Allergy Hives Verified 07/20/19 08:16 ziprasidone [From Geodon] Allergy Hives Verified 06/27/19 09:43 Home Medications Medication Instructions Recorded Confirmed Last Taken Type AtorvaSTATin [Lipitor] 40 mg PO QHS 06/27/19 07/05/19 06/26/19 History Benztropine [Cogentin] 0.5 mg PO TID 06/27/19 07/05/19 06/26/19 History Clopidogrel [Plavix] 75 mg PO QDAY 06/27/19 07/05/19 06/26/19 History Fenofibrate 160 mg PO QDAY 06/27/19 07/05/19 06/26/19 History LORazepam [Ativan] 1 mg PO TID PRN 06/27/19 07/05/19 06/26/19 History Melatonin [Melatonin 5MG CAP] 5 mg PO QHS 06/27/19 07/05/19 06/26/19 History Metoprolol [Lopressor TAB] 100 mg PO QDAY 06/27/19 07/05/19 06/26/19 History OXcarbazepine [Oxtellar XR] 600 mg PO BID 06/27/19 07/05/19 06/26/19 History Sertraline [Zoloft] 50 mg PO QDAY 06/27/19 07/05/19 06/26/19 History Sitagliptin Phos/Metformin HCl 100 mg PO QDAY 06/27/19 07/05/19 06/26/19 History [Janumet 50-1,000 mg Tablet] cloZAPine 800 mg PO QHS 06/27/19 07/05/19 06/26/19 History diphenhydrAMINE [Benadryl CAP] 25 mg PO TID 06/27/19 07/05/19 06/26/19 History Insulin Regular, Human [HumuLIN R] 0 units SUB-Q Q6HR units 07/05/19 07/06/19 Unknown Rx haloperidoL [Haldol] 5 mg PO BID tablet 07/05/19 07/05/19 Unknown Rx metFORMIN [Glucophage] 1,000 mg PO DAILY tablet 07/05/19 07/05/19 Unknown Rx Active Meds: Active Medications Atorvastatin Calcium (Lipitor) 40 mg PO QHS [facility] Last Admin: 08/01/19 22:22 Dose: 40 mg Documented by: Clonazepam (Klonopin) 1 mg PO QID [facility] Last Admin: 08/01/19 22:21 Dose: 1 mg Documented by: Clopidogrel Bisulfate (Plavix) 75 mg PO QDAY [facility] Last Admin: 08/01/19 10:57 Dose: 75 mg Documented by: Clotrimazole (Clotrimazole/Betamethasone) 1 applic TP BID [facility] Last Admin: 08/01/19 22:20 Dose: 1 applic Documented by: Diphenhydramine HCl (Benadryl) 25 mg PO TID [facility] Last Admin: 08/01/19 20:45 Dose: 25 mg Documented by: Glycopyrrolate (Robinul) 2 mg PO TID [facility] Last Admin: 08/01/19 20:47 Dose: 2 mg Documented by: Haloperidol (Haldol) 5 mg PO BID [facility] Last Admin: 08/01/19 22:22 Dose: 5 mg Documented by: Haloperidol Lactate (Haldol) 5 mg IM Q6H PRN PRN Reason: Agitation Insulin Human Regular (Humulin R) 0 units SUB-Q ACHS [facility]; Protocol Last Admin: 08/01/19 22:22 Dose: Not Given Documented by: Linagliptin (Tradjenta) 5 mg PO QDAY [facility] Last Admin: 08/01/19 10:56 Dose: 5 mg Documented by: Lorazepam (Ativan) 2 mg IM Q6H PRN PRN Reason: Agitation Last Admin: 07/31/19 22:16 Dose: 2 mg Documented by: Melatonin (Melatonin) 10 mg PO QHS [facility] Last Admin: 08/01/19 22:21 Dose: 10 mg Documented by: Metformin HCl (Glucophage Xr) 1,000 mg PO QDDIAB [facility] Last Admin: 08/01/19 08:57 Dose: 1,000 mg Documented by: Miscellaneous Medication (Clozapine) 300 mg PO TID [facility] Last Admin: 08/01/19 20:45 Dose: 300 mg Documented by: Oxcarbazepine (Trileptal) 600 mg PO BID [facility] Last Admin: 08/01/19 22:21 Dose: 600 mg Documented by: Potassium Chloride (K-Dur) 30 meq PO QDAY [facility] Last Admin: 08/01/19 10:56 Dose: 30 meq Documented by: Propranolol HCl (Inderal) 20 mg PO TID [facility] Last Admin: 08/01/19 20:46 Dose: 20 mg Documented by: Trazodone HCl (Desyrel) 50 mg PO QHS [facility] Last Admin: 08/01/19 22:21 Dose: 50 mg Documented by: Trazodone HCl (Desyrel) 25 mg PO TID [facility] Last Admin: 08/01/19 20:46 Dose: 25 mg Documented by: Results - Results Labs/Vitals: Laboratory Last Values WBC 10.1 K/mm3 (4.5-11.0) 07/28/19 07:22 RBC 3.54 M/mm3 (3.65-5.03) L 07/28/19 07:22 Hgb 10.5 gm/dl (11.8-15.2) L 07/28/19 07:22 Hct 32.5 % (35.5-45.6) L 07/28/19 07:22 MCV 92 fl (84-94) 07/28/19 07:22 MCH 30 pg (28-32) 07/28/19 07:22 MCHC 32 % (32-34) 07/28/19 07:22 RDW 15.3 % (13.2-15.2) H 07/28/19 07:22 Plt Count 209 K/mm3 (140-440) 07/28/19 07:22 Lymph % (Auto) 15.5 % (13.4-35.0) 07/28/19 07:22 [place] % (Auto) 10.7 % (0.0-7.3) H 07/28/19 07:22 Eos % (Auto) 2.6 % (0.0-4.3) 07/28/19 07:22 Baso % (Auto) 0.4 % (0.0-1.8) 07/28/19 07:22 Lymph # 1.6 K/mm3 (1.2-5.4) 07/28/19 07:22 [place] # 1.1 K/mm3 (0.0-0.8) H 07/28/19 07:22 Eos # 0.3 K/mm3 (0.0-0.4) 07/28/19 07:22 Baso # 0.0 K/mm3 (0.0-0.1) 07/28/19 07:22 Add Manual Diff Complete 07/21/19 10:54 Total Counted 100 07/21/19 10:54 Seg Neutrophils % 70.8 % (40.0-70.0) H 07/28/19 07:22 Seg Neuts % (Manual) 87.0 % (40.0-70.0) H 07/21/19 10:54 Band Neutrophils % 0 % 07/21/19 10:54 Lymphocytes % (Manual) 8.0 % (13.4-35.0) L 07/21/19 10:54 Reactive Lymphs % (Man) 0 % 07/21/19 10:54 Monocytes % (Manual) 5.0 % (0.0-7.3) 07/21/19 10:54 Eosinophils % (Manual) 0 % (0.0-4.3) 07/21/19 10:54 Basophils % (Manual) 0 % (0.0-1.8) 07/21/19 10:54 Metamyelocytes % 0 % 07/21/19 10:54 Myelocytes % 0 % 07/21/19 10:54 Promyelocytes % 0 % 07/21/19 10:54 Blast Cells % 0 % 07/21/19 10:54 Nucleated RBC % Not Reportable 07/21/19 10:54 Seg Neutrophils # 7.2 K/mm3 (1.8-7.7) 07/28/19 07:22 Seg Neutrophils # Man 8.9 K/mm3 (1.8-7.7) H 07/21/19 10:54 Band Neutrophils # 0.0 K/mm3 07/21/19 10:54 Lymphocytes # (Manual) 0.8 K/mm3 (1.2-5.4) L 07/21/19 10:54 Abs React Lymphs (Man) 0.0 K/mm3 07/21/19 10:54 Monocytes # (Manual) 0.5 K/mm3 (0.0-0.8) 07/21/19 10:54 Eosinophils # (Manual) 0.0 K/mm3 (0.0-0.4) 07/21/19 10:54 Basophils # (Manual) 0.0 K/mm3 (0.0-0.1) 07/21/19 10:54 Metamyelocytes # 0.0 K/mm3 07/21/19 10:54 Myelocytes # 0.0 K/mm3 07/21/19 10:54 Promyelocytes # 0.0 K/mm3 07/21/19 10:54 Blast Cells # 0.0 K/mm3 07/21/19 10:54 WBC Morphology Not Reportable 07/21/19 10:54 Hypersegmented Neuts Not Reportable 07/21/19 10:54 Hyposegmented Neuts Not Reportable 07/21/19 10:54 Hypogranular Neuts Not Reportable 07/21/19 10:54 Smudge Cells Not Reportable 07/21/19 10:54 Toxic Granulation Not Reportable 07/21/19 10:54 Toxic Vacuolation Not Reportable 07/21/19 10:54 Dohle Bodies Not Reportable 07/21/19 10:54 Pelger-Huet Anomaly Not Reportable 07/21/19 10:54 Adiel Rods Not Reportable 07/21/19 10:54 Platelet Estimate Consistent w auto 07/21/19 10:54 Clumped Platelets Not Reportable 07/21/19 10:54 Plt Clumps, EDTA Not Reportable 07/21/19 10:54 Large Platelets Not Reportable 07/21/19 10:54 Giant Platelets Not Reportable 07/21/19 10:54 Platelet Satelliting Not Reportable 07/21/19 10:54 Plt Morphology Comment Not Reportable 07/21/19 10:54 RBC Morphology Normal 07/21/19 10:54 Dimorphic RBCs Not Reportable 07/21/19 10:54 Polychromasia Not Reportable 07/21/19 10:54 Hypochromasia Not Reportable 07/21/19 10:54 Poikilocytosis Not Reportable 07/21/19 10:54 Anisocytosis Not Reportable 07/21/19 10:54 Microcytosis Not Reportable 07/21/19 10:54 Macrocytosis Not Reportable 07/21/19 10:54 Spherocytes Not Reportable 07/21/19 10:54 Pappenheimer Bodies Not Reportable 07/21/19 10:54 Sickle Cells Not Reportable 07/21/19 10:54 Target Cells Not Reportable 07/21/19 10:54 Tear Drop Cells Not Reportable 07/21/19 10:54 Ovalocytes Not Reportable 07/21/19 10:54 Helmet Cells Not Reportable 07/21/19 10:54 [place] Bodies Not Reportable 07/21/19 10:54 [place] Rings Not Reportable 07/21/19 10:54 [place] Cells Not Reportable 07/21/19 10:54 Bite Cells Not Reportable 07/21/19 10:54 Crenated Cell Not Reportable 07/21/19 10:54 Elliptocytes Not Reportable 07/21/19 10:54 Acanthocytes (Spur) Not Reportable 07/21/19 10:54 Rouleaux Not Reportable 07/21/19 10:54 Hemoglobin C Crystals Not Reportable 07/21/19 10:54 Schistocytes Not Reportable 07/21/19 10:54 Malaria parasites Not Reportable 07/21/19 10:54 [place]zel Bodies Not Reportable 07/21/19 10:54 Hem Pathologist Commnt No 07/21/19 10:54 Sodium 140 mmol/L (137-145) 07/23/19 14:07 Potassium 4.6 mmol/L (3.6-5.0) 07/23/19 14:07 Chloride 101.1 mmol/L (98-107) 07/23/19 14:07 Carbon Dioxide 22 mmol/L (22-30) 07/23/19 14:07 Anion Gap 22 mmol/L 07/23/19 14:07 BUN 15 mg/dL (9-20) 07/23/19 14:07 Creatinine 0.7 mg/dL (0.8-1.5) L 07/23/19 14:07 Estimated GFR > 60 ml/min 07/23/19 14:07 BUN/Creatinine Ratio 21 % 07/23/19 14:07 Glucose 160 mg/dL (75-100) H 07/23/19 14:07 POC Glucose 89 (70-105) 08/02/19 06:55 Hemoglobin A1c 6.3 % (4-6) H 07/05/19 21:07 Calcium 8.6 mg/dL (8.4-10.2) 07/23/19 14:07 Total Bilirubin 0.20 mg/dL (0.1-1.2) 07/23/19 14:07 AST 40 units/L (5-40) 07/23/19 14:07 ALT 46 units/L (7-56) 07/23/19 14:07 Alkaline Phosphatase 68 units/L (35-129) 07/23/19 14:07 Total Protein 5.2 g/dL (6.3-8.2) L 07/23/19 14:07 Albumin 3.2 g/dL (3.9-5) L 07/23/19 14:07 Albumin/Globulin Ratio 1.6 % 07/23/19 14:07 Triglycerides 188 mg/dL (2-149) H 07/05/19 21:07 Cholesterol 115 mg/dL (50-199) 07/05/19 21:07 LDL Cholesterol Direct 47 mg/dL (50-130) L 07/05/19 21:07 HDL Cholesterol 35 mg/dL (40-59) L 07/05/19 21:07 Cholesterol/HDL Ratio 3.28 % 07/05/19 21:07 Oxcarbazepine See scanned result 07/20/19 07:59 Last Vital Signs Temp 97.3 F L 08/01/19 22:00 Pulse 90 08/01/19 22:00 Resp 18 08/01/19 22:00 BP 115/70 08/01/19 22:00 Pulse Ox 100 08/01/19 22:00
[2019-08-02 08:07] LABS: Basophils % (Auto) 0.6 % (0.0-1.8); Eosinophils # (Auto) 0.1 K/mm3 (0.0-0.4); Eosinophils % (Auto) 1.4 % (0.0-4.3); Hematocrit 32.5 % (35.5-45.6); Lymphocytes # (Auto) 1.2 K/mm3 (1.2-5.4); Lymphocytes % (Auto) 16.7 % (13.4-35.0); Mean Corpuscular HGB Conc 34 % (32-34); Mean Corpuscular Volume 90 fl (84-94); Monocytes # (Auto) 0.7 K/mm3 (0.0-0.8); Monocytes % (Auto) 10.3 % (0.0-7.3); Platelet Count 187 K/mm3 (140-440); Red Blood Count 3.62 M/mm3 (3.65-5.03); Red Cell Distribution Width 14.9 % (13.2-15.2)
[2019-08-02 08:23] LABS: Alanine Aminotransferase 27 units/L (7-56); Albumin 3.4 g/dL (3.9-5); BUN/Creatinine Ratio 18; Blood Urea Nitrogen 11 mg/dL (9-20); Calcium 9.1 mg/dL (8.4-10.2); Hemolysis Index 5
[2019-08-02] MEDS: POTASSIUM CHLORIDE ER 10 MEQ TAB PO SCH (10:03)
[2019-08-02] MEDS: CLOZAPINE 300 MG PO SCH ×3 (10:03→22:03)
[2019-08-02] MEDS: LINAGLIPTIN 5 MG TAB PO SCH (10:04)
[2019-08-02] MEDS: metFORMIN XR 500MG TAB PO SCH (10:04)
[2019-08-02] MEDS: GLYCOPYRROLATE 1 MG TAB PO SCH ×3 (10:04→22:04)
[2019-08-02] MEDS: CLOPIDOGREL 75 MG TAB PO SCH (10:05)
[2019-08-02] MEDS: HALOPERIDOL 5 MG TAB PO SCH ×2 (10:05→22:06)
[2019-08-02] MEDS: PROPRANOLOL 10 MG TAB PO SCH ×3 (10:05→22:05)
[2019-08-02] MEDS: CLOTRIMAZOLE/BETAMETHASONE CREAM 15 GM TP SCH ×2 (10:07→21:00)
[2019-08-02] MEDS: OXcarbazepine 150 MG TAB PO SCH ×2 (10:11→22:07)
[2019-08-02] MEDS: diphenhydrAMINE 25 MG CAP PO SCH ×3 (10:12→22:06)
[2019-08-02] MEDS: clonazePAM 0.5 MG TAB PO SCH ×5 (10:12→22:06)
[2019-08-02] MEDS: traZODone 50 MG TAB PO SCH ×4 (10:13→22:03)
[2019-08-02] MEDS: LORazepam 2 MG/ML VIAL IM PRN (11:14)
[2019-08-02] MEDS: MELATONIN 5 MG TAB PO SCH (22:04)
[2019-08-03] MEDS: INSULIN REGULAR, HUMAN 100 UNITS/1 ML SUB-Q SCH ×3 (08:52→16:42)
--- NOTE | 2019-08-03 09:06 | Progress Note ---
Subjective Date of service: 08/03/19 Principal diagnosis: Bipolar Disorder, Current Episode Manic w/Phsychotic Features Subjective Comment: The patient's medical record was reviewed and the patient's progress was discussed with the nursing staff. The nurse note states received patient pacing the hallways and mumbling. The patient is calm, nonviolent at the times. The patient will pace and go to activity room and sit for a brief second. I attempted to interview the patient, he was somnolent. Unable to arouse the patient to engage in the interview. Sitter is at bedside. Reason for continuing inpatient treatment: The patient continues to pace, have impulsive behavior, disorganized and unable to redirect. REVIEW OF SYSTEMS Unable to complete due to patient's condition MSE Unable to assess accurately Treatment Plan Due to the psychiatric conditions and treatment listed in the Assessment and Plan - the patient requires continued hospitalization. Will continue inpatient treatment to allow for medication adjustment and monitoring. Will continue q15 min safety checks. Will encourage the use of environmental modifications and non-pharmacologic approaches for the management of behavioral and psychological symptoms. Medication adjustment made today: No changes made today Will continue current psych medications Monitor for medication side effects. Monitoring WBC for SE of clozapine The patient will continue on medications for physical illnesses, and Hospitalist will closely monitor these Continue intensive physical and occupational therapies. Monitor patient's mood, sleep, appetite, and behavior closely. Encourage patient to participate in individual and group therapeutic sessions on the irizarry. Will provide a safe and therapeutic environment for patient. Estimated length of stay depending on how the patient progresses Medications and Allergies Allergies Allergy/AdvReac Type Severity Reaction Status Date / Time aripiprazole [From Abilify] Allergy Hives Verified 06/27/19 09:43 aspirin Allergy Hives Verified 06/27/19 09:43 cephalexin [From Keflex] Allergy Hives Verified 06/27/19 09:43 chlorpromazine Allergy Hives Verified 06/27/19 09:43 ibuprofen Allergy Hives Verified 06/27/19 09:43 naproxen Allergy Hives Verified 06/27/19 09:43 risperidone [From Risperdal] Allergy Hives Verified 07/20/19 08:16 ziprasidone [From Geodon] Allergy Hives Verified 06/27/19 09:43 Home Medications Medication Instructions Recorded Confirmed Last Taken Type AtorvaSTATin [Lipitor] 40 mg PO QHS 06/27/19 07/05/19 06/26/19 History Benztropine [Cogentin] 0.5 mg PO TID 06/27/19 07/05/19 06/26/19 History Clopidogrel [Plavix] 75 mg PO QDAY 06/27/19 07/05/19 06/26/19 History Fenofibrate 160 mg PO QDAY 06/27/19 07/05/19 06/26/19 History LORazepam [Ativan] 1 mg PO TID PRN 06/27/19 07/05/19 06/26/19 History Melatonin [Melatonin 5MG CAP] 5 mg PO QHS 06/27/19 07/05/19 06/26/19 History Metoprolol [Lopressor TAB] 100 mg PO QDAY 06/27/19 07/05/19 06/26/19 History OXcarbazepine [Oxtellar XR] 600 mg PO BID 06/27/19 07/05/19 06/26/19 History Sertraline [Zoloft] 50 mg PO QDAY 06/27/19 07/05/19 06/26/19 History Sitagliptin Phos/Metformin HCl 100 mg PO QDAY 06/27/19 07/05/19 06/26/19 History [Janumet 50-1,000 mg Tablet] cloZAPine 800 mg PO QHS 06/27/19 07/05/19 06/26/19 History diphenhydrAMINE [Benadryl CAP] 25 mg PO TID 06/27/19 07/05/19 06/26/19 History Insulin Regular, Human [HumuLIN R] 0 units SUB-Q Q6HR units 07/05/19 07/06/19 Unknown Rx haloperidoL [Haldol] 5 mg PO BID tablet 07/05/19 07/05/19 Unknown Rx metFORMIN [Glucophage] 1,000 mg PO DAILY tablet 07/05/19 07/05/19 Unknown Rx Active Meds: Active Medications Atorvastatin Calcium (Lipitor) 40 mg PO QHS [facility] Last Admin: 08/02/19 22:06 Dose: 40 mg Documented by: Clonazepam (Klonopin) 1 mg PO QID [facility] Last Admin: 08/02/19 22:06 Dose: 1 mg Documented by: Clopidogrel Bisulfate (Plavix) 75 mg PO QDAY [facility] Last Admin: 08/02/19 10:05 Dose: 75 mg Documented by: Clotrimazole (Clotrimazole/Betamethasone) 1 applic TP BID [facility] Last Admin: 08/02/19 21:00 Dose: 1 applic Documented by: Diphenhydramine HCl (Benadryl) 25 mg PO TID [facility] Last Admin: 08/02/19 22:06 Dose: 25 mg Documented by: Glycopyrrolate (Robinul) 2 mg PO TID [facility] Last Admin: 08/02/19 22:04 Dose: 2 mg Documented by: Haloperidol (Haldol) 5 mg PO BID [facility] Last Admin: 08/02/19 22:06 Dose: 5 mg Documented by: Haloperidol Lactate (Haldol) 5 mg IM Q6H PRN PRN Reason: Agitation Insulin Human Regular (Humulin R) 0 units SUB-Q ACHS [facility]; Protocol Last Admin: 08/03/19 08:52 Dose: Not Given Documented by: Linagliptin (Tradjenta) 5 mg PO QDAY [facility] Last Admin: 08/02/19 10:04 Dose: 5 mg Documented by: Lorazepam (Ativan) 2 mg IM Q6H PRN PRN Reason: Agitation Last Admin: 08/02/19 11:14 Dose: 2 mg Documented by: Melatonin (Melatonin) 10 mg PO QHS [facility] Last Admin: 08/02/19 22:04 Dose: 10 mg Documented by: Metformin HCl (Glucophage Xr) 1,000 mg PO QDDIAB [facility] Last Admin: 08/02/19 10:04 Dose: 1,000 mg Documented by: Miscellaneous Medication (Clozapine) 300 mg PO TID [facility] Last Admin: 08/02/19 22:03 Dose: 300 mg Documented by: Oxcarbazepine (Trileptal) 600 mg PO BID [facility] Last Admin: 08/02/19 22:07 Dose: 600 mg Documented by: Potassium Chloride (K-Dur) 30 meq PO QDAY [facility] Last Admin: 08/02/19 10:03 Dose: 30 meq Documented by: Propranolol HCl (Inderal) 20 mg PO TID [facility] Last Admin: 08/02/19 22:05 Dose: 20 mg Documented by: Trazodone HCl (Desyrel) 50 mg PO QHS [facility] Last Admin: 08/02/19 22:03 Dose: 50 mg Documented by: Trazodone HCl (Desyrel) 25 mg PO TID [facility] Last Admin: 08/02/19 14:28 Dose: 25 mg Documented by: Results - Results Labs/Vitals: Laboratory Last Values WBC 7.0 K/mm3 (4.5-11.0) 08/02/19 07: RBC 3.62 M/mm3 (3.65-5.03) L 08/02/19 07: Hgb 11.0 gm/dl (11.8-15.2) L 08/02/19 07: Hct 32.5 % (35.5-45.6) L 08/02/19 07: MCV 90 fl (84-94) 08/02/19 07: MCH 31 pg (28-32) 08/02/19 07: MCHC 34 % (32-34) 08/02/19 07: RDW 14.9 % (13.2-15.2) 08/02/19 07: Plt Count 187 K/mm3 (140-440) 08/02/19 07: Lymph % (Auto) 16.7 % (13.4-35.0) 08/02/19 07: [place] % (Auto) 10.3 % (0.0-7.3) H 08/02/19 07: Eos % (Auto) 1.4 % (0.0-4.3) 08/02/19 07: Baso % (Auto) 0.6 % (0.0-1.8) 08/02/19 07: Lymph # 1.2 K/mm3 (1.2-5.4) 08/02/19 07: [place] # 0.7 K/mm3 (0.0-0.8) 08/02/19 07: Eos # 0.1 K/mm3 (0.0-0.4) 08/02/19 07: Baso # 0.0 K/mm3 (0.0-0.1) 08/02/19 07:29 Add Manual Diff Complete 07/21/19 10:54 Total Counted 100 07/21/19 10:54 Seg Neutrophils % 71.0 % (40.0-70.0) H 08/02/19 07:29 Seg Neuts % (Manual) 87.0 % (40.0-70.0) H 07/21/19 10:54 Band Neutrophils % 0 % 07/21/19 10:54 Lymphocytes % (Manual) 8.0 % (13.4-35.0) L 07/21/19 10:54 Reactive Lymphs % (Man) 0 % 07/21/19 10:54 Monocytes % (Manual) 5.0 % (0.0-7.3) 07/21/19 10:54 Eosinophils % (Manual) 0 % (0.0-4.3) 07/21/19 10:54 Basophils % (Manual) 0 % (0.0-1.8) 07/21/19 10:54 Metamyelocytes % 0 % 07/21/19 10:54 Myelocytes % 0 % 07/21/19 10:54 Promyelocytes % 0 % 07/21/19 10:54 Blast Cells % 0 % 07/21/19 10:54 Nucleated RBC % Not Reportable 07/21/19 10:54 Seg Neutrophils # 4.9 K/mm3 (1.8-7.7) 08/02/19 07:29 Seg Neutrophils # Man 8.9 K/mm3 (1.8-7.7) H 07/21/19 10:54 Band Neutrophils # 0.0 K/mm3 07/21/19 10:54 Lymphocytes # (Manual) 0.8 K/mm3 (1.2-5.4) L 07/21/19 10:54 Abs React Lymphs (Man) 0.0 K/mm3 07/21/19 10:54 Monocytes # (Manual) 0.5 K/mm3 (0.0-0.8) 07/21/19 10:54 Eosinophils # (Manual) 0.0 K/mm3 (0.0-0.4) 07/21/19 10:54 Basophils # (Manual) 0.0 K/mm3 (0.0-0.1) 07/21/19 10:54 Metamyelocytes # 0.0 K/mm3 07/21/19 10:54 Myelocytes # 0.0 K/mm3 07/21/19 10:54 Promyelocytes # 0.0 K/mm3 07/21/19 10:54 Blast Cells # 0.0 K/mm3 07/21/19 10:54 WBC Morphology Not Reportable 07/21/19 10:54 Hypersegmented Neuts Not Reportable 07/21/19 10:54 Hyposegmented Neuts Not Reportable 07/21/19 10:54 Hypogranular Neuts Not Reportable 07/21/19 10:54 Smudge Cells Not Reportable 07/21/19 10:54 Toxic Granulation Not Reportable 07/21/19 10:54 Toxic Vacuolation Not Reportable 07/21/19 10:54 Dohle Bodies Not Reportable 07/21/19 10:54 Pelger-Huet Anomaly Not Reportable 07/21/19 10:54 Adiel Rods Not Reportable 07/21/19 10:54 Platelet Estimate Consistent w auto 07/21/19 10:54 Clumped Platelets Not Reportable 07/21/19 10:54 Plt Clumps, EDTA Not Reportable 07/21/19 10:54 Large Platelets Not Reportable 07/21/19 10:54 Giant Platelets Not Reportable 07/21/19 10:54 Platelet Satelliting Not Reportable 07/21/19 10:54 Plt Morphology Comment Not Reportable 07/21/19 10:54 RBC Morphology Normal 07/21/19 10:54 Dimorphic RBCs Not Reportable 07/21/19 10:54 Polychromasia Not Reportable 07/21/19 10:54 Hypochromasia Not Reportable 07/21/19 10:54 Poikilocytosis Not Reportable 07/21/19 10:54 Anisocytosis Not Reportable 07/21/19 10:54 Microcytosis Not Reportable 07/21/19 10:54 Macrocytosis Not Reportable 07/21/19 10:54 Spherocytes Not Reportable 07/21/19 10:54 Pappenheimer Bodies Not Reportable 07/21/19 10:54 Sickle Cells Not Reportable 07/21/19 10:54 Target Cells Not Reportable 07/21/19 10:54 Tear Drop Cells Not Reportable 07/21/19 10:54 Ovalocytes Not Reportable 07/21/19 10:54 Helmet Cells Not Reportable 07/21/19 10:54 [place] Bodies Not Reportable 07/21/19 10:54 [place] Rings Not Reportable 07/21/19 10:54 [place] Cells Not Reportable 07/21/19 10:54 Bite Cells Not Reportable 07/21/19 10:54 Crenated Cell Not Reportable 07/21/19 10:54 Elliptocytes Not Reportable 07/21/19 10:54 Acanthocytes (Spur) Not Reportable 07/21/19 10:54 Rouleaux Not Reportable 07/21/19 10:54 Hemoglobin C Crystals Not Reportable 07/21/19 10:54 Schistocytes Not Reportable 07/21/19 10:54 Malaria parasites Not Reportable 07/21/19 10:54 Denzel Bodies Not Reportable 07/21/19 10:54 Hem Pathologist Commnt No 07/21/19 10:54 Sodium 139 mmol/L (137-145) 08/02/19 07:29 Potassium 3.9 mmol/L (3.6-5.0) 08/02/19 07:29 Chloride 101.9 mmol/L (98-107) 08/02/19 07:29 Carbon Dioxide 22 mmol/L (22-30) 08/02/19 07:29 Anion Gap 19 mmol/L 08/02/19 07:29 BUN 11 mg/dL (9-20) 08/02/19 07:29 Creatinine 0.6 mg/dL (0.8-1.5) L 08/02/19 07:29 Estimated GFR > 60 ml/min 08/02/19 07:29 BUN/Creatinine Ratio 18 % 08/02/19 07:29 Glucose 92 mg/dL (75-100) 08/02/19 07:29 POC Glucose 131 (70-105) H 08/03/19 08:10 Hemoglobin A1c 6.3 % (4-6) H 07/05/19 21:07 Calcium 9.1 mg/dL (8.4-10.2) 08/02/19 07:29 Total Bilirubin 0.20 mg/dL (0.1-1.2) 08/02/19 07:29 AST 26 units/L (5-40) 08/02/19 07:29 ALT 27 units/L (7-56) 08/02/19 07:29 Alkaline Phosphatase 80 units/L (35-129) 08/02/19 07:29 Total Protein 5.3 g/dL (6.3-8.2) L 08/02/19 07:29 Albumin 3.4 g/dL (3.9-5) L 08/02/19 07:29 Albumin/Globulin Ratio 1.8 % 08/02/19 07:29 Triglycerides 188 mg/dL (2-149) H 07/05/19 21:07 Cholesterol 115 mg/dL (50-199) 07/05/19 21:07 LDL Cholesterol Direct 47 mg/dL (50-130) L 07/05/19 21:07 HDL Cholesterol 35 mg/dL (40-59) L 07/05/19 21:07 Cholesterol/HDL Ratio 3.28 % 07/05/19 21:07 Oxcarbazepine See scanned result 07/20/19 07:59 Last Vital Signs Temp 96.6 F L 08/02/19 10:00 Pulse 93 H 08/02/19 19:12 Resp 18 08/02/19 10:00 BP 110/74 08/02/19 19:12 Pulse Ox 98 08/02/19 19:12
[2019-08-03] MEDS: OXcarbazepine 150 MG TAB PO SCH (09:48)
[2019-08-03] MEDS: metFORMIN XR 500MG TAB PO SCH (09:48)
[2019-08-03] MEDS: clonazePAM 0.5 MG TAB PO SCH ×3 (09:49→18:02)
[2019-08-03] MEDS: HALOPERIDOL 5 MG TAB PO SCH (09:49)
[2019-08-03] MEDS: PROPRANOLOL 10 MG TAB PO SCH ×2 (09:51→13:40)
[2019-08-03] MEDS: CLOPIDOGREL 75 MG TAB PO SCH (09:51)
[2019-08-03] MEDS: diphenhydrAMINE 25 MG CAP PO SCH ×2 (09:51→13:39)
[2019-08-03] MEDS: CLOTRIMAZOLE/BETAMETHASONE CREAM 15 GM TP SCH (09:52)
[2019-08-03] MEDS: LINAGLIPTIN 5 MG TAB PO SCH (09:52)
[2019-08-03] MEDS: POTASSIUM CHLORIDE ER 10 MEQ TAB PO SCH (09:53)
[2019-08-03] MEDS: GLYCOPYRROLATE 1 MG TAB PO SCH ×2 (09:53→13:37)
[2019-08-03] MEDS: CLOZAPINE 300 MG PO SCH ×2 (09:53→13:41)
[2019-08-03] MEDS: traZODone 50 MG TAB PO SCH ×2 (09:55→13:38)
[2019-08-03] MEDS: LORazepam 2 MG/ML VIAL IM PRN (18:24)
[2019-08-04] MEDS: traZODone 50 MG TAB PO SCH ×4 (02:21→14:48)
[2019-08-04] MEDS: INSULIN REGULAR, HUMAN 100 UNITS/1 ML SUB-Q SCH ×5 (02:21→21:51)
[2019-08-04] MEDS: diphenhydrAMINE 25 MG CAP PO SCH ×4 (02:22→21:45)
[2019-08-04] MEDS: PROPRANOLOL 10 MG TAB PO SCH ×4 (02:22→21:46)
[2019-08-04] MEDS: CLOZAPINE 300 MG PO SCH ×4 (02:22→21:43)
[2019-08-04] MEDS: GLYCOPYRROLATE 1 MG TAB PO SCH ×4 (02:40→21:45)
[2019-08-04] MEDS: CLOTRIMAZOLE/BETAMETHASONE CREAM 15 GM TP SCH ×4 (02:41→21:44)
[2019-08-04] MEDS: clonazePAM 0.5 MG TAB PO SCH ×5 (02:42→21:48)
[2019-08-04] MEDS: MELATONIN 5 MG TAB PO SCH ×2 (02:42→21:49)
[2019-08-04] MEDS: OXcarbazepine 150 MG TAB PO SCH ×3 (02:42→21:49)
[2019-08-04] MEDS: HALOPERIDOL 5 MG TAB PO SCH ×3 (02:42→21:48)
[2019-08-04] MEDS: LORazepam 2 MG/ML VIAL IM PRN (04:15)
[2019-08-04] MEDS: HALOPERIDOL LACTATE 5 MG/1 ML INJ IM PRN (04:43)
--- NOTE | 2019-08-04 08:50 | Progress Note ---
Subjective Date of service: 08/04/19 Principal diagnosis: Bipolar Disorder, Current Episode Manic w/Phsychotic Features Subjective Comment: The patient's medical record was reviewed and the patient's progress was discussed with the nursing staff. The nurse note states the patient woke up and started fighting the staff. The security was called to come and help to ensure safety. Patient was medicated with Ativan and Haldol medications as needed for agitation. Spoke with Harper MONCADA, are working on plan to have the patient transferred to [facility]. I attempted to interview the patient, he was pacing the rios, mumbling. He is dressed appropriately. He is disorganized. He is a/o x 1. He motions his fist at me as if angry about something. He makes good eye contact. Was able to rickey the patient briefly before he started back pacing. Reason for continuing inpatient treatment: The patient continues to pace, have impulsive behavior, disorganized and unable to redirect. REVIEW OF SYSTEMS Unable to complete due to patient's condition MSE Unable to assess accurately Treatment Plan Due to the psychiatric conditions and treatment listed in the Assessment and Plan - the patient requires continued hospitalization. Will continue inpatient treatment to allow for medication adjustment and monitoring. Will continue q15 min safety checks. Will encourage the use of environmental modifications and non-pharmacologic approaches for the management of behavioral and psychological symptoms. Medication adjustment made today: No changes made today Will continue current psych medications Monitor for medication side effects. Monitoring WBC for SE of clozapine The patient will continue on medications for physical illnesses, and Hospitalist will closely monitor these Continue intensive physical and occupational therapies. Monitor patient's mood, sleep, appetite, and behavior closely. Encourage patient to participate in individual and group therapeutic sessions on the irizarry. Will provide a safe and therapeutic environment for patient. Estimated length of stay depending on how the patient progresses. Medications and Allergies Allergies Allergy/AdvReac Type Severity Reaction Status Date / Time aripiprazole [From Abilify] Allergy Hives Verified 06/27/19 09:43 aspirin Allergy Hives Verified 06/27/19 09:43 cephalexin [From Keflex] Allergy Hives Verified 06/27/19 09:43 chlorpromazine Allergy Hives Verified 06/27/19 09:43 ibuprofen Allergy Hives Verified 06/27/19 09:43 naproxen Allergy Hives Verified 06/27/19 09:43 risperidone [From Risperdal] Allergy Hives Verified 07/20/19 08:16 ziprasidone [From Geodon] Allergy Hives Verified 06/27/19 09:43 Home Medications Medication Instructions Recorded Confirmed Last Taken Type AtorvaSTATin [Lipitor] 40 mg PO QHS 06/27/19 07/05/19 06/26/19 History Benztropine [Cogentin] 0.5 mg PO TID 06/27/19 07/05/19 06/26/19 History Clopidogrel [Plavix] 75 mg PO QDAY 06/27/19 07/05/19 06/26/19 History Fenofibrate 160 mg PO QDAY 06/27/19 07/05/19 06/26/19 History LORazepam [Ativan] 1 mg PO TID PRN 06/27/19 07/05/19 06/26/19 History Melatonin [Melatonin 5MG CAP] 5 mg PO QHS 06/27/19 07/05/19 06/26/19 History Metoprolol [Lopressor TAB] 100 mg PO QDAY 06/27/19 07/05/19 06/26/19 History OXcarbazepine [Oxtellar XR] 600 mg PO BID 06/27/19 07/05/19 06/26/19 History Sertraline [Zoloft] 50 mg PO QDAY 06/27/19 07/05/19 06/26/19 History Sitagliptin Phos/Metformin HCl 100 mg PO QDAY 06/27/19 07/05/19 06/26/19 History [Janumet 50-1,000 mg Tablet] cloZAPine 800 mg PO QHS 06/27/19 07/05/19 06/26/19 History diphenhydrAMINE [Benadryl CAP] 25 mg PO TID 06/27/19 07/05/19 06/26/19 History Insulin Regular, Human [HumuLIN R] 0 units SUB-Q Q6HR units 07/05/19 07/06/19 Unknown Rx haloperidoL [Haldol] 5 mg PO BID tablet 07/05/19 07/05/19 Unknown Rx metFORMIN [Glucophage] 1,000 mg PO DAILY tablet 07/05/19 07/05/19 Unknown Rx Active Meds: Active Medications Atorvastatin Calcium (Lipitor) 40 mg PO QHS [facility] Last Admin: 08/04/19 02:42 Dose: Not Given Documented by: Clonazepam (Klonopin) 1 mg PO QID [facility] Last Admin: 08/04/19 02:42 Dose: Not Given Documented by: Clopidogrel Bisulfate (Plavix) 75 mg PO QDAY [facility] Last Admin: 08/03/19 09:51 Dose: 75 mg Documented by: Clotrimazole (Clotrimazole/Betamethasone) 1 applic TP BID [facility] Last Admin: 08/04/19 02:41 Dose: Not Given Documented by: Diphenhydramine HCl (Benadryl) 25 mg PO TID [facility] Last Admin: 08/04/19 02:22 Dose: Not Given Documented by: Glycopyrrolate (Robinul) 2 mg PO TID [facility] Last Admin: 08/04/19 02:40 Dose: Not Given Documented by: Haloperidol (Haldol) 5 mg PO BID [facility] Last Admin: 08/04/19 02:42 Dose: Not Given Documented by: Haloperidol Lactate (Haldol) 5 mg IM Q6H PRN PRN Reason: Agitation Last Admin: 08/04/19 04:43 Dose: 5 mg Documented by: Insulin Human Regular (Humulin R) 0 units SUB-Q ACHS [facility]; Protocol Last Admin: 08/04/19 02:21 Dose: Not Given Documented by: Linagliptin (Tradjenta) 5 mg PO QDAY [facility] Last Admin: 08/03/19 09:52 Dose: 5 mg Documented by: Lorazepam (Ativan) 2 mg IM Q6H PRN PRN Reason: Agitation Last Admin: 08/04/19 04:15 Dose: 2 mg Documented by: Melatonin (Melatonin) 10 mg PO QHS [facility] Last Admin: 08/04/19 02:42 Dose: Not Given Documented by: Metformin HCl (Glucophage Xr) 1,000 mg PO QDDIAB [facility] Last Admin: 08/03/19 09:48 Dose: 1,000 mg Documented by: Miscellaneous Medication (Clozapine) 300 mg PO TID [facility] Last Admin: 08/04/19 02:22 Dose: Not Given Documented by: Oxcarbazepine (Trileptal) 600 mg PO BID [facility] Last Admin: 08/04/19 02:42 Dose: Not Given Documented by: Potassium Chloride (K-Dur) 30 meq PO QDAY [facility] Last Admin: 08/03/19 09:53 Dose: 30 meq Documented by: Propranolol HCl (Inderal) 20 mg PO TID [facility] Last Admin: 08/04/19 02:22 Dose: Not Given Documented by: Trazodone HCl (Desyrel) 50 mg PO QHS [facility] Last Admin: 08/04/19 02:41 Dose: Not Given Documented by: Trazodone HCl (Desyrel) 25 mg PO TID [facility] Last Admin: 08/04/19 02:21 Dose: Not Given Documented by: Results - Results Labs/Vitals: Laboratory Last Values WBC 7.0 K/mm3 (4.5-11.0) 08/02/19 07:29 RBC 3.62 M/mm3 (3.65-5.03) L 08/02/19 07:29 Hgb 11.0 gm/dl (11.8-15.2) L 08/02/19 07:29 Hct 32.5 % (35.5-45.6) L 08/02/19 07:29 MCV 90 fl (84-94) 08/02/19 07: MCH 31 pg (28-32) 08/02/19 07: MCHC 34 % (32-34) 08/02/19 07: RDW 14.9 % (13.2-15.2) 08/02/19 07: Plt Count 187 K/mm3 (140-440) 08/02/19 07:29 Lymph % (Auto) 16.7 % (13.4-35.0) 08/02/19 07:29 [place] % (Auto) 10.3 % (0.0-7.3) H 08/02/19 07:29 Eos % (Auto) 1.4 % (0.0-4.3) 08/02/19 07:29 Baso % (Auto) 0.6 % (0.0-1.8) 08/02/19 07:29 Lymph # 1.2 K/mm3 (1.2-5.4) 08/02/19 07:29 [place] # 0.7 K/mm3 (0.0-0.8) 08/02/19 07:29 Eos # 0.1 K/mm3 (0.0-0.4) 08/02/19 07:29 Baso # 0.0 K/mm3 (0.0-0.1) 08/02/19 07:29 Add Manual Diff Complete 07/21/19 10:54 Total Counted 100 07/21/19 10:54 Seg Neutrophils % 71.0 % (40.0-70.0) H 08/02/19 07:29 Seg Neuts % (Manual) 87.0 % (40.0-70.0) H 07/21/19 10:54 Band Neutrophils % 0 % 07/21/19 10:54 Lymphocytes % (Manual) 8.0 % (13.4-35.0) L 07/21/19 10:54 Reactive Lymphs % (Man) 0 % 07/21/19 10:54 Monocytes % (Manual) 5.0 % (0.0-7.3) 07/21/19 10:54 Eosinophils % (Manual) 0 % (0.0-4.3) 07/21/19 10:54 Basophils % (Manual) 0 % (0.0-1.8) 07/21/19 10:54 Metamyelocytes % 0 % 07/21/19 10:54 Myelocytes % 0 % 07/21/19 10:54 Promyelocytes % 0 % 07/21/19 10:54 Blast Cells % 0 % 07/21/19 10:54 Nucleated RBC % Not Reportable 07/21/19 10:54 Seg Neutrophils # 4.9 K/mm3 (1.8-7.7) 08/02/19 07:29 Seg Neutrophils # Man 8.9 K/mm3 (1.8-7.7) H 07/21/19 10:54 Band Neutrophils # 0.0 K/mm3 07/21/19 10:54 Lymphocytes # (Manual) 0.8 K/mm3 (1.2-5.4) L 07/21/19 10:54 Abs React Lymphs (Man) 0.0 K/mm3 07/21/19 10:54 Monocytes # (Manual) 0.5 K/mm3 (0.0-0.8) 07/21/19 10:54 Eosinophils # (Manual) 0.0 K/mm3 (0.0-0.4) 07/21/19 10:54 Basophils # (Manual) 0.0 K/mm3 (0.0-0.1) 07/21/19 10:54 Metamyelocytes # 0.0 K/mm3 07/21/19 10:54 Myelocytes # 0.0 K/mm3 07/21/19 10:54 Promyelocytes # 0.0 K/mm3 07/21/19 10:54 Blast Cells # 0.0 K/mm3 07/21/19 10:54 WBC Morphology Not Reportable 07/21/19 10:54 Hypersegmented Neuts Not Reportable 07/21/19 10:54 Hyposegmented Neuts Not Reportable 07/21/19 10:54 Hypogranular Neuts Not Reportable 07/21/19 10:54 Smudge Cells Not Reportable 07/21/19 10:54 Toxic Granulation Not Reportable 07/21/19 10:54 Toxic Vacuolation Not Reportable 07/21/19 10:54 Dohle Bodies Not Reportable 07/21/19 10:54 Pelger-Huet Anomaly Not Reportable 07/21/19 10:54 Adiel Rods Not Reportable 07/21/19 10:54 Platelet Estimate Consistent w auto 07/21/19 10:54 Clumped Platelets Not Reportable 07/21/19 10:54 Plt Clumps, EDTA Not Reportable 07/21/19 10:54 Large Platelets Not Reportable 07/21/19 10:54 Giant Platelets Not Reportable 07/21/19 10:54 Platelet Satelliting Not Reportable 07/21/19 10:54 Plt Morphology Comment Not Reportable 07/21/19 10:54 RBC Morphology Normal 07/21/19 10:54 Dimorphic RBCs Not Reportable 07/21/19 10:54 Polychromasia Not Reportable 07/21/19 10:54 Hypochromasia Not Reportable 07/21/19 10:54 Poikilocytosis Not Reportable 07/21/19 10:54 Anisocytosis Not Reportable 07/21/19 10:54 Microcytosis Not Reportable 07/21/19 10:54 Macrocytosis Not Reportable 07/21/19 10:54 Spherocytes Not Reportable 07/21/19 10:54 Pappenheimer Bodies Not Reportable 07/21/19 10:54 Sickle Cells Not Reportable 07/21/19 10:54 Target Cells Not Reportable 07/21/19 10:54 Tear Drop Cells Not Reportable 07/21/19 10:54 Ovalocytes Not Reportable 07/21/19 10:54 Helmet Cells Not Reportable 07/21/19 10:54 Ritch[place] Bodies Not Reportable 07/21/19 10:54 [place] Rings Not Reportable 07/21/19 10:54 [place] Cells Not Reportable 07/21/19 10:54 Bite Cells Not Reportable 07/21/19 10:54 Crenated Cell Not Reportable 07/21/19 10:54 Elliptocytes Not Reportable 07/21/19 10:54 Acanthocytes (Spur) Not Reportable 07/21/19 10:54 Rouleaux Not Reportable 07/21/19 10:54 Hemoglobin C Crystals Not Reportable 07/21/19 10:54 Schistocytes Not Reportable 07/21/19 10:54 Malaria parasites Not Reportable 07/21/19 10:54 Denzel Bodies Not Reportable 07/21/19 10:54 Hem Pathologist Commnt No 07/21/19 10:54 Sodium 139 mmol/L (137-145) 08/02/19 07:29 Potassium 3.9 mmol/L (3.6-5.0) 08/02/19 07:29 Chloride 101.9 mmol/L (98-107) 08/02/19 07:29 Carbon Dioxide 22 mmol/L (22-30) 08/02/19 07:29 Anion Gap 19 mmol/L 08/02/19 07:29 BUN 11 mg/dL (9-20) 08/02/19 07:29 Creatinine 0.6 mg/dL (0.8-1.5) L 08/02/19 07:29 Estimated GFR > 60 ml/min 08/02/19 07:29 BUN/Creatinine Ratio 18 % 08/02/19 07:29 Glucose 92 mg/dL (75-100) 08/02/19 07:29 POC Glucose 126 (70-105) H 08/03/19 16:37 Hemoglobin A1c 6.3 % (4-6) H 07/05/19 21:07 Calcium 9.1 mg/dL (8.4-10.2) 08/02/19 07:29 Total Bilirubin 0.20 mg/dL (0.1-1.2) 08/02/19 07:29 AST 26 units/L (5-40) 08/02/19 07:29 ALT 27 units/L (7-56) 08/02/19 07:29 Alkaline Phosphatase 80 units/L (35-129) 08/02/19 07:29 Total Protein 5.3 g/dL (6.3-8.2) L 08/02/19 07:29 Albumin 3.4 g/dL (3.9-5) L 08/02/19 07:29 Albumin/Globulin Ratio 1.8 % 08/02/19 07:29 Triglycerides 188 mg/dL (2-149) H 07/05/19 21:07 Cholesterol 115 mg/dL (50-199) 07/05/19 21:07 LDL Cholesterol Direct 47 mg/dL (50-130) L 07/05/19 21:07 HDL Cholesterol 35 mg/dL (40-59) L 07/05/19 21:07 Cholesterol/HDL Ratio 3.28 % 07/05/19 21:07 Oxcarbazepine See scanned result 07/20/19 07:59 Last Vital Signs Temp 96.1 F L 08/03/19 10:00 Pulse 91 H 08/03/19 13:40 Resp 18 08/03/19 10:00 BP 125/75 08/03/19 13:40 Pulse Ox 90 08/03/19 10:00
[2019-08-04] MEDS: LINAGLIPTIN 5 MG TAB PO SCH (09:54)
[2019-08-04] MEDS: POTASSIUM CHLORIDE ER 10 MEQ TAB PO SCH (09:55)
[2019-08-04] MEDS: metFORMIN XR 500MG TAB PO SCH (09:57)
[2019-08-04] MEDS: CLOPIDOGREL 75 MG TAB PO SCH (09:57)
[2019-08-04] MEDS: traZODone 100 MG TAB PO SCH (21:47)
[2019-08-05] MEDS: INSULIN REGULAR, HUMAN 100 UNITS/1 ML SUB-Q SCH ×4 (07:00→21:14)
[2019-08-05] MEDS: GLYCOPYRROLATE 1 MG TAB PO SCH ×3 (08:50→20:48)
[2019-08-05] MEDS: PROPRANOLOL 10 MG TAB PO SCH ×3 (11:42→20:52)
[2019-08-05] MEDS: clonazePAM 0.5 MG TAB PO SCH ×4 (11:43→21:13)
[2019-08-05] MEDS: HALOPERIDOL 5 MG TAB PO SCH ×2 (11:43→21:13)
[2019-08-05] MEDS: CLOPIDOGREL 75 MG TAB PO SCH (11:43)
[2019-08-05] MEDS: traZODone 100 MG TAB PO SCH ×4 (11:44→21:13)
[2019-08-05] MEDS: POTASSIUM CHLORIDE ER 10 MEQ TAB PO SCH (11:44)
[2019-08-05] MEDS: diphenhydrAMINE 25 MG CAP PO SCH ×3 (11:44→20:53)
[2019-08-05] MEDS: metFORMIN XR 500MG TAB PO SCH (11:45)
[2019-08-05] MEDS: OXcarbazepine 150 MG TAB PO SCH ×2 (11:45→21:11)
[2019-08-05] MEDS: CLOZAPINE 300 MG PO SCH ×3 (11:47→20:55)
[2019-08-05] MEDS: CLOTRIMAZOLE/BETAMETHASONE CREAM 15 GM TP SCH ×2 (11:48→21:11)
--- NOTE | 2019-08-05 11:54 | Progress Note ---
Subjective Date of service: 08/05/19 Principal diagnosis: Bipolar Disorder, Current Episode Manic w/Phsychotic Features Subjective Comment: The patient's medical record was reviewed and the patient's progress was discussed with the nursing staff. per chart Received the patient asleep on low mattress. Patient is in no obvious distress, sitter present in the room. Will continue to follow up. During my interview with the patient this morning, the patient was noted pacing the hallways, patient noted with sitter walking with him. He is dressed appropriately aaox1, name only. The patient noted mumbling with intermittent loud outburst and hand gestures and singing. when asked how he was doing the patient continue to pace and mumbles loudly to himself as if he was cursing.when asked about suicidal ideation the patient continued to pace and mumbles to himself. The patient remains disorganized. The patient behavior is inconsistent Reason for continuing inpatient treatment: disorganized/improving treatment REVIEW OF SYSTEMS Unable to complete due to patient's condition MSE Appearance: Awake. Dressed appropriate Behavior: pacing Affect: flat Thought Process: Disorganized Speech: garbled Thought Content Suicidal: unable to assess Homicidal: Speech garbled Hallucinations: Unable to assess Delusions: None elicited Consciousness: Alert Cognition/Memory: Impaired Insight/Judgment: poor Treatment Plan Due to the psychiatric conditions and treatment listed in the Assessment and Plan - the patient requires continued hospitalization. Will continue inpatient treatment to allow for medication adjustment and monitoring. Will continue q15 min safety checks. Will encourage the use of environmental modifications and non-pharmacologic approaches for the management of behavioral and psychological symptoms. Medication adjustment made today: none Will continue current psych medications Monitor for medication side effects. cbc with diff 08/11/2019 The patient will continue on medications for physical illnesses, and Hospitalist will closely monitor these Continue intensive physical and occupational therapies. Monitor patient's mood, sleep, appetite, and behavior closely. Encourage patient to participate in individual and group therapeutic sessions on the irizarry. Will provide a safe and therapeutic environment for patient. Medications and Allergies Allergies Allergy/AdvReac Type Severity Reaction Status Date / Time aripiprazole [From Abilify] Allergy Hives Verified 06/27/19 09:43 aspirin Allergy Hives Verified 06/27/19 09:43 cephalexin [From Keflex] Allergy Hives Verified 06/27/19 09:43 chlorpromazine Allergy Hives Verified 06/27/19 09:43 ibuprofen Allergy Hives Verified 06/27/19 09:43 naproxen Allergy Hives Verified 06/27/19 09:43 risperidone [From Risperdal] Allergy Hives Verified 07/20/19 08:16 ziprasidone [From Geodon] Allergy Hives Verified 06/27/19 09:43 Home Medications Medication Instructions Recorded Confirmed Last Taken Type AtorvaSTATin [Lipitor] 40 mg PO QHS 06/27/19 07/05/19 06/26/19 History Benztropine [Cogentin] 0.5 mg PO TID 06/27/19 07/05/19 06/26/19 History Clopidogrel [Plavix] 75 mg PO QDAY 06/27/19 07/05/19 06/26/19 History Fenofibrate 160 mg PO QDAY 06/27/19 07/05/19 06/26/19 History LORazepam [Ativan] 1 mg PO TID PRN 06/27/19 07/05/19 06/26/19 History Melatonin [Melatonin 5MG CAP] 5 mg PO QHS 06/27/19 07/05/19 06/26/19 History Metoprolol [Lopressor TAB] 100 mg PO QDAY 06/27/19 07/05/19 06/26/19 History OXcarbazepine [Oxtellar XR] 600 mg PO BID 06/27/19 07/05/19 06/26/19 History Sertraline [Zoloft] 50 mg PO QDAY 06/27/19 07/05/19 06/26/19 History Sitagliptin Phos/Metformin HCl 100 mg PO QDAY 06/27/19 07/05/19 06/26/19 History [Janumet 50-1,000 mg Tablet] cloZAPine 800 mg PO QHS 06/27/19 07/05/19 06/26/19 History diphenhydrAMINE [Benadryl CAP] 25 mg PO TID 06/27/19 07/05/19 06/26/19 History Insulin Regular, Human [HumuLIN R] 0 units SUB-Q Q6HR units 07/05/19 07/06/19 Unknown Rx haloperidoL [Haldol] 5 mg PO BID tablet 07/05/19 07/05/19 Unknown Rx metFORMIN [Glucophage] 1,000 mg PO DAILY tablet 07/05/19 07/05/19 Unknown Rx Active Meds: Active Medications Atorvastatin Calcium (Lipitor) 40 mg PO QHS [facility] Last Admin: 08/04/19 21:48 Dose: 40 mg Documented by: Clonazepam (Klonopin) 1 mg PO QID [facility] Last Admin: 08/04/19 21:48 Dose: 1 mg Documented by: Clopidogrel Bisulfate (Plavix) 75 mg PO QDAY [facility] Last Admin: 08/04/19 09:57 Dose: 75 mg Documented by: Clotrimazole (Clotrimazole/Betamethasone) 1 applic TP BID [facility] Last Admin: 08/04/19 21:44 Dose: 1 applic Documented by: Diphenhydramine HCl (Benadryl) 25 mg PO TID [facility] Last Admin: 08/04/19 21:45 Dose: 25 mg Documented by: Glycopyrrolate (Robinul) 2 mg PO TID [facility] Last Admin: 08/04/19 21:45 Dose: 2 mg Documented by: Haloperidol (Haldol) 5 mg PO BID [facility] Last Admin: 08/04/19 21:48 Dose: 5 mg Documented by: Haloperidol Lactate (Haldol) 5 mg IM Q6H PRN PRN Reason: Agitation Last Admin: 08/04/19 04:43 Dose: 5 mg Documented by: Insulin Human Regular (Humulin R) 0 units SUB-Q ACHS [facility]; Protocol Last Admin: 08/04/19 21:51 Dose: Not Given Documented by: Linagliptin (Tradjenta) 5 mg PO QDAY [facility] Last Admin: 08/04/19 09:54 Dose: 5 mg Documented by: Lorazepam (Ativan) 2 mg IM Q6H PRN PRN Reason: Agitation Last Admin: 08/04/19 04:15 Dose: 2 mg Documented by: Melatonin (Melatonin) 10 mg PO QHS [facility] Last Admin: 08/04/19 21:49 Dose: 10 mg Documented by: Metformin HCl (Glucophage Xr) 1,000 mg PO QDDIAB [facility] Last Admin: 08/04/19 09:57 Dose: 1,000 mg Documented by: Miscellaneous Medication (Clozapine) 300 mg PO TID [facility] Last Admin: 08/04/19 21:43 Dose: 300 mg Documented by: Oxcarbazepine (Trileptal) 600 mg PO BID [facility] Last Admin: 08/04/19 21:49 Dose: 600 mg Documented by: Potassium Chloride (K-Dur) 30 meq PO QDAY [facility] Last Admin: 08/04/19 09:55 Dose: 30 meq Documented by: Propranolol HCl (Inderal) 20 mg PO TID [facility] Last Admin: 08/04/19 21:46 Dose: Not Given Documented by: Trazodone HCl (Desyrel) 25 mg PO TID [facility] Trazodone HCl (Desyrel) 50 mg PO QHS [facility] Last Admin: 08/04/19 21:47 Dose: 50 mg Documented by: Results - Results Labs/Vitals: Laboratory Last Values WBC 7.0 K/mm3 (4.5-11.0) 08/02/19 07:29 RBC 3.62 M/mm3 (3.65-5.03) L 08/02/19 07:29 Hgb 11.0 gm/dl (11.8-15.2) L 08/02/19 07:29 Hct 32.5 % (35.5-45.6) L 08/02/19 07:29 MCV 90 fl (84-94) 08/02/19 07:29 MCH 31 pg (28-32) 08/02/19 07:29 MCHC 34 % (32-34) 08/02/19 07:29 RDW 14.9 % (13.2-15.2) 08/02/19 07:29 Plt Count 187 K/mm3 (140-440) 08/02/19 07:29 Lymph % (Auto) 16.7 % (13.4-35.0) 08/02/19 07:29 [place] % (Auto) 10.3 % (0.0-7.3) H 08/02/19 07:29 Eos % (Auto) 1.4 % (0.0-4.3) 08/02/19 07:29 Baso % (Auto) 0.6 % (0.0-1.8) 08/02/19 07:29 Lymph # 1.2 K/mm3 (1.2-5.4) 08/02/19 07:29 [place] # 0.7 K/mm3 (0.0-0.8) 08/02/19 07:29 Eos # 0.1 K/mm3 (0.0-0.4) 08/02/19 07:29 Baso # 0.0 K/mm3 (0.0-0.1) 08/02/19 07:29 Add Manual Diff Complete 07/21/19 10:54 Total Counted 100 07/21/19 10:54 Seg Neutrophils % 71.0 % (40.0-70.0) H 08/02/19 07:29 Seg Neuts % (Manual) 87.0 % (40.0-70.0) H 07/21/19 10:54 Band Neutrophils % 0 % 07/21/19 10:54 Lymphocytes % (Manual) 8.0 % (13.4-35.0) L 07/21/19 10:54 Reactive Lymphs % (Man) 0 % 07/21/19 10:54 Monocytes % (Manual) 5.0 % (0.0-7.3) 07/21/19 10:54 Eosinophils % (Manual) 0 % (0.0-4.3) 07/21/19 10:54 Basophils % (Manual) 0 % (0.0-1.8) 07/21/19 10:54 Metamyelocytes % 0 % 07/21/19 10:54 Myelocytes % 0 % 07/21/19 10:54 Promyelocytes % 0 % 07/21/19 10:54 Blast Cells % 0 % 07/21/19 10:54 Nucleated RBC % Not Reportable 07/21/19 10:54 Seg Neutrophils # 4.9 K/mm3 (1.8-7.7) 08/02/19 07:29 Seg Neutrophils # Man 8.9 K/mm3 (1.8-7.7) H 07/21/19 10:54 Band Neutrophils # 0.0 K/mm3 07/21/19 10:54 Lymphocytes # (Manual) 0.8 K/mm3 (1.2-5.4) L 07/21/19 10:54 Abs React Lymphs (Man) 0.0 K/mm3 07/21/19 10:54 Monocytes # (Manual) 0.5 K/mm3 (0.0-0.8) 07/21/19 10:54 Eosinophils # (Manual) 0.0 K/mm3 (0.0-0.4) 07/21/19 10:54 Basophils # (Manual) 0.0 K/mm3 (0.0-0.1) 07/21/19 10:54 Metamyelocytes # 0.0 K/mm3 07/21/19 10:54 Myelocytes # 0.0 K/mm3 07/21/19 10:54 Promyelocytes # 0.0 K/mm3 07/21/19 10:54 Blast Cells # 0.0 K/mm3 07/21/19 10:54 WBC Morphology Not Reportable 07/21/19 10:54 Hypersegmented Neuts Not Reportable 07/21/19 10:54 Hyposegmented Neuts Not Reportable 07/21/19 10:54 Hypogranular Neuts Not Reportable 07/21/19 10:54 Smudge Cells Not Reportable 07/21/19 10:54 Toxic Granulation Not Reportable 07/21/19 10:54 Toxic Vacuolation Not Reportable 07/21/19 10:54 Dohle Bodies Not Reportable 07/21/19 10:54 Pelger-Huet Anomaly Not Reportable 07/21/19 10:54 Adiel Rods Not Reportable 07/21/19 10:54 Platelet Estimate Consistent w auto 07/21/19 10:54 Clumped Platelets Not Reportable 07/21/19 10:54 Plt Clumps, EDTA Not Reportable 07/21/19 10:54 Large Platelets Not Reportable 07/21/19 10:54 Giant Platelets Not Reportable 07/21/19 10:54 Platelet Satelliting Not Reportable 07/21/19 10:54 Plt Morphology Comment Not Reportable 07/21/19 10:54 RBC Morphology Normal 07/21/19 10:54 Dimorphic RBCs Not Reportable 07/21/19 10:54 Polychromasia Not Reportable 07/21/19 10:54 Hypochromasia Not Reportable 07/21/19 10:54 Poikilocytosis Not Reportable 07/21/19 10:54 Anisocytosis Not Reportable 07/21/19 10:54 Microcytosis Not Reportable 07/21/19 10:54 Macrocytosis Not Reportable 07/21/19 10:54 Spherocytes Not Reportable 07/21/19 10:54 Pappenheimer Bodies Not Reportable 07/21/19 10:54 Sickle Cells Not Reportable 07/21/19 10:54 Target Cells Not Reportable 07/21/19 10:54 Tear Drop Cells Not Reportable 07/21/19 10:54 Ovalocytes Not Reportable 07/21/19 10:54 Helmet Cells Not Reportable 07/21/19 10:54 Ritch[place] Bodies Not Reportable 07/21/19 10:54 [place] Rings Not Reportable 07/21/19 10:54 [place] Cells Not Reportable 07/21/19 10:54 Bite Cells Not Reportable 07/21/19 10:54 Crenated Cell Not Reportable 07/21/19 10:54 Elliptocytes Not Reportable 07/21/19 10:54 Acanthocytes (Spur) Not Reportable 07/21/19 10:54 Rouleaux Not Reportable 07/21/19 10:54 Hemoglobin C Crystals Not Reportable 07/21/19 10:54 Schistocytes Not Reportable 07/21/19 10:54 Malaria parasites Not Reportable 07/21/19 10:54 Denzel Bodies Not Reportable 07/21/19 10:54 Hem Pathologist Commnt No 07/21/19 10:54 Sodium 139 mmol/L (137-145) 08/02/19 07:29 Potassium 3.9 mmol/L (3.6-5.0) 08/02/19 07:29 Chloride 101.9 mmol/L (98-107) 08/02/19 07:29 Carbon Dioxide 22 mmol/L (22-30) 08/02/19 07:29 Anion Gap 19 mmol/L 08/02/19 07:29 BUN 11 mg/dL (9-20) 08/02/19 07:29 Creatinine 0.6 mg/dL (0.8-1.5) L 08/02/19 07:29 Estimated GFR > 60 ml/min 08/02/19 07:29 BUN/Creatinine Ratio 18 % 08/02/19 07:29 Glucose 92 mg/dL (75-100) 08/02/19 07:29 POC Glucose 109 (70-105) H 08/05/19 07:03 Hemoglobin A1c 6.3 % (4-6) H 07/05/19 21:07 Calcium 9.1 mg/dL (8.4-10.2) 08/02/19 07:29 Total Bilirubin 0.20 mg/dL (0.1-1.2) 08/02/19 07:29 AST 26 units/L (5-40) 08/02/19 07:29 ALT 27 units/L (7-56) 08/02/19 07:29 Alkaline Phosphatase 80 units/L (35-129) 08/02/19 07:29 Total Protein 5.3 g/dL (6.3-8.2) L 08/02/19 07:29 Albumin 3.4 g/dL (3.9-5) L 08/02/19 07:29 Albumin/Globulin Ratio 1.8 % 08/02/19 07:29 Triglycerides 188 mg/dL (2-149) H 07/05/19 21:07 Cholesterol 115 mg/dL (50-199) 07/05/19 21:07 LDL Cholesterol Direct 47 mg/dL (50-130) L 07/05/19 21:07 HDL Cholesterol 35 mg/dL (40-59) L 07/05/19 21:07 Cholesterol/HDL Ratio 3.28 % 07/05/19 21:07 Oxcarbazepine See scanned result 07/20/19 07:59 Last Vital Signs Temp 97.5 F L 08/04/19 19:52 Pulse 95 H 08/04/19 21:46 Resp 20 08/04/19 19:52 BP 111/59 08/04/19 21:46 Pulse Ox 97 08/04/19 19:52
[2019-08-05] MEDS: LINAGLIPTIN 5 MG TAB PO SCH (16:28)
[2019-08-05] MEDS: MELATONIN 5 MG TAB PO SCH (21:13)
[2019-08-06] MEDS: INSULIN REGULAR, HUMAN 100 UNITS/1 ML SUB-Q SCH ×4 (07:46→21:25)
[2019-08-06] MEDS: diphenhydrAMINE 25 MG CAP PO SCH ×4 (08:24→22:27)
[2019-08-06] MEDS: CLOZAPINE 300 MG PO SCH ×4 (08:24→22:31)
[2019-08-06] MEDS: GLYCOPYRROLATE 1 MG TAB PO SCH ×4 (08:25→22:32)
[2019-08-06] MEDS: metFORMIN XR 500MG TAB PO SCH (08:25)
[2019-08-06] MEDS: PROPRANOLOL 10 MG TAB PO SCH ×4 (08:27→22:31)
[2019-08-06] MEDS: traZODone 50 MG TAB PO SCH ×6 (08:42→22:33)
--- NOTE | 2019-08-06 09:51 | Progress Note ---
Subjective Date of service: 08/06/19 Principal diagnosis: Bipolar Disorder, Current Episode Manic w/Phsychotic Features Subjective Comment: The patient's medical record was reviewed and the patient's progress was discussed with the nursing staff. per chart Patient slept continually throughout the night presenting as sleeping 8 hours. During my interview with the patient this morning, the patient was noted pacing the hallways and singing. He is dressed appropriately aaox1, name only. The pat ient appears more calmer and pleasant this morning. when asked how he was doing the patient continue to pace and repeated the same question.when asked about suicidal ideation the patient continued to pace and sing. The patient remains disorganized. The patient behavior is inconsistent Reason for continuing inpatient treatment: disorganized/improving treatment REVIEW OF SYSTEMS Unable to complete due to patient's condition MSE Appearance: Awake. Dressed appropriate Behavior: pacing Affect: flat Thought Process: Disorganized Speech: garbled Thought Content Suicidal: unable to assess Homicidal: Speech garbled Hallucinations: Unable to assess Delusions: None elicited Consciousness: Alert Cognition/Memory: Impaired Insight/Judgment: poor Treatment Plan Due to the psychiatric conditions and treatment listed in the Assessment and Plan - the patient requires continued hospitalization. Will continue inpatient treatment to allow for medication adjustment and monitoring. Will continue q15 min safety checks. Will encourage the use of environmental modifications and non-pharmacologic approaches for the management of behavioral and psychological symptoms. Medication adjustment made today: none Will continue current psych medications Monitor for medication side effects. cbc with diff 08/11/2019 The patient will continue on medications for physical illnesses, and Hospitalist will closely monitor these Continue intensive physical and occupational therapies. Monitor patient's mood, sleep, appetite, and behavior closely. Encourage patient to participate in individual and group therapeutic sessions on the irizarry. Will provide a safe and therapeutic environment for patient. Medications and Allergies Allergies Allergy/AdvReac Type Severity Reaction Status Date / Time aripiprazole [From Abilify] Allergy Hives Verified 06/27/19 09:43 aspirin Allergy Hives Verified 06/27/19 09:43 cephalexin [From Keflex] Allergy Hives Verified 06/27/19 09:43 chlorpromazine Allergy Hives Verified 06/27/19 09:43 ibuprofen Allergy Hives Verified 06/27/19 09:43 naproxen Allergy Hives Verified 06/27/19 09:43 risperidone [From Risperdal] Allergy Hives Verified 07/20/19 08:16 ziprasidone [From Geodon] Allergy Hives Verified 06/27/19 09:43 Home Medications Medication Instructions Recorded Confirmed Last Taken Type AtorvaSTATin [Lipitor] 40 mg PO QHS 06/27/19 07/05/19 06/26/19 History Benztropine [Cogentin] 0.5 mg PO TID 06/27/19 07/05/19 06/26/19 History Clopidogrel [Plavix] 75 mg PO QDAY 06/27/19 07/05/19 06/26/19 History Fenofibrate 160 mg PO QDAY 06/27/19 07/05/19 06/26/19 History LORazepam [Ativan] 1 mg PO TID PRN 06/27/19 07/05/19 06/26/19 History Melatonin [Melatonin 5MG CAP] 5 mg PO QHS 06/27/19 07/05/19 06/26/19 History Metoprolol [Lopressor TAB] 100 mg PO QDAY 06/27/19 07/05/19 06/26/19 History OXcarbazepine [Oxtellar XR] 600 mg PO BID 06/27/19 07/05/19 06/26/19 History Sertraline [Zoloft] 50 mg PO QDAY 06/27/19 07/05/19 06/26/19 History Sitagliptin Phos/Metformin HCl 100 mg PO QDAY 06/27/19 07/05/19 06/26/19 History [Janumet 50-1,000 mg Tablet] cloZAPine 800 mg PO QHS 06/27/19 07/05/19 06/26/19 History diphenhydrAMINE [Benadryl CAP] 25 mg PO TID 06/27/19 07/05/19 06/26/19 History Insulin Regular, Human [HumuLIN R] 0 units SUB-Q Q6HR units 07/05/19 07/06/19 Unknown Rx haloperidoL [Haldol] 5 mg PO BID tablet 07/05/19 07/05/19 Unknown Rx metFORMIN [Glucophage] 1,000 mg PO DAILY tablet 07/05/19 07/05/19 Unknown Rx Active Meds: Active Medications Atorvastatin Calcium (Lipitor) 40 mg PO QHS [facility] Last Admin: 08/05/19 21:12 Dose: 40 mg Documented by: Clonazepam (Klonopin) 1 mg PO QID [facility] Last Admin: 08/05/19 21:13 Dose: 1 mg Documented by: Clopidogrel Bisulfate (Plavix) 75 mg PO QDAY [facility] Last Admin: 08/05/19 11:43 Dose: 75 mg Documented by: Clotrimazole (Clotrimazole/Betamethasone) 1 applic TP BID [facility] Last Admin: 08/05/19 21:11 Dose: 1 applic Documented by: Diphenhydramine HCl (Benadryl) 25 mg PO TID [facility] Last Admin: 08/06/19 08:24 Dose: 25 mg Documented by: Glycopyrrolate (Robinul) 2 mg PO TID [facility] Last Admin: 08/06/19 08:25 Dose: 2 mg Documented by: Haloperidol (Haldol) 5 mg PO BID [facility] Last Admin: 08/05/19 21:13 Dose: 5 mg Documented by: Haloperidol Lactate (Haldol) 5 mg IM Q6H PRN PRN Reason: Agitation Last Admin: 08/04/19 04:43 Dose: 5 mg Documented by: Insulin Human Regular (Humulin R) 0 units SUB-Q ACHS [facility]; Protocol Last Admin: 08/06/19 07:46 Dose: Not Given Documented by: Linagliptin (Tradjenta) 5 mg PO QDAY [facility] Last Admin: 08/05/19 16:28 Dose: 5 mg Documented by: Lorazepam (Ativan) 2 mg IM Q6H PRN PRN Reason: Agitation Last Admin: 08/04/19 04:15 Dose: 2 mg Documented by: Melatonin (Melatonin) 10 mg PO QHS [facility] Last Admin: 08/05/19 21:13 Dose: 10 mg Documented by: Metformin HCl (Glucophage Xr) 1,000 mg PO QDDIAB [facility] Last Admin: 08/06/19 08:25 Dose: 1,000 mg Documented by: Miscellaneous Medication (Clozapine) 300 mg PO TID [facility] Last Admin: 08/06/19 08:24 Dose: 300 mg Documented by: Oxcarbazepine (Trileptal) 600 mg PO BID [facility] Last Admin: 08/05/19 21:11 Dose: 600 mg Documented by: Potassium Chloride (K-Dur) 30 meq PO QDAY [facility] Last Admin: 08/05/19 11:44 Dose: 30 meq Documented by: Propranolol HCl (Inderal) 20 mg PO TID [facility] Last Admin: 08/06/19 08:27 Dose: 20 mg Documented by: Trazodone HCl (Desyrel) 25 mg PO TID [facility] Last Admin: 08/06/19 08:42 Dose: 25 mg Documented by: Trazodone HCl (Desyrel) 50 mg PO QHS [facility] Results - Results Labs/Vitals: Laboratory Last Values WBC 7.0 K/mm3 (4.5-11.0) 08/02/19 07:29 RBC 3.62 M/mm3 (3.65-5.03) L 08/02/19 07:29 Hgb 11.0 gm/dl (11.8-15.2) L 08/02/19 07: Hct 32.5 % (35.5-45.6) L 08/02/19 07:29 MCV 90 fl (84-94) 08/02/19 07: MCH 31 pg (28-32) 08/02/19 07: MCHC 34 % (32-34) 08/02/19 07: RDW 14.9 % (13.2-15.2) 08/02/19 07:29 Plt Count 187 K/mm3 (140-440) 08/02/19 07:29 Lymph % (Auto) 16.7 % (13.4-35.0) 08/02/19 07:29 [place] % (Auto) 10.3 % (0.0-7.3) H 08/02/19 07:29 Eos % (Auto) 1.4 % (0.0-4.3) 08/02/19 07:29 Baso % (Auto) 0.6 % (0.0-1.8) 08/02/19 07: Lymph # 1.2 K/mm3 (1.2-5.4) 08/02/19 07:29 [place] # 0.7 K/mm3 (0.0-0.8) 08/02/19 07:29 Eos # 0.1 K/mm3 (0.0-0.4) 08/02/19 07:29 Baso # 0.0 K/mm3 (0.0-0.1) 08/02/19 07:29 Add Manual Diff Complete 07/21/19 10:54 Total Counted 100 07/21/19 10:54 Seg Neutrophils % 71.0 % (40.0-70.0) H 08/02/19 07:29 Seg Neuts % (Manual) 87.0 % (40.0-70.0) H 07/21/19 10:54 Band Neutrophils % 0 % 07/21/19 10:54 Lymphocytes % (Manual) 8.0 % (13.4-35.0) L 07/21/19 10:54 Reactive Lymphs % (Man) 0 % 07/21/19 10:54 Monocytes % (Manual) 5.0 % (0.0-7.3) 07/21/19 10:54 Eosinophils % (Manual) 0 % (0.0-4.3) 07/21/19 10:54 Basophils % (Manual) 0 % (0.0-1.8) 07/21/19 10:54 Metamyelocytes % 0 % 07/21/19 10:54 Myelocytes % 0 % 07/21/19 10:54 Promyelocytes % 0 % 07/21/19 10:54 Blast Cells % 0 % 07/21/19 10:54 Nucleated RBC % Not Reportable 07/21/19 10:54 Seg Neutrophils # 4.9 K/mm3 (1.8-7.7) 08/02/19 07:29 Seg Neutrophils # Man 8.9 K/mm3 (1.8-7.7) H 07/21/19 10:54 Band Neutrophils # 0.0 K/mm3 07/21/19 10:54 Lymphocytes # (Manual) 0.8 K/mm3 (1.2-5.4) L 07/21/19 10:54 Abs React Lymphs (Man) 0.0 K/mm3 07/21/19 10:54 Monocytes # (Manual) 0.5 K/mm3 (0.0-0.8) 07/21/19 10:54 Eosinophils # (Manual) 0.0 K/mm3 (0.0-0.4) 07/21/19 10:54 Basophils # (Manual) 0.0 K/mm3 (0.0-0.1) 07/21/19 10:54 Metamyelocytes # 0.0 K/mm3 07/21/19 10:54 Myelocytes # 0.0 K/mm3 07/21/19 10:54 Promyelocytes # 0.0 K/mm3 07/21/19 10:54 Blast Cells # 0.0 K/mm3 07/21/19 10:54 WBC Morphology Not Reportable 07/21/19 10:54 Hypersegmented Neuts Not Reportable 07/21/19 10:54 Hyposegmented Neuts Not Reportable 07/21/19 10:54 Hypogranular Neuts Not Reportable 07/21/19 10:54 Smudge Cells Not Reportable 07/21/19 10:54 Toxic Granulation Not Reportable 07/21/19 10:54 Toxic Vacuolation Not Reportable 07/21/19 10:54 Dohle Bodies Not Reportable 07/21/19 10:54 Pelger-Huet Anomaly Not Reportable 07/21/19 10:54 Adiel Rods Not Reportable 07/21/19 10:54 Platelet Estimate Consistent w auto 07/21/19 10:54 Clumped Platelets Not Reportable 07/21/19 10:54 Plt Clumps, EDTA Not Reportable 07/21/19 10:54 Large Platelets Not Reportable 07/21/19 10:54 Giant Platelets Not Reportable 07/21/19 10:54 Platelet Satelliting Not Reportable 07/21/19 10:54 Plt Morphology Comment Not Reportable 07/21/19 10:54 RBC Morphology Normal 07/21/19 10:54 Dimorphic RBCs Not Reportable 07/21/19 10:54 Polychromasia Not Reportable 07/21/19 10:54 Hypochromasia Not Reportable 07/21/19 10:54 Poikilocytosis Not Reportable 07/21/19 10:54 Anisocytosis Not Reportable 07/21/19 10:54 Microcytosis Not Reportable 07/21/19 10:54 Macrocytosis Not Reportable 07/21/19 10:54 Spherocytes Not Reportable 07/21/19 10:54 Pappenheimer Bodies Not Reportable 07/21/19 10:54 Sickle Cells Not Reportable 07/21/19 10:54 Target Cells Not Reportable 07/21/19 10:54 Tear Drop Cells Not Reportable 07/21/19 10:54 Ovalocytes Not Reportable 07/21/19 10:54 Helmet Cells Not Reportable 07/21/19 10:54 [place] Bodies Not Reportable 07/21/19 10:54 [place] Rings Not Reportable 07/21/19 10:54 [place] Cells Not Reportable 07/21/19 10:54 Bite Cells Not Reportable 07/21/19 10:54 Crenated Cell Not Reportable 07/21/19 10:54 Elliptocytes Not Reportable 07/21/19 10:54 Acanthocytes (Spur) Not Reportable 07/21/19 10:54 Rouleaux Not Reportable 07/21/19 10:54 Hemoglobin C Crystals Not Reportable 07/21/19 10:54 Schistocytes Not Reportable 07/21/19 10:54 Malaria parasites Not Reportable 07/21/19 10:54 [place]zel Bodies Not Reportable 07/21/19 10:54 Hem Pathologist Commnt No 07/21/19 10:54 Sodium 139 mmol/L (137-145) 08/02/19 07:29 Potassium 3.9 mmol/L (3.6-5.0) 08/02/19 07:29 Chloride 101.9 mmol/L (98-107) 08/02/19 07:29 Carbon Dioxide 22 mmol/L (22-30) 08/02/19 07:29 Anion Gap 19 mmol/L 08/02/19 07:29 BUN 11 mg/dL (9-20) 08/02/19 07:29 Creatinine 0.6 mg/dL (0.8-1.5) L 08/02/19 07:29 Estimated GFR > 60 ml/min 08/02/19 07:29 BUN/Creatinine Ratio 18 % 08/02/19 07:29 Glucose 92 mg/dL (75-100) 08/02/19 07:29 POC Glucose 113 (70-105) H 08/06/19 07:17 Hemoglobin A1c 6.3 % (4-6) H 07/05/19 21:07 Calcium 9.1 mg/dL (8.4-10.2) 08/02/19 07:29 Total Bilirubin 0.20 mg/dL (0.1-1.2) 08/02/19 07:29 AST 26 units/L (5-40) 08/02/19 07:29 ALT 27 units/L (7-56) 08/02/19 07:29 Alkaline Phosphatase 80 units/L (35-129) 08/02/19 07:29 Total Protein 5.3 g/dL (6.3-8.2) L 08/02/19 07:29 Albumin 3.4 g/dL (3.9-5) L 08/02/19 07:29 Albumin/Globulin Ratio 1.8 % 08/02/19 07:29 Triglycerides 188 mg/dL (2-149) H 07/05/19 21:07 Cholesterol 115 mg/dL (50-199) 07/05/19 21:07 LDL Cholesterol Direct 47 mg/dL (50-130) L 07/05/19 21:07 HDL Cholesterol 35 mg/dL (40-59) L 07/05/19 21:07 Cholesterol/HDL Ratio 3.28 % 07/05/19 21:07 Oxcarbazepine See scanned result 07/20/19 07:59 Last Vital Signs Temp 98.1 F 08/06/19 09:17 Pulse 104 H 08/06/19 09:17 Resp 18 08/06/19 09:17 BP 123/71 08/06/19 09:17 Pulse Ox 99 08/06/19 09:17
[2019-08-06] MEDS: OXcarbazepine 150 MG TAB PO SCH ×3 (09:57→22:33)
[2019-08-06] MEDS: HALOPERIDOL 5 MG TAB PO SCH ×3 (09:57→22:32)
[2019-08-06] MEDS: CLOPIDOGREL 75 MG TAB PO SCH (09:57)
[2019-08-06] MEDS: clonazePAM 0.5 MG TAB PO SCH ×5 (09:57→22:32)
[2019-08-06] MEDS: POTASSIUM CHLORIDE ER 10 MEQ TAB PO SCH (09:57)
[2019-08-06] MEDS: LINAGLIPTIN 5 MG TAB PO SCH (09:58)
[2019-08-06] MEDS: CLOTRIMAZOLE/BETAMETHASONE CREAM 15 GM TP SCH ×3 (09:58→22:32)
[2019-08-06] MEDS: LORazepam 2 MG/ML VIAL IM PRN ×2 (10:11→22:35)
[2019-08-06] MEDS: HALOPERIDOL LACTATE 5 MG/1 ML INJ IM PRN ×2 (10:12→22:36)
[2019-08-06] MEDS: MELATONIN 5 MG TAB PO SCH ×2 (21:24→22:34)
[2019-08-07] MEDS: INSULIN REGULAR, HUMAN 100 UNITS/1 ML SUB-Q SCH ×4 (07:30→23:03)
[2019-08-07] MEDS: diphenhydrAMINE 25 MG CAP PO SCH ×3 (08:35→23:11)
[2019-08-07] MEDS: PROPRANOLOL 10 MG TAB PO SCH ×3 (08:37→23:02)
[2019-08-07] MEDS: traZODone 50 MG TAB PO SCH ×4 (08:38→23:05)
--- NOTE | 2019-08-07 11:13 | Progress Note ---
Subjective Date of service: 08/07/19 Principal diagnosis: Bipolar Disorder, Current Episode Manic w/Phsychotic Features Subjective Comment: The patient's medical record was reviewed and the patient's progress was discussed with the nursing staff. per chart Patient slept continually throughout the night presenting as sleeping 8 hours. During my interview with the patient this morning, the patient was noted pacing the hallways and singing. He is dressed appropriately aaox1, name only. The pat ient appears more calmer and pleasant this morning. when asked how he was doing the patient continue to sing and pace.when asked about suicidal ideation the patient continued to pace and sing. The patient remains disorganized. new prescription was clozapine called into [facility] with lab valves Reason for continuing inpatient treatment: disorganized/improving treatment REVIEW OF SYSTEMS Unable to complete due to patient's condition MSE Appearance: Awake. Dressed appropriate Behavior: pacing Affect: flat Thought Process: Disorganized Speech: garbled Thought Content Suicidal: unable to assess Homicidal: Speech garbled Hallucinations: Unable to assess Delusions: None elicited Consciousness: Alert Cognition/Memory: Impaired Insight/Judgment: poor Treatment Plan Due to the psychiatric conditions and treatment listed in the Assessment and Plan - the patient requires continued hospitalization. Will continue inpatient treatment to allow for medication adjustment and monitoring. Will continue q15 min safety checks. Will encourage the use of environmental modifications and non-pharmacologic approaches for the management of behavioral and psychological symptoms. Medication adjustment made today: none Will continue current psych medications Monitor for medication side effects. cbc with diff 08/11/2019 The patient will continue on medications for physical illnesses, and Hospitalist will closely monitor these Continue intensive physical and occupational therapies. Monitor patient's mood, sleep, appetite, and behavior closely. Encourage patient to participate in individual and group therapeutic sessions on the irizarry. Will provide a safe and therapeutic environment for patient. Medications and Allergies Allergies Allergy/AdvReac Type Severity Reaction Status Date / Time aripiprazole [From Abilify] Allergy Hives Verified 06/27/19 09:43 aspirin Allergy Hives Verified 06/27/19 09:43 cephalexin [From Keflex] Allergy Hives Verified 06/27/19 09:43 chlorpromazine Allergy Hives Verified 06/27/19 09:43 ibuprofen Allergy Hives Verified 06/27/19 09:43 naproxen Allergy Hives Verified 06/27/19 09:43 risperidone [From Risperdal] Allergy Hives Verified 07/20/19 08:16 ziprasidone [From Geodon] Allergy Hives Verified 06/27/19 09:43 Home Medications Medication Instructions Recorded Confirmed Last Taken Type AtorvaSTATin [Lipitor] 40 mg PO QHS 06/27/19 07/05/19 06/26/19 History Benztropine [Cogentin] 0.5 mg PO TID 06/27/19 07/05/19 06/26/19 History Clopidogrel [Plavix] 75 mg PO QDAY 06/27/19 07/05/19 06/26/19 History Fenofibrate 160 mg PO QDAY 06/27/19 07/05/19 06/26/19 History LORazepam [Ativan] 1 mg PO TID PRN 06/27/19 07/05/19 06/26/19 History Melatonin [Melatonin 5MG CAP] 5 mg PO QHS 06/27/19 07/05/19 06/26/19 History Metoprolol [Lopressor TAB] 100 mg PO QDAY 06/27/19 07/05/19 06/26/19 History OXcarbazepine [Oxtellar XR] 600 mg PO BID 06/27/19 07/05/19 06/26/19 History Sertraline [Zoloft] 50 mg PO QDAY 06/27/19 07/05/19 06/26/19 History Sitagliptin Phos/Metformin HCl 100 mg PO QDAY 06/27/19 07/05/19 06/26/19 History [Janumet 50-1,000 mg Tablet] cloZAPine 800 mg PO QHS 06/27/19 07/05/19 06/26/19 History diphenhydrAMINE [Benadryl CAP] 25 mg PO TID 06/27/19 07/05/19 06/26/19 History Insulin Regular, Human [HumuLIN R] 0 units SUB-Q Q6HR units 07/05/19 07/06/19 Unknown Rx haloperidoL [Haldol] 5 mg PO BID tablet 07/05/19 07/05/19 Unknown Rx metFORMIN [Glucophage] 1,000 mg PO DAILY tablet 07/05/19 07/05/19 Unknown Rx Active Meds: Active Medications Atorvastatin Calcium (Lipitor) 40 mg PO QHS [facility] Last Admin: 08/06/19 22:32 Dose: Not Given Documented by: Clonazepam (Klonopin) 1 mg PO QID [facility] Last Admin: 08/06/19 22:32 Dose: Not Given Documented by: Clopidogrel Bisulfate (Plavix) 75 mg PO QDAY [facility] Last Admin: 08/06/19 09:57 Dose: 75 mg Documented by: Clotrimazole (Clotrimazole/Betamethasone) 1 applic TP BID [facility] Last Admin: 08/06/19 22:32 Dose: Not Given Documented by: Diphenhydramine HCl (Benadryl) 25 mg PO TID [facility] Last Admin: 08/07/19 08:35 Dose: 25 mg Documented by: Glycopyrrolate (Robinul) 2 mg PO TID [facility] Last Admin: 08/06/19 22:32 Dose: Not Given Documented by: Haloperidol (Haldol) 5 mg PO BID [facility] Last Admin: 08/06/19 22:32 Dose: Not Given Documented by: Haloperidol Lactate (Haldol) 5 mg IM Q6H PRN PRN Reason: Agitation Last Admin: 08/06/19 22:36 Dose: 5 mg Documented by: Insulin Human Regular (Humulin R) 0 units SUB-Q ACHS [facility]; Protocol Last Admin: 08/07/19 07:30 Dose: Not Given Documented by: Linagliptin (Tradjenta) 5 mg PO QDAY [facility] Last Admin: 08/06/19 09:58 Dose: 5 mg Documented by: Lorazepam (Ativan) 2 mg IM Q6H PRN PRN Reason: Agitation Last Admin: 08/06/19 22:35 Dose: 2 mg Documented by: Melatonin (Melatonin) 10 mg PO QHS [facility] Last Admin: 08/06/19 22:34 Dose: Not Given Documented by: Metformin HCl (Glucophage Xr) 1,000 mg PO QDDIAB [facility] Last Admin: 08/06/19 08:25 Dose: 1,000 mg Documented by: Miscellaneous Medication (Clozapine) 300 mg PO TID [facility] Last Admin: 08/06/19 22:31 Dose: Not Given Documented by: Oxcarbazepine (Trileptal) 600 mg PO BID [facility] Last Admin: 08/06/19 22:33 Dose: Not Given Documented by: Potassium Chloride (K-Dur) 30 meq PO QDAY [facility] Last Admin: 08/06/19 09:57 Dose: 30 meq Documented by: Propranolol HCl (Inderal) 20 mg PO TID [facility] Last Admin: 08/07/19 08:37 Dose: 20 mg Documented by: Trazodone HCl (Desyrel) 25 mg PO TID [facility] Last Admin: 08/07/19 08:38 Dose: 25 mg Documented by: Trazodone HCl (Desyrel) 50 mg PO QHS [facility] Last Admin: 08/06/19 22:33 Dose: Not Given Documented by: Results - Results Labs/Vitals: Laboratory Last Values WBC 7.0 K/mm3 (4.5-11.0) 08/02/19 07: RBC 3.62 M/mm3 (3.65-5.03) L 08/02/19 07: Hgb 11.0 gm/dl (11.8-15.2) L 08/02/19 07:29 Hct 32.5 % (35.5-45.6) L 08/02/19 07: MCV 90 fl (84-94) 08/02/19 07: MCH 31 pg (28-32) 08/02/19 07: MCHC 34 % (32-34) 08/02/19 07: RDW 14.9 % (13.2-15.2) 08/02/19 07:29 Plt Count 187 K/mm3 (140-440) 08/02/19 07:29 Lymph % (Auto) 16.7 % (13.4-35.0) 08/02/19 07:29 [place] % (Auto) 10.3 % (0.0-7.3) H 08/02/19 07:29 Eos % (Auto) 1.4 % (0.0-4.3) 08/02/19 07: Baso % (Auto) 0.6 % (0.0-1.8) 08/02/19 07: Lymph # 1.2 K/mm3 (1.2-5.4) 08/02/19 07: [place] # 0.7 K/mm3 (0.0-0.8) 08/02/19 07:29 Eos # 0.1 K/mm3 (0.0-0.4) 08/02/19 07:29 Baso # 0.0 K/mm3 (0.0-0.1) 08/02/19 07:29 Add Manual Diff Complete 07/21/19 10:54 Total Counted 100 07/21/19 10:54 Seg Neutrophils % 71.0 % (40.0-70.0) H 08/02/19 07:29 Seg Neuts % (Manual) 87.0 % (40.0-70.0) H 07/21/19 10:54 Band Neutrophils % 0 % 07/21/19 10:54 Lymphocytes % (Manual) 8.0 % (13.4-35.0) L 07/21/19 10:54 Reactive Lymphs % (Man) 0 % 07/21/19 10:54 Monocytes % (Manual) 5.0 % (0.0-7.3) 07/21/19 10:54 Eosinophils % (Manual) 0 % (0.0-4.3) 07/21/19 10:54 Basophils % (Manual) 0 % (0.0-1.8) 07/21/19 10:54 Metamyelocytes % 0 % 07/21/19 10:54 Myelocytes % 0 % 07/21/19 10:54 Promyelocytes % 0 % 07/21/19 10:54 Blast Cells % 0 % 07/21/19 10:54 Nucleated RBC % Not Reportable 07/21/19 10:54 Seg Neutrophils # 4.9 K/mm3 (1.8-7.7) 08/02/19 07:29 Seg Neutrophils # Man 8.9 K/mm3 (1.8-7.7) H 07/21/19 10:54 Band Neutrophils # 0.0 K/mm3 07/21/19 10:54 Lymphocytes # (Manual) 0.8 K/mm3 (1.2-5.4) L 07/21/19 10:54 Abs React Lymphs (Man) 0.0 K/mm3 07/21/19 10:54 Monocytes # (Manual) 0.5 K/mm3 (0.0-0.8) 07/21/19 10:54 Eosinophils # (Manual) 0.0 K/mm3 (0.0-0.4) 07/21/19 10:54 Basophils # (Manual) 0.0 K/mm3 (0.0-0.1) 07/21/19 10:54 Metamyelocytes # 0.0 K/mm3 07/21/19 10:54 Myelocytes # 0.0 K/mm3 07/21/19 10:54 Promyelocytes # 0.0 K/mm3 07/21/19 10:54 Blast Cells # 0.0 K/mm3 07/21/19 10:54 WBC Morphology Not Reportable 07/21/19 10:54 Hypersegmented Neuts Not Reportable 07/21/19 10:54 Hyposegmented Neuts Not Reportable 07/21/19 10:54 Hypogranular Neuts Not Reportable 07/21/19 10:54 Smudge Cells Not Reportable 07/21/19 10:54 Toxic Granulation Not Reportable 07/21/19 10:54 Toxic Vacuolation Not Reportable 07/21/19 10:54 Dohle Bodies Not Reportable 07/21/19 10:54 Pelger-Huet Anomaly Not Reportable 07/21/19 10:54 Adiel Rods Not Reportable 07/21/19 10:54 Platelet Estimate Consistent w auto 07/21/19 10:54 Clumped Platelets Not Reportable 07/21/19 10:54 Plt Clumps, EDTA Not Reportable 07/21/19 10:54 Large Platelets Not Reportable 07/21/19 10:54 Giant Platelets Not Reportable 07/21/19 10:54 Platelet Satelliting Not Reportable 07/21/19 10:54 Plt Morphology Comment Not Reportable 07/21/19 10:54 RBC Morphology Normal 07/21/19 10:54 Dimorphic RBCs Not Reportable 07/21/19 10:54 Polychromasia Not Reportable 07/21/19 10:54 Hypochromasia Not Reportable 07/21/19 10:54 Poikilocytosis Not Reportable 07/21/19 10:54 Anisocytosis Not Reportable 07/21/19 10:54 Microcytosis Not Reportable 07/21/19 10:54 Macrocytosis Not Reportable 07/21/19 10:54 Spherocytes Not Reportable 07/21/19 10:54 Pappenheimer Bodies Not Reportable 07/21/19 10:54 Sickle Cells Not Reportable 07/21/19 10:54 Target Cells Not Reportable 07/21/19 10:54 Tear Drop Cells Not Reportable 07/21/19 10:54 Ovalocytes Not Reportable 07/21/19 10:54 Helmet Cells Not Reportable 07/21/19 10:54 [place] Bodies Not Reportable 07/21/19 10:54 [place] Rings Not Reportable 07/21/19 10:54 [place] Cells Not Reportable 07/21/19 10:54 Bite Cells Not Reportable 07/21/19 10:54 Crenated Cell Not Reportable 07/21/19 10:54 Elliptocytes Not Reportable 07/21/19 10:54 Acanthocytes (Spur) Not Reportable 07/21/19 10:54 Rouleaux Not Reportable 07/21/19 10:54 Hemoglobin C Crystals Not Reportable 07/21/19 10:54 Schistocytes Not Reportable 07/21/19 10:54 Malaria parasites Not Reportable 07/21/19 10:54 Denzel Bodies Not Reportable 07/21/19 10:54 Hem Pathologist Commnt No 07/21/19 10:54 Sodium 139 mmol/L (137-145) 08/02/19 07:29 Potassium 3.9 mmol/L (3.6-5.0) 08/02/19 07:29 Chloride 101.9 mmol/L (98-107) 08/02/19 07:29 Carbon Dioxide 22 mmol/L (22-30) 08/02/19 07:29 Anion Gap 19 mmol/L 08/02/19 07:29 BUN 11 mg/dL (9-20) 08/02/19 07:29 Creatinine 0.6 mg/dL (0.8-1.5) L 08/02/19 07:29 Estimated GFR > 60 ml/min 08/02/19 07:29 BUN/Creatinine Ratio 18 % 08/02/19 07:29 Glucose 92 mg/dL (75-100) 08/02/19 07:29 POC Glucose 109 (70-105) H 08/07/19 07:12 Hemoglobin A1c 6.3 % (4-6) H 07/05/19 21:07 Calcium 9.1 mg/dL (8.4-10.2) 08/02/19 07:29 Total Bilirubin 0.20 mg/dL (0.1-1.2) 08/02/19 07:29 AST 26 units/L (5-40) 08/02/19 07:29 ALT 27 units/L (7-56) 08/02/19 07:29 Alkaline Phosphatase 80 units/L (35-129) 08/02/19 07:29 Total Protein 5.3 g/dL (6.3-8.2) L 08/02/19 07:29 Albumin 3.4 g/dL (3.9-5) L 08/02/19 07:29 Albumin/Globulin Ratio 1.8 % 08/02/19 07:29 Triglycerides 188 mg/dL (2-149) H 07/05/19 21:07 Cholesterol 115 mg/dL (50-199) 07/05/19 21:07 LDL Cholesterol Direct 47 mg/dL (50-130) L 07/05/19 21:07 HDL Cholesterol 35 mg/dL (40-59) L 07/05/19 21:07 Cholesterol/HDL Ratio 3.28 % 07/05/19 21:07 Oxcarbazepine See scanned result 07/20/19 07:59 Last Vital Signs Temp 98.1 F 08/06/19 09:17 Pulse 96 H 08/07/19 08:37 Resp 18 08/06/19 09:17 BP 121/72 08/06/19 22:31 Pulse Ox 99 08/06/19 09:17
[2019-08-07] MEDS: OXcarbazepine 150 MG TAB PO SCH ×2 (12:06→23:04)
[2019-08-07] MEDS: LINAGLIPTIN 5 MG TAB PO SCH (12:07)
[2019-08-07] MEDS: HALOPERIDOL 5 MG TAB PO SCH ×2 (12:07→23:03)
[2019-08-07] MEDS: GLYCOPYRROLATE 1 MG TAB PO SCH ×3 (12:07→23:01)
[2019-08-07] MEDS: POTASSIUM CHLORIDE ER 10 MEQ TAB PO SCH (12:07)
[2019-08-07] MEDS: metFORMIN XR 500MG TAB PO SCH (12:08)
[2019-08-07] MEDS: CLOPIDOGREL 75 MG TAB PO SCH (12:08)
[2019-08-07] MEDS: CLOTRIMAZOLE/BETAMETHASONE CREAM 15 GM TP SCH ×2 (12:08→22:59)
[2019-08-07] MEDS: CLOZAPINE 300 MG PO SCH ×3 (12:11→22:59)
[2019-08-07] MEDS: clonazePAM 0.5 MG TAB PO SCH ×4 (12:36→23:05)
[2019-08-07] MEDS: HALOPERIDOL LACTATE 5 MG/1 ML INJ IM PRN (15:08)
[2019-08-07] MEDS: LORazepam 2 MG/ML VIAL IM PRN ×2 (15:08→21:28)
[2019-08-07] MEDS: MELATONIN 5 MG TAB PO SCH (23:04)
[2019-08-08] MEDS: metFORMIN XR 500MG TAB PO SCH (08:00)
--- NOTE | 2019-08-08 09:28 | Progress Note ---
Subjective Date of service: 08/08/19 Principal diagnosis: Bipolar Disorder, Current Episode Manic w/Phsychotic Features Subjective Comment: The patient's medical record was reviewed and the patient's progress was discussed with the nursing staff. per chart Received patient at 0715 sleeping in the hallway, with eyes closed. respirations even unlabored, no signs of distress noted. We will continue to monitor for safety. During my interview with the patient this morning, the patient was noted in the recliner with eyes closed easily aroused but went back to sleep, no distress noted we will continue to monitor. Reason for continuing inpatient treatment: disorganized/improving treatment REVIEW OF SYSTEMS Unable to complete due to patient's condition MSE Unable to assess Treatment Plan Due to the psychiatric conditions and treatment listed in the Assessment and Plan - the patient requires continued hospitalization. Will continue inpatient treatment to allow for medication adjustment and monitoring. Will continue q15 min safety checks. Will encourage the use of environmental modifications and non-pharmacologic approaches for the management of behavioral and psychological symptoms. Medication adjustment made today: none Will continue current psych medications Monitor for medication side effects. cbc with diff 08/11/2019 The patient will continue on medications for physical illnesses, and Hospitalist will closely monitor these Continue intensive physical and occupational therapies. Monitor patient's mood, sleep, appetite, and behavior closely. Encourage patient to participate in individual and group therapeutic sessions on the irizarry. Will provide a safe and therapeutic environment for patient. Medications and Allergies Allergies Allergy/AdvReac Type Severity Reaction Status Date / Time aripiprazole [From Abilify] Allergy Hives Verified 06/27/19 09:43 aspirin Allergy Hives Verified 06/27/19 09:43 cephalexin [From Keflex] Allergy Hives Verified 06/27/19 09:43 chlorpromazine Allergy Hives Verified 06/27/19 09:43 ibuprofen Allergy Hives Verified 06/27/19 09:43 naproxen Allergy Hives Verified 06/27/19 09:43 risperidone [From Risperdal] Allergy Hives Verified 07/20/19 08:16 ziprasidone [From Geodon] Allergy Hives Verified 06/27/19 09:43 Home Medications Medication Instructions Recorded Confirmed Last Taken Type AtorvaSTATin [Lipitor] 40 mg PO QHS 06/27/19 07/05/19 06/26/19 History Benztropine [Cogentin] 0.5 mg PO TID 06/27/19 07/05/19 06/26/19 History Clopidogrel [Plavix] 75 mg PO QDAY 06/27/19 07/05/19 06/26/19 History Fenofibrate 160 mg PO QDAY 06/27/19 07/05/19 06/26/19 History LORazepam [Ativan] 1 mg PO TID PRN 06/27/19 07/05/19 06/26/19 History Melatonin [Melatonin 5MG CAP] 5 mg PO QHS 06/27/19 07/05/19 06/26/19 History Metoprolol [Lopressor TAB] 100 mg PO QDAY 06/27/19 07/05/19 06/26/19 History OXcarbazepine [Oxtellar XR] 600 mg PO BID 06/27/19 07/05/19 06/26/19 History Sertraline [Zoloft] 50 mg PO QDAY 06/27/19 07/05/19 06/26/19 History Sitagliptin Phos/Metformin HCl 100 mg PO QDAY 06/27/19 07/05/19 06/26/19 History [Janumet 50-1,000 mg Tablet] cloZAPine 800 mg PO QHS 06/27/19 07/05/19 06/26/19 History diphenhydrAMINE [Benadryl CAP] 25 mg PO TID 06/27/19 07/05/19 06/26/19 History Insulin Regular, Human [HumuLIN R] 0 units SUB-Q Q6HR units 07/05/19 07/06/19 Unknown Rx haloperidoL [Haldol] 5 mg PO BID tablet 07/05/19 07/05/19 Unknown Rx metFORMIN [Glucophage] 1,000 mg PO DAILY tablet 07/05/19 07/05/19 Unknown Rx Active Meds: Active Medications Atorvastatin Calcium (Lipitor) 40 mg PO QHS [facility] Last Admin: 08/07/19 23:03 Dose: 40 mg Documented by: Clonazepam (Klonopin) 1 mg PO QID [facility] Last Admin: 08/07/19 23:05 Dose: 1 mg Documented by: Clopidogrel Bisulfate (Plavix) 75 mg PO QDAY [facility] Last Admin: 08/07/19 12:08 Dose: 75 mg Documented by: Clotrimazole (Clotrimazole/Betamethasone) 1 applic TP BID [facility] Last Admin: 08/07/19 22:59 Dose: 1 applic Documented by: Diphenhydramine HCl (Benadryl) 25 mg PO TID [facility] Last Admin: 08/07/19 23:11 Dose: 25 mg Documented by: Glycopyrrolate (Robinul) 2 mg PO TID [facility] Last Admin: 08/07/19 23:01 Dose: 2 mg Documented by: Haloperidol (Haldol) 5 mg PO BID [facility] Last Admin: 08/07/19 23:03 Dose: 5 mg Documented by: Haloperidol Lactate (Haldol) 5 mg IM Q6H PRN PRN Reason: Agitation Last Admin: 08/07/19 15:08 Dose: 5 mg Documented by: Insulin Human Regular (Humulin R) 0 units SUB-Q ACHS [facility]; Protocol Last Admin: 08/07/19 23:03 Dose: Not Given Documented by: Linagliptin (Tradjenta) 5 mg PO QDAY [facility] Last Admin: 08/07/19 12:07 Dose: 5 mg Documented by: Lorazepam (Ativan) 2 mg IM Q6H PRN PRN Reason: Agitation Last Admin: 08/07/19 21:28 Dose: 2 mg Documented by: Melatonin (Melatonin) 10 mg PO QHS [facility] Last Admin: 08/07/19 23:04 Dose: 10 mg Documented by: Metformin HCl (Glucophage Xr) 1,000 mg PO QDDIAB [facility] Last Admin: 08/07/19 12:08 Dose: 1,000 mg Documented by: Miscellaneous Medication (Clozapine) 300 mg PO TID [facility] Last Admin: 08/07/19 22:59 Dose: 300 mg Documented by: Oxcarbazepine (Trileptal) 600 mg PO BID [facility] Last Admin: 08/07/19 23:04 Dose: 600 mg Documented by: Potassium Chloride (K-Dur) 30 meq PO QDAY [facility] Last Admin: 08/07/19 12:07 Dose: 30 meq Documented by: Propranolol HCl (Inderal) 20 mg PO TID [facility] Last Admin: 08/07/19 23:02 Dose: 20 mg Documented by: Trazodone HCl (Desyrel) 25 mg PO TID [facility] Last Admin: 08/07/19 23:02 Dose: 25 mg Documented by: Trazodone HCl (Desyrel) 50 mg PO QHS [facility] Last Admin: 08/07/19 23:05 Dose: 50 mg Documented by: Results - Results Labs/Vitals: Laboratory Last Values WBC 7.0 K/mm3 (4.5-11.0) 08/02/19 07: RBC 3.62 M/mm3 (3.65-5.03) L 08/02/19 07: Hgb 11.0 gm/dl (11.8-15.2) L 08/02/19 07: Hct 32.5 % (35.5-45.6) L 08/02/19 07: MCV 90 fl (84-94) 08/02/19 07: MCH 31 pg (28-32) 08/02/19 07: MCHC 34 % (32-34) 08/02/19 07: RDW 14.9 % (13.2-15.2) 08/02/19 07: Plt Count 187 K/mm3 (140-440) 08/02/19 07:29 Lymph % (Auto) 16.7 % (13.4-35.0) 08/02/19 07: [place] % (Auto) 10.3 % (0.0-7.3) H 08/02/19 07: Eos % (Auto) 1.4 % (0.0-4.3) 08/02/19 07: Baso % (Auto) 0.6 % (0.0-1.8) 08/02/19 07: Lymph # 1.2 K/mm3 (1.2-5.4) 08/02/19 07: [place] # 0.7 K/mm3 (0.0-0.8) 08/02/19 07: Eos # 0.1 K/mm3 (0.0-0.4) 08/02/19 07: Baso # 0.0 K/mm3 (0.0-0.1) 08/02/19 07: Add Manual Diff Complete 07/21/19 10:54 Total Counted 100 07/21/19 10:54 Seg Neutrophils % 71.0 % (40.0-70.0) H 08/02/19 07:29 Seg Neuts % (Manual) 87.0 % (40.0-70.0) H 07/21/19 10:54 Band Neutrophils % 0 % 07/21/19 10:54 Lymphocytes % (Manual) 8.0 % (13.4-35.0) L 07/21/19 10:54 Reactive Lymphs % (Man) 0 % 07/21/19 10:54 Monocytes % (Manual) 5.0 % (0.0-7.3) 07/21/19 10:54 Eosinophils % (Manual) 0 % (0.0-4.3) 07/21/19 10:54 Basophils % (Manual) 0 % (0.0-1.8) 07/21/19 10:54 Metamyelocytes % 0 % 07/21/19 10:54 Myelocytes % 0 % 07/21/19 10:54 Promyelocytes % 0 % 07/21/19 10:54 Blast Cells % 0 % 07/21/19 10:54 Nucleated RBC % Not Reportable 07/21/19 10:54 Seg Neutrophils # 4.9 K/mm3 (1.8-7.7) 08/02/19 07:29 Seg Neutrophils # Man 8.9 K/mm3 (1.8-7.7) H 07/21/19 10:54 Band Neutrophils # 0.0 K/mm3 07/21/19 10:54 Lymphocytes # (Manual) 0.8 K/mm3 (1.2-5.4) L 07/21/19 10:54 Abs React Lymphs (Man) 0.0 K/mm3 07/21/19 10:54 Monocytes # (Manual) 0.5 K/mm3 (0.0-0.8) 07/21/19 10:54 Eosinophils # (Manual) 0.0 K/mm3 (0.0-0.4) 07/21/19 10:54 Basophils # (Manual) 0.0 K/mm3 (0.0-0.1) 07/21/19 10:54 Metamyelocytes # 0.0 K/mm3 07/21/19 10:54 Myelocytes # 0.0 K/mm3 07/21/19 10:54 Promyelocytes # 0.0 K/mm3 07/21/19 10:54 Blast Cells # 0.0 K/mm3 07/21/19 10:54 WBC Morphology Not Reportable 07/21/19 10:54 Hypersegmented Neuts Not Reportable 07/21/19 10:54 Hyposegmented Neuts Not Reportable 07/21/19 10:54 Hypogranular Neuts Not Reportable 07/21/19 10:54 Smudge Cells Not Reportable 07/21/19 10:54 Toxic Granulation Not Reportable 07/21/19 10:54 Toxic Vacuolation Not Reportable 07/21/19 10:54 Dohle Bodies Not Reportable 07/21/19 10:54 Pelger-Huet Anomaly Not Reportable 07/21/19 10:54 Adiel Rods Not Reportable 07/21/19 10:54 Platelet Estimate Consistent w auto 07/21/19 10:54 Clumped Platelets Not Reportable 07/21/19 10:54 Plt Clumps, EDTA Not Reportable 07/21/19 10:54 Large Platelets Not Reportable 07/21/19 10:54 Giant Platelets Not Reportable 07/21/19 10:54 Platelet Satelliting Not Reportable 07/21/19 10:54 Plt Morphology Comment Not Reportable 07/21/19 10:54 RBC Morphology Normal 07/21/19 10:54 Dimorphic RBCs Not Reportable 07/21/19 10:54 Polychromasia Not Reportable 07/21/19 10:54 Hypochromasia Not Reportable 07/21/19 10:54 Poikilocytosis Not Reportable 07/21/19 10:54 Anisocytosis Not Reportable 07/21/19 10:54 Microcytosis Not Reportable 07/21/19 10:54 Macrocytosis Not Reportable 07/21/19 10:54 Spherocytes Not Reportable 07/21/19 10:54 Pappenheimer Bodies Not Reportable 07/21/19 10:54 Sickle Cells Not Reportable 07/21/19 10:54 Target Cells Not Reportable 07/21/19 10:54 Tear Drop Cells Not Reportable 07/21/19 10:54 Ovalocytes Not Reportable 07/21/19 10:54 Helmet Cells Not Reportable 07/21/19 10:54 [place] Bodies Not Reportable 07/21/19 10:54 [place] Rings Not Reportable 07/21/19 10:54 [place] Cells Not Reportable 07/21/19 10:54 Bite Cells Not Reportable 07/21/19 10:54 Crenated Cell Not Reportable 07/21/19 10:54 Elliptocytes Not Reportable 07/21/19 10:54 Acanthocytes (Spur) Not Reportable 07/21/19 10:54 Rouleaux Not Reportable 07/21/19 10:54 Hemoglobin C Crystals Not Reportable 07/21/19 10:54 Schistocytes Not Reportable 07/21/19 10:54 Malaria parasites Not Reportable 07/21/19 10:54 Denzel Bodies Not Reportable 07/21/19 10:54 Hem Pathologist Commnt No 07/21/19 10:54 Sodium 139 mmol/L (137-145) 08/02/19 07:29 Potassium 3.9 mmol/L (3.6-5.0) 08/02/19 07:29 Chloride 101.9 mmol/L (98-107) 08/02/19 07:29 Carbon Dioxide 22 mmol/L (22-30) 08/02/19 07:29 Anion Gap 19 mmol/L 08/02/19 07:29 BUN 11 mg/dL (9-20) 08/02/19 07:29 Creatinine 0.6 mg/dL (0.8-1.5) L 08/02/19 07:29 Estimated GFR > 60 ml/min 08/02/19 07:29 BUN/Creatinine Ratio 18 % 08/02/19 07:29 Glucose 92 mg/dL (75-100) 08/02/19 07:29 POC Glucose 134 (70-105) H 08/07/19 19:41 Hemoglobin A1c 6.3 % (4-6) H 07/05/19 21:07 Calcium 9.1 mg/dL (8.4-10.2) 08/02/19 07:29 Total Bilirubin 0.20 mg/dL (0.1-1.2) 08/02/19 07:29 AST 26 units/L (5-40) 08/02/19 07:29 ALT 27 units/L (7-56) 08/02/19 07:29 Alkaline Phosphatase 80 units/L (35-129) 08/02/19 07:29 Total Protein 5.3 g/dL (6.3-8.2) L 08/02/19 07:29 Albumin 3.4 g/dL (3.9-5) L 08/02/19 07:29 Albumin/Globulin Ratio 1.8 % 08/02/19 07:29 Triglycerides 188 mg/dL (2-149) H 07/05/19 21:07 Cholesterol 115 mg/dL (50-199) 07/05/19 21:07 LDL Cholesterol Direct 47 mg/dL (50-130) L 07/05/19 21:07 HDL Cholesterol 35 mg/dL (40-59) L 07/05/19 21:07 Cholesterol/HDL Ratio 3.28 % 07/05/19 21:07 Oxcarbazepine See scanned result 07/20/19 07:59 Last Vital Signs Temp 98.1 F 08/06/19 09:17 Pulse 88 08/08/19 08:22 Resp 18 08/08/19 08:22 BP 130/80 08/08/19 08:22 Pulse Ox 86 08/08/19 08:22
[2019-08-08] MEDS: INSULIN REGULAR, HUMAN 100 UNITS/1 ML SUB-Q SCH ×4 (10:43→21:07)
[2019-08-08] MEDS: diphenhydrAMINE 25 MG CAP PO SCH ×4 (10:44→20:47)
[2019-08-08] MEDS: PROPRANOLOL 10 MG TAB PO SCH ×4 (10:44→20:50)
[2019-08-08] MEDS: traZODone 50 MG TAB PO SCH ×5 (10:44→21:01)
[2019-08-08] MEDS: CLOZAPINE 300 MG PO SCH ×3 (10:44→20:47)
[2019-08-08] MEDS: clonazePAM 0.5 MG TAB PO SCH ×5 (10:45→21:01)
[2019-08-08] MEDS: GLYCOPYRROLATE 1 MG TAB PO SCH ×3 (10:45→20:46)
[2019-08-08] MEDS: CLOPIDOGREL 75 MG TAB PO SCH (12:34)
[2019-08-08] MEDS: POTASSIUM CHLORIDE ER 10 MEQ TAB PO SCH (12:36)
[2019-08-08] MEDS: OXcarbazepine 150 MG TAB PO SCH ×2 (12:36→21:04)
[2019-08-08] MEDS: LINAGLIPTIN 5 MG TAB PO SCH (12:37)
[2019-08-08] MEDS: HALOPERIDOL 5 MG TAB PO SCH ×2 (12:56→21:04)
[2019-08-08] MEDS: CLOTRIMAZOLE/BETAMETHASONE CREAM 15 GM TP SCH ×2 (12:57→21:05)
[2019-08-08] MEDS: MELATONIN 5 MG TAB PO SCH (21:05)
--- NOTE | 2019-08-09 07:44 | Progress Note ---
Subjective Date of service: 08/09/19 Principal diagnosis: Bipolar Disorder, Current Episode Manic w/Phsychotic Features Subjective Comment: The patient's medical record was reviewed and the patient's progress was discussed with the nursing staff. per chart Pt rested for 5 hours after hs medication. Woke 0340 and started pacing hallway and mumbling. No acute distress observed. During my interview with the patient this morning, the patient was noted pacing the hallway, he aaox1 to name only, he is dressed appropriately. The patient is uncooperative at time with disorganized behaviors. He maintains intermittent eye contact, speech is garbled patient is constantly mumbling a song while pac es. When asked about his mood The Patient kept Pacing and Mumbling a song. When asked about suicidal ideation, the patient kept pacing and mumbling. He appears much calmer this morning. no increase agitation noted this morning. per chart pt rested about 5 hours, but the patient slept most of the day yesterday. Reason for continuing inpatient treatment: disorganized/improving treatment REVIEW OF SYSTEMS Unable to complete due to patient's condition MSE Unable to assess Treatment Plan Due to the psychiatric conditions and treatment listed in the Assessment and Plan - the patient requires continued hospitalization. Will continue inpatient treatment to allow for medication adjustment and monitoring. Will continue q15 min safety checks. Will encourage the use of environmental modifications and non-pharmacologic approaches for the management of behavioral and psychological symptoms. Medication adjustment made today: none Will continue current psych medications Monitor for medication side effects. cbc with diff 08/10/2019 The patient will continue on medications for physical illnesses, and Hospitalist will closely monitor these Continue intensive physical and occupational therapies. Monitor patient's mood, sleep, appetite, and behavior closely. Encourage patient to participate in individual and group therapeutic sessions on the irizarry. Will provide a safe and therapeutic environment for patient. Medications and Allergies Allergies Allergy/AdvReac Type Severity Reaction Status Date / Time aripiprazole [From Abilify] Allergy Hives Verified 06/27/19 09:43 aspirin Allergy Hives Verified 06/27/19 09:43 cephalexin [From Keflex] Allergy Hives Verified 06/27/19 09:43 chlorpromazine Allergy Hives Verified 06/27/19 09:43 ibuprofen Allergy Hives Verified 06/27/19 09:43 naproxen Allergy Hives Verified 06/27/19 09:43 risperidone [From Risperdal] Allergy Hives Verified 07/20/19 08:16 ziprasidone [From Geodon] Allergy Hives Verified 06/27/19 09:43 Home Medications Medication Instructions Recorded Confirmed Last Taken Type AtorvaSTATin [Lipitor] 40 mg PO QHS 06/27/19 07/05/19 06/26/19 History Benztropine [Cogentin] 0.5 mg PO TID 06/27/19 07/05/19 06/26/19 History Clopidogrel [Plavix] 75 mg PO QDAY 06/27/19 07/05/19 06/26/19 History Fenofibrate 160 mg PO QDAY 06/27/19 07/05/19 06/26/19 History LORazepam [Ativan] 1 mg PO TID PRN 06/27/19 07/05/19 06/26/19 History Melatonin [Melatonin 5MG CAP] 5 mg PO QHS 06/27/19 07/05/19 06/26/19 History Metoprolol [Lopressor TAB] 100 mg PO QDAY 06/27/19 07/05/19 06/26/19 History OXcarbazepine [Oxtellar XR] 600 mg PO BID 06/27/19 07/05/19 06/26/19 History Sertraline [Zoloft] 50 mg PO QDAY 06/27/19 07/05/19 06/26/19 History Sitagliptin Phos/Metformin HCl 100 mg PO QDAY 06/27/19 07/05/19 06/26/19 History [Janumet 50-1,000 mg Tablet] cloZAPine 800 mg PO QHS 06/27/19 07/05/19 06/26/19 History diphenhydrAMINE [Benadryl CAP] 25 mg PO TID 06/27/19 07/05/19 06/26/19 History Insulin Regular, Human [HumuLIN R] 0 units SUB-Q Q6HR units 07/05/19 07/06/19 Unknown Rx haloperidoL [Haldol] 5 mg PO BID tablet 07/05/19 07/05/19 Unknown Rx metFORMIN [Glucophage] 1,000 mg PO DAILY tablet 07/05/19 07/05/19 Unknown Rx Active Meds: Active Medications Atorvastatin Calcium (Lipitor) 40 mg PO QHS [facility] Last Admin: 08/08/19 21:03 Dose: 40 mg Documented by: Clonazepam (Klonopin) 1 mg PO QID [facility] Last Admin: 08/08/19 21:01 Dose: 1 mg Documented by: Clopidogrel Bisulfate (Plavix) 75 mg PO QDAY [facility] Last Admin: 08/08/19 12:34 Dose: 75 mg Documented by: Clotrimazole (Clotrimazole/Betamethasone) 1 applic TP BID [facility] Last Admin: 08/08/19 21:05 Dose: 1 applic Documented by: Diphenhydramine HCl (Benadryl) 25 mg PO TID [facility] Last Admin: 08/08/19 20:47 Dose: 25 mg Documented by: Glycopyrrolate (Robinul) 2 mg PO TID [facility] Last Admin: 08/08/19 20:46 Dose: 2 mg Documented by: Haloperidol (Haldol) 5 mg PO BID [facility] Last Admin: 08/08/19 21:04 Dose: 5 mg Documented by: Haloperidol Lactate (Haldol) 5 mg IM Q6H PRN PRN Reason: Agitation Last Admin: 08/07/19 15:08 Dose: 5 mg Documented by: Insulin Human Regular (Humulin R) 0 units SUB-Q ACHS [facility]; Protocol Last Admin: 08/08/19 21:07 Dose: Not Given Documented by: Linagliptin (Tradjenta) 5 mg PO QDAY [facility] Last Admin: 08/08/19 12:37 Dose: 5 mg Documented by: Lorazepam (Ativan) 2 mg IM Q6H PRN PRN Reason: Agitation Last Admin: 08/07/19 21:28 Dose: 2 mg Documented by: Melatonin (Melatonin) 10 mg PO QHS [facility] Last Admin: 08/08/19 21:05 Dose: 10 mg Documented by: Metformin HCl (Glucophage Xr) 1,000 mg PO QDDIAB [facility] Last Admin: 08/08/19 08:00 Dose: Not Given Documented by: Miscellaneous Medication (Clozapine) 300 mg PO TID [facility] Last Admin: 08/08/19 20:47 Dose: 300 mg Documented by: Oxcarbazepine (Trileptal) 600 mg PO BID [facility] Last Admin: 08/08/19 21:04 Dose: 600 mg Documented by: Potassium Chloride (K-Dur) 30 meq PO QDAY [facility] Last Admin: 08/08/19 12:36 Dose: 30 meq Documented by: Propranolol HCl (Inderal) 20 mg PO TID [facility] Last Admin: 08/08/19 20:50 Dose: Not Given Documented by: Trazodone HCl (Desyrel) 25 mg PO TID [facility] Last Admin: 08/08/19 20:48 Dose: 25 mg Documented by: Trazodone HCl (Desyrel) 50 mg PO QHS [facility] Last Admin: 08/08/19 21:01 Dose: 50 mg Documented by: Results - Results Labs/Vitals: Laboratory Last Values WBC 7.0 K/mm3 (4.5-11.0) 08/02/19 07:29 RBC 3.62 M/mm3 (3.65-5.03) L 08/02/19 07: Hgb 11.0 gm/dl (11.8-15.2) L 08/02/19 07:29 Hct 32.5 % (35.5-45.6) L 08/02/19 07:29 MCV 90 fl (84-94) 08/02/19 07: MCH 31 pg (28-32) 08/02/19 07: MCHC 34 % (32-34) 08/02/19 07: RDW 14.9 % (13.2-15.2) 08/02/19 07:29 Plt Count 187 K/mm3 (140-440) 08/02/19 07:29 Lymph % (Auto) 16.7 % (13.4-35.0) 08/02/19 07:29 [place] % (Auto) 10.3 % (0.0-7.3) H 08/02/19 07:29 Eos % (Auto) 1.4 % (0.0-4.3) 08/02/19 07:29 Baso % (Auto) 0.6 % (0.0-1.8) 08/02/19 07:29 Lymph # 1.2 K/mm3 (1.2-5.4) 08/02/19 07:29 [place] # 0.7 K/mm3 (0.0-0.8) 08/02/19 07:29 Eos # 0.1 K/mm3 (0.0-0.4) 08/02/19 07:29 Baso # 0.0 K/mm3 (0.0-0.1) 08/02/19 07:29 Add Manual Diff Complete 07/21/19 10:54 Total Counted 100 07/21/19 10:54 Seg Neutrophils % 71.0 % (40.0-70.0) H 08/02/19 07:29 Seg Neuts % (Manual) 87.0 % (40.0-70.0) H 07/21/19 10:54 Band Neutrophils % 0 % 07/21/19 10:54 Lymphocytes % (Manual) 8.0 % (13.4-35.0) L 07/21/19 10:54 Reactive Lymphs % (Man) 0 % 07/21/19 10:54 Monocytes % (Manual) 5.0 % (0.0-7.3) 07/21/19 10:54 Eosinophils % (Manual) 0 % (0.0-4.3) 07/21/19 10:54 Basophils % (Manual) 0 % (0.0-1.8) 07/21/19 10:54 Metamyelocytes % 0 % 07/21/19 10:54 Myelocytes % 0 % 07/21/19 10:54 Promyelocytes % 0 % 07/21/19 10:54 Blast Cells % 0 % 07/21/19 10:54 Nucleated RBC % Not Reportable 07/21/19 10:54 Seg Neutrophils # 4.9 K/mm3 (1.8-7.7) 08/02/19 07:29 Seg Neutrophils # Man 8.9 K/mm3 (1.8-7.7) H 07/21/19 10:54 Band Neutrophils # 0.0 K/mm3 07/21/19 10:54 Lymphocytes # (Manual) 0.8 K/mm3 (1.2-5.4) L 07/21/19 10:54 Abs React Lymphs (Man) 0.0 K/mm3 07/21/19 10:54 Monocytes # (Manual) 0.5 K/mm3 (0.0-0.8) 07/21/19 10:54 Eosinophils # (Manual) 0.0 K/mm3 (0.0-0.4) 07/21/19 10:54 Basophils # (Manual) 0.0 K/mm3 (0.0-0.1) 07/21/19 10:54 Metamyelocytes # 0.0 K/mm3 07/21/19 10:54 Myelocytes # 0.0 K/mm3 07/21/19 10:54 Promyelocytes # 0.0 K/mm3 07/21/19 10:54 Blast Cells # 0.0 K/mm3 07/21/19 10:54 WBC Morphology Not Reportable 07/21/19 10:54 Hypersegmented Neuts Not Reportable 07/21/19 10:54 Hyposegmented Neuts Not Reportable 07/21/19 10:54 Hypogranular Neuts Not Reportable 07/21/19 10:54 Smudge Cells Not Reportable 07/21/19 10:54 Toxic Granulation Not Reportable 07/21/19 10:54 Toxic Vacuolation Not Reportable 07/21/19 10:54 Dohle Bodies Not Reportable 07/21/19 10:54 Pelger-Huet Anomaly Not Reportable 07/21/19 10:54 Adiel Rods Not Reportable 07/21/19 10:54 Platelet Estimate Consistent w auto 07/21/19 10:54 Clumped Platelets Not Reportable 07/21/19 10:54 Plt Clumps, EDTA Not Reportable 07/21/19 10:54 Large Platelets Not Reportable 07/21/19 10:54 Giant Platelets Not Reportable 07/21/19 10:54 Platelet Satelliting Not Reportable 07/21/19 10:54 Plt Morphology Comment Not Reportable 07/21/19 10:54 RBC Morphology Normal 07/21/19 10:54 Dimorphic RBCs Not Reportable 07/21/19 10:54 Polychromasia Not Reportable 07/21/19 10:54 Hypochromasia Not Reportable 07/21/19 10:54 Poikilocytosis Not Reportable 07/21/19 10:54 Anisocytosis Not Reportable 07/21/19 10:54 Microcytosis Not Reportable 07/21/19 10:54 Macrocytosis Not Reportable 07/21/19 10:54 Spherocytes Not Reportable 07/21/19 10:54 Pappenheimer Bodies Not Reportable 07/21/19 10:54 Sickle Cells Not Reportable 07/21/19 10:54 Target Cells Not Reportable 07/21/19 10:54 Tear Drop Cells Not Reportable 07/21/19 10:54 Ovalocytes Not Reportable 07/21/19 10:54 Helmet Cells Not Reportable 07/21/19 10:54 [place] Bodies Not Reportable 07/21/19 10:54 [place] Rings Not Reportable 07/21/19 10:54 [place] Cells Not Reportable 07/21/19 10:54 Bite Cells Not Reportable 07/21/19 10:54 Crenated Cell Not Reportable 07/21/19 10:54 Elliptocytes Not Reportable 07/21/19 10:54 Acanthocytes (Spur) Not Reportable 07/21/19 10:54 Rouleaux Not Reportable 07/21/19 10:54 Hemoglobin C Crystals Not Reportable 07/21/19 10:54 Schistocytes Not Reportable 07/21/19 10:54 Malaria parasites Not Reportable 07/21/19 10:54 Denzel Bodies Not Reportable 07/21/19 10:54 Hem Pathologist Commnt No 07/21/19 10:54 Sodium 139 mmol/L (137-145) 08/02/19 07:29 Potassium 3.9 mmol/L (3.6-5.0) 08/02/19 07:29 Chloride 101.9 mmol/L (98-107) 08/02/19 07:29 Carbon Dioxide 22 mmol/L (22-30) 08/02/19 07:29 Anion Gap 19 mmol/L 08/02/19 07:29 BUN 11 mg/dL (9-20) 08/02/19 07:29 Creatinine 0.6 mg/dL (0.8-1.5) L 08/02/19 07:29 Estimated GFR > 60 ml/min 08/02/19 07:29 BUN/Creatinine Ratio 18 % 08/02/19 07:29 Glucose 92 mg/dL (75-100) 08/02/19 07:29 POC Glucose 152 (70-105) H 08/08/19 19:35 Hemoglobin A1c 6.3 % (4-6) H 07/05/19 21:07 Calcium 9.1 mg/dL (8.4-10.2) 08/02/19 07:29 Total Bilirubin 0.20 mg/dL (0.1-1.2) 08/02/19 07:29 AST 26 units/L (5-40) 08/02/19 07:29 ALT 27 units/L (7-56) 08/02/19 07:29 Alkaline Phosphatase 80 units/L (35-129) 08/02/19 07:29 Total Protein 5.3 g/dL (6.3-8.2) L 08/02/19 07:29 Albumin 3.4 g/dL (3.9-5) L 08/02/19 07:29 Albumin/Globulin Ratio 1.8 % 08/02/19 07:29 Triglycerides 188 mg/dL (2-149) H 07/05/19 21:07 Cholesterol 115 mg/dL (50-199) 07/05/19 21:07 LDL Cholesterol Direct 47 mg/dL (50-130) L 07/05/19 21:07 HDL Cholesterol 35 mg/dL (40-59) L 07/05/19 21:07 Cholesterol/HDL Ratio 3.28 % 07/05/19 21:07 Oxcarbazepine See scanned result 07/20/19 07:59 Last Vital Signs Temp 98.1 F 08/06/19 09:17 Pulse 101 H 08/08/19 20:50 Resp 18 08/08/19 08:22 BP 84/64 08/08/19 20:50 Pulse Ox 86 08/08/19 08:22
[2019-08-09] MEDS: CLOZAPINE 300 MG PO SCH ×3 (10:41→21:01)
[2019-08-09] MEDS: metFORMIN XR 500MG TAB PO SCH (10:42)
[2019-08-09] MEDS: HALOPERIDOL 5 MG TAB PO SCH ×2 (10:43→21:02)
[2019-08-09] MEDS: diphenhydrAMINE 25 MG CAP PO SCH ×3 (10:43→21:01)
[2019-08-09] MEDS: LINAGLIPTIN 5 MG TAB PO SCH (10:43)
[2019-08-09] MEDS: traZODone 50 MG TAB PO SCH ×4 (10:44→21:03)
[2019-08-09] MEDS: clonazePAM 0.5 MG TAB PO SCH ×4 (10:45→21:02)
[2019-08-09] MEDS: OXcarbazepine 150 MG TAB PO SCH ×2 (10:47→21:04)
[2019-08-09] MEDS: POTASSIUM CHLORIDE ER 10 MEQ TAB PO SCH (10:48)
[2019-08-09] MEDS: CLOPIDOGREL 75 MG TAB PO SCH (10:48)
[2019-08-09] MEDS: PROPRANOLOL 10 MG TAB PO SCH ×3 (10:49→20:54)
[2019-08-09] MEDS: GLYCOPYRROLATE 1 MG TAB PO SCH ×3 (10:50→20:55)
[2019-08-09] MEDS: INSULIN REGULAR, HUMAN 100 UNITS/1 ML SUB-Q SCH ×3 (10:50→17:46)
[2019-08-09] MEDS: CLOTRIMAZOLE/BETAMETHASONE CREAM 15 GM TP SCH ×2 (17:47→22:28)
[2019-08-09] MEDS: MELATONIN 5 MG TAB PO SCH (21:01)
--- NOTE | 2019-08-10 08:46 | Progress Note ---
Subjective Date of service: 08/10/19 Principal diagnosis: Bipolar Disorder, Current Episode Manic w/Phsychotic Features Subjective Comment: The patient's medical record was reviewed and the patient's progress was discussed with the nursing staff. per chart Pt was compliant with meds crushed in yogurt and frequent prompting. Pt continued to pace until he became tired and layed on the chair in the activity room. Appetite poor but pt had yogurt and juice. He was assisted to bed by staff and offered no resistance. Pt slept for 8 hrs. Will continue to monitor q 15 min for safety. During my interview with the patient this morning, the patient was noted pacing the hallway, he aaox1 to name only, he is dressed appropriately. The patient is uncooperative at time with disorganized behaviors. He maintains intermittent eye contact, speech is garbled patient is constantly mumbling a song while paces. When asked about his mood The Patient kept Pacing and Mumbling a song. When asked about suicidal ideation, the patient kept pacing and mumbling. No bizarre behavior noted this morning.the patient remain disorganized mildy at times, he takes short naps, but paces alot, can be easily directed at times. will continue to monitor. Reason for continuing inpatient treatment: disorganized/improving treatment REVIEW OF SYSTEMS Unable to complete due to patient's condition MSE Unable to assess Treatment Plan Due to the psychiatric conditions and treatment listed in the Assessment and Plan - the patient requires continued hospitalization. Will continue inpatient treatment to allow for medication adjustment and monitoring. Will continue q15 min safety checks. Will encourage the use of environmental modifications and non-pharmacologic approaches for the management of behavioral and psychological symptoms. Medication adjustment made today: none Will continue current psych medications Monitor for medication side effects. cbc with diff 08/10/2019 The patient will continue on medications for physical illnesses, and Hospitalist will closely monitor these Continue intensive physical and occupational therapies. Monitor patient's mood, sleep, appetite, and behavior closely. Encourage patient to participate in individual and group therapeutic sessions on the irizarry. Will provide a safe and therapeutic environment for patient. Medications and Allergies Allergies Allergy/AdvReac Type Severity Reaction Status Date / Time aripiprazole [From Abilify] Allergy Hives Verified 06/27/19 09:43 aspirin Allergy Hives Verified 06/27/19 09:43 cephalexin [From Keflex] Allergy Hives Verified 06/27/19 09:43 chlorpromazine Allergy Hives Verified 06/27/19 09:43 ibuprofen Allergy Hives Verified 06/27/19 09:43 naproxen Allergy Hives Verified 06/27/19 09:43 risperidone [From Risperdal] Allergy Hives Verified 07/20/19 08:16 ziprasidone [From Geodon] Allergy Hives Verified 06/27/19 09:43 Home Medications Medication Instructions Recorded Confirmed Last Taken Type AtorvaSTATin [Lipitor] 40 mg PO QHS 06/27/19 07/05/19 06/26/19 History Benztropine [Cogentin] 0.5 mg PO TID 06/27/19 07/05/19 06/26/19 History Clopidogrel [Plavix] 75 mg PO QDAY 06/27/19 07/05/19 06/26/19 History Fenofibrate 160 mg PO QDAY 06/27/19 07/05/19 06/26/19 History LORazepam [Ativan] 1 mg PO TID PRN 06/27/19 07/05/19 06/26/19 History Melatonin [Melatonin 5MG CAP] 5 mg PO QHS 06/27/19 07/05/19 06/26/19 History Metoprolol [Lopressor TAB] 100 mg PO QDAY 06/27/19 07/05/19 06/26/19 History OXcarbazepine [Oxtellar XR] 600 mg PO BID 06/27/19 07/05/19 06/26/19 History Sertraline [Zoloft] 50 mg PO QDAY 06/27/19 07/05/19 06/26/19 History Sitagliptin Phos/Metformin HCl 100 mg PO QDAY 06/27/19 07/05/19 06/26/19 History [Janumet 50-1,000 mg Tablet] cloZAPine 800 mg PO QHS 06/27/19 07/05/19 06/26/19 History diphenhydrAMINE [Benadryl CAP] 25 mg PO TID 06/27/19 07/05/19 06/26/19 History Insulin Regular, Human [HumuLIN R] 0 units SUB-Q Q6HR units 07/05/19 07/06/19 Unknown Rx haloperidoL [Haldol] 5 mg PO BID tablet 07/05/19 07/05/19 Unknown Rx metFORMIN [Glucophage] 1,000 mg PO DAILY tablet 07/05/19 07/05/19 Unknown Rx Active Meds: Active Medications Atorvastatin Calcium (Lipitor) 40 mg PO QHS [facility] Last Admin: 08/09/19 21:02 Dose: 40 mg Documented by: Clonazepam (Klonopin) 1 mg PO QID [facility] Last Admin: 08/09/19 21:02 Dose: 1 mg Documented by: Clopidogrel Bisulfate (Plavix) 75 mg PO QDAY [facility] Last Admin: 08/09/19 10:48 Dose: 75 mg Documented by: Clotrimazole (Clotrimazole/Betamethasone) 1 applic TP BID [facility] Last Admin: 08/09/19 22:28 Dose: Not Given Documented by: Diphenhydramine HCl (Benadryl) 25 mg PO TID [facility] Last Admin: 08/09/19 21:01 Dose: 25 mg Documented by: Glycopyrrolate (Robinul) 2 mg PO TID [facility] Last Admin: 08/09/19 20:55 Dose: 2 mg Documented by: Haloperidol (Haldol) 5 mg PO BID [facility] Last Admin: 08/09/19 21:02 Dose: 5 mg Documented by: Haloperidol Lactate (Haldol) 5 mg IM Q6H PRN PRN Reason: Agitation Last Admin: 08/07/19 15:08 Dose: 5 mg Documented by: Insulin Human Regular (Humulin R) 0 units SUB-Q ACHS [facility]; Protocol Last Admin: 08/09/19 17:46 Dose: Not Given Documented by: Linagliptin (Tradjenta) 5 mg PO QDAY [facility] Last Admin: 08/09/19 10:43 Dose: 5 mg Documented by: Lorazepam (Ativan) 2 mg IM Q6H PRN PRN Reason: Agitation Last Admin: 08/07/19 21:28 Dose: 2 mg Documented by: Melatonin (Melatonin) 10 mg PO QHS [facility] Last Admin: 08/09/19 21:01 Dose: 10 mg Documented by: Metformin HCl (Glucophage Xr) 1,000 mg PO QDDIAB [facility] Last Admin: 08/09/19 10:42 Dose: 1,000 mg Documented by: Miscellaneous Medication (Clozapine) 300 mg PO TID [facility] Last Admin: 08/09/19 21:01 Dose: 300 mg Documented by: Oxcarbazepine (Trileptal) 600 mg PO BID [facility] Last Admin: 08/09/19 21:04 Dose: 600 mg Documented by: Potassium Chloride (K-Dur) 30 meq PO QDAY [facility] Last Admin: 08/09/19 10:48 Dose: 30 meq Documented by: Propranolol HCl (Inderal) 20 mg PO TID [facility] Last Admin: 08/09/19 20:54 Dose: 20 mg Documented by: Trazodone HCl (Desyrel) 25 mg PO TID [facility] Last Admin: 08/09/19 20:52 Dose: 25 mg Documented by: Trazodone HCl (Desyrel) 50 mg PO QHS [facility] Last Admin: 08/09/19 21:03 Dose: 50 mg Documented by: Results - Results Labs/Vitals: Laboratory Last Values WBC 7.0 K/mm3 (4.5-11.0) 08/02/19 07:29 RBC 3.62 M/mm3 (3.65-5.03) L 08/02/19 07:29 Hgb 11.0 gm/dl (11.8-15.2) L 08/02/19 07:29 Hct 32.5 % (35.5-45.6) L 08/02/19 07:29 MCV 90 fl (84-94) 08/02/19 07:29 MCH 31 pg (28-32) 08/02/19 07:29 MCHC 34 % (32-34) 08/02/19 07:29 RDW 14.9 % (13.2-15.2) 08/02/19 07:29 Plt Count 187 K/mm3 (140-440) 08/02/19 07:29 Lymph % (Auto) 16.7 % (13.4-35.0) 08/02/19 07:29 [place] % (Auto) 10.3 % (0.0-7.3) H 08/02/19 07:29 Eos % (Auto) 1.4 % (0.0-4.3) 08/02/19 07:29 Baso % (Auto) 0.6 % (0.0-1.8) 08/02/19 07:29 Lymph # 1.2 K/mm3 (1.2-5.4) 08/02/19 07:29 [place] # 0.7 K/mm3 (0.0-0.8) 08/02/19 07:29 Eos # 0.1 K/mm3 (0.0-0.4) 08/02/19 07: Baso # 0.0 K/mm3 (0.0-0.1) 08/02/19 07:29 Add Manual Diff Complete 07/21/19 10:54 Total Counted 100 07/21/19 10:54 Seg Neutrophils % 71.0 % (40.0-70.0) H 08/02/19 07:29 Seg Neuts % (Manual) 87.0 % (40.0-70.0) H 07/21/19 10:54 Band Neutrophils % 0 % 07/21/19 10:54 Lymphocytes % (Manual) 8.0 % (13.4-35.0) L 07/21/19 10:54 Reactive Lymphs % (Man) 0 % 07/21/19 10:54 Monocytes % (Manual) 5.0 % (0.0-7.3) 07/21/19 10:54 Eosinophils % (Manual) 0 % (0.0-4.3) 07/21/19 10:54 Basophils % (Manual) 0 % (0.0-1.8) 07/21/19 10:54 Metamyelocytes % 0 % 07/21/19 10:54 Myelocytes % 0 % 07/21/19 10:54 Promyelocytes % 0 % 07/21/19 10:54 Blast Cells % 0 % 07/21/19 10:54 Nucleated RBC % Not Reportable 07/21/19 10:54 Seg Neutrophils # 4.9 K/mm3 (1.8-7.7) 08/02/19 07:29 Seg Neutrophils # Man 8.9 K/mm3 (1.8-7.7) H 07/21/19 10:54 Band Neutrophils # 0.0 K/mm3 07/21/19 10:54 Lymphocytes # (Manual) 0.8 K/mm3 (1.2-5.4) L 07/21/19 10:54 Abs React Lymphs (Man) 0.0 K/mm3 07/21/19 10:54 Monocytes # (Manual) 0.5 K/mm3 (0.0-0.8) 07/21/19 10:54 Eosinophils # (Manual) 0.0 K/mm3 (0.0-0.4) 07/21/19 10:54 Basophils # (Manual) 0.0 K/mm3 (0.0-0.1) 07/21/19 10:54 Metamyelocytes # 0.0 K/mm3 07/21/19 10:54 Myelocytes # 0.0 K/mm3 07/21/19 10:54 Promyelocytes # 0.0 K/mm3 07/21/19 10:54 Blast Cells # 0.0 K/mm3 07/21/19 10:54 WBC Morphology Not Reportable 07/21/19 10:54 Hypersegmented Neuts Not Reportable 07/21/19 10:54 Hyposegmented Neuts Not Reportable 07/21/19 10:54 Hypogranular Neuts Not Reportable 07/21/19 10:54 Smudge Cells Not Reportable 07/21/19 10:54 Toxic Granulation Not Reportable 07/21/19 10:54 Toxic Vacuolation Not Reportable 07/21/19 10:54 Dohle Bodies Not Reportable 07/21/19 10:54 Pelger-Huet Anomaly Not Reportable 07/21/19 10:54 Adiel Rods Not Reportable 07/21/19 10:54 Platelet Estimate Consistent w auto 07/21/19 10:54 Clumped Platelets Not Reportable 07/21/19 10:54 Plt Clumps, EDTA Not Reportable 07/21/19 10:54 Large Platelets Not Reportable 07/21/19 10:54 Giant Platelets Not Reportable 07/21/19 10:54 Platelet Satelliting Not Reportable 07/21/19 10:54 Plt Morphology Comment Not Reportable 07/21/19 10:54 RBC Morphology Normal 07/21/19 10:54 Dimorphic RBCs Not Reportable 07/21/19 10:54 Polychromasia Not Reportable 07/21/19 10:54 Hypochromasia Not Reportable 07/21/19 10:54 Poikilocytosis Not Reportable 07/21/19 10:54 Anisocytosis Not Reportable 07/21/19 10:54 Microcytosis Not Reportable 07/21/19 10:54 Macrocytosis Not Reportable 07/21/19 10:54 Spherocytes Not Reportable 07/21/19 10:54 Pappenheimer Bodies Not Reportable 07/21/19 10:54 Sickle Cells Not Reportable 07/21/19 10:54 Target Cells Not Reportable 07/21/19 10:54 Tear Drop Cells Not Reportable 07/21/19 10:54 Ovalocytes Not Reportable 07/21/19 10:54 Helmet Cells Not Reportable 07/21/19 10:54 Ritchie-[place] Bodies Not Reportable 07/21/19 10:54 [place] Rings Not Reportable 07/21/19 10:54 [place] Cells Not Reportable 07/21/19 10:54 Bite Cells Not Reportable 07/21/19 10:54 Crenated Cell Not Reportable 07/21/19 10:54 Elliptocytes Not Reportable 07/21/19 10:54 Acanthocytes (Spur) Not Reportable 07/21/19 10:54 Rouleaux Not Reportable 07/21/19 10:54 Hemoglobin C Crystals Not Reportable 07/21/19 10:54 Schistocytes Not Reportable 07/21/19 10:54 Malaria parasites Not Reportable 07/21/19 10:54 Denzel Bodies Not Reportable 07/21/19 10:54 Hem Pathologist Commnt No 07/21/19 10:54 Sodium 139 mmol/L (137-145) 08/02/19 07:29 Potassium 3.9 mmol/L (3.6-5.0) 08/02/19 07:29 Chloride 101.9 mmol/L (98-107) 08/02/19 07:29 Carbon Dioxide 22 mmol/L (22-30) 08/02/19 07:29 Anion Gap 19 mmol/L 08/02/19 07:29 BUN 11 mg/dL (9-20) 08/02/19 07:29 Creatinine 0.6 mg/dL (0.8-1.5) L 08/02/19 07:29 Estimated GFR > 60 ml/min 08/02/19 07:29 BUN/Creatinine Ratio 18 % 08/02/19 07:29 Glucose 92 mg/dL (75-100) 08/02/19 07:29 POC Glucose 107 (70-105) H 08/10/19 07:17 Hemoglobin A1c 6.3 % (4-6) H 07/05/19 21:07 Calcium 9.1 mg/dL (8.4-10.2) 08/02/19 07:29 Total Bilirubin 0.20 mg/dL (0.1-1.2) 08/02/19 07:29 AST 26 units/L (5-40) 08/02/19 07:29 ALT 27 units/L (7-56) 08/02/19 07:29 Alkaline Phosphatase 80 units/L (35-129) 08/02/19 07:29 Total Protein 5.3 g/dL (6.3-8.2) L 08/02/19 07:29 Albumin 3.4 g/dL (3.9-5) L 08/02/19 07:29 Albumin/Globulin Ratio 1.8 % 08/02/19 07:29 Triglycerides 188 mg/dL (2-149) H 07/05/19 21:07 Cholesterol 115 mg/dL (50-199) 07/05/19 21:07 LDL Cholesterol Direct 47 mg/dL (50-130) L 07/05/19 21:07 HDL Cholesterol 35 mg/dL (40-59) L 07/05/19 21:07 Cholesterol/HDL Ratio 3.28 % 07/05/19 21:07 Oxcarbazepine See scanned result 07/20/19 07:59 Last Vital Signs Temp 97.2 F L 08/09/19 22:00 Pulse 84 08/09/19 22:00 Resp 18 08/09/19 22:00 BP 99/51 08/09/19 22:00 Pulse Ox 98 08/09/19 22:00
[2019-08-10] MEDS: metFORMIN XR 500MG TAB PO SCH (09:06)
[2019-08-10] MEDS: clonazePAM 0.5 MG TAB PO SCH ×4 (09:06→22:10)
[2019-08-10] MEDS: POTASSIUM CHLORIDE ER 10 MEQ TAB PO SCH (09:07)
[2019-08-10] MEDS: OXcarbazepine 150 MG TAB PO SCH ×2 (09:07→22:07)
[2019-08-10] MEDS: HALOPERIDOL 5 MG TAB PO SCH ×2 (09:07→22:09)
[2019-08-10] MEDS: LINAGLIPTIN 5 MG TAB PO SCH (09:07)
[2019-08-10] MEDS: GLYCOPYRROLATE 1 MG TAB PO SCH ×3 (09:08→22:04)
[2019-08-10] MEDS: CLOPIDOGREL 75 MG TAB PO SCH (09:08)
[2019-08-10] MEDS: diphenhydrAMINE 25 MG CAP PO SCH ×3 (09:08→22:08)
[2019-08-10] MEDS: traZODone 50 MG TAB PO SCH ×4 (09:08→22:05)
[2019-08-10] MEDS: PROPRANOLOL 10 MG TAB PO SCH ×3 (09:08→22:08)
[2019-08-10] MEDS: CLOTRIMAZOLE/BETAMETHASONE CREAM 15 GM TP SCH ×2 (09:09→22:02)
[2019-08-10] MEDS: CLOZAPINE 300 MG PO SCH ×3 (09:10→22:03)
[2019-08-10] MEDS: INSULIN REGULAR, HUMAN 100 UNITS/1 ML SUB-Q SCH ×4 (09:18→22:01)
[2019-08-10] MEDS: MELATONIN 5 MG TAB PO SCH (22:08)
[2019-08-11 07:20] LABS: Basophils % (Auto) 0.4 % (0.0-1.8); Eosinophils # (Auto) 0.1 K/mm3 (0.0-0.4); Eosinophils % (Auto) 1.3 % (0.0-4.3); Hematocrit 38.7 % (35.5-45.6); Hemoglobin 13.1 gm/dl (11.8-15.2); Lymphocytes # (Auto) 1.5 K/mm3 (1.2-5.4); Mean Corpuscular HGB Conc 34 % (32-34); Mean Corpuscular Volume 91 fl (84-94); Monocytes # (Auto) 0.8 K/mm3 (0.0-0.8); Monocytes % (Auto) 9.3 % (0.0-7.3); Platelet Count 213 K/mm3 (140-440); Red Blood Count 4.27 M/mm3 (3.65-5.03); Red Cell Distribution Width 15.3 % (13.2-15.2)
[2019-08-11] MEDS: INSULIN REGULAR, HUMAN 100 UNITS/1 ML SUB-Q SCH ×4 (07:31→22:06)
--- NOTE | 2019-08-11 08:12 | Discharge Summary ---
Providers - Providers Date of Admission: 07/05/19 19:59 Attending physician: MADONNA ESQUEDA MD 07/05/19 18:51 Consult to Physician [CONS] Routine Comment: Consulting Provider: SEB NUNES Physician Instructions: Reason For Exam: Medical management of geripsych patient 07/23/19 18:18 Consult to Dietitian/Nutrition [CONS] Routine Physician Instructions: diarrhea after every ensure Reason For Exam: Patient is having multiple episodes of diarrhea Reason for Consult: Poor oral intake Primary care physician: [employer] Hospitalization Condition: Stable Disposition: DC-01 TO HOME OR SELFCARE Allergies/Adverse Reactions: Allergies aripiprazole [From Abilify] Allergy (Verified 06/27/19 09:43) Hives aspirin Allergy (Verified 06/27/19 09:43) Hives cephalexin [From Keflex] Allergy (Verified 06/27/19 09:43) Hives chlorpromazine Allergy (Verified 06/27/19 09:43) Hives ibuprofen Allergy (Verified 06/27/19 09:43) Hives naproxen Allergy (Verified 06/27/19 09:43) Hives risperidone [From Risperdal] Allergy (Verified 07/20/19 08:16) Hives ziprasidone [From Geodon] Allergy (Verified 06/27/19 09:43) Hives Vital Signs: Last Vital Signs Temp 97.4 F L 08/10/19 20:00 Pulse 98 H 08/10/19 22:08 Resp 20 08/10/19 20:00 BP 108/73 08/10/19 22:08 Pulse Ox 97 08/10/19 20:00 Last Lab: Laboratory Last Values WBC 9.0 K/mm3 (4.5-11.0) 08/11/19 06:48 RBC 4.27 M/mm3 (3.65-5.03) 08/11/19 06:48 Hgb 13.1 gm/dl (11.8-15.2) 08/11/19 06:48 Hct 38.7 % (35.5-45.6) 08/11/19 06:48 MCV 91 fl (84-94) 08/11/19 06:48 MCH 31 pg (28-32) 08/11/19 06:48 MCHC 34 % (32-34) 08/11/19 06:48 RDW 15.3 % (13.2-15.2) H 08/11/19 06:48 Plt Count 213 K/mm3 (140-440) 08/11/19 06:48 Lymph % (Auto) 17.0 % (13.4-35.0) 08/11/19 06:48 [place] % (Auto) 9.3 % (0.0-7.3) H 08/11/19 06:48 Eos % (Auto) 1.3 % (0.0-4.3) 08/11/19 06:48 Baso % (Auto) 0.4 % (0.0-1.8) 08/11/19 06:48 Lymph # 1.5 K/mm3 (1.2-5.4) 08/11/19 06:48 [place] # 0.8 K/mm3 (0.0-0.8) 08/11/19 06:48 Eos # 0.1 K/mm3 (0.0-0.4) 08/11/19 06:48 Baso # 0.0 K/mm3 (0.0-0.1) 08/11/19 06:48 Add Manual Diff Complete 07/21/19 10:54 Total Counted 100 07/21/19 10:54 Seg Neutrophils % 72.0 % (40.0-70.0) H 08/11/19 06:48 Seg Neuts % (Manual) 87.0 % (40.0-70.0) H 07/21/19 10:54 Band Neutrophils % 0 % 07/21/19 10:54 Lymphocytes % (Manual) 8.0 % (13.4-35.0) L 07/21/19 10:54 Reactive Lymphs % (Man) 0 % 07/21/19 10:54 Monocytes % (Manual) 5.0 % (0.0-7.3) 07/21/19 10:54 Eosinophils % (Manual) 0 % (0.0-4.3) 07/21/19 10:54 Basophils % (Manual) 0 % (0.0-1.8) 07/21/19 10:54 Metamyelocytes % 0 % 07/21/19 10:54 Myelocytes % 0 % 07/21/19 10:54 Promyelocytes % 0 % 07/21/19 10:54 Blast Cells % 0 % 07/21/19 10:54 Nucleated RBC % Not Reportable 07/21/19 10:54 Seg Neutrophils # 6.5 K/mm3 (1.8-7.7) 08/11/19 06:48 Seg Neutrophils # Man 8.9 K/mm3 (1.8-7.7) H 07/21/19 10:54 Band Neutrophils # 0.0 K/mm3 07/21/19 10:54 Lymphocytes # (Manual) 0.8 K/mm3 (1.2-5.4) L 07/21/19 10:54 Abs React Lymphs (Man) 0.0 K/mm3 07/21/19 10:54 Monocytes # (Manual) 0.5 K/mm3 (0.0-0.8) 07/21/19 10:54 Eosinophils # (Manual) 0.0 K/mm3 (0.0-0.4) 07/21/19 10:54 Basophils # (Manual) 0.0 K/mm3 (0.0-0.1) 07/21/19 10:54 Metamyelocytes # 0.0 K/mm3 07/21/19 10:54 Myelocytes # 0.0 K/mm3 07/21/19 10:54 Promyelocytes # 0.0 K/mm3 07/21/19 10:54 Blast Cells # 0.0 K/mm3 07/21/19 10:54 WBC Morphology Not Reportable 07/21/19 10:54 Hypersegmented Neuts Not Reportable 07/21/19 10:54 Hyposegmented Neuts Not Reportable 07/21/19 10:54 Hypogranular Neuts Not Reportable 07/21/19 10:54 Smudge Cells Not Reportable 07/21/19 10:54 Toxic Granulation Not Reportable 07/21/19 10:54 Toxic Vacuolation Not Reportable 07/21/19 10:54 Dohle Bodies Not Reportable 07/21/19 10:54 Pelger-Huet Anomaly Not Reportable 07/21/19 10:54 Adiel Rods Not Reportable 07/21/19 10:54 Platelet Estimate Consistent w auto 07/21/19 10:54 Clumped Platelets Not Reportable 07/21/19 10:54 Plt Clumps, EDTA Not Reportable 07/21/19 10:54 Large Platelets Not Reportable 07/21/19 10:54 Giant Platelets Not Reportable 07/21/19 10:54 Platelet Satelliting Not Reportable 07/21/19 10:54 Plt Morphology Comment Not Reportable 07/21/19 10:54 RBC Morphology Normal 07/21/19 10:54 Dimorphic RBCs Not Reportable 07/21/19 10:54 Polychromasia Not Reportable 07/21/19 10:54 Hypochromasia Not Reportable 07/21/19 10:54 Poikilocytosis Not Reportable 07/21/19 10:54 Anisocytosis Not Reportable 07/21/19 10:54 Microcytosis Not Reportable 07/21/19 10:54 Macrocytosis Not Reportable 07/21/19 10:54 Spherocytes Not Reportable 07/21/19 10:54 Pappenheimer Bodies Not Reportable 07/21/19 10:54 Sickle Cells Not Reportable 07/21/19 10:54 Target Cells Not Reportable 07/21/19 10:54 Tear Drop Cells Not Reportable 07/21/19 10:54 Ovalocytes Not Reportable 07/21/19 10:54 Helmet Cells Not Reportable 07/21/19 10:54 Ritch[place] Bodies Not Reportable 07/21/19 10:54 [place] Rings Not Reportable 07/21/19 10:54 [place] Cells Not Reportable 07/21/19 10:54 Bite Cells Not Reportable 07/21/19 10:54 Crenated Cell Not Reportable 07/21/19 10:54 Elliptocytes Not Reportable 07/21/19 10:54 Acanthocytes (Spur) Not Reportable 07/21/19 10:54 Rouleaux Not Reportable 07/21/19 10:54 Hemoglobin C Crystals Not Reportable 07/21/19 10:54 Schistocytes Not Reportable 07/21/19 10:54 Malaria parasites Not Reportable 07/21/19 10:54 Denzel Bodies Not Reportable 07/21/19 10:54 Hem Pathologist Commnt No 07/21/19 10:54 Sodium 139 mmol/L (137-145) 08/02/19 07:29 Potassium 3.9 mmol/L (3.6-5.0) 08/02/19 07:29 Chloride 101.9 mmol/L (98-107) 08/02/19 07:29 Carbon Dioxide 22 mmol/L (22-30) 08/02/19 07:29 Anion Gap 19 mmol/L 08/02/19 07:29 BUN 11 mg/dL (9-20) 08/02/19 07:29 Creatinine 0.6 mg/dL (0.8-1.5) L 08/02/19 07:29 Estimated GFR > 60 ml/min 08/02/19 07:29 BUN/Creatinine Ratio 18 % 08/02/19 07:29 Glucose 92 mg/dL (75-100) 08/02/19 07:29 POC Glucose 91 (70-105) 08/11/19 07:08 Hemoglobin A1c 6.3 % (4-6) H 07/05/19 21:07 Calcium 9.1 mg/dL (8.4-10.2) 08/02/19 07:29 Total Bilirubin 0.20 mg/dL (0.1-1.2) 08/02/19 07:29 AST 26 units/L (5-40) 08/02/19 07:29 ALT 27 units/L (7-56) 08/02/19 07:29 Alkaline Phosphatase 80 units/L (35-129) 08/02/19 07:29 Total Protein 5.3 g/dL (6.3-8.2) L 08/02/19 07:29 Albumin 3.4 g/dL (3.9-5) L 08/02/19 07:29 Albumin/Globulin Ratio 1.8 % 08/02/19 07:29 Triglycerides 188 mg/dL (2-149) H 07/05/19 21:07 Cholesterol 115 mg/dL (50-199) 07/05/19 21:07 LDL Cholesterol Direct 47 mg/dL (50-130) L 07/05/19 21:07 HDL Cholesterol 35 mg/dL (40-59) L 07/05/19 21:07 Cholesterol/HDL Ratio 3.28 % 07/05/19 21:07 Oxcarbazepine See scanned result 07/20/19 07:59 Core Measure Documentation - Palliative Care Palliative Care/ Comfort Measures: Not Applicable - Core Measures Any of the following diagnoses?: none Exam - Constitutional Vitals: Temp Pulse Resp BP Pulse Ox 97.4 F L 98 H 20 108/73 97 08/10/19 20:00 03/15/20 22:08 08/10/19 20:00 08/10/19 22:08 08/10/19 20:00 - EENT Eyes: Present: PERRL, EOM intact ENT: hearing intact, clear oral mucosa - Neck Neck: Present: supple, normal ROM - Respiratory Respiratory effort: normal - Abdominal Male genitourinary: Present: normal - Integumentary Integumentary: Present: clear, warm, dry Plan Activity: advance as tolerated Weight Bearing Status: Weight Bear as Tolerated Care Plan Goals: Maintain good and stable mental health Plan of Treatment: The patient should be complaint with medications, not use drugs, and not drink alcohol. The patient understands that if suicidal, homicidal or endangering feelings arise he should seek assistance including but not limited to calling 911, the crisis hotline, and the emergency room. Follow up with outpatient psychiatry and primary doctor in 7 to 14 days Health Concerns: Acute kidney injury, respiratory failure, pneumonia, diabetes Assessment: Bipolar disorder current episode Follow up with: PRIMARY CARE, [Primary Care Provider] - 7 Days Prescriptions: traZODone [Desyrel] 50 mg PO QHS #30 tablet Melatonin [Melatonin 5MG TAB] 10 mg PO QHS #30 tablet diphenhydrAMINE [Benadryl CAP] 25 mg PO TID #90 cap diphenhydrAMINE [Benadryl CAP] 25 mg PO TID #90 capsule Clozapine 300 mg PO TID #90 Benztropine [Cogentin] 0.5 mg PO TID #90 traZODone [Desyrel] 25 mg PO TID #90 tablet haloperidoL [Haldol] 5 mg PO BID #60 tablet propranoloL [Inderal] 20 mg PO TID #90 tablet clonazePAM [KlonoPIN] 1 mg PO QID #120 tablet OXcarbazepine [Oxtellar XR] 600 mg PO BID #60 Glycopyrrolate [Robinul] 2 mg PO TID #90 tablet Linagliptin [Tradjenta] 5 mg PO QDAY #30 tablet Sertraline [Zoloft] 50 mg PO QDAY #30
[2019-08-11] MEDS: GLYCOPYRROLATE 1 MG TAB PO SCH ×3 (08:15→20:16)
[2019-08-11] MEDS: diphenhydrAMINE 25 MG CAP PO SCH ×3 (08:15→20:17)
[2019-08-11] MEDS: traZODone 50 MG TAB PO SCH ×4 (08:15→22:05)
[2019-08-11] MEDS: metFORMIN XR 500MG TAB PO SCH (08:16)
[2019-08-11] MEDS: CLOZAPINE 300 MG PO SCH ×3 (08:45→20:16)
[2019-08-11] MEDS: POTASSIUM CHLORIDE ER 10 MEQ TAB PO SCH ×2 (09:37→11:45)
[2019-08-11] MEDS: LINAGLIPTIN 5 MG TAB PO SCH ×2 (09:38→11:57)
[2019-08-11] MEDS: CLOPIDOGREL 75 MG TAB PO SCH ×2 (09:38→11:57)
[2019-08-11] MEDS: HALOPERIDOL 5 MG TAB PO SCH ×2 (09:38→22:05)
[2019-08-11] MEDS: CLOTRIMAZOLE/BETAMETHASONE CREAM 15 GM TP SCH ×2 (09:41→22:05)
[2019-08-11] MEDS: OXcarbazepine 150 MG TAB PO SCH ×2 (09:49→22:06)
[2019-08-11] MEDS: PROPRANOLOL 10 MG TAB PO SCH ×3 (11:26→20:16)
[2019-08-11] MEDS: clonazePAM 0.5 MG TAB PO SCH ×5 (11:26→22:05)
[2019-08-11] MEDS: HALOPERIDOL LACTATE 5 MG/1 ML INJ IM PRN (11:39)
[2019-08-11] MEDS: LORazepam 2 MG/ML VIAL IM PRN (11:40)
[2019-08-11] MEDS: MELATONIN 5 MG TAB PO SCH (22:05)
[2019-08-12] MEDS: INSULIN REGULAR, HUMAN 100 UNITS/1 ML SUB-Q SCH ×2 (07:36→11:28)
[2019-08-12] MEDS: diphenhydrAMINE 25 MG CAP PO SCH ×2 (08:15→13:49)
[2019-08-12] MEDS: CLOZAPINE 300 MG PO SCH ×2 (08:16→13:55)
[2019-08-12] MEDS: traZODone 50 MG TAB PO SCH ×2 (08:18→13:48)
[2019-08-12] MEDS: metFORMIN XR 500MG TAB PO SCH (08:20)
[2019-08-12] MEDS: GLYCOPYRROLATE 1 MG TAB PO SCH ×2 (08:21→13:49)
[2019-08-12] MEDS: PROPRANOLOL 10 MG TAB PO SCH ×2 (08:27→13:56)
[2019-08-12 08:28] VITALS: BP 125/70
[2019-08-12] MEDS: CLOTRIMAZOLE/BETAMETHASONE CREAM 15 GM TP SCH (09:02)
[2019-08-12] MEDS: POTASSIUM CHLORIDE ER 10 MEQ TAB PO SCH (09:03)
[2019-08-12] MEDS: CLOPIDOGREL 75 MG TAB PO SCH (09:03)
[2019-08-12] MEDS: clonazePAM 0.5 MG TAB PO SCH ×2 (09:03→15:00)
[2019-08-12] MEDS: LINAGLIPTIN 5 MG TAB PO SCH (09:03)
[2019-08-12] MEDS: HALOPERIDOL 5 MG TAB PO SCH (09:03)
[2019-08-12] MEDS: OXcarbazepine 150 MG TAB PO SCH (10:46)
[2019-08-12] MEDS: LORazepam 2 MG/ML VIAL IM PRN (14:22)
[2019-08-12] MEDS: HALOPERIDOL LACTATE 5 MG/1 ML INJ IM PRN (14:23)
== END 2019-08-12 15:15 | disposition home or self-care (01) | DRG 885 ==
LOC: 3A 13:16 → UNDOADMIN 13:16 → 5A 19:59
PROVIDERS: ADMIT Psychiatry & Neurology Psychiatry; ATTEND Psychiatry & Neurology Psychiatry
DX: F31.2 Bipolar disorder, current episode manic severe with psychotic features (principal); E87.0 Hyperosmolality and hypernatremia; E11.9 Type 2 diabetes mellitus without complications; I10 Essential (primary) hypertension; E87.6 Hypokalemia; E78.5 Hyperlipidemia, unspecified; R21 Rash and other nonspecific skin eruption; Z79.4 Long term (current) use of insulin; Z88.1 Allergy status to other antibiotic agents; Z88.3 Allergy status to other anti-infective agents; Z88.8 Allergy status to other drugs, medicaments and biological substances; Z86.73 Personal history of transient ischemic attack (TIA), and cerebral infarction without residual deficits
CPT/HCPCS: 36415; 71045; 80048; 80053; 80061; 82962; 83036; 85007; 85025; 85027; G0378; A9270-GY; J1630; J1815; J2060; J3246; J3486; J7509